=== PATIENT | male | born 1955 | race Caucasian/White ===

== ENCOUNTER 2019-09-23 06:44 | Outpatient (CLI) | payer MEDICARE, SELFPAY ==
[2019-09-23 07:50] LABS: Hemoglobin A1C 6.9 % (<5.7)
[2019-09-23 08:16] LABS: Alanine Aminotransferase 14 U/L (4-50); Albumin Level 4.1 g/dL (3.5-5.1); Alkaline Phosphatase 80 U/L (38-126); Aspartate Amino Transferase 26 U/L (17-59); Blood Urea Nitrogen 21 mg/dL (9-20); Calcium 8.7 mg/dL (8.4-10.2); Carbon Dioxide 31 mmol/L (22-30); Chloride 98 mmol/L (98-107); Cholesterol 105 mg/dL (0-200); Estimated Glomerular Filt Rate > 60; Glucose 131 mg/dL (75-110); HDL Direct 30 mg/dL; LDL Cholesterol Direct 58 mg/dL; Prostate Specific Antigen 0.2 ng/mL (< OR = 4.0); Sodium 134 mmol/L (137-145); Triglycerides 95 mg/dL (<150)
== END 2019-09-23 06:45 | disposition home or self-care (01) ==
PROVIDERS: PCP Internal Medicine; Visit Provider Nurse Practitioner
DX: E11.40 Type 2 diabetes mellitus with diabetic neuropathy, unspecified (principal); K74.0 Hepatic fibrosis; E78.5 Hyperlipidemia, unspecified; Z12.5 Encounter for screening for malignant neoplasm of prostate
CPT/HCPCS: 36415; 80053; 80061; 82248; 83036; 84153; G0103

== ENCOUNTER 2020-03-26 06:45 | Outpatient (CLI) | payer MEDICARE, SELFPAY ==
[2020-03-26 08:02] LABS: Hemoglobin A1C 6.5 % (<5.7)
[2020-03-26 08:08] LABS: Alanine Aminotransferase 15 U/L (4-50); Albumin Level 3.9 g/dL (3.5-5.1); Alkaline Phosphatase 75 U/L (38-126); Anion Gap 5 mmol/L (8-16); Aspartate Amino Transferase 26 U/L (17-59); Bilirubin,Total 0.8 mg/dL (0.2-1.3); Blood Urea Nitrogen 17 mg/dL (9-20); Calcium 8.9 mg/dL (8.4-10.2); Carbon Dioxide 33 mmol/L (22-30); Chloride 99 mmol/L (98-107); Cholesterol 111 mg/dL (0-200); Estimated Glomerular Filt Rate > 60; Glucose 143 mg/dL (75-110); HDL Direct 35 mg/dL; Potassium 4.5 mmol/L (3.4-5.0); Sodium 137 mmol/L (137-145); Triglycerides 64 mg/dL (<150)
[2020-03-26 08:19] LABS: LDL Cholesterol Direct 59 mg/dL
== END 2020-03-26 06:46 | disposition home or self-care (01) ==
PROVIDERS: PCP Internal Medicine; Visit Provider Nurse Practitioner
DX: E11.40 Type 2 diabetes mellitus with diabetic neuropathy, unspecified (principal); K74.00 Hepatic fibrosis, unspecified; E78.5 Hyperlipidemia, unspecified
CPT/HCPCS: 36415; 80053; 80061; 82248; 83036

== ENCOUNTER 2020-03-29 05:38 | Emergency (ER) | payer MEDICARE, SELFPAY ==
[2020-03-29 05:42] VITALS: BP 186/83; PULSE 81; RESP 16; TEMP 36.6; O2SAT 96
--- NOTE | 2020-03-29 05:55 | ED.GENADULT ---
HPI - General Adult General Chief complaint: Extremity Injury, Lower Stated complaint: lower leg bleeding Time Seen by Provider: 03/29/20 05:48 History of Present Illness HPI narrative: Patient is a 64-year-old gentleman who presents the emergency department with chief complaint of bleeding wound on the left leg. The patient reports he has got some small scabs on his lower extremity that one of them came off this evening and he started bleeding. The patient states that he had a large amount of bleeding initially and then applied a dressing to the area and then came to the emergency department. Patient denies any trauma denies chest pain shortness of breath denies being on blood thinners. Related Data Allergies Allergy/AdvReac Type Severity Reaction Status Date / Time Penicillins Allergy Mild Hives Verified 03/28/20 09:19 Review of Systems Review of Systems: Narrative: CONSTITUTIONAL: Denies fever, chills, or sweats. EYES: Denies visual changes, redness, or discharge. ENT: Denies rhinorrhea, congestion, sore throat, or otalgia. CARDIOVASCULAR: Denies chest pain, palpitations, or edema. RESPIRATORY: Denies cough or dyspnea. GASTROINTESTINAL: Denies abdominal pain, nausea, vomiting, or diarrhea. GENITOURINARY: Denies dysuria or hematuria. SKIN: Denies rash or itching. MUSCULOSKELETAL: Denies back pain, joint pain, or myalgia. NEUROLOGIC: Denies headache, numbness, or weakness. PSYCHIATRIC: Denies anxiety or depression. A 10 system review of systems was completed on the patient and is negative except for what is stated in the HPI. Nursing and ancillary documentation was reviewed. PMFSH Past Medical History Medical History Screening for prostate cancer Family History Family History Sibling Family history of multiple sclerosis Patient's sister is in good health Patient's brother is in good health Father Hypertension Family history of diabetes mellitus in first degree relative Diabetes mellitus Mother Family history of malignant neoplasm Patient's mother is Social History Social History Smoking status: Former smoker Alcohol intake: never Exam Narrative: Exam Narrative: GENERAL: Well-appearing, well-nourished, and in no acute distress. HEAD: Normocephalic, atraumatic. EYES: PERRLA and EOMI. ENT: Nares clear, no rhinorrhea or epistaxis. Mucous membranes moist. NECK: Supple. CHEST: Clear to auscultation. No respiratory distress. HEART: Regular rate and rhythm. No murmur heard. Normal peripheral pulses. ABDOMEN: Soft, nontender, nondistended, normal active bowel sounds. EXTREMITIES: Normal range of motion. No edema. SKIN: Warm, dry, small ulceration left lower extremity inferior to the knee approximately 2 mm in diameter, no active bleeding NEURO: No focal deficits. Alert and oriented x3. PSYCH: Normal mood and affect. Course Course Emergency Course: Patient is showing no signs of hemodynamic compromise. The bleeding has stopped at this point the wound was dressed and the patient will be discharged home Vital Signs Vital signs: Vital Signs Temperature 36.6 C 03/29/20 05:42 Pulse Rate 81 03/29/20 05:42 Respiratory Rate 16 03/29/20 05:42 Blood Pressure 186/83 H 03/29/20 05:42 Pulse Oximetry 96 03/29/20 05:42 Temperature 36.6 C 03/29/20 05:42 Pulse Rate 81 03/29/20 05:42 Respiratory Rate 16 03/29/20 05:42 Blood Pressure 186/83 H 03/29/20 05:42 Pulse Oximetry 96 03/29/20 05:42 Medical Decision Making Vital Signs Vital Signs: Vital Signs Temperature 36.6 C 03/29/20 05:42 Pulse Rate 81 03/29/20 05:42 Respiratory Rate 16 03/29/20 05:42 Blood Pressure 186/83 H 03/29/20 05:42 Pulse Oximetry 96 03/29/20 05:42 Temperature 36.6 C 03/29/20 05:
--- NOTE | 2020-03-29 05:57 | PC.NURSE ---
wound covered with telfa and 4x4's, renee wrapped for pressure, pt [facility].
[2020-03-29 06:04] VITALS: BP 189/86; PULSE 81; RESP 18; TEMP 36.6; O2SAT 96
== END 2020-03-29 06:06 | disposition home or self-care (01) ==
PROVIDERS: Emergency Provider Emergency Medicine; PCP Internal Medicine
DX: S80.812A Abrasion, left lower leg, initial encounter (principal); X58.XXXA Exposure to other specified factors, initial encounter
CPT/HCPCS: 99282

== ENCOUNTER 2020-05-12 06:06 | Emergency (ER) | payer MEDICARE, SELFPAY ==
[2020-05-12] VITALS (16 sets, daily range): BP systolic 149–171; BP diastolic 81–85; PULSE 70–87; RESP 13–19; TEMP 35.6; O2SAT 92–99
--- NOTE | ~2020-05-12 | XR_ITS ---
EXAMINATION: XR hip RT 2V w AP pelvis DATE: 05/12/2020 06:44 INDICATION: Right hip pain post fall TECHNIQUE: Anteroposterior view of the pelvis and anteroposterior and cross-table lateral views of th e right hip were obtained. COMPARISON: None. FINDINGS: There is a nondisplaced fracture involving the cephalad aspect of the right acetabulum which extends across the iliopectineal line. 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 No evident fractur e of the proximal femurs. IMPRESSION: 1. Acute nondisplaced right acetabular fracture. Reviewed, dictated and finalized at location A. RECORD CLERK
--- NOTE | ~2020-05-12 | CT_ITS ---
EXAMINATION: CT pelvis wo con DATE: 05/12/2020 07:35 INDICATION: Right hip pain post fall TECHNIQUE: High resolution computed tomography (CT) of the pelvis was performed without intravenous c ontrast. Additional sagittal and coronal reconstructions were performed. Automated exposure control a nd iterative reconstruction technique were employed. The dose-length product was 835.05 mGy-cm. COMPARISON: None FINDINGS: Nondisplaced acute transverse right acetabular fracture. There is <2 mm fracture gap with no signific ant incongruity along the superior articular surface of the acetabulum. Chronic nonunited fracture ac ross the left iliac crest. No other fractures identified. There is a small right hip joint hemarthros is along with a right obturator hematoma. Approximately 4 cm masslike density at the right posterior aspect of the bladder which could represent either neoplasm or potentially clot in the setting of hem aturia. At least 3 mm partially visualized stone at the lower pole of the right kidney. Visualized po rtions of the bowels including the appendix are normal. No free intraperineal gas in the pelvis. Subc utaneous edema along the anterior abdominal wall and posterior to the lumbar spine. No pathologically enlarged pelvic or inguinal lymphadenopathy. IMPRESSION: 1. Nondisplaced mildly comminuted transverse fracture of the right acetabulum. 2. 4 cm masslike density at the posterior bladder which could represent either urothelial carcinoma o r clot. Correlate with urinalysis and other ultrasound or cystoscopy. 3. Nephrolithiasis. Reviewed, dictated and finalized at location A. LLOFACIAL PROSTHETICS DENTIST IMPRESSION: 1. Nondisplaced mildly comminuted transverse fracture of the right acetabulum. 2. 4 cm masslike density at the posterior bladder which could represent either urothelial carcinoma or clot. Correlate with urinalysis and other ultrasound or cystoscopy. 3. Nephrolithiasis.
--- NOTE | 2020-05-12 06:22 | PC.NURSE ---
pt to xray via stretcher
[2020-05-12] MEDS: oxyCODONE/ACETAMINOPHEN (*CRX) 5-325 MG TABLET 1 TABLET PO (06:56)
--- NOTE | 2020-05-12 06:59 | ED.FALL ---
HPI - Fall General Chief Complaint: Fall Stated Complaint: fall, right hip injury Time Seen by Provider: 05/12/20 06:13 Source: patient Mode of arrival: ambulatory Limitations: no limitations History of Present Illness HPI Narrative: A 64-year-old male presents to the emergency department tonight after a slip and fall on the ice. Patient states that he was dropping his off at her dialysis appointment. On his way out he slipped and fell on a patch of ice on the sidewalk. Patient notes pain in his right leg and hip. He states the pain does not radiate down his leg. He states that he has numbness and tingling in this leg but that this is his normal diabetic neuropathy. Related Data Allergies Allergy/AdvReac Type Severity Reaction Status Date / Time Penicillins Allergy Mild Hives Verified 03/28/20 09:19 Review of Systems Review of Systems: Narrative: CONSTITUTIONAL: Denies fever, chills, or sweats. EYES: Denies visual changes, redness, or discharge. ENT: Denies rhinorrhea, congestion, sore throat, or otalgia. CARDIOVASCULAR: Denies chest pain, palpitations, or edema. RESPIRATORY: Denies cough or dyspnea. GASTROINTESTINAL: Denies abdominal pain, nausea, vomiting, or diarrhea. GENITOURINARY: Denies dysuria or hematuria. SKIN: Denies rash or itching. MUSCULOSKELETAL: Denies back pain, joint pain, or myalgia. Endorses pain in the right hip/buttock NEUROLOGIC: Denies headache, numbness, dizziness, or weakness. PSYCHIATRIC: Denies anxiety or depression. [facility] Past Medical History Medical History Screening for prostate cancer Family History Family History Sibling Family history of multiple sclerosis Patient's sister is in good health Patient's brother is in good health Father Hypertension Family history of diabetes mellitus in first degree relative Diabetes mellitus Mother Family history of malignant neoplasm Patient's mother is Social History Social History Smoking status: Former smoker Alcohol intake: never Exam Narrative: Exam Narrative: GENERAL: Well-appearing, well-nourished, and in no acute distress. HEAD: Normocephalic, atraumatic. EYES: PERRLA and EOMI. ENT: Nares clear, no rhinorrhea or epistaxis. Mucous membranes moist. Oropharynx without tonsillar hypertrophy exudate or other lesions. Bilateral TMs pearly [place] nonbulging NECK: Supple. No adenopathy or masses. No carotid bruits or JVD CHEST: Clear to auscultation. No respiratory distress. No wheezes rales or rhonchi HEART: Regular rate and rhythm. No murmur heard. Normal peripheral pulses. ABDOMEN: Obese soft, nontender, nondistended, normal active bowel sounds. EXTREMITIES: Normal range of motion. No edema. Limited range of motion of the right hip due to pain SKIN: Warm, dry, no rash. NEURO: No focal deficits. Alert and oriented x3. PSYCH: Normal mood and affect. Course Course Emergency Course: Patient will be signed out at 7 AM at change of shift to Dr. Kidd. Please see her documentation for final disposition. Vital Signs Vital signs: Vital Signs Temperature 35.6 C L 05/12/20 06:09 Pulse Rate 74 05/12/20 06:09 Respiratory Rate 16 05/12/20 06:09 Blood Pressure 171/81 H 05/12/20 06:09 Pulse Oximetry 99 05/12/20 06:09 Temperature 35.6 C L 05/12/20 06:09 Pulse Rate 74 05/12/20 06:09 Respiratory Rate 16 05/12/20 06:09 Blood Pressure 171/81 H 05/12/20 06:09 Pulse Oximetry 99 05/12/20 06:09 Discharge Plan Discharge Prescriptions: No Action metoprolol tartrate 25 mg tablet 25 mg PO Q12H Qty: 180 RF: 2 furosemide [Lasix] 20 mg tablet 20 mg PO QAM Qty: 90 RF: 2 magnesium oxide 400 mg (241.3 mg magnesium) tablet See Rx Instructions .ROUTE .COMPLEX Qty: 180 RF: 1 metformin 500 mg tablet 1,000 mg PO B
--- NOTE | 2020-05-12 09:54 | PC.NURSE ---
Contact patient's daughter in law for updates and ride home [phone]
== END 2020-05-12 11:03 | disposition home or self-care (01) ==
PROVIDERS: Emergency Provider General Practice; PCP Internal Medicine
DX: S32.491A Other specified fracture of right acetabulum, initial encounter for closed fracture (principal); Z87.891 Personal history of nicotine dependence; R93.41 Abnormal radiologic findings on diagnostic imaging of renal pelvis, ureter, or bladder; N20.0 Calculus of kidney; W00.0XXA Fall on same level due to ice and snow, initial encounter
CPT/HCPCS: 72192; 73502; 99284; A9270

== ENCOUNTER 2020-06-12 16:12 | Outpatient (CLI) | payer MEDICARE, SELFPAY ==
--- NOTE | ~2020-06-12 | XR_ITS ---
EXAMINATION: XR pelvis w obliques DATE: 06/12/2020 16:48 INDICATION: Unspecified fracture of right acetabulum. TECHNIQUE: 3 views of the pelvis on 5 radiographs were obtained. COMPARISON: Pelvis and right hip radiographs 05/12/2020, CT pelvis 05/12/2020 FINDINGS: There is an old fracture of left iliac wing with nonunion. There is a nondisplaced comminut ed transverse fracture of right acetabulum. There is mild osteoarthritis of the hips. There is mild l umbar spondylosis. IMPRESSION: 1. Unchanged nondisplaced comminuted transverse fracture of right acetabulum. 2. Mild osteoarthritis of the hips. Reviewed, dictated and finalized at location A. GER FIRE
== END 2020-06-12 16:13 | disposition home or self-care (01) ==
PROVIDERS: PCP Internal Medicine; Visit Provider Orthopaedic Surgery
DX: S32.401A Unspecified fracture of right acetabulum, initial encounter for closed fracture (principal); X58.XXXA Exposure to other specified factors, initial encounter; M16.0 Bilateral primary osteoarthritis of hip
CPT/HCPCS: 72190

== ENCOUNTER 2020-06-25 09:12 | Outpatient (NON) | payer MEDICARE, SELFPAY ==
[2020-06-25 09:51] LABS: Anion Gap 5 mmol/L (8-16); Blood Urea Nitrogen 21 mg/dL (9-20); Calcium 8.8 mg/dL (8.4-10.2); Carbon Dioxide 33 mmol/L (22-30); Chloride 98 mmol/L (98-107); Estimated Glomerular Filt Rate > 60; Glucose 142 mg/dL (75-110); Potassium 4.1 mmol/L (3.4-5.0); Sodium 136 mmol/L (137-145)
== END 2020-06-25 09:13 ==
PROVIDERS: PCP Internal Medicine; Visit Provider Internal Medicine
DX: S32.401D Unspecified fracture of right acetabulum, subsequent encounter for fracture with routine healing (principal); E11.40 Type 2 diabetes mellitus with diabetic neuropathy, unspecified; L40.9 Psoriasis, unspecified; I10 Essential (primary) hypertension; X58.XXXD Exposure to other specified factors, subsequent encounter
CPT/HCPCS: 80048

== ENCOUNTER 2020-07-16 07:02 | Outpatient (CLI) | payer MEDICARE, SELFPAY ==
[2020-07-16 08:40] LABS: Potassium 3.7 mmol/L (3.4-5.0)
[2020-07-16 08:48] LABS: Anion Gap 3 mmol/L (8-16); Blood Urea Nitrogen 18 mg/dL (9-20); Calcium 8.6 mg/dL (8.4-10.2); Carbon Dioxide 38 mmol/L (22-30); Chloride 97 mmol/L (98-107); Estimated Glomerular Filt Rate > 60; Glucose 173 mg/dL (75-110); Sodium 138 mmol/L (137-145)
== END 2020-07-16 07:03 | disposition home or self-care (01) ==
PROVIDERS: PCP Internal Medicine; Visit Provider Nurse Practitioner
DX: R60.9 Edema, unspecified (principal); I10 Essential (primary) hypertension
CPT/HCPCS: 36415; 80048

== ENCOUNTER 2020-10-01 07:01 | Outpatient (CLI) | payer MEDICARE, SELFPAY ==
[2020-10-01 08:32] LABS: Alanine Aminotransferase 14 U/L (4-50); Alkaline Phosphatase 73 U/L (38-126); Anion Gap 9 mmol/L (8-16); Aspartate Amino Transferase 25 U/L (17-59); Bilirubin,Total 1.1 mg/dL (0.2-1.3); Blood Urea Nitrogen 13 mg/dL (9-20); Carbon Dioxide 31 mmol/L (22-30); Chloride 98 mmol/L (98-107); Cholesterol 105 mg/dL (0-200); Estimated Glomerular Filt Rate > 60; Glucose 147 mg/dL (75-110); HDL Direct 30 mg/dL; Potassium 3.6 mmol/L (3.4-5.0); Sodium 138 mmol/L (137-145); Triglycerides 91 mg/dL (<150)
[2020-10-01 08:40] LABS: Hemoglobin A1C 7.1 % (<5.7)
[2020-10-01 08:43] LABS: LDL Cholesterol Direct 50 mg/dL
[2020-10-01 09:01] LABS: Prostate Specific Antigen 0.1 ng/mL (< OR = 4.0)
== END 2020-10-01 07:02 | disposition home or self-care (01) ==
LOC: ANHLAB 07:07
PROVIDERS: PCP Internal Medicine; Visit Provider Internal Medicine
DX: E11.40 Type 2 diabetes mellitus with diabetic neuropathy, unspecified (principal); I10 Essential (primary) hypertension; Z12.5 Encounter for screening for malignant neoplasm of prostate; E78.5 Hyperlipidemia, unspecified
CPT/HCPCS: 36415; 80053; 80061; 83036; 84153; G0103

== ENCOUNTER 2021-03-18 06:49 | Outpatient (CLI) | payer MEDICARE, SELFPAY ==
[2021-03-18 08:02] LABS: Alanine Aminotransferase 14 U/L (4-50); Albumin Level 3.8 g/dL (3.5-5.1); Alkaline Phosphatase 83 U/L (38-126); Anion Gap 6 mmol/L (8-16); Aspartate Amino Transferase 23 U/L (17-59); Bilirubin,Total 0.8 mg/dL (0.2-1.3); Blood Urea Nitrogen 15 mg/dL (9-20); Calcium 8.9 mg/dL (8.4-10.2); Carbon Dioxide 32 mmol/L (22-30); Chloride 98 mmol/L (98-107); Cholesterol 107 mg/dL (0-200); Estimated Glomerular Filt Rate > 60; Glucose 160 mg/dL (65-110); HDL Direct 33 mg/dL; Potassium 4.2 mmol/L (3.4-5.0); Sodium 136 mmol/L (137-145); Triglycerides 76 mg/dL (<150)
[2021-03-18 08:13] LABS: LDL Cholesterol Direct 54 mg/dL
[2021-03-18 08:20] LABS: Creatinine Urine 159.3 mg/dL
[2021-03-18 09:32] LABS: Microalbumin Urine Random > 1140.0 mg/L (0-16.7)
== END 2021-03-18 06:50 | disposition home or self-care (01) ==
PROVIDERS: PCP Internal Medicine; Visit Provider Nurse Practitioner
DX: E11.40 Type 2 diabetes mellitus with diabetic neuropathy, unspecified (principal); E78.5 Hyperlipidemia, unspecified
CPT/HCPCS: 36415; 80053; 80061; 82043; 83036

== ENCOUNTER 2021-04-04 06:43 | Outpatient (CLI) | payer MEDICARE, SELFPAY ==
[2021-04-04 07:25] LABS: Anion Gap 5 mmol/L (8-16); Blood Urea Nitrogen 16 mg/dL (9-20); Calcium 9.1 mg/dL (8.4-10.2); Carbon Dioxide 33 mmol/L (22-30); Chloride 95 mmol/L (98-107); Estimated Glomerular Filt Rate > 60; Glucose 162 mg/dL (65-110); Potassium 4.4 mmol/L (3.4-5.0); Sodium 133 mmol/L (137-145)
== END 2021-04-04 06:44 | disposition home or self-care (01) ==
PROVIDERS: PCP Internal Medicine; Visit Provider Internal Medicine
DX: I10 Essential (primary) hypertension (principal)
CPT/HCPCS: 36415; 80048

== ENCOUNTER 2021-04-05 06:46 | Outpatient (CLI) | payer MEDICARE, SELFPAY ==
[2021-04-05 10:32] LABS: Creatinine Urine 60.1 mg/dL
[2021-04-05 10:34] LABS: Creatinine 24 Hour Urine 1.2 gm/24 (1.0-2.0); Total Volume 24 Hour Urine 2100 ml
[2021-04-05 10:40] LABS: Total Protein Urine Random 184 mg/dL
[2021-04-05 10:41] LABS: Total Protein Urine 24 Hr 3864 mg/24hr (28-141); Total Volume 24 Hour Urine 2100 ml
== END 2021-04-05 06:47 | disposition home or self-care (01) ==
PROVIDERS: PCP Internal Medicine; Visit Provider Internal Medicine
DX: E11.9 Type 2 diabetes mellitus without complications (principal); R80.9 Proteinuria, unspecified
CPT/HCPCS: 81050; 82570; 84156

== ENCOUNTER 2021-05-03 07:01 | Outpatient (CLI) | payer MEDICARE, SELFPAY ==
[2021-05-03 08:06] LABS: Anion Gap 9 mmol/L (8-16); Blood Urea Nitrogen 24 mg/dL (9-20); Carbon Dioxide 31 mmol/L (22-30); Chloride 95 mmol/L (98-107); Estimated Glomerular Filt Rate > 60; Glucose 167 mg/dL (65-110); Sodium 135 mmol/L (137-145)
[2021-05-03 08:08] LABS: Albumin Level 4.5 g/dL (3.5-5.1); Anion Gap 10 mmol/L (8-16); Blood Urea Nitrogen 23 mg/dL (9-20); Carbon Dioxide 31 mmol/L (22-30); Chloride 95 mmol/L (98-107); Creatinine Urine 124.6 mg/dL; Estimated Glomerular Filt Rate > 60; Glucose 166 mg/dL (65-110); Phosphorus 3.8 mg/dL (2.5-4.5); Potassium 4.1 mmol/L (3.4-5.0); Sodium 136 mmol/L (137-145)
[2021-05-03 08:13] LABS: Complement C3 137 mg/dL (88-165)
[2021-05-03 08:15] LABS: Total Protein Urine Random 347 mg/dL; Ur Ttl Prot Creatinine Ratio 2.78 mg/mg (0-0.20)
[2021-05-07 09:32] LABS: Anti Glomerular Basement Memb <1.0 AI (<1.0)
[2021-05-07 16:33] LABS: Albumin 4.1 g/dL (3.8-4.8); Alpha 1 Globulin 0.3 g/dL (0.2-0.3); Alpha 2 Globulin 0.7 g/dL (0.5-0.9); Beta 1 Globulin 0.5 g/dL (0.4-0.6); Gamma Globulin 0.9 g/dL (0.8-1.7); Protein, Total 6.8 g/dL (6.1-8.1)
[2021-05-07 20:28] LABS: Creatinine, Random Urine 121 mg/dL (20-320); Total Protein/Creatinine Ratio 1802 mg/g creat (22-128)
[2021-05-08 00:15] LABS: ANCA Screen Negative (Negative)
== END 2021-05-03 07:02 | disposition home or self-care (01) ==
PROVIDERS: PCP Internal Medicine; Referring Provider Internal Medicine Nephrology; Visit Provider Internal Medicine
DX: R80.8 Other proteinuria (principal); E11.29 Type 2 diabetes mellitus with other diabetic kidney complication; I10 Essential (primary) hypertension
CPT/HCPCS: 36415; 80048; 80069; 82570; 83520; 84155; 84156; 84165; 84166; 86036; 86038; 86160; 86225

== ENCOUNTER 2021-06-17 13:12 | Outpatient (CLI) | payer MEDICARE, SELFPAY ==
--- NOTE | ~2021-06-17 | US_ITS ---
EXAMINATION: US renal BI DATE: 06/17/2021 13:55 INDICATION: Proteinuria TECHNIQUE: Multiple ultrasound grayscale images of the kidneys were obtained. COMPARISON: None. FINDINGS: The right kidney measures 9.2 x 5.7 x 7.4 cm. The left kidney measures 11.8 x 5.6 x 7.1 cm. The kidne ys demonstrate normal echogenicity. Echogenic shadowing stones at both kidneys measuring approximatel y 1.4 cm the upper pole of the right kidney and 1 cm at the lower pole of the left kidney. There is n o hydronephrosis in either kidney. 6.2 cm mass with internal vascularity within the bladder concerni ng for urothelial carcinoma. Instantly noted are echogenic and shadowing gallstones. There is also a nodular liver surface consistent with cirrhosis. IMPRESSION: 1. 6.2 cm bladder mass concerning for urothelial carcinoma. Recommend urologic consultation. Dr. Melody salazar discussed these findings with Dr. Hebert at 3:55 PM. 2. Bilateral nonobstructing nephrolithiasis. 3. Cholelithiasis. 4. Cirrhosis. Reviewed, dictated and finalized at location A. LUS PROPERTY DISPOSAL AGENT IMPRESSION: 1. 6.2 cm bladder mass concerning for urothelial carcinoma. Recommend urologic consultation. Dr. Peralta discussed these findings with Dr. Hebert at 3:55 P M. 2. Bilateral nonobstructing nephrolithiasis. 3. Cholelithiasis. 4. Cirrhosis.
== END 2021-06-17 13:13 | disposition home or self-care (01) ==
LOC: ANHIMG 13:13
PROVIDERS: PCP Internal Medicine; Visit Provider Internal Medicine Nephrology
DX: R80.8 Other proteinuria (principal); N20.0 Calculus of kidney; K80.20 Calculus of gallbladder without cholecystitis without obstruction; K76.0 Fatty (change of) liver, not elsewhere classified
CPT/HCPCS: 76775

== ENCOUNTER 2021-09-04 09:24 | Outpatient (CLI) | payer MEDICARE, SELFPAY ==
--- NOTE | 2021-09-04 09:30 | ECG_ITS ---
Measurements Intervals [place] Rate: 64 P: [place]: 0 QRS: 30 QRSD: 121 T: 94 QT: 414 QTc: 428 Interpretive Statements ATRIAL FIBRILLATION INTRAVENTRICULAR CONDUCTION DELAY BORDERLINE ST-T WAVE ABNORMALITY- INF/HIGH LAT LEADS BASELINE ARTIFACT- II, III, AVL, V4-V6 ABNORMAL ECG Electronically Signed On 09-04-2021 10:07:54 CDT by Kris Wynne D.O.
[2021-09-04 10:11] LABS: Anion Gap 6 mmol/L (8-16); Blood Urea Nitrogen 15 mg/dL (9-20); Calcium 8.3 mg/dL (8.4-10.2); Carbon Dioxide 31 mmol/L (22-30); Chloride 96 mmol/L (98-107); Estimated Glomerular Filt Rate > 60; Glucose 193 mg/dL (65-110); Potassium 4.4 mmol/L (3.4-5.0); Sodium 133 mmol/L (137-145)
== END 2021-09-04 09:25 | disposition home or self-care (01) ==
PROVIDERS: Anesthesiology; PCP Internal Medicine; Visit Provider Urology
DX: I10 Essential (primary) hypertension (principal); Z01.818 Encounter for other preprocedural examination; I45.9 Conduction disorder, unspecified; I48.91 Unspecified atrial fibrillation
CPT/HCPCS: 36415; 80048; 93005

== ENCOUNTER 2021-09-05 00:44 | Day surgery (SDC) | payer MEDICARE, SELFPAY ==
--- NOTE | 2021-09-02 09:45 | PC.NURSE ---
Report to the Outpatient Waiting Room, entrance under the green pavilion located off [facility], at time _1000 on date __09/05/21 . OR Time: __1200 . - You and your visitor will be asked a series of questions to screen for COVID 19 for your protection. - Only one visitor is allowed at this time. - The patient visitor is requested to leave or wait in car when not with patient. - A mask is required within the hospital. Patients may have clear liquids (water, carbonated beverages, clear teas, apple juice) until 3 hours prior to surgery with a maximum of 20 ounces. - No food from midnight until time of surgery - Infants may have breast milk until 4 hours before surgery, infant formula 6 hours prior to surgery. - Children will be allowed to drink immediately following surgery. If applicable, please bring a bottle or sippy cup to assist with drinking. Juice, water, soda, and popsicles are readily available. For infants on formula, please bring formula the day of surgery. Pacifiers are allowed. Take the following medications with a SIP of water the morning of surgery: __GABAPENTIN,METOPROLOL Medications to discontinue per physician ___ALL VITAMINS AND SUPPLEMENTS 3 DAYS PRE OP Date to take last dose__09/01/21 Please no make-up, nail mauritian, hairspray, perfume, deodorant, or body powder the day of surgery. No jewelry (including any body piercings) or valuables the day of surgery, leave them at home. Please take a shower or bath the night before, or the morning of, surgery with an antibacterial soap. Wear comfortable, loose fitting clothing. Children are encouraged to wear pajamas. - Jewelry must be removed prior to entering the operating room. Rings and piercings that are not removed may be cut off. - The hospital will not accept responsibility for valuables. - Please leave all valuables, including medications, at home the day of surgery. If you are going home after surgery, a licensed cdl team truck driver must drive you home. - NO public transportation without another adult. - We recommend that an adult stay with you for 24 hours following discharge. - We also recommend that you do not drive, make important decision, drink alcoholic beverages, or take any drugs that were not prescribed by your health care provider for at least 24 hours after your discharge time. For Pediatric surgeries, we recommend two adults accompany the child home (only one inside the building at this time). Follow any additional instructions given to you from your surgeon. If you or anyone in your household have experienced Covid symptoms in the past week, please notify your surgeon or the nurse liaison at the phone number below for possible testing. Telephone instructions given to __PATIENT and asked if any additional questions and then verbalized understanding. Patient advised to call surgeon office or pre surgery nurse liaison [phone] if any additional questions.
[2021-09-02 09:54] VITALS: BMI 36.6
[2021-09-05] VITALS (7 sets, daily range): BP systolic 118–147; BP diastolic 64–84; PULSE 58–80; RESP 14–20; TEMP 36.3–36.4; O2SAT 91–100
--- NOTE | ~2021-09-05 | XR_ITS ---
EXAMINATION: XR retrograde pyelogram BI DATE: 09/05/2021 12:21 INDICATION: Bilateral retrograde pyelograms TECHNIQUE: 172 fluoroscopic images of the abdomen and pelvis were obtained during procedure performed by Dr. Scott. Radiologist was not present for the imaging or procedure. The amount of fluoroscopy t jeffrey used during this procedure was 0.5 minutes. COMPARISON: Renal ultrasound dated 06/17/2021. FINDINGS: Retrograde contrast injection into first the left ureter and renal collecting system and subsequently the right ureter and renal collecting system comminuted which appears normal with no urothelial irre gularities. Chronic fracture deformity at the left iliac wing. IMPRESSION: 1. No urothelial irregularities identified either the left or right ureters and renal collecting syst ems. See procedure note for further detail. Reviewed, dictated and finalized at location B. IMPRESSION: 1. No urothelial irregularities identified either the left or right ureters and renal collecting systems. See procedure note for further detail.
--- NOTE | 2021-09-05 06:30 | WPDHPUPDATE1 ---
History and Physical Update Update Date/Time: 09/05/21 06:30 History and Physical has been reviewed, including an updated exam of the patient. There are NO changes in the patient's condition. Risks, benefits, and alternatives have been discussed and questions answered. Patient agrees to proceed with procedure.
[2021-09-05] MEDS: LACTATED RINGERS 1,000 ML 30 ML IV CONT (10:05)
[2021-09-05 10:13] LABS: Glucose Point of Care 200 mg/dl (65-105)
--- NOTE | 2021-09-05 10:23 | WPDANESEPPF ---
Anes - Initial Pre Proc Eval Procedure: Operation Date: 09/05/21 11:30 Proposed Procedures p Trans Urethral Resection Bladder Tumor - Tim Scott MD s Cystoscopy with Bilateral Retrograde Pyelogram - Tim Scott MD Date/Time: 09/05/21 10:23 Surgeon: Tim Scott MD Pre Op Diagnosis: BPH, Bladder Ca Patient Data Age: 65 Gender: M Height: 1.8 m Weight: 123.9 kg Last Vital Signs Temp 36.4 C 09/05/21 09:32 Pulse 58 L 09/05/21 09:32 Resp 20 09/05/21 09:32 BP 144/68 H 09/05/21 09:32 Pulse Ox 97 09/05/21 09:32 O2 Del Method Room Air 09/05/21 09:32 Allergies Allergy/AdvReac Type Severity Reaction Status Date / Time Penicillins Allergy Intermediate Hives Verified 09/05/21 09:51 Home Medications Medication Instructions Recorded Confirmed Type tramadol 50 mg tablet 50 mg PO BID PRN pain #60 tabs 11/15/20 09/05/21 Rx losartan 25 mg tablet 25 mg PO DAILY #90 tabs 06/14/21 09/05/21 Rx metoprolol tartrate 25 mg tablet 25 mg PO Q12H #180 tabs 06/14/21 09/05/21 Rx blood-glucose meter (True Metrix #1 ea 06/21/21 Rx Glucose Meter) furosemide 40 mg tablet (Lasix) 40 mg PO QAM #90 tabs 06/21/21 09/05/21 Rx spironolactone 50 mg tablet 50 mg PO DAILY #90 tabs 06/21/21 09/05/21 Rx blood sugar diagnostic (True #100 ea 08/19/21 Rx Metrix Glucose Test Strip) finasteride 5 mg tablet 5 mg PO DAILY 09/02/21 09/05/21 History ecsejczdhuij-xpo-nnsea acid-vit 1 tablet PO DAILY 09/02/21 09/05/21 History K-lycop 400 mcg-20 mcg-370 mcg tablet (Men's 50 Plus Multivitamin) atorvastatin 20 mg tablet 20 mg PO DAILY 09/05/21 09/05/21 History gabapentin 300 mg capsule 300 mg PO TID 09/05/21 09/05/21 History magnesium oxide 400 mg (241.3 mg 400 mg PO BID 09/05/21 09/05/21 History magnesium) tablet metformin 500 mg tablet 500 mg PO BID 09/05/21 09/05/21 History Laboratory Tests 09/05/21 10:09 POC Capillary Glucose 200 mg/dl H mg/dl (65-105) Patient hx anesthesia problems: none Family hx anesthesia problems: none Results Review: All pre-operative results and documents have been reviewed as part of the pre-operative evaluation. [facility] Past Medical History Medical History Edema Essential (primary) hypertension Hyperlipidemia, unspecified Right acetabular fracture Screening for prostate cancer Type 2 diabetes mellitus with diabetic neuropathy, unspecified Family History Family History Sibling Family history of multiple sclerosis Patient's sister is in good health Patient's brother is in good health Father Hypertension Family history of diabetes mellitus in first degree relative Diabetes mellitus Mother Family history of malignant neoplasm Patient's mother is Social History Social History Smoking status: Never smoker Tobacco type: smokeless tobacco Smokeless tobacco user: chewing tobacco Additional smoking assessment comments: CURRENTLY CHEWS TOBACCO Alcohol intake: former Drinks per week: 84 Alcohol use details: STATES HASN'T HAD A DRINK IN 10-12 YEARS NOW Substance use: never Substance use type: does not use Living arrangements: with family Spiritual care concerns: No Anes - Eval Final PreProcedure Day of Procedure 09/05/21 10:23 Patient weight: obese Heart: regular rate and rhythm Lungs: clear to auscultation Airway: Mallampati scale class II and special considerations poor dentition Neurological: alert and oriented Last oral intake: >/= 8 hours ASA classification: IV Emergent: no Anesthetic plan: proceed Anesthesia type and monitoring: general LMA and standard monitoring Results Review: All pre-operative results and documents have been reviewed as part of the pre-operative evaluation. Informed Consent: The patient's anestheti
--- NOTE | 2021-09-05 10:28 | SUR.PREOP ---
0930-PT HAS OPEN ABRASIONS X2 ON LEFT [place] AREA-STATES SCRAPED AGAINST SOMETHING A FEW DAYS AGO.
[2021-09-05] MEDS: ceFAZolin 2 GM/D5W 50 ML 2 GM/50 ML BAG IVPB (11:55)
[2021-09-05] MEDS: LIDOCAINE HCL 2% GEL UROJET 10 ML PKG MUCOUS MEM (12:21)
--- NOTE | 2021-09-05 13:17 | P.OP_ITS ---
Procedure Note - Detailed Date of Procedure 09/05/21 Pre-op Diagnosis BPH, Bladder Ca Post-op Diagnosis Same Procedure Performed Cystoscopy, bilateral retrograde pyelography, TURBT (large, 6-7 cm) Surgeon Tim Scott MD Description of Procedure The patient is brought to the operative suite where he is prepped and draped in a routine sterile fashion while in the dorsal lithotomy position. 2% lidocaine jelly was introduced in the urethra and allowed to stand for an appropriate period of time. Systemic sedation was administered by the anesthesia department. Cystoscopy was undertaken with a 21 F rigid cystoscope. The bladder neck and urethra were endoscopically normal. There were no urethral strictures. The prostatic urethral estimated length was 2.5cm. There was moderate obstruction of the prostatic urethra with a moderate median lobe. Patient's bladder has a large papillary neoplasm arising in the right posterior lateral bladder wall just lateral and superior to the ureteral orifice. There was no intravesical foreign body. He had a single orthoptic ureteral orifice bilaterally. There was clear efflux from each ureteral orifice. An 8F cone- tipped catheter was used to obtain bilateral retrograde pyelogram. There was no hydronephrosis, obstruction, filling defects, stones or other identifiable pathology in the ureter or collecting system bilaterally. The contrast drained promptly bilaterally. At this point the cystoscope was removed and a 24 F resectoscope sheath was placed. The large neoplasm was resected in its entirety with great care taken to avoid injury to the right ureteral orifice. The base of the bladder tumor was sent as a separate specimen. Base and periphery were cauterized with a combination of a loop electrode and a 5 mm rollerball. Remainder of the bladder was clear without is neoplasm. The prostatic shows some signs of papillary changes. Resectoscope was removed and 18 F catheter was placed to drainage. Because of the broad base of this bladder tumor in the need for a deeper section I opted against installation of chemotherapy postoperatively. Estimated Blood Loss 10 Drains Yes Pathology None sent
[2021-09-05 13:20] LABS: Glucose Point of Care 179 mg/dl (65-105)
[2021-09-05] MEDS: fentaNYL CITRATE INJ (*CRX) 100 MCG/2 ML VIAL 25 MCG IV PUSH ×3 (13:25→13:38)
== END 2021-09-05 14:44 | disposition home or self-care (01) ==
PROVIDERS: PCP Internal Medicine; Visit Provider Urology
PROC: 0TBB8ZZ Excision of Bladder, Via Natural or Artificial Opening Endoscopic (ICD-10-PCS; CPT 52240; principal; 2021-09-05 11:30)
PROC: (CPT 52352; 2021-09-05 11:30)
DX: C67.8 Malignant neoplasm of overlapping sites of bladder (principal); N40.1 Benign prostatic hyperplasia with lower urinary tract symptoms; R35.1 Nocturia; R39.12 Poor urinary stream; I10 Essential (primary) hypertension; E11.40 Type 2 diabetes mellitus with diabetic neuropathy, unspecified; E78.00 Pure hypercholesterolemia, unspecified; Z79.84 Long term (current) use of oral hypoglycemic drugs; F17.220 Nicotine dependence, chewing tobacco, uncomplicated; E66.9 Obesity, unspecified; Z68.38 Body mass index [BMI] 38.0-38.9, adult
CPT/HCPCS: 52240; 36415; 74420; 80048; 82948; 88305; 93005; C1758; C1769; J0690; J2250; J3010; J7120

== ENCOUNTER → 2021-10-01 01:29 | Outpatient (CLI) | payer MEDICARE, SELFPAY ==
[2021-10-01 17:33] LABS: SARS-CoV-2 RNA PCR Negative
== END ==
PROVIDERS: PCP Nurse Practitioner; Visit Provider Nurse Practitioner
DX: R05.9 Cough, unspecified (principal); Z20.822 Contact with and (suspected) exposure to COVID-19
CPT/HCPCS: C9803; U0003; U0005

== ENCOUNTER 2021-10-09 06:48 | Outpatient (CLI) | payer MEDICARE, SELFPAY ==
[2021-10-09 08:59] LABS: Alanine Aminotransferase 15 U/L (6-50); Albumin Level 3.8 g/dL (3.5-5.1); Alkaline Phosphatase 74 U/L (38-126); Anion Gap 4 mmol/L (8-16); Aspartate Amino Transferase 26 U/L (17-59); Bilirubin,Total 0.7 mg/dL (0.2-1.3); Blood Urea Nitrogen 14 mg/dL (9-20); Calcium 8.6 mg/dL (8.4-10.2); Carbon Dioxide 33 mmol/L (22-30); Chloride 100 mmol/L (98-107); Cholesterol 113 mg/dL (0-200); Estimated Glomerular Filt Rate > 60; Glucose 163 mg/dL (65-110); HDL Direct 31 mg/dL; Potassium 4.5 mmol/L (3.4-5.0); Sodium 137 mmol/L (137-145); Triglycerides 76 mg/dL (<150)
[2021-10-09 09:09] LABS: Hemoglobin A1C 7.1 % (<5.7)
[2021-10-09 09:10] LABS: LDL Cholesterol Direct 56 mg/dL
[2021-10-09 09:29] LABS: Prostate Specific Antigen 0.2 ng/mL (< OR = 4.0)
== END 2021-10-09 06:49 | disposition home or self-care (01) ==
PROVIDERS: PCP Nurse Practitioner; Visit Provider Internal Medicine
DX: Z12.5 Encounter for screening for malignant neoplasm of prostate (principal); E11.40 Type 2 diabetes mellitus with diabetic neuropathy, unspecified; E78.5 Hyperlipidemia, unspecified; I10 Essential (primary) hypertension
CPT/HCPCS: 36415; 80053; 80061; 83036; 84153; G0103

== ENCOUNTER 2022-01-13 09:15 | Outpatient (CLI) | payer MEDICARE, SELFPAY ==
[2022-01-13 10:30] LABS: Anion Gap 10 mmol/L (8-16); Blood Urea Nitrogen 16 mg/dL (9-20); Calcium 8.5 mg/dL (8.4-10.2); Carbon Dioxide 29 mmol/L (22-30); Chloride 97 mmol/L (98-107); Estimated Glomerular Filt Rate > 60; Glucose 175 mg/dL (65-110); Potassium 4.3 mmol/L (3.4-5.0); Sodium 136 mmol/L (137-145)
== END 2022-01-13 09:16 | disposition home or self-care (01) ==
LOC: ANHSURGERY 09:22
PROVIDERS: Anesthesiology; PCP Internal Medicine; Visit Provider Urology
DX: E11.40 Type 2 diabetes mellitus with diabetic neuropathy, unspecified (principal); Z01.818 Encounter for other preprocedural examination
CPT/HCPCS: 36415; 80048

== ENCOUNTER 2022-01-16 01:47 | Day surgery (SDC) | payer MEDICARE, SELFPAY ==
[2022-01-09 09:43] VITALS: BMI 37.8
--- NOTE | 2022-01-09 09:49 | PC.NURSE ---
PRE-OP INSTRUCTIONS, PLEASE READ CAREFULLY Report to the Outpatient Waiting Room, entrance under the green pavilion located off [facility], at time _0600_ on date _01/16/22_. OR Time: _0730_. Time changes happen often and if your time is changed the preop area will call you the afternoon before. - You and your visitor will be asked to self-screen and do not enter if you have any COVID symptoms. - Only one visitor and NO children visitors are allowed at this time. - The patient visitor is requested to leave or wait in car when not with patient due to restrictions. - A mask is required within the hospital. Patients may have clear liquids (water, carbonated beverages, clear teas, apple juice) until 3 hours prior to surgery (0430 AM) with a maximum of 20 ounces. - No food from midnight until time of surgery Take the following medications with a SIP of water the morning of surgery: _GABAPENTIN, METOPROLOL, TRAMADOL IF NEEDED_ Medications to discontinue per physician __VITAMINS/SUPPLEMENTS 3 DAYS PRIOR TO SURGERY_ Date to take last dose 01/12/22 Please no make-up, nail equatorial guinean, hairspray, perfume, deodorant, or body powder the day of surgery. No jewelry (including any body piercings) or valuables the day of surgery, leave them at home. Please take a shower or bath the night before, or the morning of, surgery with an antibacterial soap. Wear comfortable, loose fitting clothing. - Jewelry must be removed prior to entering the operating room. Rings and piercings that are not removed may be cut off. - The hospital will not accept responsibility for valuables. - Please leave all valuables, including medications, at home the day of surgery. If you are going home after surgery, a licensed laborer driver must drive you home. - NO public transportation without another adult. - We recommend that an adult stay with you for 24 hours following discharge. - We also recommend that you do not drive, make important decision, drink alcoholic beverages, or take any drugs that were not prescribed by your health care provider for at least 24 hours after your discharge time. Follow any additional instructions given to you from your surgeon. If you or anyone in your household have experienced Covid symptoms in the past week, please notify your surgeon or the nurse liaison at the phone number below for possible testing. Telephone instructions given to __PT and asked if any additional questions and then verbalized understanding. Patient advised to call surgeon office or pre surgery nurse liaison [phone] if any additional questions.
--- NOTE | 2022-01-15 13:40 | WPDANESEPPF ---
Anes - Initial Pre Proc Eval Procedure: Operation Date: 01/16/22 07:30 Proposed Procedures p Trans Urethral Resection Bladder Tumor with Gemcitabine Instillation - Tim Scott MD Date/Time: 01/15/22 13:40 Surgeon: Tim Scott MD Pre Op Diagnosis: Recurrent Bladder Ca Patient Data Age: 66 Gender: M Height: 1.8 m Weight: 123 kg Allergies Allergy/AdvReac Type Severity Reaction Status Date / Time Penicillins Allergy Intermediate Hives Verified 01/16/22 06:25 Home Medications Medication Instructions Recorded Confirmed Type blood-glucose meter (True Metrix #1 ea 06/21/21 01/09/22 Rx Glucose Meter) finasteride 5 mg tablet 5 mg PO DAILY 09/02/21 01/16/22 History pwyadvbwqucq-mnr-tzuww acid-vit 1 tablet PO DAILY 09/02/21 01/16/22 History K-lycop 400 mcg-20 mcg-370 mcg tablet (Men's 50 Plus Multivitamin) gabapentin 300 mg capsule 300 mg PO TID 09/05/21 01/16/22 History tramadol 50 mg tablet 50 mg PO BID PRN pain #60 tabs 10/09/21 01/16/22 Rx atorvastatin 20 mg tablet 20 mg PO DAILY #90 tabs 11/11/21 01/16/22 Rx metoprolol tartrate 25 mg tablet 25 mg PO Q12H #180 tabs 11/11/21 01/16/22 Rx losartan 25 mg tablet 50 mg PO DAILY #90 tabs 11/20/21 01/16/22 Rx magnesium oxide 400 mg (241.3 mg 400 mg PO BID #180 tabs 11/20/21 01/16/22 Rx magnesium) tablet blood sugar diagnostic (True #100 ea 11/22/21 01/09/22 Rx Metrix Glucose Test Strip) metformin 500 mg tablet See Rx Instructions PO BID #270 12/04/21 01/16/22 Rx tabs furosemide 40 mg tablet (Lasix) 40 mg PO QAM #90 tabs 12/23/21 01/16/22 Rx spironolactone 50 mg tablet 50 mg PO DAILY #90 tabs 12/23/21 01/16/22 Rx Patient hx anesthesia problems: none Family hx anesthesia problems: none Results Review: All pre-operative results and documents have been reviewed as part of the pre-operative evaluation. [facility] Past Medical History Medical History (Updated 01/15/22 @ 13:50 by Ming Denise MD) Cancer of overlapping sites of bladder Edema Essential (primary) hypertension Hepatic fibrosis Hyperlipidemia, unspecified Other hyperlipidemia Proteinuria due to type 2 diabetes mellitus Right acetabular fracture Screening for prostate cancer Type 2 diabetes mellitus with diabetic neuropathy, unspecified Family History Family History Sibling Family history of multiple sclerosis Patient's sister is in good health Patient's brother is in good health Father Hypertension Family history of diabetes mellitus in first degree relative Diabetes mellitus Mother Family history of malignant neoplasm Patient's mother is Social History Social History Smoking status: Former smoker Tobacco type: smokeless tobacco Smokeless tobacco user: chewing tobacco Additional smoking assessment comments: CURRENTLY CHEWS TOBACCO Alcohol intake: former Drinks per week: 84 Alcohol use details: STATES HASEN'T HAD A DRINNK IN 10-12 YRS ([id number]~) Substance use: never Substance use type: does not use Living arrangements: with family Additional living arrangements comments: LIVES WITH SON Spiritual care concerns: No Anes - Eval Final PreProcedure Day of Procedure 01/15/22 13:40 Patient weight: obese Heart: regular rate and rhythm Lungs: clear to auscultation Airway: Mallampati scale class II and special considerations poor dentition Neurological: alert and oriented Last oral intake: >/= 8 hours ASA classification: III Emergent: no Anesthetic plan: proceed Anesthesia type and monitoring: general LMA and standard monitoring Results Review: All pre-operative results and documents have been reviewed as part of the pre-operative evaluation. Informed Consent: The patient's anesthetic plan and its attendant risks and benefits were discussed with the patient/family/POA. Questions were solicited
[2022-01-16] VITALS (10 sets, daily range): BP systolic 109–153; BP diastolic 60–87; PULSE 51–75; RESP 14–20; TEMP 36.1; O2SAT 93–100
--- NOTE | 2022-01-16 06:22 | WPDHPUPDATE1 ---
History and Physical Update Update Date/Time: 01/16/22 06:22 History and Physical has been reviewed, including an updated exam of the patient. There are NO changes in the patient's condition. Risks, benefits, and alternatives have been discussed and questions answered. Patient agrees to proceed with procedure.
[2022-01-16] MEDS: LACTATED RINGERS 1,000 ML 30 ML IV CONT (06:40)
[2022-01-16 06:47] LABS: Glucose Point of Care 172 mg/dl (65-105)
[2022-01-16] MEDS: ceFAZolin 3 GM/D5W 100 ML 100 ML IVPB (07:26)
--- NOTE | 2022-01-16 07:59 | P.OP_ITS ---
Procedure Note - Detailed Date of Procedure 01/16/22 Pre-op Diagnosis Recurrent Bladder Ca Post-op Diagnosis Same Procedure Performed TURBT (medium, 3cm) Surgeon Tim Scott MD Description of Procedure The patient was brought to the operative suite where he is prepped and draped in a routine sterile fashion while in the dorsal lithotomy position. This is done after the uneventful administration of systemic sedation. 2% Xylocaine jelly is introduced intraurethrally and allowed to stand for an appropriate period of time. A 24F resectoscope sheath was placed in the bladder and the bladder is circumferentially inspected carefully. He has a three papillary transitional cell carcinomas identified - on in the right lateral wall, one in the left post- lat. wall and one in the anterior-lat. bladder neck. These areas are resected in its entirety with an attempt made to include detrusor muscle for pathological evaluation of invasion. The base and periphery of these resected sites are cauterized with a loop electrode. The bladder is emptied and the resectoscope was removed. The patient is taken to the recovery room having tolerated this procedure well. Estimated Blood Loss 0 Drains Yes Packing No Pathology Yes Condition Stable Disposition PACU
--- NOTE | 2022-01-16 08:02 | W.PM.PROC2 ---
Procedure Note - Detailed Date of Procedure 01/16/22 Pre-op Diagnosis Recurrent Bladder Ca Post-op Diagnosis Same Procedure Performed Gemcitabine installation Surgeon Tim Scott MD Description of Procedure With the patient in the supine position, a 16F [place] catheter is placed using sterile technique. Using a protective facemask, gown and double layer of gloves Gemcitabine 2gm in 100cc saline is administered through the catheter/into the bladder. The catheter is then plugged. Patient was instructed to lie supine x20min, then to roll both the left and right x20 min. each. Total dwell time will be 60 min., after which the bladder will be drained and catheter removed. Estimated Blood Loss 0 Drains Yes Packing No Pathology None sent
[2022-01-16] MEDS: SODIUM CHLORIDE 0.9% IV 23.7 ML, GEMCITABINE HCL 1,000 MG BLADDER ×2 (08:09→08:11)
[2022-01-16 08:17] LABS: Glucose Point of Care 147 mg/dl (65-105)
[2022-01-16] MEDS: fentaNYL CITRATE INJ (*CRX) 100 MCG/2 ML VIAL 25 MCG IV PUSH ×4 (08:22→08:56)
[2022-01-16] MEDS: SODIUM CHLORIDE 0.9% IV 50 ML BAG 150 ML IRRIGATION (09:22)
--- NOTE | 2022-01-16 10:40 | SUR.PHASEII ---
Vitals are stable. Patient is getting dressed and waiting for son to pick him up.
== END 2022-01-16 11:09 | disposition home or self-care (01) ==
PROVIDERS: PCP Internal Medicine; Visit Provider Urology
PROC: 0TBB8ZZ Excision of Bladder, Via Natural or Artificial Opening Endoscopic (ICD-10-PCS; CPT 52235; principal; 2022-01-16 07:30)
DX: C67.8 Malignant neoplasm of overlapping sites of bladder (principal); I10 Essential (primary) hypertension; E78.00 Pure hypercholesterolemia, unspecified; E11.9 Type 2 diabetes mellitus without complications
CPT/HCPCS: 52235; 51720; 36415; 80048; 82948; 88305; A9270; J0690; J2405; J2704; J3010; J7120; J9201

== ENCOUNTER 2022-02-28 06:54 | Outpatient (CLI) | payer MEDICARE, SELFPAY ==
[2022-02-28 07:50] LABS: Alanine Aminotransferase 18 U/L (6-50); Albumin Level 4.2 g/dL (3.5-5.1); Alkaline Phosphatase 103 U/L (38-126); Anion Gap 16 mmol/L (8-16); Aspartate Amino Transferase 26 U/L (17-59); Bilirubin,Total 0.4 mg/dL (0.2-1.3); Blood Urea Nitrogen 20 mg/dL (9-20); Calcium 8.9 mg/dL (8.4-10.2); Carbon Dioxide 29 mmol/L (22-30); Chloride 94 mmol/L (98-107); Cholesterol 130 mg/dL (0-200); Estimated Glomerular Filt Rate > 60; Glucose 231 mg/dL (65-110); HDL Direct 33 mg/dL; Potassium 3.8 mmol/L (3.4-5.0); Sodium 139 mmol/L (137-145); Triglycerides 175 mg/dL (<150)
[2022-02-28 08:01] LABS: LDL Cholesterol Direct 67 mg/dL
[2022-02-28 09:00] LABS: Creatinine Urine 172.1 mg/dL
[2022-02-28 09:05] LABS: MALB Creatinine Ratio 57.1 mg/g (0-30); Microalbumin Urine Random 98.2 mg/L (0-16.7)
[2022-02-28 09:54] LABS: Hemoglobin A1C 8.1 % (<5.7)
[2022-02-28 10:35] LABS: Prostate Specific Antigen < 0.1 ng/mL (< OR = 4.0)
== END 2022-02-28 06:55 | disposition home or self-care (01) ==
LOC: ANHLAB 06:55
PROVIDERS: PCP Internal Medicine; Visit Provider Nurse Practitioner
DX: E78.5 Hyperlipidemia, unspecified (principal); E11.40 Type 2 diabetes mellitus with diabetic neuropathy, unspecified; Z12.5 Encounter for screening for malignant neoplasm of prostate
CPT/HCPCS: 36415; 80053; 80061; 82043; 83036; 84153; G0103

== ENCOUNTER 2022-07-03 00:52 | Day surgery (SDC) | payer MEDICARE, SELFPAY ==
[2022-06-18 09:48] VITALS: BMI 38.7
--- NOTE | 2022-06-18 09:54 | PC.NURSE ---
Addendum entered by Daisy Lopez RN 06/18/22 09:58: PT INSTRUCTED NO CHEWING TOBACCO DAY OF SURGERY. Original Note: Report to the Outpatient Waiting Room, entrance under the green pavilion located off [facility], at time 1000 on date 06/19/22. Planned Procedure Time: 1200. Time changes happen often and if your time is changed the preop area will call you the afternoon before. - You and your visitor will be asked to self-screen and do not enter if you have any COVID symptoms. - Only one visitor is requested with a max of two and NO children visitors are allowed at this time. - The patient visitor may be requested to leave or wait in car when not with patient due to distancing restrictions. - A mask is optional within the hospital at this time. Patients may have clear liquids (water, carbonated beverages, clear teas, apple juice) until 3 hours prior to surgery with a maximum of 20 ounces. - No food from midnight until time of surgery Take the following medications with a SIP of water the morning of surgery: GABAPENTIN, METOPROLOL, TRAMADOL IF NEEDED DO NOT STOP ANY OF YOUR OTHER PRESCRIPTION MEDICATIONS PRIOR TO SURGERY EXCEPT THE FOLLOWING Medications to discontinue per physician: VITAMINS/SUPPLEMENTS Date to take last dose: NO MORE UNTIL AFTER SURGERY Please no make-up, nail yi, hairspray, perfume, deodorant, or body powder the day of surgery. No jewelry (including any body piercings) or valuables the day of surgery, leave them at home. Please take a shower or bath the night before, or the morning of, surgery with an antibacterial soap. Wear comfortable, loose fitting clothing. - Jewelry must be removed prior to entering the operating room. Rings and piercings that are not removed may be cut off. - The hospital will not accept responsibility for valuables. - Please leave all valuables, including medications, at home the day of surgery. If you are going home after surgery, a licensed cross country truck driver must drive you home. - NO public transportation without another adult if you receive anesthesia. - We recommend that an adult stay with you for 24 hours following discharge. - We also recommend that you do not drive, make important decision, drink alcoholic beverages, or take any drugs that were not prescribed by your health care provider for at least 24 hours after your discharge time. Follow any additional instructions given to you from your surgeon. If you or anyone in your household have experienced Covid symptoms in the past week, please notify your surgeon or the nurse liaison at the phone number below for possible testing. Telephone instructions given to CYNDEE MACEDO and asked if any additional questions and then verbalized understanding. Patient advised to call surgeon office or pre surgery nurse liaison [phone] if any additional questions.
--- NOTE | 2022-06-18 10:05 | WPDANESEPPF ---
Anes - Initial Pre Proc Eval Procedure: Operation Date: 06/19/22 12:00 Proposed Procedures p Trans Urethral Resection Bladder Tumor with Gemcitabine Instillation - Tim Scott MD Date/Time: 06/18/22 10:05 Surgeon: Tim Scott MD Pre Op Diagnosis: Hx Bladder Ca Patient Data Age: 66 Gender: M Height: 1.79 m Weight: 124.3 kg Allergies Allergy/AdvReac Type Severity Reaction Status Date / Time Penicillins Allergy Intermediate Hives Verified 06/18/22 09:47 Home Medications Medication Instructions Recorded Confirmed Type blood-glucose meter (True Metrix #1 ea 06/21/21 04/16/22 Rx Glucose Meter) finasteride 5 mg tablet 5 mg PO DAILY 09/02/21 06/18/22 History oeljldrgwgdu-wju-nwfqo acid-vit 1 tablet PO DAILY 09/02/21 06/18/22 History K-lycop 400 mcg-20 mcg-370 mcg tablet (Men's 50 Plus Multivitamin) tramadol 50 mg tablet 50 mg PO BID PRN pain #60 tabs 10/09/21 06/18/22 Rx magnesium oxide 400 mg (241.3 mg 400 mg PO BID #180 tabs 11/20/21 06/18/22 Rx magnesium) tablet metformin 500 mg tablet See Rx Instructions PO BID #270 12/04/21 06/18/22 Rx tabs furosemide 40 mg tablet (Lasix) 40 mg PO QAM #90 tabs 12/23/21 06/18/22 Rx spironolactone 50 mg tablet 50 mg PO DAILY #90 tabs 12/23/21 06/18/22 Rx gabapentin 300 mg capsule 300 mg PO TID 90 days #270 caps 02/04/22 06/18/22 Rx linagliptin 5 mg tablet (Tradjenta) 5 mg PO QAM #30 tabs 03/13/22 06/18/22 Rx losartan 25 mg tablet 50 mg PO DAILY #90 tabs 04/16/22 06/18/22 Rx blood sugar diagnostic (True #100 ea 04/17/22 Rx Metrix Glucose Test Strip) atorvastatin 20 mg tablet 20 mg PO DAILY #90 tabs 06/17/22 06/18/22 Rx metoprolol tartrate 25 mg tablet 25 mg PO Q12H #180 tabs 06/17/22 06/18/22 Rx Results Review: All pre-operative results and documents have been reviewed as part of the pre-operative evaluation. [facility] Past Medical History Medical History Cancer of overlapping sites of bladder Edema Essential (primary) hypertension Hepatic fibrosis Hyperlipidemia, unspecified Other hyperlipidemia Proteinuria due to type 2 diabetes mellitus Right acetabular fracture Screening for prostate cancer Type 2 diabetes mellitus with diabetic neuropathy, unspecified Family History Family History Sibling Family history of multiple sclerosis Patient's sister is in good health Patient's brother is in good health Father Hypertension Family history of diabetes mellitus in first degree relative Diabetes mellitus Mother Family history of malignant neoplasm Patient's mother is Social History Social History (Updated 04/16/22 @ 08:48 by Dee Hahn MA) Smoking status: Former smoker Tobacco type: smokeless tobacco Smokeless tobacco user: chewing tobacco Additional smoking assessment comments: CURRENTLY CHEWS TOBACCO Alcohol intake: former Drinks per week: 84 Alcohol use details: QUIT 2009 Substance use: never Substance use type: does not use Lack of Transportation: No Lack of Food: Never True Current Housing: I Have Housing Concerned About Future Housing: No Difficulty Paying Gas/Electric Bills: No Difficulty Paying for Meds: No Currently Unemployed: No Education: Grade School Difficulty w/ Childcare or Family Care: No Living arrangements: with family Additional living arrangements comments: SON Gender identity (if verbalized by the patient): Male Sexual Orientation (if Verbalized by the Patient): Straight or Heterosexual Spiritual care concerns: No Anes - Eval Final PreProcedure Day of Procedure 06/18/22 10:05 Patient weight: obese Heart: regular rate and rhythm Lungs: clear to auscultation Airway: Mallampati scale class II and special considerations poor dentition Neurological: alert and oriented Last oral intake: >/= 8 hours ASA classification: III Em
--- NOTE | 2022-06-19 06:44 | WPDHPUPDATE1 ---
History and Physical Update Update Date/Time: 06/19/22 06:44 History and Physical has been reviewed, including an updated exam of the patient. There are NO changes in the patient's condition. Risks, benefits, and alternatives have been discussed and questions answered. Patient agrees to proceed with procedure.
--- NOTE | 2022-06-25 10:35 | PC.NURSE ---
Report to the Outpatient Waiting Room, entrance under the green pavilion located off [facility], at time __1100__ on date __06/05/22__. Planned Procedure Time: _1 pm__. Time changes happen often and if your time is changed the preop area will call you the afternoon before. - You and your visitor will be asked to self-screen and do not enter if you have any COVID symptoms. - Only one visitor is requested with a max of two and NO children visitors are allowed at this time. - The patient visitor may be requested to leave or wait in car when not with patient due to distancing restrictions. - A mask is optional within the hospital at this time. Patients may have clear liquids (water, carbonated beverages, clear teas, apple juice) until 3 hours prior to surgery (1000 am) with a maximum of 20 ounces. - No food from midnight until time of surgery - Infants may have breast milk until 4 hours before surgery, formula 6 hours prior to surgery. - Children will be allowed to drink immediately following surgery. If applicable, please bring a bottle or sippy cup to assist with drinking. Juice, water, soda, and popsicles are readily available. For infants on formula, please bring formula the day of surgery. Pacifiers are allowed. Take the following medications with a SIP of water the morning of surgery: _GABAPENTIN, METOPROLOL, TRAMADOL IF NEEDED_ DO NOT STOP ANY OF YOUR OTHER PRESCRIPTION MEDICATIONS PRIOR TO SURGERY ?EXCEPT THE FOLLOWING Medications to discontinue per ANESTHESIA - _ALL VITAMINS/SUPPLEMENTS 3 DAYS PRIOR TO SURGERY, Date to take last dose 06/29/22_ -NO CHEWING TOBACCO DAY OF SURGERY Please no make-up, nail maori, hairspray, perfume, deodorant, or body powder the day of surgery. No jewelry (including any body piercings) or valuables the day of surgery, leave them at home. Please take a shower or bath the night before, or the morning of, surgery with an antibacterial soap. Wear comfortable, loose fitting clothing. Children are encouraged to wear pajamas. - Jewelry must be removed prior to entering the operating room. Rings and piercings that are not removed may be cut off. - The hospital will not accept responsibility for valuables. - Please leave all valuables, including medications, at home the day of surgery. If you are going home after surgery, a licensed airport driver must drive you home. - NO public transportation without another adult if you receive anesthesia. - We recommend that an adult stay with you for 24 hours following discharge. - We also recommend that you do not drive, make important decision, drink alcoholic beverages, or take any drugs that were not prescribed by your health care provider for at least 24 hours after your discharge time. For Pediatric surgeries, we recommend two adults accompany the child home. Follow any additional instructions given to you from your surgeon. If you or anyone in your household have experienced Covid symptoms in the past week, please notify your surgeon or the nurse liaison at the phone number below for possible testing. Telephone instructions given to _PATIENT_and asked if any additional questions and then verbalized understanding. Patient advised to call surgeon office or pre surgery nurse liaison [phone] if any additional questions.
--- NOTE | 2022-06-26 14:27 | PM.HPGS ---
History of Present Illness History of Present Illness Consent: Risks, benefits, and alternatives have been discussed and questions answered. Patient agrees to proceed with procedure. Chief complaint: Hx Bladder Ca Narrative: Angelito Lai is a 66 year old male Known to us with a history of urothelial carcinoma dating back to August 2021. Recent surveillance cystoscopy revealed a small recurrence in the anterior bladder wall. He presents for TURBT with gemcitabine. He is aware the risk including, not limited to, adverse cardiopulmonary events, injury to the integrity of his bladder wall recurrent neoplasm. [facility] Past Medical History Medical History Cancer of overlapping sites of bladder Edema Essential (primary) hypertension Hepatic fibrosis Hyperlipidemia, unspecified Other hyperlipidemia Proteinuria due to type 2 diabetes mellitus Right acetabular fracture Screening for prostate cancer Type 2 diabetes mellitus with diabetic neuropathy, unspecified Family History Family History Sibling Family history of multiple sclerosis Patient's sister is in good health Patient's brother is in good health Father Hypertension Family history of diabetes mellitus in first degree relative Diabetes mellitus Mother Family history of malignant neoplasm Patient's mother is Social History Social History (Updated 04/16/22 @ 08:48 by Dee Hahn MA) Smoking status: Former smoker Tobacco type: smokeless tobacco Smokeless tobacco user: chewing tobacco Additional smoking assessment comments: CURRENTLY CHEWS TOBACCO Alcohol intake: former Drinks per week: 84 Alcohol use details: QUIT 2009 Substance use: never Substance use type: does not use Lack of Transportation: No Lack of Food: Never True Current Housing: I Have Housing Concerned About Future Housing: No Difficulty Paying Gas/Electric Bills: No Difficulty Paying for Meds: No Currently Unemployed: No Education: Grade School Difficulty w/ Childcare or Family Care: No Living arrangements: with family Additional living arrangements comments: SON Gender identity (if verbalized by the patient): Male Sexual Orientation (if Verbalized by the Patient): Straight or Heterosexual Spiritual care concerns: No Meds Home Medications and Allergies Home Medications Medication Instructions Recorded Confirmed Type blood-glucose meter (True Metrix #1 ea 06/21/21 04/16/22 Rx Glucose Meter) finasteride 5 mg tablet 5 mg PO DAILY 09/02/21 06/18/22 History hrjmsyexxxlf-hxm-tjihn acid-vit 1 tablet PO DAILY 09/02/21 06/18/22 History K-lycop 400 mcg-20 mcg-370 mcg tablet (Men's 50 Plus Multivitamin) tramadol 50 mg tablet 50 mg PO BID PRN pain #60 tabs 10/09/21 06/18/22 Rx magnesium oxide 400 mg (241.3 mg 400 mg PO BID #180 tabs 11/20/21 06/18/22 Rx magnesium) tablet metformin 500 mg tablet See Rx Instructions PO BID #270 12/04/21 06/18/22 Rx tabs furosemide 40 mg tablet (Lasix) 40 mg PO QAM #90 tabs 12/23/21 06/18/22 Rx spironolactone 50 mg tablet 50 mg PO DAILY #90 tabs 12/23/21 06/18/22 Rx gabapentin 300 mg capsule 300 mg PO TID 90 days #270 caps 02/04/22 06/18/22 Rx linagliptin 5 mg tablet (Tradjenta) 5 mg PO QAM #30 tabs 03/13/22 06/18/22 Rx losartan 25 mg tablet 50 mg PO DAILY #90 tabs 04/16/22 06/18/22 Rx blood sugar diagnostic (True #100 ea 04/17/22 Rx Metrix Glucose Test Strip) atorvastatin 20 mg tablet 20 mg PO DAILY #90 tabs 06/17/22 06/18/22 Rx metoprolol tartrate 25 mg tablet 25 mg PO Q12H #180 tabs 06/17/22 06/18/22 Rx Allergies Allergy/AdvReac Type Severity Reaction Status Date / Time Penicillins Allergy Intermediate Hives Verified 06/18/22 09:47
[2022-07-03] VITALS (10 sets, daily range): BP systolic 122–159; BP diastolic 59–89; PULSE 62–76; RESP 15–18; TEMP 36.1–36.2; O2SAT 88–100
--- NOTE | 2022-07-03 05:56 | WPDHPUPDATE1 ---
History and Physical Update Update Date/Time: 07/03/22 05:56 History and Physical has been reviewed, including an updated exam of the patient. There are NO changes in the patient's condition. Risks, benefits, and alternatives have been discussed and questions answered. Patient agrees to proceed with procedure.
--- NOTE | 2022-07-03 11:20 | WPDANESEPPF ---
Anes - Initial Pre Proc Eval Procedure: Operation Date: 07/03/22 13:00 Proposed Procedures p Trans Urethral Resection Bladder Tumor with Gemcitabine Instillation - Tim Scott MD Date/Time: 07/03/22 11:20 Surgeon: Tim Scott MD Pre Op Diagnosis: Hx Bladder Ca Patient Data Age: 66 Gender: M Height: 1.79 m Weight: 124.3 kg Allergies Allergy/AdvReac Type Severity Reaction Status Date / Time Penicillins Allergy Intermediate Hives Verified 06/18/22 09:47 Home Medications Medication Instructions Recorded Confirmed Type blood-glucose meter (True Metrix #1 ea 06/21/21 04/16/22 Rx Glucose Meter) finasteride 5 mg tablet 5 mg PO DAILY 09/02/21 06/18/22 History gcyfdpovduiv-quf-roxck acid-vit 1 tablet PO DAILY 09/02/21 06/18/22 History K-lycop 400 mcg-20 mcg-370 mcg tablet (Men's 50 Plus Multivitamin) tramadol 50 mg tablet 50 mg PO BID PRN pain #60 tabs 10/09/21 06/18/22 Rx magnesium oxide 400 mg (241.3 mg 400 mg PO BID #180 tabs 11/20/21 06/18/22 Rx magnesium) tablet metformin 500 mg tablet See Rx Instructions PO BID #270 12/04/21 06/18/22 Rx tabs furosemide 40 mg tablet (Lasix) 40 mg PO QAM #90 tabs 12/23/21 06/18/22 Rx spironolactone 50 mg tablet 50 mg PO DAILY #90 tabs 12/23/21 06/18/22 Rx gabapentin 300 mg capsule 300 mg PO TID 90 days #270 caps 02/04/22 06/18/22 Rx linagliptin 5 mg tablet (Tradjenta) 5 mg PO QAM #30 tabs 03/13/22 06/18/22 Rx atorvastatin 20 mg tablet 20 mg PO DAILY #90 tabs 06/17/22 06/18/22 Rx metoprolol tartrate 25 mg tablet 25 mg PO Q12H #180 tabs 06/17/22 06/18/22 Rx losartan 25 mg tablet 50 mg PO DAILY #90 tabs 07/01/22 Rx blood sugar diagnostic (True #100 ea 07/02/22 Rx Metrix Glucose Test Strip) Patient hx anesthesia problems: none Family hx anesthesia problems: none Results Review: All pre-operative results and documents have been reviewed as part of the pre-operative evaluation. REPLACED BY [facility] Past Medical History Medical History Cancer of overlapping sites of bladder Edema Essential (primary) hypertension Hepatic fibrosis Hyperlipidemia, unspecified Other hyperlipidemia Proteinuria due to type 2 diabetes mellitus Right acetabular fracture Screening for prostate cancer Type 2 diabetes mellitus with diabetic neuropathy, unspecified Surgical History Surgical History (Updated 07/03/22 @ 11:20 by Terrence Abraham MD) Hx of cystoscopy Family History Family History Sibling Family history of multiple sclerosis Patient's sister is in good health Patient's brother is in good health Father Hypertension Family history of diabetes mellitus in first degree relative Diabetes mellitus Mother Family history of malignant neoplasm Patient's mother is Social History Social History Smoking status: Former smoker Tobacco type: smokeless tobacco Smokeless tobacco user: chewing tobacco Additional smoking assessment comments: CURRENTLY CHEWS TOBACCO Alcohol intake: former Drinks per week: 84 Alcohol use details: QUIT 2009 Substance use: never Substance use type: does not use Lack of Transportation: No Lack of Food: Never True Current Housing: I Have Housing Concerned About Future Housing: No Difficulty Paying Gas/Electric Bills: No Difficulty Paying for Meds: No Currently Unemployed: No Education: Grade School Difficulty w/ Childcare or Family Care: No Living arrangements: with family Additional living arrangements comments: SON Gender identity (if verbalized by the patient): Male Sexual Orientation (if Verbalized by the Patient): Straight or Heterosexual Spiritual care concerns: No Anes - Eval Final PreProcedure Day of Procedure 07/03/22 11:20 Patient weight: obese Heart: regular rate and rhythm Lungs: clear to a
[2022-07-03] MEDS: LACTATED RINGERS 1,000 ML 30 ML IV CONT (11:46)
[2022-07-03 11:54] LABS: Anion Gap 7 mmol/L (8-16); Blood Urea Nitrogen 19 mg/dL (9-20); Calcium 8.9 mg/dL (8.4-10.2); Carbon Dioxide 32 mmol/L (22-30); Chloride 95 mmol/L (98-107); Estimated CRCL calculation 78 ml/min; Estimated Glomerular Filt Rate > 60; Glucose 165 mg/dL (65-110); Potassium 4.3 mmol/L (3.4-5.0); Sodium 134 mmol/L (137-145)
[2022-07-03 12:25] LABS: INR 1.1; Prothrombin Time 13.7 Seconds (11.1-14.7)
[2022-07-03 12:26] LABS: Partial Thromboplastin Time 28.8 SECONDS (22.3-36.8)
[2022-07-03] MEDS: ceFAZolin 3 GM/D5W 100 ML 100 ML IVPB (12:33)
[2022-07-03] MEDS: LIDOCAINE HCL 2% GEL UROJET 10 ML PKG MUCOUS MEM (12:49)
--- NOTE | 2022-07-03 12:59 | W.PM.PROC2 ---
Procedure Note - Detailed Date of Procedure 07/03/22 Pre-op Diagnosis Recurrent bladder cancer Post-op Diagnosis Same Procedure Performed TURBT (small) Surgeon Tim Scott MD Anesthesia General Description of Procedure The patient was brought to the operative suite where he is prepped and draped in a routine sterile fashion while in the dorsal lithotomy position. This is done after the uneventful administration of systemic sedation. 2% Xylocaine jelly is introduced intraurethrally and allowed to stand for an appropriate period of time. A 24F resectoscope sheath was placed in the bladder and the bladder is circumferentially inspected carefully. 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 This area is resected in its entirety with an attempt made to include detrusor muscle for pathological evaluation of invasion. The base and periphery of this resected side is cauterized with a loop electrode. The bladder is emptied and the resectoscope was removed. The patient is taken to the recovery room having tolerated this procedure well. Pathology Yes Complications No immediate complications Condition Stable Disposition PACU
--- NOTE | 2022-07-03 13:02 | W.PM.PROC2 ---
Procedure Note - Detailed Date of Procedure 07/03/22 Pre-op Diagnosis Recurrent bladder cancer Post-op Diagnosis Same Procedure Performed Gemcitabine installation Surgeon Tim Scott MD Anesthesia General and None Description of Procedure With the patient in the supine position, a 16F [place] catheter is placed using sterile technique. Using a protective facemask, gown and double layer of gloves Gemcitabine 2gm in 100cc saline is administered through the catheter/into the bladder. The catheter is then plugged. Patient was instructed to lie supine x20min, then to roll both the left and right x20 min. each. Total dwell time will be 60 min., after which the bladder will be drained and catheter removed. Pathology None sent Complications No immediate complications Condition Stable Disposition PACU
[2022-07-03] MEDS: SODIUM CHLORIDE 0.9% IV 23.7 ML, GEMCITABINE HCL 1,000 MG BLADDER ×2 (13:05)
[2022-07-03 13:15] LABS: Glucose Point of Care 174 mg/dl (65-105)
[2022-07-03] MEDS: fentaNYL CITRATE INJ (*CRX) 100 MCG/2 ML VIAL 25 MCG IV PUSH ×4 (13:20→13:37)
--- NOTE | 2022-07-03 14:19 | SUR.PHASEI ---
1410 SPEAKING WITH PATIENT IN REGARDS TO HIS AFIB- PT DENIES KNOWING HE WAS IN AFIB & DENIES BEING ON A BLOOD THINNER. DR BEAR MADE AWARE OF THIS CONVERSATION. HR & BP STABLE. DR BEAR STATES IT WAS DOCUMENTED THAT PT WAS IN AFIB ~1 YR AGO AND INSTRUCTED FOR PT TO FOLLOW UP WITH HIS PCP.
[2022-07-03] MEDS: oxyCODONE HCL (*CRX) 5 MG TAB IR PO (14:55)
--- NOTE | 2022-07-03 15:28 | SUR.PHASEII ---
pt was advised to follow up with primary doctor about his a-fib and possible treatments.
== END 2022-07-03 15:05 | disposition home or self-care (01) ==
PROVIDERS: Anesthesiology; PCP Internal Medicine; Visit Provider Urology
PROC: 0TBB8ZZ Excision of Bladder, Via Natural or Artificial Opening Endoscopic (ICD-10-PCS; CPT 52234; principal; 2022-07-03 13:00)
DX: C67.3 Malignant neoplasm of anterior wall of bladder (principal); I10 Essential (primary) hypertension; E78.49 Other hyperlipidemia; E11.40 Type 2 diabetes mellitus with diabetic neuropathy, unspecified; Z79.84 Long term (current) use of oral hypoglycemic drugs; F17.220 Nicotine dependence, chewing tobacco, uncomplicated; E66.9 Obesity, unspecified; Z68.39 Body mass index [BMI] 39.0-39.9, adult
CPT/HCPCS: 52234; 36415; 51720; 80048; 82948; 85610; 85730; 88305; A9270; J0690; J2405; J2704; J3010; J7120; J9201

== ENCOUNTER 2022-08-27 08:20 | Outpatient (CLI) | payer MEDICARE, SELFPAY ==
--- NOTE | 2022-08-31 14:42 | WPDHOMESLEEP ---
Sleep Study - Home Unattended Date of Study: 08/27/22 Ordering Provider: Dajuan Vasquez APRN Interpreting Provider: Jessica Bee MD Home Sleep Study Type: Watch PAT Height: 1.8 m Weight: 121.563 kg Body Mass Index: 37.3 Neck Circumference (inches): 18 [place]: 11 Reason for Sleep Study hypersomnolence Sleep History Angelito worley is a 66-year-old retired gentleman who sleeps only 2-4 hours at a time than 0 awakens. His sleep is not restorative. He cannot breathe when he is lying supine. He does not awaken from sleep feeling short of breath. He does not awaken at night with heartburn, belching or coughing. He frequently snores, occasionally loudly enough that others complain about it. He occasionally has difficulty sleeping with a cold. He does not wake up gasping for breath at night. He does not have breathing problems at night observed by others. He does not sweat excessively at night. Rarely notices his heart pounding or beating irregularly at night. He occasionally falls asleep during the day, occasionally involuntarily but never falls asleep while driving. He does not have loss of muscle tone with strong emotion. He does not have daytime difficulties due to excessive sleepiness. Does not feel paralyzed on waking or falling asleep. He does not have vivid dreamlike scenes on waking or falling asleep. He does not feel afraid to go to sleep. He does not have nightmares. He frequently remembers his dreams. Occasionally has racing thoughts. He does not feel sad or depressed. He rarely has anxiety. He rarely has muscular tension. He occasionally notices parts of his body jerking. He rarely kicks at night. Does not have crawling or aching feelings in his legs. He frequently has leg pain at night. He rarely has morning jaw pain. He occasionally is awakened by pain at night. He frequently wakes up feeling stiff in the morning with sore achy muscles and pain in the neck and spine. He has fatigue. Normal bedtime is 11:00 p.m. occasionally his latest midnight. Sometimes it takes him up to 30 minutes to fall asleep. He wakes up 1-2 times at night. While awake he uses television or computer. He wakes the morning between 5:00 a.m. and 6:00 a.m.. His weekend schedule is the same. He estimates getting between 2 and 4 hours of sleep during the night. He sometimes takes naps in the afternoon or evening. Sometimes a short nap is refreshing. He feels better in the afternoon compared to other times of day. Only occasionally he awakens feeling refreshed. Habits: Chewing tobacco 1 can per day. Caffeine up to 4 L of soda per day. No alcohol. No recreational substances. [facility] Past Medical History Medical History Cancer of overlapping sites of bladder Edema Essential (primary) hypertension Hepatic fibrosis Hyperlipidemia, unspecified Other hyperlipidemia (Unknown) Proteinuria Proteinuria due to type 2 diabetes mellitus Right acetabular fracture Screening for prostate cancer Type 2 diabetes mellitus with diabetic neuropathy, unspecified Surgical History Surgical History Hx of cystoscopy Family History Family History Sibling Family history of multiple sclerosis Patient's sister is in good health Patient's brother is in good health Father Hypertension Family history of diabetes mellitus in first degree relative Diabetes mellitus Mother Family history of malignant neoplasm Patient's mother is Social History Social History Smoking status: Former smoker Tobacco type: smokeless tobacco Smokeless tobacco user: chewing tobacco Additional smoking assessment comments: CURRENTLY CHEWS TOBACCO Alcohol intake: former Drinks per week: 84 Alcohol use details: Q
[2022-08-31 14:59] VITALS: BMI 37.3
--- NOTE | 2022-11-14 09:37 | SLEEP ---
NEW CALLS [id number]
== END 2022-08-28 11:59 | disposition home or self-care (01) ==
LOC: ANHCSM 08:21
PROVIDERS: PCP Internal Medicine; Visit Provider Nurse Practitioner
DX: G47.10 Hypersomnia, unspecified (principal); G47.33 Obstructive sleep apnea (adult) (pediatric)
CPT/HCPCS: 95800

== ENCOUNTER 2022-09-09 09:33 | Outpatient (CLI) | payer MEDICARE, SELFPAY ==
[2022-09-09 10:17] LABS: Creatinine Urine 60.1 mg/dL; Total Protein Urine Random 13 mg/dL; Ur Ttl Prot Creatinine Ratio 0.22 mg/mg (0-0.20)
[2022-09-09 10:29] LABS: Hemoglobin A1C 6.5 % (<5.7)
[2022-09-09 10:31] LABS: Alanine Aminotransferase 28 U/L (6-50); Albumin Level 4.3 g/dL (3.5-5.1); Alkaline Phosphatase 72 U/L (38-126); Anion Gap 5 mmol/L (8-16); Aspartate Amino Transferase 33 U/L (17-59); Bilirubin,Total 0.8 mg/dL (0.2-1.3); Blood Urea Nitrogen 24 mg/dL (9-20); Carbon Dioxide 35 mmol/L (22-30); Chloride 97 mmol/L (98-107); Cholesterol 125 mg/dL (0-200); Estimated Glomerular Filt Rate > 60; Glucose 157 mg/dL (65-110); HDL Direct 34 mg/dL; Potassium 4.8 mmol/L (3.4-5.0); Sodium 137 mmol/L (137-145); Triglycerides 100 mg/dL (<150)
[2022-09-09 10:35] LABS: Albumin Level 4.3 g/dL (3.5-5.1); Anion Gap 9 mmol/L (8-16); Blood Urea Nitrogen 23 mg/dL (9-20); Carbon Dioxide 29 mmol/L (22-30); Chloride 99 mmol/L (98-107); Estimated Glomerular Filt Rate > 60; Glucose 157 mg/dL (65-110); Phosphorus 4.3 mg/dL (2.5-4.5); Potassium 4.9 mmol/L (3.4-5.0); Sodium 137 mmol/L (137-145)
[2022-09-09 10:43] LABS: LDL Cholesterol Direct 74 mg/dL
== END 2022-09-09 09:34 | disposition home or self-care (01) ==
PROVIDERS: PCP Internal Medicine; Referring Provider Nurse Practitioner; Visit Provider Internal Medicine Nephrology
DX: E78.5 Hyperlipidemia, unspecified (principal); E11.9 Type 2 diabetes mellitus without complications; R80.9 Proteinuria, unspecified
CPT/HCPCS: 36415; 80053; 80061; 80069; 82570; 83036; 84156; 86334; 86335

== ENCOUNTER 2022-09-11 08:32 | Outpatient (CLI) | payer MEDICARE, SELFPAY ==
--- NOTE | 2022-10-03 10:56 | WPDSLEEPSTUD ---
Sleep Study Date of Study: 09/11/22 Ordering Provider: Dajuan Vasquez APRN Interpreting Physician: Jessica Bee MD Sleep Study Type: CPAP Titration Height: 1.8 m Weight: 121.563 kg Body Mass Index: 37.3 Neck Circumference (inches): 18 [place]: 11 Reason for Sleep Study Recently diagnosed with atrial fibrillation and underwent a home sleep test using WatchPat 08/27/22 that showed moderate obstructive sleep apnea with overall AHI 16.5, desaturation to 69%, 22 minutes spent below 88%, snoring and bradycardia as low as 35bpm. Sleep History Angelito Lai is a 66-year-old man with history of atrial fibrillation who presented to the sleep lab for a CPAP titration after a recent home sleep test revealed moderate sleep apnea and hypoxemia. He did not fill out a new sleep questionnaire for this study. The following sleep history was obtained from his recent home sleep test 08/27/22. [facility] Past Medical History Medical History (Updated 09/09/22 @ 15:24 by Addy Hebert MD) Cancer of overlapping sites of bladder Edema Essential (primary) hypertension Hepatic fibrosis Hyperlipidemia, unspecified Other hyperlipidemia (Unknown) Proteinuria Proteinuria due to type 2 diabetes mellitus Right acetabular fracture Screening for prostate cancer Type 2 diabetes mellitus with diabetic neuropathy, unspecified Surgical History Surgical History Hx of cystoscopy Family History Family History Sibling Family history of multiple sclerosis Patient's sister is in good health Patient's brother is in good health Father Hypertension Family history of diabetes mellitus in first degree relative Diabetes mellitus Mother Family history of malignant neoplasm Patient's mother is Social History Social History Smoking status: Former smoker Tobacco type: smokeless tobacco Smokeless tobacco user: chewing tobacco Additional smoking assessment comments: CURRENTLY CHEWS TOBACCO Alcohol intake: former Drinks per week: 84 Alcohol use details: QUIT 2009 Substance use: never Substance use type: does not use Lack of Transportation: No Lack of Food: Never True Current Housing: I Have Housing Concerned About Future Housing: No Difficulty Paying Gas/Electric Bills: No Difficulty Paying for Meds: No Currently Unemployed: No Education: Grade School Difficulty w/ Childcare or Family Care: No Living arrangements: with family Additional living arrangements comments: SON Gender identity (if verbalized by the patient): Male Sexual Orientation (if Verbalized by the Patient): Straight or Heterosexual Spiritual care concerns: No Medications Home Medications Medication Instructions Recorded Confirmed Type finasteride 5 mg tablet 5 mg PO DAILY 09/02/21 09/09/22 History hkzioxptnkvu-vam-qxxdw acid-vit 1 tablet PO DAILY 09/02/21 09/09/22 History K-lycop 400 mcg-20 mcg-370 mcg tablet (Men's 50 Plus Multivitamin) tramadol 50 mg tablet 50 mg PO BID PRN pain #60 tabs 10/09/21 09/09/22 Rx metformin 500 mg tablet See Rx Instructions PO BID #270 12/04/21 09/09/22 Rx tabs gabapentin 300 mg capsule 300 mg PO TID 90 days #270 caps 02/04/22 09/09/22 Rx linagliptin 5 mg tablet (Tradjenta) 5 mg PO QAM #30 tabs 03/13/22 09/09/22 Rx atorvastatin 20 mg tablet 20 mg PO DAILY #90 tabs 06/17/22 09/09/22 Rx metoprolol tartrate 25 mg tablet 25 mg PO Q12H #180 tabs 06/17/22 09/09/22 Rx magnesium oxide 400 mg (241.3 mg 400 mg PO BID #180 tabs 08/01/22 09/09/22 Rx magnesium) tablet furosemide 40 mg tablet (Lasix) 40 mg PO QAM #90 tabs 08/04/22 09/09/22 Rx spironolactone 50 mg tablet 50 mg PO DAILY #90 tabs 08/04/22 09/09/22 Rx blood-glucose meter (True Metrix #1 ea 08/06/22 Rx Glucose Meter) blood glucose control, normal #1 ea
[2022-10-03 11:28] VITALS: BMI 37.3
== END 2022-09-12 06:35 | disposition home or self-care (01) ==
LOC: ANHCSM 08:33
PROVIDERS: PCP Nurse Practitioner; Visit Provider Nurse Practitioner
DX: I10 Essential (primary) hypertension (principal); G47.33 Obstructive sleep apnea (adult) (pediatric)
CPT/HCPCS: 95811

== ENCOUNTER 2022-11-20 01:12 | Day surgery (SDC) | payer MEDICARE, SELFPAY ==
[2022-11-19 14:42] VITALS: BMI 37.9
[2022-11-20] VITALS (14 sets, daily range): BP systolic 109–160; BP diastolic 65–79; PULSE 56–67; RESP 15–18; TEMP 35.8–36.3; O2SAT 95–98; BMI 38.9
[2022-11-20 07:55] LABS: Hematocrit 37.8 % (42.0-52.0); Hemoglobin 12.4 g/dL (14.0-18.0); Immature Granulocyte Absolute 0.02 K/mm3 (0.00-0.031); Immature Granulocyte Percent A 0.5 % (0-0.5); Immature Platelet Fraction Pct 4.7 % (0.9-11.2); Lymphocytes Absolute Auto 0.43 K/mm3 (0.9-3.2); Mean Corpuscular HGB Conc 32.8 g/dl (32-36); Mean Corpuscular Volume 85.3 fl (80-100); Mean Platelet Volume 10.8 fl (7.4-10.4); Monocytes Absolute Auto 0.1 K/mm3 (0.1-0.6); Monocytes Percent Auto 1.6 % (2.6-8.5); Neutrophils Absolute Auto 3.8 K/mm3 (1.3-6.7); Neutrophils Percent Auto 87.9 % (45.5-73.1); Platelet Count Result 105 k/mm3 (150-375); Red Blood Count 4.43 M/mm3 (4.6-6.20); Red Cell Distribution Width 13.4 % (11.5-14.5); White Blood Count 4.3 K/mm3 (4.5-10.0)
[2022-11-20 08:05] LABS: INR 1.1; Prothrombin Time 14.6 Seconds (11.1-14.7)
[2022-11-20 08:08] LABS: Anion Gap 9 mmol/L (8-16); Blood Urea Nitrogen 27 mg/dL (9-20); Calcium 8.9 mg/dL (8.4-10.2); Carbon Dioxide 25 mmol/L (22-30); Chloride 98 mmol/L (98-107); Estimated CRCL calculation 65 ml/min; Estimated Glomerular Filt Rate 55; Glucose 208 mg/dL (65-110); Potassium 4.5 mmol/L (3.4-5.0); Sodium 132 mmol/L (137-145)
--- NOTE | 2022-11-20 08:51 | WPDHPUPDATE1 ---
History and Physical Update Update Date/Time: 11/20/22 08:51 History and Physical has been reviewed, including an updated exam of the patient. There are NO changes in the patient's condition. Risks, benefits, and alternatives have been discussed and questions answered. Patient agrees to proceed with procedure.
--- NOTE | 2022-11-20 08:51 | WPDMODSED ---
Moderate Sedation Note-Pt Data Patient Data Diagnosis: Abnormal stress test Present Complaint: Abnormal stress test Procedure to be performed/Plan: Coronary angiography, left heart cath, +/- PCI Allergies Allergy/AdvReac Type Severity Reaction Status Date / Time Iodinated Contrast Media Allergy Intermediate Hives Verified 11/20/22 07:24 Penicillins Allergy Intermediate Hives Verified 11/20/22 07:24 Home Medications Medication Instructions Recorded Confirmed Type finasteride 5 mg tablet 5 mg PO DAILY 09/02/21 11/19/22 History pabizgcqeqir-ofu-nnqud acid-vit 1 tablet PO DAILY 09/02/21 11/19/22 History K-lycop 400 mcg-20 mcg-370 mcg tablet (Men's 50 Plus Multivitamin) tramadol 50 mg tablet 50 mg PO BID PRN pain #60 tabs 10/09/21 11/19/22 Rx metformin 500 mg tablet See Rx Instructions PO BID #270 12/04/21 11/19/22 Rx tabs gabapentin 300 mg capsule 300 mg PO TID 90 days #270 caps 02/04/22 11/19/22 Rx linagliptin 5 mg tablet (Tradjenta) 5 mg PO QAM #30 tabs 03/13/22 11/19/22 Rx magnesium oxide 400 mg (241.3 mg 400 mg PO BID #180 tabs 08/01/22 11/19/22 Rx magnesium) tablet furosemide 40 mg tablet (Lasix) 40 mg PO QAM #90 tabs 08/04/22 11/19/22 Rx spironolactone 50 mg tablet 50 mg PO DAILY #90 tabs 08/04/22 11/19/22 Rx blood-glucose meter (True Metrix #1 ea 08/06/22 Rx Glucose Meter) blood glucose control, normal #1 ea 08/08/22 Rx (True Metrix Level 2 solution) apixaban 5 mg tablet (Eliquis) 5 mg PO BID #60 tabs 10/31/22 11/19/22 Rx blood sugar diagnostic (True #200 strips 11/03/22 Rx Metrix Glucose Test Strip) atorvastatin 20 mg tablet 20 mg PO DAILY #90 tabs 11/05/22 11/19/22 Rx metoprolol tartrate 25 mg tablet 25 mg PO Q12H #180 tabs 11/05/22 11/19/22 Rx losartan 25 mg tablet 25 mg PO DAILY 11/19/22 11/19/22 History Current Medications: Active Medications Sodium Chloride (Normal Saline Iv) 500 mls @ 100 mls/hr IV CONT .Q5H GRACIELA Sedation/Anesthesia: No previous sedation/anesthesia problems (including family history). [facility], [facility] Past Medical History Medical History Cancer of overlapping sites of bladder Edema Essential (primary) hypertension Hepatic fibrosis Hyperlipidemia, unspecified Other hyperlipidemia (Unknown) Proteinuria Proteinuria due to type 2 diabetes mellitus Right acetabular fracture Screening for prostate cancer Type 2 diabetes mellitus with diabetic neuropathy, unspecified Surgical History Surgical History Hx of cystoscopy Family History Family History Sibling Family history of multiple sclerosis Patient's sister is in good health Patient's brother is in good health Father Hypertension Family history of diabetes mellitus in first degree relative Diabetes mellitus Mother Family history of malignant neoplasm Patient's mother is Social History Social History Smoking status: Never smoker Tobacco type: smokeless tobacco Smokeless tobacco user: chewing tobacco Additional smoking assessment comments: CURRENTLY CHEWS TOBACCO Alcohol intake: never Drinks per week: 84 Alcohol use details: QUIT 2009 Substance use: current Substance use type: marijuana Other substance usage details: couple times per week Last use: 11/19/22, 1200 Lack of Transportation: No Lack of Food: Never True Current Housing: I Have Housing Concerned About Future Housing: No Difficulty Paying Gas/Electric Bills: No Difficulty Paying for Meds: No Currently Unemployed: No Education: Grade School Difficulty w/ Childcare or Family Care: No Living arrangements: with family Additional living arrangements comments: SON Gender identity (if verbalized by the patient): Male Sexual Orientation (if Verbalized by the Patient): Straight or H
--- NOTE | 2022-11-20 08:52 | WPDCARDPROC ---
Cardiac Cath Procedure Note Date of procedure:: 11/20/22 Performing physician:: CATHETERIZATION LABORATORY REPORT Procedure Date: 11/20/2022 Crew Clerk: Veronica Garcia M.D., [facility]? Referring Physician: Kameron Bangura M.D. ? Anesthesia: Versed and Fentanyl were ordered and given in my presence at 08:53, procedure ended at 09:18. Supervision of nurse monitored moderate sedation with Versed and Fentanyl was provided for 25 minutes. Total of Versed 2mg and Fentanyl 50mcg were administered by the Operator Electronic Warfare RN Chioma Mccracken. Pre-op Diagnosis: Coronary artery disease Post-op Diagnosis: Non-obstructive coronary artery disease Procedure(s): 1. Moderate sedation 2. Ultrasound-guided access of right radial artery 3. Coronary angiography Access Site: Right radial artery Brief History and Clinical Indications: Patient is a 67-year-old male who is referred for [facility] for abnormal stress test. All risks, benefits and alternatives to left heart catheterization with or without percutaneous coronary intervention was discussed at length with the patient. Risk of complications including but not limited to bleeding, infection, arrhythmia, stroke, worsening kidney function, blood loss, groin hematoma, limb loss, emergency coronary artery bypass grafting, and even were discussed with the patient and all questions were answered. The patient understood and wished to proceed. Time out called, patient name, date of , medical record number, allergies, procedure performed, identify Crew Clerk, patient and staff member concurred with accurate data, procedure carried on. Findings: LEFT HEART CATHETERIZATION FINDINGS: 1. Left main: Large caliber vessel. The left main coronary artery is widely patent without any significant obstructive disease. 2. Left anterior descending: Large caliber vessel. The LAD and the diagonal branches have mild diffuse disease without any significant obstructive angiographic disease. 3. Left circumflex: Large caliber vessel. The left circumflex artery and the main marginal branches have mild diffuse disease without any significant obstructive angiographic disease. 4. Right coronary artery: Large caliber vessel. The RCA has mild diffuse disease without any significant obstructive angiographic disease. The RCA is the dominant vessel. Description of Procedure: Informed consent signed and placed in the chart. Patient transferred to general labor room. Prepped and draped in usual sterile fashion. 2% lidocaine injected subcutaneously in right wrist area. 22-gauge venipuncture catheter used to access the right radial artery under ultrasound guidance. 6-FR slender sheath placed in right radial artery. Nitroglycerine and Verapamil were given intraarterial through the sheath. Versacore wire advanced under fluoroscopy 5F Tig 4 diagnostic catheter engaged Left Main Coronary Artery. 5F Tig 4 diagnostic catheter engaged Right Coronary Artery Multiple orthogonal angiogram obtained and reviewed Hemostasis was achieved by application of TR band. ? Assessment: Non-obstructive coronary artery disease Post Operative Condition: Stable No significant blood loss Disposition: Home Plan: The patient will be monitored in the recovery area. Discharge home after post cath bed rest is completed. The above findings were discussed with the referring physician. Continue aggressive medical therapy and risk factor modification. ? Veronica Garcia M.D. Interventional Cardiology
== END 2022-11-20 13:10 | disposition home or self-care (01) ==
PROVIDERS: PCP Nurse Practitioner; Visit Provider Internal Medicine
PROC: (CPT 93454; principal; 2022-11-20 08:30)
DX: I25.10 Atherosclerotic heart disease of native coronary artery without angina pectoris (principal); R94.39 Abnormal result of other cardiovascular function study; I10 Essential (primary) hypertension; E78.5 Hyperlipidemia, unspecified; E11.40 Type 2 diabetes mellitus with diabetic neuropathy, unspecified; Z85.51 Personal history of malignant neoplasm of bladder; F17.220 Nicotine dependence, chewing tobacco, uncomplicated; F12.90 Cannabis use, unspecified, uncomplicated; Z79.84 Long term (current) use of oral hypoglycemic drugs
CPT/HCPCS: 36415; 80048; 85025; 85055; 85610; 93454; A9270; C1769; C1887; C1894; J1644; J2250; J2305; J3010; J7040

== ENCOUNTER 2023-01-07 08:52 | Outpatient (CLI) | payer MEDICARE, SELFPAY ==
[2023-01-07 09:41] LABS: Anion Gap 6 mmol/L (8-16); Blood Urea Nitrogen 24 mg/dL (9-20); Calcium 9.3 mg/dL (8.4-10.2); Carbon Dioxide 34 mmol/L (22-30); Chloride 97 mmol/L (98-107); Estimated Glomerular Filt Rate 51; Glucose 178 mg/dL (65-110); Potassium 4.6 mmol/L (3.4-5.0); Sodium 137 mmol/L (137-145)
== END 2023-01-07 08:53 | disposition home or self-care (01) ==
LOC: ANHSURGERY 08:56
PROVIDERS: Anesthesiology; PCP Nurse Practitioner; Visit Provider Urology
DX: E11.40 Type 2 diabetes mellitus with diabetic neuropathy, unspecified (principal); Z01.818 Encounter for other preprocedural examination
CPT/HCPCS: 36415; 80048

== ENCOUNTER 2023-01-15 02:38 | Day surgery (SDC) | payer MEDICARE, SELFPAY ==
--- NOTE | 2023-01-02 14:59 | PC.NURSE ---
Addendum entered by Tiny Sarkar RN 01/02/23 15:03: PT INFORMED TO TAKE TRAMADOL AM OF SURGERY IF NEEDED - UNDERSTANDING VOICED Original Note: PRE-OP INSTRUCTIONS, PLEASE READ CAREFULLY Report to the Outpatient Waiting Room, entrance under the green pavilion located off [facility], at time _0930 _ on date _01/15/23_. Planned Procedure Time: _1130_. Time changes happen often and if your time is changed the preop area will call you the afternoon before. - You and your visitor will be asked to self-screen and do not enter if you have any COVID symptoms. - A mask is optional within the hospital at this time. Patients may have clear liquids (water, carbonated beverages, clear teas, apple juice) until 3 hours prior to surgery (0830 AM) with a maximum of 20 ounces. - No food from midnight until time of surgery Take the following medications with a SIP of water the morning of surgery: _GABAPENTIN, METOPROLOL_ DO NOT STOP ANY OF YOUR OTHER PRESCRIPTION MEDICATIONS PRIOR TO SURGERY ?EXCEPT THE FOLLOWING Medications to discontinue - _ELIQUIS PER DR. ELIZABETH'S INSTRUCTIONS Medications to discontinue per ANESTHESIA -_MULTIVITAMIN 3 DAYS PRIOR TO SURGERY, Date to take last dose 01/11/23_ Please no make-up, nail vietnamese, hairspray, perfume, deodorant, or body powder the day of surgery. No jewelry (including any body piercings) or valuables the day of surgery, leave them at home. Please take a shower or bath the night before, or the morning of, surgery with an antibacterial soap. Wear comfortable, loose fitting clothing. - Jewelry must be removed prior to entering the operating room. Rings and piercings that are not removed may be cut off. - The hospital will not accept responsibility for valuables. - Please leave all valuables, including medications, at home the day of surgery. If you are going home after surgery, a licensed professional driver must drive you home. - NO public transportation without another adult if you receive anesthesia. - We recommend that an adult stay with you for 24 hours following discharge. - We also recommend that you do not drive, make important decision, drink alcoholic beverages, or take any drugs that were not prescribed by your health care provider for at least 24 hours after your discharge time. Follow any additional instructions given to you from your surgeon. If you or anyone in your household have experienced Covid symptoms in the past week, please notify your surgeon or the nurse liaison at the phone number below for possible testing. Telephone instructions given to _PATIENT_and asked if any additional questions and then verbalized understanding. Patient advised to call surgeon office or pre surgery nurse liaison [phone] if any additional questions.
[2023-01-02 15:02] VITALS: BMI 38.8
[2023-01-15] VITALS (14 sets, daily range): BP systolic 98–148; BP diastolic 57–84; PULSE 52–64; RESP 10–20; TEMP 36.3; O2SAT 93–100
--- NOTE | 2023-01-15 06:16 | WPDHPUPDATE1 ---
History and Physical Update Update Date/Time: 01/15/23 06:16 History and Physical has been reviewed, including an updated exam of the patient. There are NO changes in the patient's condition. Risks, benefits, and alternatives have been discussed and questions answered. Patient agrees to proceed with procedure.
--- NOTE | 2023-01-15 09:30 | WPDANESEPPF ---
Anes - Initial Pre Proc Eval Procedure: Operation Date: 01/15/23 11:30 Proposed Procedures p Trans Urethral Resection Bladder Tumor with Gemcitabine Instillation - Tim Scott MD Date/Time: 01/15/23 09:30 Surgeon: Tim Scott MD Pre Op Diagnosis: bladder CA Patient Data Age: 67 Gender: M Height: 1.78 m Weight: 122.6 kg Last Vital Signs Temp 36.3 C L 01/15/23 09:10 Pulse 62 01/15/23 09:10 Resp 20 01/15/23 09:10 BP 148/76 H 01/15/23 09:10 Pulse Ox 98 01/15/23 09:10 O2 Del Method Room Air 01/15/23 09:10 Allergies Allergy/AdvReac Type Severity Reaction Status Date / Time Iodinated Contrast Media Allergy Intermediate Hives Verified 01/15/23 09:09 Penicillins Allergy Intermediate Hives Verified 01/15/23 09:09 Home Medications Medication Instructions Recorded Confirmed Type finasteride 5 mg tablet 5 mg PO DAILY 09/02/21 01/02/23 History wawictwjanfg-vam-bpmrk acid-vit 1 tablet PO DAILY 09/02/21 01/02/23 History K-lycop 400 mcg-20 mcg-370 mcg tablet (Men's 50 Plus Multivitamin) tramadol 50 mg tablet 50 mg PO BID PRN pain #60 tabs 10/09/21 01/02/23 Rx gabapentin 300 mg capsule 300 mg PO TID 90 days #270 caps 02/04/22 01/02/23 Rx magnesium oxide 400 mg (241.3 mg 400 mg PO BID #180 tabs 08/01/22 01/02/23 Rx magnesium) tablet blood-glucose meter (True Metrix #1 ea 08/06/22 01/02/23 Rx Glucose Meter) blood glucose control, normal #1 ea 08/08/22 01/02/23 Rx (True Metrix Level 2 solution) apixaban 5 mg tablet (Eliquis) 5 mg PO BID #60 tabs 10/31/22 01/02/23 Rx atorvastatin 20 mg tablet 20 mg PO DAILY #90 tabs 11/05/22 01/02/23 Rx metoprolol tartrate 25 mg tablet 25 mg PO Q12H #180 tabs 11/05/22 01/02/23 Rx losartan 25 mg tablet 25 mg PO DAILY 11/19/22 01/02/23 History metformin 500 mg tablet See Rx Instructions PO BID #270 11/21/22 01/02/23 Rx tabs furosemide 40 mg tablet (Lasix) 40 mg PO QAM #90 tabs 12/29/22 01/02/23 Rx spironolactone 50 mg tablet 50 mg PO DAILY #90 tabs 12/29/22 01/02/23 Rx linagliptin 5 mg tablet (Tradjenta) See Rx Instructions .Route 01/09/23 Rx .COMPLEX #90 tabs blood sugar diagnostic (True #200 strips 01/12/23 Rx Metrix Glucose Test Strip) Patient hx anesthesia problems: none Family hx anesthesia problems: none Results Review: All pre-operative results and documents have been reviewed as part of the pre-operative evaluation. [facility] Past Medical History Medical History Cancer of overlapping sites of bladder Edema Essential (primary) hypertension Hepatic fibrosis Hyperlipidemia, unspecified Other hyperlipidemia (Unknown) Proteinuria Proteinuria due to type 2 diabetes mellitus Right acetabular fracture Screening for prostate cancer Type 2 diabetes mellitus with diabetic neuropathy, unspecified Surgical History Surgical History Hx of cystoscopy Family History Family History Sibling Family history of multiple sclerosis Patient's sister is in good health Patient's brother is in good health Father Hypertension Family history of diabetes mellitus in first degree relative Diabetes mellitus Mother Family history of malignant neoplasm Patient's mother is Social History Social History Smoking status: Never smoker Tobacco type: smokeless tobacco Smokeless tobacco user: chewing tobacco Additional smoking assessment comments: CHEWING TOBACCO DAILY Alcohol intake: former Drinks per week: 84 Alcohol use details: QUIT 2009 Substance use: current Substance use type: marijuana Other substance usage details: SERVERAL TIMES WEEK Last use: 01/01/23 Lack of Transportation: No Lack of Food: Never True Current Housing: I Have Housing Concerned About Future Housing:
[2023-01-15 09:36] LABS: Glucose Point of Care 162 mg/dl (65-105)
[2023-01-15] MEDS: LACTATED RINGERS 1,000 ML 30 ML IV CONT (09:41)
[2023-01-15] MEDS: FAMOTIDINE 20 MG/2 ML VIAL IV PUSH (09:42)
[2023-01-15] MEDS: levoFLOXacin 500 MG/D5W 100 ML 500 MG/100 ML BAG 100 MG IVPB (10:01)
[2023-01-15] MEDS: LIDOCAINE HCL 2% GEL UROJET 10 ML PKG MUCOUS MEM (10:18)
--- NOTE | 2023-01-15 10:38 | W.PM.PROC2 ---
Procedure Note - Detailed Date of Procedure 01/15/23 Pre-op Diagnosis Bladder CA Post-op Diagnosis Same Procedure Performed TURBT (Small) Surgeon Tim Scott MD Anesthesia General Description of Procedure Patient is brought the operative suite was prepped draped in routine sterile fashion while in dorsal lithotomy position. 2% xylocaine jelly was introduced intraurethrally and systemic sedation is administered per the anesthesia department. Cystoscopy was undertaken with a 24 F resectoscope sheath. He has multiple papillary tiny little neoplasm scattered throughout his bladder. I resected 2 of these with the loop electrode and desiccated the remainder. These were more concentrated in the dome than anywhere else. None of these appeared to be sessile or particularly aggressive. Estimated Blood Loss 0 Drains No Packing No Pathology Yes Complications No immediate complications Condition Stable Disposition PACU
[2023-01-15 10:55] LABS: Glucose Point of Care 168 mg/dl (65-105)
[2023-01-15] MEDS: fentaNYL CITRATE INJ (*CRX) 100 MCG/2 ML VIAL 25 MCG IV PUSH ×4 (10:59→12:20)
[2023-01-15] MEDS: SODIUM CHLORIDE 0.9% IV 23.7 ML, GEMCITABINE HCL 1,000 MG BLADDER ×2 (11:03)
[2023-01-15] MEDS: SODIUM CHLORIDE 0.9% IV 50 ML BAG 150 ML IRRIGATION (12:08)
--- NOTE | 2023-01-15 12:23 | SUR.PHASEI ---
1103 - MD Scott at bedside in PACU to instill chemo into bladder (see MAR) Pt. on back for 20 min, then turned to right side for 20 min, then turned to left side for 20 min. 1207 - chemo drained from bladder into almazan. 200mL clear, pinkish yellow urine drained. Pt. bladder was backfilled with 150mL NS irrigation and almazan was then discontinued at this time per MD Scott order. Pt. must void prior to discharge per .
== END 2023-01-15 13:40 | disposition home or self-care (01) ==
PROVIDERS: PCP Nurse Practitioner; Visit Provider Urology
PROC: 0TBB8ZZ Excision of Bladder, Via Natural or Artificial Opening Endoscopic (ICD-10-PCS; CPT 52234; principal; 2023-01-15 11:30)
DX: Z08 Encounter for follow-up examination after completed treatment for malignant neoplasm (principal); N30.90 Cystitis, unspecified without hematuria; Z85.51 Personal history of malignant neoplasm of bladder; I10 Essential (primary) hypertension; E78.5 Hyperlipidemia, unspecified; E11.40 Type 2 diabetes mellitus with diabetic neuropathy, unspecified; F17.220 Nicotine dependence, chewing tobacco, uncomplicated; F12.90 Cannabis use, unspecified, uncomplicated; E66.9 Obesity, unspecified; Z68.38 Body mass index [BMI] 38.0-38.9, adult; Z79.84 Long term (current) use of oral hypoglycemic drugs; Z79.01 Long term (current) use of anticoagulants
CPT/HCPCS: 52234; 36415; 51720; 80048; 82948; 88305; J1100; J1956; J2405; J2704; J3010; J7120; J9201

== ENCOUNTER 2023-02-25 06:47 | Outpatient (CLI) | payer MEDICARE, SELFPAY ==
[2023-02-25 07:30] LABS: Albumin Level 4.2 g/dL (3.5-5.1); Anion Gap 9 mmol/L (8-16); Blood Urea Nitrogen 26 mg/dL (9-20); Calcium 9.1 mg/dL (8.4-10.2); Carbon Dioxide 31 mmol/L (22-30); Chloride 96 mmol/L (98-107); Estimated Glomerular Filt Rate 51; Glucose 146 mg/dL (65-110); Phosphorus 4.7 mg/dL (2.5-4.5); Potassium 4.2 mmol/L (3.4-5.0); Sodium 136 mmol/L (137-145)
[2023-02-25 11:50] LABS: Creatinine Urine 230.6 mg/dL; Total Protein Urine Random 10 mg/dL; Ur Ttl Prot Creatinine Ratio 0.04 mg/mg (0-0.20)
== END 2023-02-25 06:48 | disposition home or self-care (01) ==
PROVIDERS: PCP Nurse Practitioner; Visit Provider Internal Medicine Nephrology
DX: E11.29 Type 2 diabetes mellitus with other diabetic kidney complication (principal); R80.9 Proteinuria, unspecified; I10 Essential (primary) hypertension
CPT/HCPCS: 36415; 80069; 82570; 84156

== ENCOUNTER 2023-05-01 09:40 | Outpatient (CLI) | payer MEDICARE, SELFPAY ==
--- NOTE | 2023-05-01 10:28 | ECG_ITS ---
Measurements Intervals [place] Rate: 69 P: ME: 0 QRS: 18 QRSD: 105 T: 163 QT: 387 QTc: 415 Interpretive Statements ATRIAL FIBRILLATION NONSPECIFIC ST & T-WAVE ABNORMALITY- INF/HIGH LAT LEADS BASELINE ARTIFACT- V4-V6 ABNORMAL ECG COMPARED TO ECG 09/04/2021 09:52:35 NO SIGNIFICANT CHANGES Electronically Signed On 05-01-2023 12:17:14 BUSINESS TRANSFORMATION ANALYST by Kris Wynne D.O.
[2023-05-01 11:29] LABS: Prothrombin Time 13.9 Seconds (11.1-14.7)
[2023-05-01 11:30] LABS: Partial Thromboplastin Time 30.6 SECONDS (22.3-36.8)
[2023-05-01 11:34] LABS: Anion Gap 8 mmol/L (8-16); Blood Urea Nitrogen 24 mg/dL (9-20); Calcium 9.6 mg/dL (8.4-10.2); Carbon Dioxide 33 mmol/L (22-30); Chloride 97 mmol/L (98-107); Estimated Glomerular Filt Rate 55; Glucose 167 mg/dL (65-110); Potassium 4.6 mmol/L (3.4-5.0); Sodium 138 mmol/L (137-145)
== END 2023-05-01 09:41 | disposition home or self-care (01) ==
PROVIDERS: Anesthesiology; PCP Nurse Practitioner Family; Visit Provider Urology
DX: N28.9 Disorder of kidney and ureter, unspecified (principal); E11.40 Type 2 diabetes mellitus with diabetic neuropathy, unspecified; I48.91 Unspecified atrial fibrillation; Z01.818 Encounter for other preprocedural examination; R94.31 Abnormal electrocardiogram [ECG] [EKG]
CPT/HCPCS: 36415; 80048; 85610; 85730; 93005

== ENCOUNTER 2023-06-25 01:39 | Day surgery (SDC) | payer MEDICARE, SELFPAY ==
[2023-04-29 09:27] VITALS: BMI 42.5
--- NOTE | 2023-04-29 10:05 | PC.NURSE ---
Report to the Outpatient Waiting Room, entrance under the green pavilion located off [facility], at time __6:30AM on date __05/07/22 . Planned Procedure Time: _8:30AM . Time changes happen often and if your time is changed the preop area will call you the afternoon before. - You and your visitor will be asked to self-screen and do not enter if you have any COVID symptoms. - A mask is optional within the hospital at this time. Patients may have clear liquids (water, carbonated beverages, clear teas, apple juice) until 3 hours prior to surgery with a maximum of 20 ounces. - No food from midnight until time of surgery. Take the following medications with a SIP of water the morning of surgery: __METOPROLOL & GABAPENTIN. TRAMADOL NEEDED FOR PAIN. DO NOT STOP ANY OF YOUR OTHER PRESCRIPTION MEDICATIONS PRIOR TO SURGERY ?EXCEPT THE FOLLOWING Medications to discontinue per physician __HOLD ELIQUIS PER DR ELIZABETH. HOLD ALL VITAMINS/SUPPLEMENT 3 DAYS PRE-OP PER ANESTHEIA- LAST DOSE 05/03/23. Please no make-up, nail estonian, hairspray, perfume, deodorant, or body powder the day of surgery. No jewelry (including any body piercings) or valuables the day of surgery, leave them at home. Please take a shower or bath the night before, or the morning of, surgery with an antibacterial soap. Wear comfortable, loose fitting clothing. Children are encouraged to wear pajamas. - Jewelry must be removed prior to entering the operating room. Rings and piercings that are not removed may be cut off. - The hospital will not accept responsibility for valuables. - Please leave all valuables, including medications, at home the day of surgery. If you are going home after surgery, a licensed local company intermodal truck driver must drive you home. - NO public transportation without another adult if you receive anesthesia. - We recommend that an adult stay with you for 24 hours following discharge. - We also recommend that you do not drive, make important decision, drink alcoholic beverages, or take any drugs that were not prescribed by your health care provider for at least 24 hours after your discharge time. Follow any additional instructions given to you from your surgeon. If you or anyone in your household have experienced Covid symptoms in the past week, please notify your surgeon or the nurse liaison at the phone number below for possible testing. Telephone instructions given to __PATIENT and asked if any additional questions and then verbalized understanding. Patient advised to call surgeon office or pre surgery nurse liaison [phone] if any additional questions.
--- NOTE | 2023-05-06 13:03 | WPDANESEPPF ---
Anes - Initial Pre Proc Eval Procedure: Operation Date: 05/07/23 08:30 Proposed Procedures p Trans Urethral Resection Bladder Tumor with Gemcitabine Instillation - Tim Scott MD Date/Time: 05/06/23 13:03 Surgeon: Tim Scott MD Pre Op Diagnosis: bladder CA Patient Data Age: 67 Gender: M Height: 1.7 m Weight: 123 kg Allergies Allergy/AdvReac Type Severity Reaction Status Date / Time Iodinated Contrast Media Allergy Intermediate Hives Verified 04/29/23 09:29 Penicillins Allergy Intermediate Hives Verified 04/29/23 09:29 Home Medications Medication Instructions Recorded Confirmed Type finasteride 5 mg tablet 5 mg PO DAILY 09/02/21 04/29/23 History htixgzddhtrh-avr-qfcic acid-vit 1 tablet PO DAILY 09/02/21 04/29/23 History K-lycop 400 mcg-20 mcg-370 mcg tablet (Men's 50 Plus Multivitamin) blood-glucose meter (True Metrix #1 ea 08/06/22 04/28/23 Rx Glucose Meter) blood glucose control, normal #1 ea 08/08/22 04/28/23 Rx (True Metrix Level 2 solution) atorvastatin 20 mg tablet 20 mg PO DAILY #90 tabs 11/05/22 04/29/23 Rx metoprolol tartrate 25 mg tablet 25 mg PO Q12H #180 tabs 11/05/22 04/29/23 Rx metformin 500 mg tablet See Rx Instructions PO BID #270 11/21/22 04/29/23 Rx tabs furosemide 40 mg tablet (Lasix) 40 mg PO QAM #90 tabs 12/29/22 04/29/23 Rx linagliptin 5 mg tablet (Tradjenta) See Rx Instructions .Route 01/09/23 04/29/23 Rx .COMPLEX #90 tabs magnesium oxide 400 mg (241.3 mg See Rx Instructions .Route 01/20/23 04/29/23 Rx magnesium) tablet .COMPLEX #180 tabs tramadol 50 mg tablet 50 mg PO BID PRN pain #60 tabs 02/11/23 04/29/23 Rx apixaban 5 mg tablet (Eliquis) 5 mg PO BID #60 tabs 04/24/23 04/29/23 Rx gabapentin 300 mg capsule 300 mg PO TID 04/29/23 04/29/23 History losartan 25 mg tablet 25 mg PO QAM 04/29/23 04/29/23 History spironolactone 50 mg tablet 50 mg PO QAM 04/29/23 04/29/23 History blood sugar diagnostic (True #300 strips 05/06/23 Rx Metrix Glucose Test Strip) Results Review: All pre-operative results and documents have been reviewed as part of the pre-operative evaluation. [facility] Past Medical History Medical History (Updated 05/06/23 @ 13:04 by Doug Church DO) Atrial fibrillation Cancer of overlapping sites of bladder Cirrhosis Edema Essential (primary) hypertension Hepatic fibrosis Hip fracture, left Hyperlipidemia, unspecified Other hyperlipidemia (Unknown) Proteinuria Proteinuria due to type 2 diabetes mellitus Right acetabular fracture Screening for prostate cancer Type 2 diabetes mellitus with diabetic neuropathy, unspecified Surgical History Surgical History Hx of cystoscopy Family History Family History Sibling Family history of multiple sclerosis Patient's sister is in good health Patient's brother is in good health Father Hypertension Family history of diabetes mellitus in first degree relative Diabetes mellitus Mother Family history of malignant neoplasm Patient's mother is Social History Social History Smoking packs per day: 1 Smoking cigarettes per day: 20.0 Years smoked: 10 Smoking pack-years: 10.00 Smoking status: Former smoker Tobacco type: cigarettes Smokeless tobacco user: chewing tobacco Smoking end date: 04/13/79 Additional smoking assessment comments: CURRENTLY CHEWS TOBACCO Alcohol intake: former Drinks per week: 84 Alcohol use details: QUIT ~ 2007, HEAVY DRINKER FOR 15-20 YEARS Substance use: current Substance use type: marijuana Other substance usage details: SMOKES ~3 TIMES/WEEK Last use: 01/01/23 Lack of Transportation: No Lack of Food: Never True Current Housing: I Have Housing Concerned About Future Housing: No Difficulty Paying Gas/Electric Bills: No D
--- NOTE | 2023-05-07 06:40 | WPDHPUPDATE1 ---
History and Physical Update Update Date/Time: 05/07/23 06:40 History and Physical has been reviewed, including an updated exam of the patient. There are NO changes in the patient's condition. Risks, benefits, and alternatives have been discussed and questions answered. Patient agrees to proceed with procedure.
--- NOTE | 2023-05-15 10:40 | PC.NURSE ---
PT STATES HE WAS RESCHEDULED DUE TO HAVING A COLD. NEW DAY AND TIME GIVEN TO PATIENT. ALL PRE-OP INSTRUCTIONS REVIEWED, HE RELAYS UNDERSTANDING. Report to the Outpatient Waiting Room, entrance under the green pavilion located off [facility], at time __11:00AM on date ___05/28/23____. Planned Procedure Time: __1:00PM . Time changes happen often and if your time is changed the preop area will call you the afternoon before. - You and your visitor will be asked to self-screen and do not enter if you have any COVID symptoms. - A mask is optional within the hospital at this time. Patients may have clear liquids (water, carbonated beverages, clear teas, apple juice) until 3 hours prior to surgery with a maximum of 20 ounces. - No food from midnight until time of surgery. Take the following medications with a SIP of water the morning of surgery: ____METOPROLOL & GABAPENTIN. TRAMADOL NEEDED FOR PAIN._ DO NOT STOP ANY OF YOUR OTHER PRESCRIPTION MEDICATIONS PRIOR TO SURGERY ?EXCEPT THE FOLLOWING Medications to discontinue per physician ___HOLD ELIQUIS PER DR ELIZABETH- PATIENT STATES HE'S TO HOLD 7 DAYS-LAST DOSE-05/20/23___ HOLD ALL VITAMINS/SUPPLEMENTS 3 DAYS PRE-OP PER ANESTHESIA, LAST DOSE-05/14/23 Please no make-up, nail omani, hairspray, perfume, deodorant, or body powder the day of surgery. No jewelry (including any body piercings) or valuables the day of surgery, leave them at home. Please take a shower or bath the night before, or the morning of, surgery with an antibacterial soap. Wear comfortable, loose fitting clothing. - Jewelry must be removed prior to entering the operating room. Rings and piercings that are not removed may be cut off. - The hospital will not accept responsibility for valuables. - Please leave all valuables, including medications, at home the day of surgery. If you are going home after surgery, a licensed concrete pile driver operator must drive you home. - NO public transportation without another adult if you receive anesthesia. - We recommend that an adult stay with you for 24 hours following discharge. - We also recommend that you do not drive, make important decision, drink alcoholic beverages, or take any drugs that were not prescribed by your health care provider for at least 24 hours after your discharge time. Follow any additional instructions given to you from your surgeon. If you or anyone in your household have experienced Covid symptoms in the past week, please notify your surgeon or the nurse liaison at the phone number below for possible testing. Telephone instructions given to ___PATIENT and asked if any additional questions and then verbalized understanding. Patient advised to call surgeon office or pre surgery nurse liaison [phone] if any additional questions.
--- NOTE | 2023-05-26 13:48 | PM.HPGS ---
History of Present Illness History of Present Illness Consent: Risks, benefits, and alternatives have been discussed and questions answered. Patient agrees to proceed with procedure. Chief complaint: bladder CA Narrative: Angelito Lai is a 67 year old male With a history of recurrent urothelial carcinoma the bladder. Recent surveillance cystoscopy showed multiple small papillary neoplasm scattered throughout the bladder. After discussion of options he has elected for TURBT followed by gemcitabine installation. He is due for upper tract imaging in the next several months we will also proceed with bilateral retrograde pyelography. is aware the risk including, but not limited to, recurrent neoplasms require additional therapy, bladder injury necessitating additional surgery or indwelling catheter. Review of Systems Cardiovascular: Cardiovascular: Denies chest pain, Denies lightheadedness, Denies palpitations and Denies dyspnea Respiratory: Respiratory: Denies dyspnea Gastrointestinal: Gastrointestinal: Denies diarrhea, Denies nausea and Denies vomiting Genitourinary: Genitourinary: Denies hematuria and Denies dysuria Endocrine: Endocrine: Denies palpitations PMFSH Past Medical History Medical History (Updated 05/06/23 @ 13:04 by Doug Church DO) Atrial fibrillation Cancer of overlapping sites of bladder Cirrhosis Edema Essential (primary) hypertension Hepatic fibrosis Hip fracture, left Hyperlipidemia, unspecified Other hyperlipidemia (Unknown) Proteinuria Proteinuria due to type 2 diabetes mellitus Right acetabular fracture Screening for prostate cancer Type 2 diabetes mellitus with diabetic neuropathy, unspecified Surgical History Surgical History Hx of cystoscopy Family History Family History Sibling Family history of multiple sclerosis Patient's sister is in good health Patient's brother is in good health Father Hypertension Family history of diabetes mellitus in first degree relative Diabetes mellitus Mother Family history of malignant neoplasm Patient's mother is Social History Social History Smoking packs per day: 1 Smoking cigarettes per day: 20.0 Years smoked: 10 Smoking pack-years: 10.00 Smoking status: Former smoker Tobacco type: cigarettes Smokeless tobacco user: chewing tobacco Smoking end date: 04/13/79 Additional smoking assessment comments: CURRENTLY CHEWS TOBACCO Alcohol intake: former Drinks per week: 84 Alcohol use details: QUIT ~ 2007, HEAVY DRINKER FOR 15-20 YEARS Substance use: current Substance use type: marijuana Other substance usage details: SMOKES ~3 TIMES/WEEK Last use: 01/01/23 Lack of Transportation: No Lack of Food: Never True Current Housing: I Have Housing Concerned About Future Housing: No Difficulty Paying Gas/Electric Bills: No Difficulty Paying for Meds: No Currently Unemployed: No Education: Grade School Difficulty w/ Childcare or Family Care: No Living arrangements: with family Additional living arrangements comments: SON Gender identity (if verbalized by the patient): Male Sexual Orientation (if Verbalized by the Patient): Straight or Heterosexual Spiritual care concerns: No Meds Home Medications and Allergies Home Medications Medication Instructions Recorded Confirmed Type finasteride 5 mg tablet 5 mg PO DAILY 09/02/21 05/15/23 History vtcxgyyjlwct-fuf-nqihe acid-vit 1 tablet PO DAILY 09/02/21 05/15/23 History K-lycop 400 mcg-20 mcg-370 mcg tablet (Men's 50 Plus Multivitamin) blood-glucose meter (True Metrix #1 ea 08/06/22 05/15/23 Rx Glucose Meter) blood glucose control, normal #1 ea 08/08/22 05/15/23 Rx (True Metrix Level 2 solution) atorvastatin 20 mg tablet 20 mg PO DAILY #
--- NOTE | 2023-05-27 09:43 | WPDANESEPPF ---
Anes - Initial Pre Proc Eval Procedure: Operation Date: 05/28/23 07:30 Proposed Procedures p Trans Urethral Resection Bladder Tumor with Gemcitabine Instillation - Tim Scott MD Date/Time: 05/27/23 09:43 Surgeon: Tim Scott MD Pre Op Diagnosis: bladder CA Patient Data Age: 67 Gender: M Height: 1.7 m Weight: 123 kg Allergies Allergy/AdvReac Type Severity Reaction Status Date / Time Iodinated Contrast Media Allergy Intermediate Hives Verified 05/15/23 10:39 Penicillins Allergy Intermediate Hives Verified 05/15/23 10:39 Home Medications Medication Instructions Recorded Confirmed Type finasteride 5 mg tablet 5 mg PO DAILY 09/02/21 05/15/23 History jpkupqzwctgg-rmp-tplqi acid-vit 1 tablet PO DAILY 09/02/21 05/15/23 History K-lycop 400 mcg-20 mcg-370 mcg tablet (Men's 50 Plus Multivitamin) blood-glucose meter (True Metrix #1 ea 08/06/22 05/15/23 Rx Glucose Meter) blood glucose control, normal #1 ea 08/08/22 05/15/23 Rx (True Metrix Level 2 solution) atorvastatin 20 mg tablet 20 mg PO DAILY #90 tabs 11/05/22 05/15/23 Rx metoprolol tartrate 25 mg tablet 25 mg PO Q12H #180 tabs 11/05/22 05/15/23 Rx metformin 500 mg tablet See Rx Instructions PO BID #270 11/21/22 05/15/23 Rx tabs furosemide 40 mg tablet (Lasix) 40 mg PO QAM #90 tabs 12/29/22 05/15/23 Rx magnesium oxide 400 mg (241.3 mg See Rx Instructions .Route 01/20/23 05/15/23 Rx magnesium) tablet .COMPLEX #180 tabs tramadol 50 mg tablet 50 mg PO BID PRN pain #60 tabs 02/11/23 05/15/23 Rx apixaban 5 mg tablet (Eliquis) 5 mg PO BID #60 tabs 04/24/23 05/15/23 Rx gabapentin 300 mg capsule 300 mg PO TID 04/29/23 05/15/23 History losartan 25 mg tablet 25 mg PO QAM 04/29/23 05/15/23 History spironolactone 50 mg tablet 50 mg PO QAM 04/29/23 05/15/23 History blood sugar diagnostic (True #300 strips 05/06/23 05/15/23 Rx Metrix Glucose Test Strip) linagliptin 5 mg tablet (Tradjenta) See Rx Instructions .Route 05/08/23 05/15/23 Rx .COMPLEX #90 tabs Results Review: All pre-operative results and documents have been reviewed as part of the pre-operative evaluation. [facility] Past Medical History Medical History (Updated 05/06/23 @ 13:04 by Doug Church, ) Atrial fibrillation Cancer of overlapping sites of bladder Cirrhosis Edema Essential (primary) hypertension Hepatic fibrosis Hip fracture, left Hyperlipidemia, unspecified Other hyperlipidemia (Unknown) Proteinuria Proteinuria due to type 2 diabetes mellitus Right acetabular fracture Screening for prostate cancer Type 2 diabetes mellitus with diabetic neuropathy, unspecified Surgical History Surgical History Hx of cystoscopy Family History Family History Sibling Family history of multiple sclerosis Patient's sister is in good health Patient's brother is in good health Father Hypertension Family history of diabetes mellitus in first degree relative Diabetes mellitus Mother Family history of malignant neoplasm Patient's mother is Social History Social History Smoking packs per day: 1 Smoking cigarettes per day: 20.0 Years smoked: 10 Smoking pack-years: 10.00 Smoking status: Former smoker Tobacco type: cigarettes Smokeless tobacco user: chewing tobacco Smoking end date: 04/13/79 Additional smoking assessment comments: CURRENTLY CHEWS TOBACCO Alcohol intake: former Drinks per week: 84 Alcohol use details: QUIT ~ 2007, HEAVY DRINKER FOR 15-20 YEARS Substance use: current Substance use type: marijuana Other substance usage details: SMOKES ~3 TIMES/WEEK Last use: 01/01/23 Lack of Transportation: No Lack of Food: Never True Current Housing: I Have Housing Concerned About Future Housing: No Difficulty Paying Gas/Electric Bills
--- NOTE | 2023-05-28 06:12 | WPDHPUPDATE1 ---
History and Physical Update Update Date/Time: 05/28/23 06:12 History and Physical has been reviewed, including an updated exam of the patient. There are NO changes in the patient's condition. Risks, benefits, and alternatives have been discussed and questions answered. Patient agrees to proceed with procedure.
[2023-06-01 15:04] VITALS: BMI 38.5
--- NOTE | 2023-06-01 15:20 | PC.NURSE ---
Addendum entered by Mariel Lainez RN 06/01/23 15:23: PATIENT WAS RESCHEDULED FROM 05/28/23, STATES HE WAS SICK AT THAT TIME. NEW DATE/TIMES/PRE-OP INSTRUCTIONS GIVEN. PT RELAYS UNDERSTANDING. Original Note: Report to the Outpatient Waiting Room, entrance under the green pavilion located off [facility], at time __11:00AM on date _06/11/23 . Planned Procedure Time: __1:00PM . Time changes happen often and if your time is changed the preop area will call you the afternoon before. - You and your visitor will be asked to self-screen and do not enter if you have any COVID symptoms. - A mask is optional within the hospital at this time. Patients may have clear liquids (water, carbonated beverages, clear teas, apple juice) until 3 hours prior to surgery with a maximum of 20 ounces. - No food from midnight until time of surgery. Take the following medications with a SIP of water the morning of surgery: ___METROPROLOL, GABAPENTIN. TRAMADOL NEEDED. DO NOT STOP ANY OF YOUR OTHER PRESCRIPTION MEDICATIONS PRIOR TO SURGERY ?EXCEPT THE FOLLOWING Medications to discontinue per physician ____HOLD ELIQUIS 7 DAYS PRE-OP PER DR ELIZABETH- LAST DOSE 11/01/23. HOLD ALL VITAMINS/SUPPLEMENTS 3 DAYS PRE-OP PER ANESTHESIA- LAST DOSE 06/07/23. Please no make-up, nail swedish, hairspray, perfume, deodorant, or body powder the day of surgery. No jewelry (including any body piercings) or valuables the day of surgery, leave them at home. Please take a shower or bath the night before, or the morning of, surgery with an antibacterial soap. Wear comfortable, loose fitting clothing. - Jewelry must be removed prior to entering the operating room. Rings and piercings that are not removed may be cut off. - The hospital will not accept responsibility for valuables. - Please leave all valuables, including medications, at home the day of surgery. If you are going home after surgery, a licensed sprinkling truck driver must drive you home. - NO public transportation without another adult if you receive anesthesia. - We recommend that an adult stay with you for 24 hours following discharge. - We also recommend that you do not drive, make important decision, drink alcoholic beverages, or take any drugs that were not prescribed by your health care provider for at least 24 hours after your discharge time. Follow any additional instructions given to you from your surgeon. If you or anyone in your household have experienced Covid symptoms in the past week, please notify your surgeon or the nurse liaison at the phone number below for possible testing. Telephone instructions given to ___PATIENT and asked if any additional questions and then verbalized understanding. Patient advised to call surgeon office or pre surgery nurse liaison [phone] if any additional questions.
--- NOTE | 2023-06-18 12:22 | PC.NURSE ---
Addendum entered by Mariel Lainez RN 06/18/23 12:28: PATIENT STATES THAT LAST CANCELATION WAS DUE TO CONTINUED SICKNESS, MAYBE I HAD THE FLU . REPORTS NASAL CONGESTION, ENCOURAGED PT TO CONTACT PRIMARY MD IF SYMPTOMS CONTINUE. HE RELAYS UNDERSTANDING. Original Note: Report to the Outpatient Waiting Room, entrance under the green pavilion located off [facility], at time ___7:30AM____ on date __06/25/23 . Planned Procedure Time: __9:30AM . Time changes happen often and if your time is changed the preop area will call you the afternoon before. - You and your visitor will be asked to self-screen and do not enter if you have any COVID symptoms. - A mask is optional within the hospital at this time. Patients may have clear liquids (water, carbonated beverages, clear teas, apple juice) until 3 hours prior to surgery with a maximum of 20 ounces. - No food from midnight until time of surgery. Take the following medications with a SIP of water the morning of surgery: ___METOPROLOL, GABAPENTIN. MAY TAKE TRAMADOL NEEDED FOR PAIN. DO NOT STOP ANY OF YOUR OTHER PRESCRIPTION MEDICATIONS PRIOR TO SURGERY ?EXCEPT THE FOLLOWING Medications to discontinue per physician ____HOLD ELIQUIS 7 DAYS PRE-OP PER DR ELIZABETH-LAST DOSE 06/17/23 HOLD ALL VITAMINS/SUPPLEMENTS 3 DAYS PRE-OP PER ANESTHESIA- LAST DOSE 06/21/23. Please no make-up, nail czech, hairspray, perfume, deodorant, or body powder the day of surgery. No jewelry (including any body piercings) or valuables the day of surgery, leave them at home. Please take a shower or bath the night before, or the morning of, surgery with an antibacterial soap. Wear comfortable, loose fitting clothing. - Jewelry must be removed prior to entering the operating room. Rings and piercings that are not removed may be cut off. - The hospital will not accept responsibility for valuables. - Please leave all valuables, including medications, at home the day of surgery. If you are going home after surgery, a licensed driver messenger must drive you home. - NO public transportation without another adult if you receive anesthesia. - We recommend that an adult stay with you for 24 hours following discharge. - We also recommend that you do not drive, make important decision, drink alcoholic beverages, or take any drugs that were not prescribed by your health care provider for at least 24 hours after your discharge time. Follow any additional instructions given to you from your surgeon. If you or anyone in your household have experienced Covid symptoms in the past week, please notify your surgeon or the nurse liaison at the phone number below for possible testing. Telephone instructions given to ____PATIENT and asked if any additional questions and then verbalized understanding. Patient advised to call surgeon office or pre surgery nurse liaison [phone] if any additional questions.
--- NOTE | 2023-06-23 06:41 | PM.HPGS ---
History of Present Illness History of Present Illness Consent: Risks, benefits, and alternatives have been discussed and questions answered. Patient agrees to proceed with procedure. Chief complaint: bladder CA Narrative: Angelito Lai is a 67 year old male with a known history of recurrent urothelial carcinoma of the bladder. In April 2023 he was found to have multiple small recurrences and was scheduled for resection of these bladder tumors but failed to show for his procedure. He now presents for TURBT with gemcitabine installation. He is aware of the risks including, but not limited to, adverse cardiopulmonary events, bladder injury with need for catheterization and recurrent neoplasm. Review of Systems Cardiovascular: Cardiovascular: Denies chest pain, Denies lightheadedness, Denies palpitations and Denies dyspnea Respiratory: Respiratory: Denies dyspnea Gastrointestinal: Gastrointestinal: Denies diarrhea, Denies nausea and Denies vomiting Genitourinary: Genitourinary: Denies hematuria and Denies dysuria Endocrine: Endocrine: Denies palpitations PMF Past Medical History Medical History (Updated 06/09/23 @ 13:12 by Diane Rich APRN) Atrial fibrillation Cancer of overlapping sites of bladder Cirrhosis Edema Essential (primary) hypertension Hepatic fibrosis Hip fracture, left Hyperlipidemia, unspecified Other hyperlipidemia (Unknown) Proteinuria Proteinuria due to type 2 diabetes mellitus Right acetabular fracture Screening for prostate cancer Type 2 diabetes mellitus with diabetic neuropathy, unspecified Surgical History Surgical History Hx of cystoscopy Family History Family History Sibling Family history of multiple sclerosis Patient's sister is in good health Patient's brother is in good health Father Hypertension Family history of diabetes mellitus in first degree relative Diabetes mellitus Mother Family history of malignant neoplasm Patient's mother is Social History Social History Smoking packs per day: 0.5 Smoking cigarettes per day: 10.0 Years smoked: 10 Smoking pack-years: 5.00 Smoking status: Former smoker Tobacco type: cigarettes Smokeless tobacco user: chewing tobacco Smoking end date: 10/12/79 Additional smoking assessment comments: CURRENTLY CHEWS TOBACCO Alcohol intake: former Drinks per week: 84 Alcohol use details: QUIT ALCOHOL 2006 Substance use: current Substance use type: marijuana Other substance usage details: SMOKES ~3 TIMES/WEEK Last use: 01/01/23 Lack of Transportation: No Lack of Food: Never True Current Housing: I Have Housing Concerned About Future Housing: No Difficulty Paying Gas/Electric Bills: No Difficulty Paying for Meds: No Currently Unemployed: No Education: Grade School Difficulty w/ Childcare or Family Care: No Living arrangements: with family Additional living arrangements comments: SON Gender identity (if verbalized by the patient): Male Sexual Orientation (if Verbalized by the Patient): Straight or Heterosexual Spiritual care concerns: No Meds Home Medications and Allergies Home Medications Medication Instructions Recorded Confirmed Type finasteride 5 mg tablet 5 mg PO DAILY 09/02/21 06/18/23 History euxaqbcwtihp-okk-ehjdw acid-vit 1 tablet PO DAILY 09/02/21 06/18/23 History K-lycop 400 mcg-20 mcg-370 mcg tablet (Men's 50 Plus Multivitamin) blood-glucose meter (True Metrix #1 ea 08/06/22 06/18/23 Rx Glucose Meter) blood glucose control, normal #1 ea 08/08/22 06/18/23 Rx (True Metrix Level 2 solution) metformin 500 mg tablet See Rx Instructions PO BID #270 11/21/22 06/18/23 Rx tabs magnesium oxide 400 mg (241.3 mg See Rx Instructions .Route 01/20/23 06/18/23 Rx magnesiu
--- NOTE | 2023-06-24 10:37 | WPDANESEPPF ---
Anes - Initial Pre Proc Eval Procedure: Operation Date: 06/25/23 09:30 Proposed Procedures p Trans Urethral Resection Bladder Tumor with Gemcitabine Instillation - Tim Scott MD Date/Time: 06/24/23 10:37 Surgeon: Tim Scott MD Pre Op Diagnosis: bladder CA Patient Data Age: 67 Gender: M Height: 1.78 m Weight: 122 kg Allergies Allergy/AdvReac Type Severity Reaction Status Date / Time Iodinated Contrast Media Allergy Intermediate Hives Verified 06/18/23 12:16 Penicillins Allergy Intermediate Hives Verified 06/18/23 12:16 Home Medications Medication Instructions Recorded Confirmed Type finasteride 5 mg tablet 5 mg PO DAILY 09/02/21 06/18/23 History zmhdfhhrunjl-lbg-snrlv acid-vit 1 tablet PO DAILY 09/02/21 06/18/23 History K-lycop 400 mcg-20 mcg-370 mcg tablet (Men's 50 Plus Multivitamin) blood-glucose meter (True Metrix #1 ea 08/06/22 06/18/23 Rx Glucose Meter) blood glucose control, normal #1 ea 08/08/22 06/18/23 Rx (True Metrix Level 2 solution) magnesium oxide 400 mg (241.3 mg See Rx Instructions .Route 01/20/23 06/18/23 Rx magnesium) tablet .COMPLEX #180 tabs tramadol 50 mg tablet 50 mg PO BID PRN pain #60 tabs 02/11/23 06/18/23 Rx apixaban 5 mg tablet (Eliquis) 5 mg PO BID #60 tabs 04/24/23 06/18/23 Rx gabapentin 300 mg capsule 300 mg PO TID 04/29/23 06/18/23 History losartan 25 mg tablet 25 mg PO QAM 04/29/23 06/18/23 History spironolactone 50 mg tablet 50 mg PO QAM 04/29/23 06/18/23 History blood sugar diagnostic (True #300 strips 05/06/23 06/18/23 Rx Metrix Glucose Test Strip) linagliptin 5 mg tablet (Tradjenta) See Rx Instructions .Route 05/08/23 06/18/23 Rx .COMPLEX #90 tabs atorvastatin 20 mg tablet 20 mg PO DAILY #90 tabs 06/03/23 06/18/23 Rx metoprolol tartrate 25 mg tablet 25 mg PO Q12H #180 tabs 06/03/23 06/18/23 Rx azithromycin 250 mg tablet See Rx Instructions PO .COMPLEX #6 06/18/23 Rx tabs cetirizine 10 mg chewable tablet 10 mg PO DAILY #30 tabs 06/18/23 Rx (Children's Zyrtec Allergy) fluticasone propionate 50 2 spray intranasal DAILY #16 mL 06/18/23 Rx mcg/actuation nasal spray,suspension (Flonase Allergy Relief) furosemide 40 mg tablet (Lasix) 80 mg PO QAM 06/18/23 06/18/23 History metformin 500 mg tablet See Rx Instructions PO BID #270 06/24/23 Rx tabs Patient hx anesthesia problems: none Family hx anesthesia problems: none Results Review: All pre-operative results and documents have been reviewed as part of the pre-operative evaluation. [facility] Past Medical History Medical History (Updated 06/24/23 @ 10:37 by Doug Church DO) Atrial fibrillation Cancer of overlapping sites of bladder Cirrhosis Edema Essential (primary) hypertension Hepatic fibrosis Hip fracture, left Hyperlipidemia, unspecified SIOBHAN (obstructive sleep apnea) Other hyperlipidemia (Unknown) Proteinuria Proteinuria due to type 2 diabetes mellitus Right acetabular fracture Screening for prostate cancer Type 2 diabetes mellitus with diabetic neuropathy, unspecified Surgical History Surgical History Hx of cystoscopy Family History Family History Sibling Family history of multiple sclerosis Patient's sister is in good health Patient's brother is in good health Father Hypertension Family history of diabetes mellitus in first degree relative Diabetes mellitus Mother Family history of malignant neoplasm Patient's mother is Social History Social History Smoking packs per day: 0.5 Smoking cigarettes per day: 10.0 Years smoked: 10 Smoking pack-years: 5.00 Smoking status: Former smoker Tobacco type: cigarettes Smokeless tobacco user: chewing tobacco Smoking end date: 10/12/79 Additional smoking assessment comments: CURRENTLY
[2023-06-25] VITALS (10 sets, daily range): BP systolic 100–164; BP diastolic 64–99; PULSE 54–83; RESP 14–20; TEMP 36.7–36.8; O2SAT 94–100
--- NOTE | ~2023-06-25 | XR_ITS ---
EXAMINATION: XR retrograde pyelogram BI DATE: 06/25/2023 10:02 INDICATION: Bilateral retrograde urograms TECHNIQUE: A total of 123 fluoroscopic images of the abdomen and pelvis were obtained during procedur e performed by Dr. Scott. Radiologist was not present for the imaging or procedure. The amount of fl uoroscopy time used during this procedure was 1.1 minutes. COMPARISON: None. FINDINGS: Retrograde contrast injection into the bilateral ureters demonstrates a few mobile gas bubbles in the left ureter which change in size and configuration as it passed through the ureter. No other filling defects to suggest urolithiasis. No fixed strictures or mucosal irregularities. Mild left hydronephr osis. IMPRESSION: 1. Mild left hydronephrosis. Otherwise normal bilateral retrograde pyelograms with no evident urolith iasis, fixed strictures or urothelial irregularities. See procedure note for further detail. Reviewed, dictated and finalized at location L. IMPRESSION: 1. Mild left hydronephrosis. Otherwise normal bilateral retrograde pyelograms w ith no evident urolithiasis, fixed strictures or urothelial irregularities. See procedure note for further detail.
--- NOTE | 2023-06-25 06:20 | WPDHPUPDATE1 ---
History and Physical Update Update Date/Time: 06/25/23 06:20 History and Physical has been reviewed, including an updated exam of the patient. There are NO changes in the patient's condition. Risks, benefits, and alternatives have been discussed and questions answered. Patient agrees to proceed with procedure.
[2023-06-25] MEDS: LACTATED RINGERS 1,000 ML 30 ML IV CONT (08:10)
[2023-06-25 08:28] LABS: Glucose Point of Care 159 mg/dl (65-105)
[2023-06-25] MEDS: ceFAZolin 3 GM/D5W 100 ML 100 ML IVPB (09:43)
--- NOTE | 2023-06-25 09:59 | SUR.OPER ---
Cystoscopy [id number] to [id number]
[2023-06-25] MEDS: LIDOCAINE HCL 2% GEL UROJET 10 ML PKG MUCOUS MEM (10:05)
--- NOTE | 2023-06-25 10:07 | W.PM.PROC2 ---
Procedure Note - Detailed Date of Procedure 06/25/23 Pre-op Diagnosis Recurrent bladder cancer Post-op Diagnosis Same Procedure Performed TURBT ( small, 2 cm), bilateral retrograde pyelography and left ureteroscopy Surgeon Tim Scott MD Anesthesia General Findings 1. 3 small papillary bladder tumors 2. Questionable left proximal ureteral filling defect on left retrograde pyelography. 3. Normal right retrograde pyelogram 4. Normal left ureteroscopy Description of Procedure patient is brought to the op suite was prepped draped in routine sterile fashion while in dorsal lithotomy position after the uneventful induction of a general LMA anesthetic. Cystoscopy was 1st undertaken with a 21 F rigid cystoscope. There were some 3 small papillary neoplasm, 1 in the dome, 1 in the left posterior lateral bladder wall and 1 the right lateral bladder wall. First performed bilateral retrograde pyelography with a cone-tipped catheter. The right retrograde pyelogram appears normal without obstruction. There was a suggestion of a possible filling defect at the left ureteropelvic junction on left retrograde pyelography. I performed left ureteroscopy with a 7.5 F digital ureteral scope after placing a 0.035 in glidewire in left renal pelvis and dilating the distal ureter with 8 F 10 F dilator. The entire left collecting system ureter were carefully inspected and found to be perfectly normal without neoplasm, mucosal hyperemia stones or other identifiable pathology. I then resected the sites of papillary neoplasm in his bladder attempt made to include detrusor muscle for pathological evaluation of invasion. Scopes and wires removed and the patient was taken recovery room good condition. I did cauterize the base of the resected areas with a loop electrode. Estimated Blood Loss 0 Drains No Packing No Pathology Yes Complications No immediate complications Condition Stable
--- NOTE | 2023-06-25 10:23 | W.PM.PROC2 ---
Procedure Note - Detailed Date of Procedure 06/25/23 Pre-op Diagnosis Bladder CA Post-op Diagnosis Same Procedure Performed Gemcitabine installation Surgeon Tim Scott MD Anesthesia Local Description of Procedure With the patient in the supine position, a 16F [place] catheter is placed using sterile technique. Using a protective facemask, gown and double layer of gloves Gemcitabine 2gm in 100cc saline is administered through the catheter/into the bladder. The catheter is then plugged. Patient was instructed to lie supine x20min, then to roll both the left and right x20 min. each. Total dwell time will be 60 min., after which the bladder will be drained and catheter removed. Estimated Blood Loss 0 Drains No Packing No Pathology None sent Complications No immediate complications
[2023-06-25 10:26] LABS: Glucose Point of Care 177 mg/dl (65-105)
[2023-06-25] MEDS: fentaNYL CITRATE INJ (*CRX) 100 MCG/2 ML VIAL 25 MCG IV PUSH ×4 (10:30→11:25)
[2023-06-25] MEDS: SODIUM CHLORIDE 0.9% IV 23.7 ML, GEMCITABINE HCL 1,000 MG BLADDER ×2 (10:31→10:32)
--- NOTE | 2023-06-25 11:30 | SUR.PHASEI ---
AT 1130, 150 NORMAL SALINE WAS INSTILLEDED TO CATHETER AFTER WE DRAINED BLADDER OF MEDICINE.
== END 2023-06-25 12:25 | disposition home or self-care (01) ==
PROVIDERS: PCP Nurse Practitioner Family; Visit Provider Urology
PROC: 0TBB8ZZ Excision of Bladder, Via Natural or Artificial Opening Endoscopic (ICD-10-PCS; CPT 52234; principal; 2023-06-25 09:30)
DX: C67.8 Malignant neoplasm of overlapping sites of bladder (principal); N13.30 Unspecified hydronephrosis; E11.40 Type 2 diabetes mellitus with diabetic neuropathy, unspecified; I10 Essential (primary) hypertension; E78.5 Hyperlipidemia, unspecified; R80.9 Proteinuria, unspecified; G47.33 Obstructive sleep apnea (adult) (pediatric); F17.220 Nicotine dependence, chewing tobacco, uncomplicated; E66.9 Obesity, unspecified; Z68.38 Body mass index [BMI] 38.0-38.9, adult; Z79.84 Long term (current) use of oral hypoglycemic drugs; Z79.891 Long term (current) use of opiate analgesic; Z79.01 Long term (current) use of anticoagulants; Z86.79 Personal history of other diseases of the circulatory system; Z80.9 Family history of malignant neoplasm, unspecified
CPT/HCPCS: 52234; 51720; 74420; 82948; 88305; C1758; C1769; J0690; J2250; J3010; J7120; J9201; Q9966

== ENCOUNTER 2023-09-04 06:47 | Outpatient (CLI) | payer MEDICARE, SELFPAY ==
[2023-09-04 08:10] LABS: Alanine Aminotransferase 15 U/L (6-50); Albumin Level 4.4 g/dL (3.5-5.1); Alkaline Phosphatase 66 U/L (38-126); Anion Gap 9 mmol/L (4-12); Aspartate Amino Transferase 27 U/L (17-59); Bilirubin,Total 1.2 mg/dL (0.2-1.3); Blood Urea Nitrogen 23 mg/dL (9-20); Calcium 8.9 mg/dL (8.4-10.2); Carbon Dioxide 30 mmol/L (22-30); Chloride 96 mmol/L (98-107); Estimated Glomerular Filt Rate > 60; Glucose 124 mg/dL (65-110); Phosphorus 3.7 mg/dL (2.5-4.5); Potassium 3.5 mmol/L (3.4-5.0); Sodium 135 mmol/L (137-145)
[2023-09-04 09:14] LABS: Creatinine Urine 122.5 mg/dL; Total Protein Urine Random 24 mg/dL
[2023-09-04 09:21] LABS: Hemoglobin A1C 6.4 % (<5.7)
== END 2023-09-04 06:48 | disposition home or self-care (01) ==
PROVIDERS: PCP Nurse Practitioner Family; Visit Provider Internal Medicine Nephrology
DX: R80.9 Proteinuria, unspecified (principal); E11.29 Type 2 diabetes mellitus with other diabetic kidney complication; E11.40 Type 2 diabetes mellitus with diabetic neuropathy, unspecified; I10 Essential (primary) hypertension
CPT/HCPCS: 36415; 80053; 82570; 83036; 84100; 84156

== ENCOUNTER 2024-03-09 07:12 | Outpatient (CLI) | payer MEDICARE, SELFPAY ==
[2024-03-09 08:15] LABS: Albumin Level 4.2 g/dL (3.5-5.1); Anion Gap 8 mmol/L (4-12); Blood Urea Nitrogen 30 mg/dL (9-20); Calcium 9.2 mg/dL (8.4-10.2); Carbon Dioxide 33 mmol/L (22-30); Chloride 96 mmol/L (98-107); Estimated Glomerular Filt Rate 50; Glucose 137 mg/dL (65-110); Phosphorus 4.7 mg/dL (2.5-4.5); Potassium 4.2 mmol/L (3.4-5.0); Sodium 137 mmol/L (137-145)
[2024-03-09 10:20] LABS: Creatinine Urine 180.1 mg/dL; Total Protein Urine Random 11 mg/dL; Ur Ttl Prot Creatinine Ratio 0.06 mg/mg (0-0.20)
== END 2024-03-09 07:13 | disposition home or self-care (01) ==
LOC: ANHLAB 07:13
PROVIDERS: PCP Nurse Practitioner Family; Visit Provider Internal Medicine Nephrology
DX: R80.9 Proteinuria, unspecified (principal); E11.29 Type 2 diabetes mellitus with other diabetic kidney complication; I10 Essential (primary) hypertension
CPT/HCPCS: 36415; 80069; 82570; 84156

== ENCOUNTER 2024-04-14 07:23 | Outpatient (CLI) | payer MEDICARE, SELFPAY ==
[2024-04-14 08:07] LABS: Basophils Percent Auto 0.6 % (0.2-1.2); Eosinophils Absolute Auto 0.5 K/mm3 (0-0.3); Eosinophils Percent Auto 9.9 % (0-4.4); Hemoglobin 12.5 g/dL (14.0-18.0); Immature Granulocyte Absolute 0.01 K/mm3 (0.00-0.031); Immature Granulocyte Percent A 0.2 % (0-0.5); Immature Platelet Fraction Pct 5.5 % (0.9-11.2); Lymphocytes Absolute Auto 1.06 K/mm3 (0.9-3.2); Lymphocytes Percent Auto 19.9 % (18.3-44.2); Mean Corpuscular HGB Conc 32.9 g/dl (32-36); Mean Corpuscular Hemoglobin 29.6 pg (26-34); Mean Corpuscular Volume 89.8 fl (80-100); Mean Platelet Volume 11.3 fl (7.4-10.4); Monocytes Absolute Auto 0.4 K/mm3 (0.1-0.6); Monocytes Percent Auto 7.1 % (2.6-8.5); Neutrophils Absolute Auto 3.3 K/mm3 (1.3-6.7); Neutrophils Percent Auto 62.3 % (45.5-73.1); Platelet Count Result 83 k/mm3 (150-375); Red Blood Count 4.23 M/mm3 (4.6-6.20); Red Cell Distribution Width 13.5 % (11.5-14.5); White Blood Count 5.3 K/mm3 (4.5-10.0)
[2024-04-14 08:18] LABS: Alanine Aminotransferase 19 U/L (6-50); Alkaline Phosphatase 90 U/L (38-126); Anion Gap 4 mmol/L (4-12); Aspartate Amino Transferase 26 U/L (17-59); Bilirubin,Total 0.8 mg/dL (0.2-1.3); Blood Urea Nitrogen 24 mg/dL (9-20); Carbon Dioxide 31 mmol/L (22-30); Chloride 99 mmol/L (98-107); Cholesterol 116 mg/dL (0-200); Estimated Glomerular Filt Rate 47; Glucose 126 mg/dL (65-110); HDL Direct 32 mg/dL; Potassium 4.1 mmol/L (3.4-5.0); Sodium 134 mmol/L (137-145); Triglycerides 218 mg/dL (<150)
[2024-04-14 08:29] LABS: LDL Cholesterol Direct 52 mg/dL
[2024-04-14 09:02] LABS: Hemoglobin A1C 6.8 % (<5.7)
== END 2024-04-14 07:24 | disposition home or self-care (01) ==
PROVIDERS: PCP Nurse Practitioner Family; Visit Provider Nurse Practitioner Family
DX: E78.5 Hyperlipidemia, unspecified (principal); E11.29 Type 2 diabetes mellitus with other diabetic kidney complication; C67.3 Malignant neoplasm of anterior wall of bladder; I10 Essential (primary) hypertension; G47.33 Obstructive sleep apnea (adult) (pediatric); R80.9 Proteinuria, unspecified; I48.91 Unspecified atrial fibrillation; G89.29 Other chronic pain; M54.50 Low back pain, unspecified
CPT/HCPCS: 36415; 80053; 80061; 83036; 85025; 85055

== ENCOUNTER 2024-05-18 06:40 | Outpatient (CLI) | payer MEDICARE, SELFPAY ==
--- OUTSIDE RECORDS SUMMARY | 2024-05-18 06:44 | XMS_ITS | Clinical Summary ---
Author Organization [facility] [place] [address] Address [address] [place] [address] Care Team Providers Care Railway Equipment Operator Name Role Phone Dajuan Vasquez NP Primary Care Provider [phone] Allergies Active Allergy Reactions Criticality Noted Date Comments Iodinated Contrast Media Hives Medium 11/19/2022 Penicillins Hives Medium 08/10/2012 Medications atorvastatin (LIPITOR) 20 mg tablet 3 Active finasteride (PROSCAR) 5 mg tablet 3 Active furosemide (LASIX) 40 mg tablet Take 1 tablet (40 mg total) by mouth 2 (two) times a day 3 Active gabapentin (NEURONTIN) 300 mg capsule 4 (four) times a day 3 Active losartan (COZAAR) 25 mg tablet Take 1 tablet (25 mg total) by mouth daily 3 Active metFORMIN (GLUCOPHAGE) 500 mg tablet Take 2 tablets (1,000 mg total) by mouth 2 (two) times a day with meals 3 Active metoprolol tartrate (LOPRESSOR) 25 mg immediate release tablet 3 Active multivitamin tablet Take 1 tablet by mouth daily Active spironolactone (ALDACTONE) 50 mg tablet Take 1 tablet (50 mg total) by mouth daily 3 Active linaGLIPtin (TRADJENTA) 5 mg tabletIndicatio ns:type 2 diabetes mellitus Take 1 tablet (5 mg total) by mouth daily Active traMADoL (ULTRAM) 50 mg tablet Take 1 tablet (50 mg total) by mouth 2 (two) times a day as needed for pain Active magnesium oxide (MAG-OX) 400 mg (241.3 mg elemental magnesium) tabletIndicatio ns:hypomagnesem ia Take 1 tablet (400 mg total) by mouth 2 (two) times a day Active predniSONE (DELTASONE) 50 mg tablet Take 1 tab (50 mg) 13 hours prior to procedure, then take 1 tab (50 mg) 7 hours prior to procedure, and 1 tab (50 mg 1 hour prior to procedure. 3 tablet 4 Active Additional Information Patient not taking.Reported on 12/22/2023 diphenhydrAMINE (BENADRYL) 50 mg capsule Take 1 tab (50 mg) 1 hour prior to procedure. 1 capsule 4 Active Additional Information Patient not taking.Reported on 12/22/2023 Eliquis 5 mg tablet Take 1 tablet (5 mg total) by mouth 2 (two) times a day 60 tablet 6 4 Active Active Problems Problem Noted Date Diagnosed Date Nonrheumatic aortic valve stenosis 12/22/2023 Bilateral carotid bruits 06/16/2023 History of bladder cancer 10/07/2022 Hyperlipidemia associated with type 2 diabetes lauri nicole 10/07/2022 Hypertension associated with diabetes 10/07/2022 Chronic anticoagulation 10/07/2022 Atrial fibrillation (CMS/HCC) 10/07/2022 Morbid (severe) obesity due to excess calories 0 10/07/2022 SIOBHAN (obstructive sleep apnea) 10/07/2022 Social History Tobacco Use Types Packs/Day Years Used Date Smoking Tobacco: Former Cigarettes Q uit: 1995 Pipe Cigars Smokeless Tobacco: Current Snuff Tobacco Cessation:Ready to Q uit: Not Asked; Counseling Given: Not Answered AUDIT-C Answer Date Recorded Q1: How often do you have a drink containing alcohol? Never 10/07/2022 Q2: How many drinks containi ng alcohol do you have on a typical day when you are drinking? Patient does not drink Q3: How often do you have si x or more drinks on one occasion? 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 Gender Identity Not on file Sexual Orientation Not on file Obstetrics History Last Filed Vital Signs Vital Sign Reading Time Taken Comments Blood Pressure 114/68 12/22/2023 10:33 AM CDT Pulse 56 12/22/2023 10:33 AM CDT Temperature - - Respiratory Rate 16 12/22/2023 10:33 AM CDT Oxygen Saturation 97% 06/16/2023 10:24 AM FOOT DRILL OPERATOR Inhaled Oxygen Concentration - - Weight 118.8 kg (262 lb) 12/22/2023 10:33 AM CDT Height 177.8 cm (5' 10 ) 12/22/2023 10:33 AM CDT Body Mass Index 37.59 12/22/2023 10:33 AM CDT Plan of Treatment Health Maintenance Due Date Last Done Comments Albumin Creatinine Ratio, Urine 1955 Colon Cancer Screening-Colonoscopy 1955 Depression Screening 1955 Fall Risk Assessment 1955 Hemoglobin A1C 1955 Hepatitis C Screening 1955 Prostate Cancer Screening-PSA 1955 eGFR 1955 Dilated Eye Exam 1955 Foot Exam 1955 Hepatitis B Screening 10/21/1973 Zoster Vaccine (1 of 2) 10/21/2005 Pneumococcal vaccine 65+ (2 of 2 - PCV) 08/17/2013 0 08/17/2012 Abdominal Aortic Aneurysm (AAA) Screen 10/21/2020 Well Visit 65+ 10/21/2020 DTaP/Tdap/Td Vaccine (2 - Td or Tdap) 08/16/202209/2012 Influenza Vaccine (#1) 2023 Lipid Panel 12/21/2024 12/22/2023, 10/07/2022 Procedures Procedure Name Priority Date/Time Associated Diagnosis Comments POCT LIPID PANEL Routine 12/22/2023 10:2 9 AM CDT Hyperlipidemia associated with type 2 diabetes mellitus (HCC) from Last 3 Months or Most Recently Relevant to Health Maintenance Results * POCT lipid panel (12/22/2023 10:29 AM CDT) Cholesterol, POC 101 mg/dL HDL, POC 27 mg/dL Triglycerides, POC 90 mg/dL LDL Cholesterol POC 56 mg/dL Chol/HDL Ratio, POC 3.7 Non-HDL Cholesterol, POC 74 mg/dL Cholesterol Total, POC 101 mg/dL Capillary blood 12/22/2023 1 0:29 AM CDT Chai Bangura MD POINT OF CARE TEST ORDERA BLES Final Result from Last 3 Months or Most Recently Relevant to Health Maintenance Insurance [facility] CHOICE MEDICARE O [employer] MEDICARE HMO Care Teams Railway Equipment Operator Relationship Specialty Start Date End Date Dajuan Vasquez NP [address] [place] [address] PCP - General Nurse Practitioner 07/18/22
--- OUTSIDE RECORDS SUMMARY | 2024-05-18 06:44 | XMS_ITS | Clinical Summary ---
Author Organization [facility] Address [address] [place] [address] Phone Care Team Providers Care Cma Name Role Phone Neftali Garcia DO Primary Care Provider [phone] Allergies Active Allergy Reactions Criticality Noted Date Comments Penicillins Hives 08/10/2012 Medications Medication Sig Dispensed Refills Start Date End Date Status atorvastatin (LIPITOR) 20 MG tablet Take 20 mg by mouth 1 (one) time each day 03/25/2021 Active furosemide (LASIX) 40 MG tablet TAKE 1 TABLET BY MOUTH ONCE DAILY IN THE MORNING 02/26/2021 Active gabapentin (NEURONTIN) 300 MG capsule 02/04/2021 Active losartan (COZAAR) 25 MG tablet Take 25 mg by mouth 1 (one) time each day 03/20/2021 Active metFORMIN (GLUCOPHAGE) 500 MG tablet 02/04/2021 Active metoprolol tartrate (LOPRESSOR) 25 MG tablet Take 25 mg by mouth every 12 (twelve) hours 03/25/2021 Active spironolactone (ALDACTONE) 50 MG tablet Take 50 mg by mouth 1 (one) time each day 02/27/2021 Active Blood Glucose Calibration (True Metrix Level 2) Normal solution 07/02/2021 Active Blood Glucose Monitoring Suppl (True Metrix Meter) w/Device kit 06/21/2021 Active True Metrix Blood Glucose Test test strip 06/21/2021 Active TRUEplus Lancets 33G misc 07/02/2021 Active finasteride (PROSCAR) 5 MG tablet 01/21/2022 Active Active Problems Problem Noted Date Diagnosed Date Encephalopathy 08/13/2012 Liver function tests abnormal 08/13/2012 Abscess of face 08/10/2012 Acute respiratory failure 08/10/2012 Sepsis 08/10/2012 Immunizations Name Administration Dates Next Due Hepatitis A 08/17/2012 Pneumococcal Polysaccharide 08/17/2012 Tdap 08/16/2012 Family History Medical History Relation Comments Diabetes mellitus Father Hypertension Father Cancer Mother Relation Status Comments Father Mother Social History Tobacco Use Types Packs/Day Years Used Date Smoking Tobacco: Never Smokeless Tobacco: Former Chew Tobacco Cessation:Counseling Given: Not Answered Alcohol Use Standard Drinks/Week Comments Never 0 (1 standard drink = 0.6 oz pur e alcohol) Sex and Gender Information Value Date Recorded Sex Assigned at Not on file Gender Identity Not on file Sexual Orientation Not on file Last Filed Vital Signs Vital Sign Reading Time Taken Comments Blood Pressure 132/78 03/03/2022 1:52 PM BASS MECHANISM MAKER Pulse - - Temperature 35.8 ??C (96.4 ??F) 03/03/2022 1:52 PM CS T Respiratory Rate 18 03/03/2022 1:52 PM BASS MECHANISM MAKER Oxygen Saturation - - Inhaled Oxygen Concentration - - Weight 127 kg (280 lb) 03/03/2022 1:52 PM BASS MECHANISM MAKER Height 180.3 cm (5' 11 ) 03/03/2022 1:52 PM BASS MECHANISM MAKER Body Mass Index 39.05 03/03/2022 1:52 PM BASS MECHANISM MAKER Plan of Treatment Health Maintenance Due Date Last Done Comments Pneumococcal PPSV23/PCV13 65 + Years / High and Highest Risk (2 of 5 - PCV) 08/17/2013 08/17/2012 Influenza Vaccine (#1) 2023 Care Teams Cma Relationship Specialty Start Date End Date Neftali Garcia DO [address] [place] [address] PCP - General Internal Medicine 04/15/21
--- OUTSIDE RECORDS SUMMARY | 2024-05-18 06:44 | XMS_ITS | Clinical Summary ---
Author Organization [facility] Address [address] [place] [address] Phone Care Team Providers Care Welding Pantograph Operator Name Role Phone Unavailable Primary Care Provider Unavailabl e Allergies Active Allergy Reactions Criticality Noted Date Comments Penicillins Unknown 08/10/2012 Medications multivitamin (DAILY-JAXSON) Oral tablet Take 1 Tab by mouth daily. Active oxyCODONE-acetam inophen (PERCOCET) 5-325 mg Oral tablet Take 1 Tab by mouth every 6 hours as needed for Pain. 30 Tab 0 08/16/2012 Active metoprolol tartrate (LOPRESSOR) 25 mg Oral tablet Take 0.5 Tabs by mouth 2 times daily. 60 Tab 0 08/16/2012 Active lactulose (ENULOSE) 10 gram/15 mL (15 mL) Oral Soln Take 45 mL by mouth 4 times daily. 100 mL 0 08/16/2012 Active furosemide (LASIX) 40 mg Oral tablet Take 1 Tab by mouth daily. 30 Tab 0 08/16/2012 Active spironolactone (ALDACTONE) 25 mg Oral tablet Take 1 Tab by mouth daily. 30 Tab 0 08/16/2012 Active rifaximin (XIFAXAN) 550 mg Oral Tab Take 1 Tab by mouth 2 times daily. 60 Tab 0 08/16/2012 Active Active Problems Problem Noted Date Diagnosed Date LFTs abnormal 08/13/2012 Encephalopathy 08/13/2012 Severe sepsis with septic shock 08/10/2012 Acute respiratory failure 08/10/2012 Facial abscess 08/10/2012 Immunizations Immunization Administration Dates Next Due (ADACEL/BOOSTRIX)(10 YR UP) TDAP VACCINE, 0.5ML, IM 08/16/2012 (HAVRIX/VAQTA)(19 YRS UP) HE PATITIS A VACCINE ADULT DOSAGE 1 ML IMM 08/17/2012 (PNEUMOVAX 23)(50 YRS UP) PN EUMOCOCCAL POLYSACCHARIDE (PPV23) 0.5 ML, IM 08/17/2012 Family History Medical History Relation Name Comments Other Mother Other Sister Relation Name Status Comments Father Alive Mother Sister Alive Social History Tobacco Use Types Packs/Day Years Used Date Smoking Tobacco: Every Day Smokeless Tobacco: Current Chew Alcohol Use Standard Drinks/Week Comments Yes 0 (1 standard drink = 0.6 oz pur e alcohol) Sex and Gender Information Value Date Recorded Sex Assigned at Not on file Legal Sex Male 1:09 AM CDT Gender Identity Not on file Sexual Orientation Not on file Occupation Industry Job Start Date Job End Date Not on file Not on file Not on file Not on file Last Filed Vital Signs Vital Sign Reading Time Taken Comments Blood Pressure 125/75 08/17/2012 10:37 AM CDT Pulse 69 08/17/2012 10:37 AM CDT Temperature 36.6 ??C (97.9 ??F) 08/17/2012 1 0:37 AM CDT Respiratory Rate 14 08/17/2012 10:3 7 AM CDT Oxygen Saturation 95% 08/17/2012 10: 37 AM CDT Inhaled Oxygen Concentration - - Weight 111.5 kg (245 lb 14.4 oz) 08/17/2012 9:55 AM CDT Height 180.3 cm (5' 11 ) 08/10/2012 5:00 AM CDT Body Mass Index 34.3 08/10/2012 5:00 AM CDT Plan of Treatment Health Maintenance Due Date Last Done Comments COLORECTAL SCREENING 10/21/2000 Colorectal Cancer Screening 10/21/2000 FIT-DNA Q 3 years 10/21/2000 FIT/FOBT Q 1 year 10/21/2000 Flex Sig/CT Colonography Q 5 years 10/21/2000 ZOSTER VACCINE (1 of 2) 10/21/2005 PNEUMOCOCCAL VACCINE 65+ YEARS (2 of 2 - PCV) 08/18/19 14 08/17/2012 DTAP/TDAP/TD VACCINES (2 - Td or Tdap) 08/16/2022 INFLUENZA VACCINE (#1) 2023 RSV VACCINE (60+ or ) (1 - 1-dose 75+ series) 10/21/2030 Insurance CARE [employer] MEDICARE PART A HOSPITAL ONLY Advance Directives For more information, please contact: [phone] * Full Code (Latest Code Status on File) Date Activated Date Inactivated Comments 08/11/2012 10:30 AM 08/17/2012 5:10 PM * Full Code Date Activated Date Inactivated Comments 08/10/2012 5:10 AM 08/11/2012 10:30 AM * Full Code Date Activated Date Inactivated Comments 08/10/2012 4:45 AM 08/10/2012 5:10 AM
--- OUTSIDE RECORDS SUMMARY | 2024-05-18 06:44 | XMS_ITS | Referral Summary ---
Author Organization [facility] [place] [address] Address [address] [place] [address] Care Team Providers Care Talent Advisor Name Role Phone Dajuan Vasquez NP Primary Care Provider [phone] Allergies Active Allergy Reactions Criticality Noted Date [...] 10/07/2022 Hyperlipidemia associated with type 2 diabetes m corey 10/07/2022 Hypertension associated with diabetes 10/07/2022 Chronic [...] on file Legal Sex Male 4:44 PM EVENT COORDINATOR Gender Identity Not on file Sexual Orientation Not on file Last Filed Vital Signs Vital Sign Reading Time Taken Comments Blood Pressure 114/68 12/22/2023 10:33 AM CDT Pulse 56 12/22/2023 10:33 AM CDT Temperature - - Respiratory Rate 16 12/22/2023 10:33 AM CDT Oxygen Saturation 97% 06/16/2023 10:24 AM EVENT COORDINATOR Inhaled Oxygen Concentration - - Weight 118.8 kg (262 lb) 12/22/2023 10:33 AM CDT Height 177.8 cm (5' 10 ) 12/22/2023 10:33 AM CDT Body Mass Index 37.59 12/22/2023 10:33 AM CDT Plan of Treatment Not on file Procedures Procedure Name Priority Date/Time Associated Diagnosis [...] Most Recently Relevant to Health Maintenance Insurance [employer] CHOICE MEDICARE PPO [employer] MED[employer]ARE HMO Care Teams Talent Advisor Relationship Specialty Start Date End Date Dajuan Vasquez NP [address] [address] PCP - General Nurse Practitioner 07/18/22
[2024-05-18 07:21] LABS: Basophils Percent Auto 0.8 % (0.2-1.2); Eosinophils Absolute Auto 0.4 K/mm3 (0-0.3); Eosinophils Percent Auto 7.4 % (0-4.4); Hematocrit 38.2 % (42.0-52.0); Hemoglobin 12.6 g/dL (14.0-18.0); Immature Granulocyte Absolute 0.02 K/mm3 (0.00-0.031); Immature Granulocyte Percent A 0.4 % (0-0.5); Immature Platelet Fraction Pct 5.8 % (0.9-11.2); Lymphocytes Absolute Auto 1.02 K/mm3 (0.9-3.2); Lymphocytes Percent Auto 21.6 % (18.3-44.2); Mean Corpuscular Hemoglobin 29.5 pg (26-34); Mean Corpuscular Volume 89.5 fl (80-100); Mean Platelet Volume 11.2 fl (7.4-10.4); Monocytes Absolute Auto 0.4 K/mm3 (0.1-0.6); Monocytes Percent Auto 8.5 % (2.6-8.5); Neutrophils Absolute Auto 2.9 K/mm3 (1.3-6.7); Neutrophils Percent Auto 61.3 % (45.5-73.1); Platelet Count Result 79 k/mm3 (150-375); Red Blood Count 4.27 M/mm3 (4.6-6.20); Red Cell Distribution Width 13.3 % (11.5-14.5); White Blood Count 4.7 K/mm3 (4.5-10.0)
[2024-05-18 07:39] LABS: Hemoglobin A1C 6.8 % (<5.7)
[2024-05-18 07:59] LABS: Prostate Specific Antigen < 0.1 ng/mL (< OR = 4.0)
[2024-05-18 10:00] LABS: Creatinine Urine 228.7 mg/dL
[2024-05-18 10:04] LABS: MALB Creatinine Ratio 54.7 mg/g (0-30)
== END 2024-05-18 06:41 | disposition home or self-care (01) ==
LOC: ANHLAB 06:42
PROVIDERS: PCP Nurse Practitioner Family; Visit Provider Nurse Practitioner Family
DX: I48.91 Unspecified atrial fibrillation (principal); E11.29 Type 2 diabetes mellitus with other diabetic kidney complication; I10 Essential (primary) hypertension; G47.33 Obstructive sleep apnea (adult) (pediatric); Z12.5 Encounter for screening for malignant neoplasm of prostate
CPT/HCPCS: 36415; 82043; 83036; 84153; 85025; 85055; G0103

== ENCOUNTER 2024-07-04 10:56 | Outpatient (CLI) | payer MEDICARE, SELFPAY ==
--- NOTE | 2024-07-04 11:30 | ECG_ITS ---
Test Date: 2024-07-04 11:09:52 Measurements Intervals Bejou Rate: 73 P: 0 UT: 0 QRS: -5 QRSD: 148 T: 53 QT: 428 QTc: 473 Interpretive Statements ATRIAL FIBRILLATION RIGHT BUNDLE BRANCH BLOCK [120+ ms QRS DURATION, UPRIGHT V1, 40+ ms S IN I/aVL/V4/V5/V6] No previous ECG available for comparison Electronically Signed On 07-05-2024 15:30:27 CDT by Veronica Garcia M.D.
--- OUTSIDE RECORDS SUMMARY | 2024-07-04 12:58 | XMS_ITS | Clinical Summary ---
Author Organization [facility] [place] [address] Address [address] [place] [address] Care Team Providers Care Electronic Sensing Equipment Assembler Name Role Phone Dajuan Vasquez NP Primary Care Provider [phone] Allergies Active Allergy Reactions Criticality Noted Date [...] Hyperlipidemia associated with type 2 diabetes m giulianaitus 10/07/2022 Hypertension associated with diabetes 10/07/2022 Chronic anticoagulation 10/07/2022 Atrial fibrillation 10/07/2022 Morbid (severe) obesity due to excess [...] on file Legal Sex Male 4:44 PM LAYOUT OPERATOR Gender Identity Not on file Sexual Orientation Not on file Obstetrics History Last Filed Vital Signs Vital Sign Reading Time Taken Comments Blood Pressure 114/68 12/22/2023 10:33 AM CDT Pulse 56 12/22/2023 10:33 AM CDT Temperature - - Respiratory Rate 16 12/22/2023 10:33 AM CDT Oxygen Saturation 97% 06/16/2023 10:24 AM LAYOUT OPERATOR Inhaled Oxygen Concentration - - Weight [...] Most Recently Relevant to Health Maintenance Insurance [facility] CHOICE MEDICARE O [employer] MEDICARE HMO Care Teams Electronic Sensing Equipment Assembler Relationship Specialty Start Date End Date Dajuan Vasquez NP [address] [place] [address] PCP - General Nurse Practitioner 07/18/22
--- OUTSIDE RECORDS SUMMARY | 2024-07-04 12:58 | XMS_ITS | Clinical Summary ---
Author Organization [facility] Address [address] [place] [address] Phone Care Team Providers Care Spark Tester Name Role Phone Unavailable Primary Care Provider [...] 69 08/17/2012 10:37 AM CDT Temperature 36.6 C (97.9 F) 08/17/2012 10:37 AM CDT Respiratory Rate 14 08/17/2012 10:3 [...] VACCINE (1 of 2) 10/21/2005 PNEUMOCOCCAL VACCINE 50+ YEARS (2 of 2 - PCV) 08/18/19 14 08/17/2012 DTAP/TDAP/TD VACCINES (2 - Td or Tdap) 08/16/2022 INFLUENZA VACCINE (#1) 2023 RSV VACCINE (60+ or ) (1 - 1-dose 75+ series) 10/21/2030 Insurance [employer] MEDICARE PART A HOSPITAL ONLY Advance Directives For more information, please contact: [phone] * Full Code (Latest Code Status on File) Date Activated Date Inactivated Comments 08/11/2012 10:30 AM 08/17/2012 5:10 PM * Full Code Date Activated Date Inactivated Comments 08/10/2012 5:10 AM 08/11/2012 10:30 AM * Full Code Date Activated Date Inactivated Comments 08/10/2012 4:45 AM 08/10/2012 5:10 AM
--- OUTSIDE RECORDS SUMMARY | 2024-07-04 12:58 | XMS_ITS | Clinical Summary ---
Author Organization [facility] Address [address] [place] [address] Phone Care Team Providers Care Emergency Medical Services Coordinator Name Role Phone Neftali Garcia DO Primary Care Provider [phone] Allergies Active Allergy Reactions Criticality Noted Date [...] Comments Blood Pressure 132/78 03/03/2022 1:52 PM FLOOR REFINISHER Pulse - - Temperature 35.8 C (96.4 F) 03/03/2022 1:52 PM FLOOR REFINISHER Respiratory Rate 18 03/03/2022 1:52 PM FLOOR REFINISHER Oxygen Saturation - - Inhaled Oxygen Concentration - - Weight 127 kg (280 lb) 03/03/2022 1:52 PM FLOOR REFINISHER Height 180.3 cm (5' 11 ) 03/03/2022 1:52 PM FLOOR REFINISHER Body Mass Index 39.05 03/03/2022 1:52 PM FLOOR REFINISHER Plan of Treatment Health Maintenance Due Date Last Done Comments Pneumococcal PPSV23/PCV13 65 + Years / High and Highest Risk (2 of 5 - PCV) 08/17/2013 08/17/2012 Influenza Vaccine (#1) 2023 Care Teams Emergency Medical Services Coordinator Relationship Specialty Start Date End Date Neftali Garcia DO [address] [place] [address] PCP - General Internal Medicine 04/15/21
--- OUTSIDE RECORDS SUMMARY | 2024-07-04 12:58 | XMS_ITS | Referral Summary ---
Author Organization [facility] [place] [address] Address [address] [place] [address] Care Team Providers Care Skein Yarn Drier Name Role Phone Dajuan Vasquez NP Primary Care Provider [phone] Allergies Active Allergy Reactions Criticality Noted Date [...] on file Legal Sex Male 4:44 PM SENIOR ACCOUNTING MANAGER Gender Identity Not on file Sexual Orientation Not on file Last Filed Vital Signs Vital Sign Reading Time Taken Comments Blood Pressure 114/68 12/22/2023 10:33 AM CDT Pulse 56 12/22/2023 10:33 AM CDT Temperature - - Respiratory Rate 16 12/22/2023 10:33 AM CDT Oxygen Saturation 97% 06/16/2023 10:24 AM SENIOR ACCOUNTING MANAGER Inhaled Oxygen Concentration - - Weight 118.8 [...] Health Maintenance Insurance [employer] MEDICARE PPO [id number] [employer] MED[employer]ARE HMO Care Teams Skein Yarn Drier Relationship Specialty Start Date End Date Dajuan Vasquez NP [address] [place] [address] PCP - General Nurse Practitioner 07/18/22
[2024-07-04 13:24] LABS: Anion Gap 10 mmol/L (4-12); Blood Urea Nitrogen 23 mg/dL (9-20); Carbon Dioxide 30 mmol/L (22-30); Chloride 97 mmol/L (98-107); Estimated Glomerular Filt Rate 59; Glucose 117 mg/dL (65-110); Potassium 3.9 mmol/L (3.4-5.0); Sodium 137 mmol/L (137-145)
[2024-07-04 13:29] LABS: Prothrombin Time 13.8 Seconds (11.1-14.7)
[2024-07-04 13:30] LABS: Partial Thromboplastin Time 28.1 Seconds (22.3-36.8)
== END 2024-07-04 10:57 | disposition home or self-care (01) ==
LOC: ANHSURGERY 10:59
PROVIDERS: Anesthesiology; PCP Nurse Practitioner Family; Visit Provider Urology
DX: I48.91 Unspecified atrial fibrillation (principal); E78.5 Hyperlipidemia, unspecified; E11.40 Type 2 diabetes mellitus with diabetic neuropathy, unspecified; Z79.899 Other long term (current) drug therapy; K74.00 Hepatic fibrosis, unspecified; R80.9 Proteinuria, unspecified; I12.9 Hypertensive chronic kidney disease with stage 1 through stage 4 chronic kidney disease, or unspecified chronic kidney disease; N18.9 Chronic kidney disease, unspecified
CPT/HCPCS: 36415; 80048; 85610; 85730; 93005

== ENCOUNTER 2024-07-08 11:51 | Outpatient (CLI) | payer MEDICARE, SELFPAY ==
--- NOTE | ~2024-07-08 | XR_ITS ---
EXAMINATION: XR chest 2V 07/08/2024 12:10 INDICATION: PROCEDURE: COMPARISON: FINDINGS: The lungs are clear. The cardiomediastinal silhouette is within normal limits. There are no pleural effusions. There is no pneumothorax suspected. IMPRESSION: 1: NO ACUTE CARDIOPULMONARY DISEASE. EXAMINATION: XR chest 2V 07/08/2024 12:10 INDICATION: Cough PROCEDURE: 2 view chest COMPARISON: 08/09/2012 FINDINGS: The lungs are clear. The cardiomediastinal silhouette is within normal limits. There are no pleural effusions. There is no pneumothorax suspected. IMPRESSION: 1: NO ACUTE CARDIOPULMONARY DISEASE. Reviewed, dictated and finalized at location A. IMPRESSION: 1: NO ACUTE CARDIOPULMONARY DISEASE. EXAMINATION: XR chest 2V 07/08/2024 12:10 INDICATION: Cough PROCEDURE: 2 view chest COMPARISON: 08/09/2012 FINDINGS: The lungs are clear. The cardiomediastinal silhouette is within norm al limits. There are no pleural effusions. There is no pneumothorax suspected .
--- OUTSIDE RECORDS SUMMARY | 2024-07-08 12:36 | XMS_ITS | Referral Summary ---
Author Organization [facility] [place] [address] Address [address] [place] [address] Care Team Providers Care Back End Developer Name Role Phone Dajuan Vasquez NP Primary Care Provider [phone] Allergies Active Allergy Reactions Criticality Noted Date [...] daily 3 Active linaGLIPtin (TRADJENTA) 5 mg tabletIndicati ons:type 2 diabetes mellitus Take 1 tablet (5 mg total) by mouth daily Active traMADoL (ULTRAM) 50 mg tablet Take 1 tablet (50 mg total) by mouth 2 (two) times a day as needed for pain Active magnesium oxide (MAG-OX) 400 mg (241.3 mg elemental magnesium) tabletIndicati ons:hypomagnes emia Take 1 tablet (400 mg total) by mouth 2 (two) times a day Active predniSONE (DELTASONE) 50 mg tablet Take 1 tab (50 mg) 13 hours prior to procedure, then take 1 tab (50 mg) 7 hours prior to procedure, and 1 tab (50 mg 1 hour prior to procedure. 3 tablet 4 Active Additional Information Patient not taking.Reported on 12/22/2023 diphenhydrAMIN E (BENADRYL) 50 mg capsule Take 1 tab (50 mg) 1 hour prior to procedure. 1 capsule 4 Active Additional Information Patient not taking.Reported on 12/22/2023 Eliquis 5 mg tablet Take 1 tablet (5 mg total) by mouth 2 (two) times a day 60 tablet 2 5 Active Eliquis 5 mg tablet Take 1 tablet (5 mg total) by mouth 2 (two) times a day 60 tablet 6 4 07/06/19 25 Discontin ued(Reord er) Active Problems Problem Noted Date Diagnosed Date Nonrheumatic aortic valve stenosis 12/22/2023 Bilateral carotid bruits 06/16/2023 History of bladder cancer 10/07/2022 Hyperlipidemia associated with type 2 diabetes m ellitus 10/07/2022 Hypertension associated with diabetes 10/07/2022 Chronic anticoagulation 10/07/2022 Atrial fibrillation 10/07/2022 Morbid (severe) obesity due to excess calories 0 10/07/2022 SIOBHAN (obstructive sleep apnea) 10/07/2022 Social History Tobacco Use Types Packs/Day Years Used Date Smoking Tobacco: Former Cigarettes Q uit: 1994 Pipe Cigars Smokeless Tobacco: Current Snuff Tobacco [...] on file Legal Sex Male 4:44 PM POSTAL SORTING OFFICER Gender Identity Not on file Sexual Orientation Not on file Last Filed Vital Signs Vital Sign Reading Time Taken Comments Blood Pressure 114/68 12/22/2023 10:33 AM CDT Pulse 56 12/22/2023 10:33 AM CDT Temperature - - Respiratory Rate 16 12/22/2023 10:33 AM CDT Oxygen Saturation 97% 06/16/2023 10:24 AM POSTAL SORTING OFFICER Inhaled Oxygen Concentration - - Weight 118.8 [...] MEDICARE PPO [employer] MEDICARE HMO Care Teams Back End Developer Relationship Specialty Start Date End Date Dajuan Vasquez NP [address] [place] [address] PCP - General Nurse Practitioner 07/18/22
--- OUTSIDE RECORDS SUMMARY | 2024-07-08 12:36 | XMS_ITS | Clinical Summary ---
Author Organization [facility] [place] [address] Address [address] [place] [address] Care Team Providers Care Chief Administrative Officer Name Role Phone Dajuan Vasquez NP Primary Care Provider [phone] Allergies Active Allergy Reactions Criticality Noted Date [...] on file Legal Sex Male 4:44 PM CASTING CLEANER Gender Identity Not on file Sexual Orientation Not on file Obstetrics History Last Filed Vital Signs Vital Sign Reading Time Taken Comments Blood Pressure 114/68 12/22/2023 10:33 AM CDT Pulse 56 12/22/2023 10:33 AM CDT Temperature - - Respiratory Rate 16 12/22/2023 10:33 AM CDT Oxygen Saturation 97% 06/16/2023 10:24 AM CASTING CLEANER Inhaled Oxygen Concentration - - Weight 118.8 [...] Most Recently Relevant to Health Maintenance Insurance [facility] MEDICARE O [employer] MEDICARE HMO Care Teams Chief Administrative Officer Relationship Specialty Start Date End Date Dajuan Vasquez, GHULAM [address] [place] [address] PCP - General Nurse Practitioner 07/18/22
--- OUTSIDE RECORDS SUMMARY | 2024-07-08 12:36 | XMS_ITS | Clinical Summary ---
Author Organization [facility] Address [address] [place] [address] Phone Care Team Providers Care Escalation Engineer Name Role Phone Neftali Garcia DO Primary Care Provider [phone] Allergies Active Allergy Reactions Criticality Noted Date [...] Comments Blood Pressure 132/78 03/03/2022 1:52 PM TWIST TESTER Pulse - - Temperature 35.8 C (96.4 F) 03/03/2022 1:52 PM TWIST TESTER Respiratory Rate 18 03/03/2022 1:52 PM TWIST TESTER Oxygen Saturation - - Inhaled Oxygen Concentration - - Weight 127 kg (280 lb) 03/03/2022 1:52 PM TWIST TESTER Height 180.3 cm (5' 11 ) 03/03/2022 1:52 PM TWIST TESTER Body Mass Index 39.05 03/03/2022 1:52 PM TWIST TESTER Plan of Treatment Health Maintenance Due Date Last Done Comments Pneumococcal PPSV23/PCV13 65 + Years / High and Highest Risk (2 of 5 - PCV) 08/17/2013 08/17/2012 Influenza Vaccine (#1) 2023 Care Teams Escalation Engineer Relationship Specialty Start Date End Date Neftali Garcia DO [address] [place] [address] PCP - General Internal Medicine 04/15/21
--- OUTSIDE RECORDS SUMMARY | 2024-07-08 12:36 | XMS_ITS | Clinical Summary ---
Author Organization [facility] Address [address] [place] [address] Phone Care Team Providers Care Manager Of Internal Name Role Phone Unavailable Primary Care Provider [...] Advance Directives For more information, please contact: [phone] * Full Code (Latest Code Status on File) Date Activated Date Inactivated Comments 08/11/2012 10:30 AM 08/17/2012 5:10 PM * Full Code Date Activated Date Inactivated Comments 08/10/2012 5:10 AM 08/11/2012 10:30 AM * Full Code Date Activated Date Inactivated Comments 08/10/2012 4:45 AM 08/10/2012 5:10 AM
== END 2024-07-08 11:52 | disposition home or self-care (01) ==
PROVIDERS: PCP Nurse Practitioner Family; Visit Provider Nurse Practitioner Family
DX: R05.9 Cough, unspecified (principal); J06.9 Acute upper respiratory infection, unspecified
CPT/HCPCS: 71046

== ENCOUNTER 2024-07-26 11:40 | Emergency (ER) | payer MEDICARE, SELFPAY ==
--- NOTE | ~2024-07-26 | XR_ITS ---
EXAMINATION: XR knee LT min 4V DATE: 07/26/2024 12:40 INDICATION: Left knee pain, erythema and swelling post fall 2 days prior TECHNIQUE: Anteroposterior, 2 oblique and crosstable lateral views of the affected knee were obtained COMPARISON: None. FINDINGS: Alignment is normal. No fracture. Chondrocalcinosis in the medial lateral compartments. Joint spaces appear relatively preserved on nonweightbearing imaging. No joint effusion/layering lipohemarthrosis . Prepatellar soft tissue swelling. IMPRESSION: 1. Prepatellar soft tissue swelling. No joint effusion or acute osseous abnormality. 2. Chondrocalcinosis in the medial compartment of the left knee. Reviewed, dictated and finalized at location A. IMPRESSION: 1. Prepatellar soft tissue swelling. No joint effusion or acute osseous abnorma lity. 2. Chondrocalcinosis in the medial compartment of the left knee.
[2024-07-26 11:46] VITALS: BP 136/59; PULSE 60; RESP 18; TEMP 36.6; O2SAT 99
--- NOTE | 2024-07-26 12:32 | ED_ITS ---
HPI - Extremity Injury (Lower) General Chief Complaint: Extremity Injury, Lower Stated Complaint: Injury to left knee after falling- has Gout Time Seen by Provider: 07/26/24 12:11 History of Present Illness HPI Narrative: Yesterday he fell and landed on his L knee and has been hurting since then, and also hurts when he tries to bend his knee. Has a history of gout. No fevers or chills, no numbness or weakness Related Data Home Medications ?Medication ?Instructions ?Recorded ?Confirmed ?Last Taken ?Type finasteride 5 mg tablet 5 mg PO DAILY 09/02/21 07/07/24 01/14/23 History mykkgckxzyfd-cve-zybbt acid-vit 1 tablet PO DAILY 09/02/21 07/07/24 01/14/23 History K-lycop 400 mcg-20 mcg-370 mcg tablet (Men's 50 Plus Multivitamin) aspirin 81 mg tablet,delayed 81 mg PO DAILY 05/24/24 07/07/24 Unknown History release (Adult Low Dose Aspirin) Allergies Allergy/AdvReac Type Severity Reaction Status Date / Time Iodinated Contrast Media Allergy Intermediate Hives Verified 07/26/24 11:41 Penicillins Allergy Intermediate Hives Verified 07/26/24 11:41 Review of Systems Review of Systems: All systems reviewed & are unremarkable except as noted in HPI and below PMFSH Past Medical History Medical History SIOBHAN (obstructive sleep apnea) Cirrhosis Hip fracture, left Proteinuria Atrial fibrillation 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 Edema Right acetabular fracture Screening for prostate cancer Essential (primary) hypertension Hepatic fibrosis Hyperlipidemia, unspecified Other hyperlipidemia (Unknown) Type 2 diabetes mellitus with diabetic neuropathy, unspecified Surgical History Surgical History Hx of cystoscopy Family History Family History Sibling Family history of multiple sclerosis Patient's sister is in good health Patient's brother is in good health Father Hypertension Family history of diabetes mellitus in first degree relative Diabetes mellitus Mother Family history of malignant neoplasm Patient's mother is Social History Social History Smoking packs per day: 1 Smoking cigarettes per day: 20.0 Years smoked: 10 Smoking pack-years: 10.00 Smoking status: Former smoker Tobacco type: cigarettes Smokeless tobacco user: chewing tobacco Smoking end date: 04/13/75 Additional smoking assessment comments: Chew tobacco currently daily Alcohol intake: former Drinks per week: 84 Alcohol use details: No drinks 13 yrs Substance use: current Substance use type: marijuana Other substance usage details: smoke every couple days Last use: 01/01/23 Do You Feel Safe in your Home?: Yes Lack of Transportation: No Lack of Food: Never True Current Housing: I Have Housing Concerned About Future Housing: No Difficulty Paying Gas/Electric Bills: No Difficulty Paying for Meds: No Currently Unemployed: No Education: Grade School Difficulty w/ Childcare or Family Care: No Living arrangements: with family Additional living arrangements comments: Son Occupation/Education: retired Gender identity (if verbalized by the patient): Male Sexual Orientation (if Verbalized by the Patient): Straight or Heterosexual Spiritual care concerns: No Agree to blood products: Yes Exam Narrative: EXAMINATION OF ORGAN SYSTEMS/BODY AREAS: Constitutional: Vital signs per nursing GENERAL:[No acute distress, non-toxic appearing.] HEAD: Normal with no signs of head trauma. EYES: EOMI, conjunctiva normal ENT: Hearing grossly intact LUNGS: Nonlabored breathing. HEART: [Regular rate and rhythm], normal DP pulse ABD: [Soft], [nontender to palpation] EXT: Diminished range of motion to the left knee due to pain, no knee effusion, passive range of motion intact SKIN: Slight redness and tenderness to the patella without induration NEURO: [Alert and oriented x 3. No gross focal sensory or strength deficits.] PSYCH: Normal affect Course Vital Signs Vital signs: Vital Signs Temperature 97.8 F 07/26/24 11:46 Pulse Rate 60 07/26/24 11:46 Respiratory Rate 18 07/26/24 11:46 Blood Pressure 136/59 L 07/26/24 11:46 Pulse Oximetry 99 07/26/24 11:46 Oxygen Delivery Room Air 07/26/24 11:46 Temperature 97.8 F 07/26/24 11:46 Pulse Rate 60 07/26/24 11:46 Respiratory Rate 18 07/26/24 11:46 Blood Pressure 136/59 L 07/26/24 11:46 Pulse Oximetry 99 07/26/24 11:46 Oxygen Delivery Room Air 07/26/24 11:46 MDM - Extremity Injury (Lower) MDM Narrative Medical decision making narrative: Patient presenting here with left knee pain after recent fall, on exam is neurovascularly intact, has a range of motion intact, there is some redness and tenderness to the top of the patella, without any tenderness to the knee joint itself, there is no knee effusion. I have low concern for infection given the exam and no fever or systemic symptoms, knee x-ray did not show any fracture but does show signs of chondrocalcinosis with which does seem consistent with pseudogout He will be given NSAIDs and steroid course with follow-up to Orthopedics and strict return precautions for any signs of infection. Patient agreeable to this plan. Discharge Plan Discharge Clinical Impression: Acute knee pain Patient Disposition: Home Condition: Stable Instructions: Knee Pain (ED) Additional Instructions: Your xray does not show any broken bones but it does appear you have pseudogout, a similar disease that causes inflammation to your joints, often to the knee. Try the medications as prescribed and follow up with orthopedics; please come back to the hospital if your pain gets worse or for any other concerning issues. Patient Language: New Zealander Prescriptions: New prednisone 20 mg tablet 40 mg PO DAILY 5 Days Qty: 10 0RF indomethacin 25 mg capsule 25 mg PO TID Qty: 20 0RF Rx Instructions: administer with food or milk No Action aspirin [Adult Low Dose Aspirin] 81 mg tablet,delayed release (DR/EC) 81 mg PO DAILY Patient Comments: HOLD FOR [address] Scott betamethasone valerate 0.1 % ointment 1 applic topical BID PRN (Reason: rash) Qty: 45 0RF azithromycin 250 mg tablet See Rx Instructions PO .COMPLEX Qty: 6 0RF Rx Instructions: For 250 mg dose pack: take 500 mg today (day 1), then 250 mg for 4 days (days 2-5) PO fluticasone propionate [Flonase Allergy Relief] 50 mcg/actuation spray,suspension 2 spray intranasal DAILY Qty: 16 0RF Rx Instructions: administer into each nostril codeine-guaifenesin 10-100 mg/5 mL liquid 10 ml PO Q6H Qty: 120 0RF Rx Instructions: use 5 to 10 ml as needed every 6 hours for cough albuterol sulfate 90 mcg/actuation HFA aerosol inhaler 2 inh inhalation Q4H PRN (Reason: shortness of breath or wheezing) Qty: 8.5 0RF finasteride 5 mg tablet 5 mg PO DAILY Patient Comments: AM Men's 50 Plus Multivitamin 400-20-370 mcg Tablet 1 tablet PO DAILY Patient Comments: QAM (DME) blood-glucose meter [True Metrix Glucose Meter] Misc See Rx Instructions .Route Qty: 1 0RF Rx Instructions: use to check BS 3 times a day (DME) blood glucose control, normal [True Metrix Level 2] Solution See Rx Instructions .ROUTE .COMPLEX Qty: 1 3RF Dose Instruction: USE DIRECTED WITH GLUCOSE METER Rx Instructions: USE DIRECTED WITH GLUCOSE METER (DME) True Metrix Glucose Test Strip Strip See Rx Instructions .ROUTE .COMPLEX Qty: 200 0RF Dose Instruction: TEST BLOOD SUGAR THREE TIMES DAILY Rx Instructions: TEST BLOOD SUGAR THREE TIMES DAILY tramadol 50 mg tablet 50 mg PO BID PRN (Reason: pain) Qty: 60 0RF atorvastatin 20 mg tablet See Rx Instructions .ROUTE .COMPLEX Qty: 90 3RF Dose Instruction: TAKE 1 TABLET EVERY DAY Patient Comments: HS Rx Instructions: TAKE 1 TABLET EVERY DAY furosemide 40 mg tablet See Rx Instructions .ROUTE .COMPLEX Qty: 180 3RF Dose Instruction: TAKE 2 TABLETS EVERY MORNING Rx Instructions: TAKE 2 TABLETS EVERY MORNING gabapentin 300 mg capsule See Rx Instructions .ROUTE .COMPLEX Qty: 360 3RF Dose Instruction: TAKE 1 CAPSULE TWICE DAILY AND TAKE 2 CAPSULES AT NIGHT Rx Instructions: TAKE 1 CAPSULE TWICE DAILY AND TAKE 2 CAPSULES AT NIGHT Tradjenta 5 mg tablet See Rx Instructions .ROUTE .COMPLEX Qty: 90 3RF Dose Instruction: TAKE 1 TABLET EVERY MORNING Rx Instructions: TAKE 1 TABLET EVERY MORNING losartan 25 mg tablet See Rx Instructions .ROUTE .COMPLEX Qty: 90 3RF Dose Instruction: TAKE 1 TABLET EVERY DAY Rx Instructions: TAKE 1 TABLET EVERY DAY magnesium oxide 400 mg (241.3 mg magnesium) tablet See Rx Instructions .ROUTE .COMPLEX Qty: 180 10RF Dose Instruction: TAKE 1 TABLET TWICE DAILY Rx Instructions: TAKE 1 TABLET TWICE DAILY metformin 500 mg tablet See Rx Instructions .ROUTE .COMPLEX Qty: 270 3RF Dose Instruction: TAKE 2 TABLETS IN THE MORNING AND TAKE 1 TABLET IN THE EVENING Rx Instructions: TAKE 2 TABLETS IN THE MORNING AND TAKE 1 TABLET IN THE EVENING metoprolol tartrate 25 mg tablet See Rx Instructions .ROUTE .COMPLEX Qty: 180 3RF Dose Instruction: TAKE 1 TABLET EVERY 12 HOURS Rx Instructions: TAKE 1 TABLET EVERY 12 HOURS spironolactone 50 mg tablet See Rx Instructions .ROUTE .COMPLEX Qty: 90 3RF Dose Instruction: TAKE 1 TABLET EVERY MORNING Rx Instructions: TAKE 1 TABLET EVERY MORNING Follow-up/Referrals: Stanislav Andrade MD [Physician] - 2 Days Diane Rich APRN [Primary Care Provider] -
[2024-07-26] MEDS: KETOROLAC 30 MG/ML VIAL (*BKC) IM (12:47)
--- OUTSIDE RECORDS SUMMARY | 2024-07-26 12:53 | XMS_ITS | Clinical Summary ---
Author Organization [facility] Address [address] [place] [address] Phone Care Team Providers Care Cardiac Specialist Name Role Phone Neftali Garcia DO Primary Care Provider [phone] Allergies Active Allergy Reactions Criticality Noted Date Comments Penicillins Hives 08/10/2012 Medications atorvastatin (LIPITOR) 20 MG tablet Take 20 [...] Metrix Blood Glucose Test test strip 06/21/2021 Act randi TRUEplus Lancets 33G misc 07/02/2021 Active finasteride (PROSCAR) 5 MG tablet 01/21/2022 Active Active Problems Problem Noted Date Diagnosed Date Encephalopathy 08/13/2012 Liver function tests abnormal 08/13/2012 Abscess of face 08/10/2012 Acute respiratory failure 08/10/2012 Sepsis 08/10/2012 Immunizations Immunization Administration Dates Next Due Hepatitis A 08/17/2012 [...] at Not on file Legal Sex Male 10:02 AM MST Gender Identity Not on file Sexual Orientation Not on file Last Filed Vital Signs Vital Sign Reading Time Taken Comments Blood Pressure 132/78 03/03/2022 1:52 PM LEAD JAVA J2EE DEVELOPER Pulse - - Temperature 35.8 C (96.4 F) 03/03/2022 1:52 PM LEAD JAVA J2EE DEVELOPER Respiratory Rate 18 03/03/2022 1:52 PM LEAD JAVA J2EE DEVELOPER Oxygen Saturation - - Inhaled Oxygen Concentration - - Weight 127 kg (280 lb) 03/03/2022 1:52 PM LEAD JAVA J2EE DEVELOPER Height 180.3 cm (5' 11 ) 03/03/2022 1:52 PM LEAD JAVA J2EE DEVELOPER Body Mass Index 39.05 03/03/2022 1:52 PM LEAD JAVA J2EE DEVELOPER Plan of Treatment Health Maintenance Due Date Last Done Comments Pneumococcal PPSV23/PCV13 65 + Years / High and Highest Risk (2 of 5 - PCV) 08/17/2013 08/17/2012 Influenza Vaccine (Season Ended) 2024 Insurance [facility] MEDICARE ADVANTAGE Care Teams Cardiac Specialist Relationship Specialty Start Date End Date Neftali Garcia DO [address] [place] [id number] PCP - General Internal Medicine 04/15/21
--- OUTSIDE RECORDS SUMMARY | 2024-07-26 12:53 | XMS_ITS | Referral Summary ---
Author Organization [facility] [place] [address] Address [address] [place] [address] Care Team Providers Care Mines Inspector Name Role Phone Dajuan Vasquez NP Primary Care Provider [phone] Encounters Date Type Department Care Team Description 07/22/2024 11:00 AM CDT Office Visit [facility] Cardiology at [address] [place] [address] Chai Bangura MD Nonrheumatic aortic valve stenosis (Primary Dx); Hypertension associated with diabetes (HCC); Hyperlipidemia associated with type 2 diabetes mellitus (HCC); Longstanding persistent atrial fibrillation (HCC); Chronic anticoagulation; SIOBHAN (obstructive sleep apnea) from Last 3 Months Allergies Active Allergy Reactions Criticality Noted Date [...] Active Additional Information Patient not taking.Reported on 07/22/2024 diphenhydrAMIN E (BENADRYL) 50 mg capsule Take 1 tab (50 mg) 1 hour prior to procedure. 1 capsule 4 Active Additional Information Patient not taking.Reported on 07/22/2024 Eliquis 5 mg tablet Take 1 tablet [...] more drinks on one occasion? Never 10/07/2022 Sex and Gender Information Value Date Recorded Sex Assigned at Not on file Legal Sex Male 4:44 PM NATIONAL PARK RANGER Gender Identity Not on file Sexual Orientation Not on file Last Filed Vital Signs Vital Sign Reading Time Taken Comments Blood Pressure 116/68 07/22/2024 11:03 AM CDT Pulse 89 07/22/2024 11:03 AM CDT Temperature - - Respiratory Rate 16 12/22/2023 10:33 AM CDT Oxygen Saturation 97% 07/22/2024 11:03 AM CDT Inhaled Oxygen Concentration - - Weight 118.8 kg (262 lb) 07/22/2024 11:03 AM CDT Height 177.8 cm (5' 10 ) 07/22/2024 11:03 AM CDT Body Mass Index 37.59 07/22/2024 11:03 AM CDT Plan of Treatment Not on file Procedures Procedure Name Priority Date/Time Associated Diagnosis Comments LIPID PANEL Routine 04/14/2024 7:45 AM NATIONAL PARK RANGER from Last 3 Months or Most Recently Relevant to Health Maintenance Results * (ABNORMAL) Lipid panel (04/14/2024 7:45 AM NATIONAL PARK RANGER) SCRIBED Cholesterol, Total 116 0 - 200 EXTERNAL LAB SCRIBED HDL 32(A) 40 - 100 EXTERNAL LAB SCRIBED LDL 52 0 - 100 EXTERNAL LAB SCRIBED Triglycerides 218(A) 0 - 150 EXTERNAL LAB Blood 04/14/2024 7:45 AM NATIONAL PARK RANGER us Historical Provider LAB BLOOD ORDERABLES Miriam starks Result EXTERNAL LAB from Last 3 Months or Most Recently Relevant to Health Maintenance Insurance [facility] MEDICARE HMO [facility]IC[facility] Address: [address] [address] [place] [address] Care Teams Mines Inspector Relationship Specialty Start Date End Date Dajuan Vasquez NP [address] [place] [address] PCP - General Nurse Practitioner 07/18/22
--- OUTSIDE RECORDS SUMMARY | 2024-07-26 12:53 | XMS_ITS | Clinical Summary ---
Author Organization [facility] Address [address] [place] [address] Phone Care Team Providers Care Landman Name Role Phone Unavailable Primary Care Provider [...] Advance Directives For more information, please contact: [phone] * Full Code (Latest Code Status on File) Date Activated Date Inactivated Comments 08/11/2012 10:30 AM 08/17/2012 5:10 PM * Full Code Date Activated Date Inactivated Comments 08/10/2012 5:10 AM 08/11/2012 10:30 AM * Full Code Date Activated Date Inactivated Comments 08/10/2012 4:45 AM 08/10/2012 5:10 AM
--- OUTSIDE RECORDS SUMMARY | 2024-07-26 12:53 | XMS_ITS | Clinical Summary ---
Author Organization [facility] [place] [address] Address [address] [place] [address] Care Team Providers Care Composite Laminator Name Role Phone Dajuan Vasquez NP Primary Care Provider [phone] Allergies Active Allergy Reactions Criticality Noted Date [...] 0 10/07/2022 SIOBHAN (obstructive sleep apnea) 10/07/2022 Encounters Date Type Department Care Team Description 07/22/2024 11:00 AM CDT Office Visit [facility] Cardiology at [address] [place] [address] Chai aBngura MD Nonrheumatic aortic valve stenosis (Primary Dx); Hypertension associated with diabetes (HCC); Hyperlipidemia associated with type 2 diabetes mellitus (HCC); Longstanding persistent atrial fibrillation (HCC); Chronic anticoagulation; SIOBHAN (obstructive sleep apnea) from Last 3 Months Social History Tobacco Use Types Packs/Day Years [...] on file Legal Sex Male 4:44 PM BEAN ROASTER Gender Identity Not on file Sexual Orientation [...] 07/22/2024 11:03 AM CDT Plan of Treatment Health Maintenance [...] 65+ (2 of 2 - PCV) 08/17/2013 08/17/2012 Abdominal Aortic Aneurysm (A AA) Screen 10/21/2020 Well Visit 65+ 10/21/2020 DTaP/Tdap/Td Vaccine (2 - Td or Tdap) 08/16/202209/2012 Influenza Vaccine (Season Ended) 2024 Lipid Panel 04/14/2025 04/14/2024, 12/12, 10/07/2022 Procedures Procedure Name Priority Date/Time Associated Diagnosis Comments LIPID PANEL Routine 04/14/2024 7:45 AM BEAN ROASTER from Last 3 Months or Most Recently Relevant to Health Maintenance Results * (ABNORMAL) Lipid panel (04/14/2024 7:45 AM BEAN ROASTER) SCRIBED Cholesterol, Total 116 0 - 200 EXTERNAL LAB SCRIBED HDL 32(A) 40 - 100 EXTERNAL LAB SCRIBED LDL 52 0 - 100 EXTERNAL LAB SCRIBED Triglycerides 218(A) 0 - 150 EXTERNAL LAB Blood 04/14/2024 7:45 AM BEAN ROASTER [facility] Provider LAB BLOOD ORDERABLES Miriam starks Result EXTERNAL LAB from Last 3 Months or Most Recently Relevant to Health Maintenance Insurance [facility] MEDICARE HMO [facility] MEDICARE ADVANTAGE Care Teams Composite Laminator Relationship Specialty Start Date End Date Dajuan Vasquez NP [address] [place] [address] PCP - General Nurse Practitioner 07/18/22
[2024-07-26] MEDS: predniSONE 20 MG TABLET 40 MG PO (13:21)
--- OUTSIDE RECORDS SUMMARY | 2024-07-26 13:26 | XMS_ITS | Clinical Summary ---
Author Organization [facility] ut[facility]ena Address [address] [place] [address] Phone Care Team Providers Care Information Security Risk Analyst Name Role Phone Neftali Garcia DO Primary Care Provider [phone] Allergies Active Allergy Reactions Criticality Noted Date [...] Comments Blood Pressure 132/78 03/03/2022 1:52 PM IMPREGNATING TANK OPERATOR Pulse - - Temperature 35.8 C (96.4 F) 03/03/2022 1:52 PM IMPREGNATING TANK OPERATOR Respiratory Rate 18 03/03/2022 1:52 PM IMPREGNATING TANK OPERATOR Oxygen Saturation - - Inhaled Oxygen Concentration - - Weight 127 kg (280 lb) 03/03/2022 1:52 PM IMPREGNATING TANK OPERATOR Height 180.3 cm (5' 11 ) 03/03/2022 1:52 PM IMPREGNATING TANK OPERATOR Body Mass Index 39.05 03/03/2022 1:52 PM IMPREGNATING TANK OPERATOR Plan of Treatment Health Maintenance Due Date Last Done Comments Pneumococcal PPSV23/PCV13 65 + Years / High and Highest Risk (2 of 5 - PCV) 08/17/2013 08/17/2012 Influenza Vaccine (Season Ended) 2024 Insurance [facility] MEDICARE ADVANTAGE Care Teams Information Security Risk Analyst Relationship Specialty Start Date End Date Neftali Garcia DO [address] [place] [id number] PCP - General Internal Medicine 04/15/21
--- OUTSIDE RECORDS SUMMARY | 2024-07-26 13:26 | XMS_ITS | Clinical Summary ---
Author Organization [facility] [address] Address [address] [place] [address] Care Team Providers Care Ict Programmer Name Role Phone Dajuan Vasquez NP Primary Care Provider [phone] Allergies Active Allergy Reactions Criticality Noted Date [...] Description 07/22/2024 11:00 AM CDT Office Visit [facility] Cardiology at [address] [place] [address] Chai Bangura MD Nonrheumatic aortic [...] on file Legal Sex Male 4:44 PM COMPARATIVE SOCIOLOGY PROFESSOR Gender Identity Not on file Sexual Orientation [...] Comments LIPID PANEL Routine 04/14/2024 7:45 AM COMPARATIVE SOCIOLOGY PROFESSOR from Last 3 Months or Most Recently Relevant to Health Maintenance Results * (ABNORMAL) Lipid panel (04/14/2024 7:45 AM COMPARATIVE SOCIOLOGY PROFESSOR) SCRIBED Cholesterol, Total 116 0 - 200 EXTERNAL LAB SCRIBED HDL 32(A) 40 - 100 EXTERNAL LAB SCRIBED LDL 52 0 - 100 EXTERNAL LAB SCRIBED Triglycerides 218(A) 0 - 150 EXTERNAL LAB Blood 04/14/2024 7:45 AM COMPARATIVE SOCIOLOGY PROFESSOR [facility] Provider LAB BLOOD ORDERABLES Miriam starks Result EXTERNAL LAB from Last 3 Months or Most Recently Relevant to Health Maintenance Insurance [facility] MEDICARE HMO [facility] MEDICARE [facility]VANT[facility] Address: [facility] [address] [place] [address] Care Teams Ict Programmer Relationship Specialty Start Date End Date Dajuan Vasquez NP [address] [place] [address] PCP - General Nurse Practitioner 07/18/22
--- OUTSIDE RECORDS SUMMARY | 2024-07-26 13:26 | XMS_ITS | Clinical Summary ---
Author Organization [facility] Address [address] [place] [address] Phone Care Team Providers Care Commissioner Of Officials Name Role Phone Unavailable Primary Care Provider [...] Advance Directives For more information, please contact: [phone] * Full Code (Latest Code Status on File) Date Activated Date Inactivated Comments 08/11/2012 10:30 AM 08/17/2012 5:10 PM * Full Code Date Activated Date Inactivated Comments 08/10/2012 5:10 AM 08/11/2012 10:30 AM * Full Code Date Activated Date Inactivated Comments 08/10/2012 4:45 AM 08/10/2012 5:10 AM
--- OUTSIDE RECORDS SUMMARY | 2024-07-26 13:26 | XMS_ITS | Referral Summary ---
Author Organization [facility] [place] [place] [address] Address [address] [place] [address] Care Team Providers Care Edge Trimmer Name Role Phone Dajuan Vasquez NP Primary Care Provider [phone] Encounters Date Type Department Care Team Description 07/22/2024 11:00 AM CDT Office Visit [facility] Cardiology at [address] [place] [address] Chai Bangura MD Nonrheumatic aortic [...] on file Legal Sex Male 4:44 PM NURSING HOME PHYSICIAN Gender Identity Not on file Sexual Orientation [...] Comments LIPID PANEL Routine 04/14/2024 7:45 AM NURSING HOME PHYSICIAN from Last 3 Months or Most Recently Relevant to Health Maintenance Results * (ABNORMAL) Lipid panel (04/14/2024 7:45 AM NURSING HOME PHYSICIAN) SCRIBED Cholesterol, Total 116 0 - 200 EXTERNAL LAB SCRIBED HDL 32(A) 40 - 100 EXTERNAL LAB SCRIBED LDL 52 0 - 100 EXTERNAL LAB SCRIBED Triglycerides 218(A) 0 - 150 EXTERNAL LAB Blood 04/14/2024 7:45 AM NURSING HOME PHYSICIAN us Historical Provider LAB BLOOD ORDERABLES Miriam starks Result EXTERNAL LAB from Last 3 Months or Most Recently Relevant to Health Maintenance Insurance [facility] MEDICARE HMO [facility] MEDICARE ADVANTAGE Care Teams Edge Trimmer Relationship Specialty Start Date End Date Dajuan Vasquez NP [address] [place] [address] PCP - General Nurse Practitioner 07/18/22
== END 2024-07-26 13:22 | disposition home or self-care (01) ==
PROVIDERS: Emergency Provider Emergency Medicine; PCP Nurse Practitioner Family
DX: I48.91 Unspecified atrial fibrillation (principal); I10 Essential (primary) hypertension; E11.40 Type 2 diabetes mellitus with diabetic neuropathy, unspecified; E78.5 Hyperlipidemia, unspecified; K74.60 Unspecified cirrhosis of liver; G47.33 Obstructive sleep apnea (adult) (pediatric); M10.9 Gout, unspecified; F17.220 Nicotine dependence, chewing tobacco, uncomplicated; Z85.51 Personal history of malignant neoplasm of bladder; Z79.82 Long term (current) use of aspirin; Z79.899 Other long term (current) drug therapy; Z79.84 Long term (current) use of oral hypoglycemic drugs; W19.XXXA Unspecified fall, initial encounter
CPT/HCPCS: 73564; 96372; 99283; J1885; J7512

== ENCOUNTER 2024-08-11 02:30 | Day surgery (SDC) | payer MEDICARE, SELFPAY ==
[2024-06-30 13:45] VITALS: BMI 36.6
--- NOTE | 2024-06-30 13:58 | PC.NURSE ---
Addendum entered by Drea Swanson RN 07/28/24 10:32: PT was rescheduled due to URI w Treatment, meds reconciled and in system. Pt currently on Gout Meds till 08/02/[address] Scott office notified also of this and IV contrast allergy in the case premedication is indicated. They will notify pt if so All new instructions reviewed w pt and he understands. JESSIE Report to the Outpatient Waiting Room, entrance under the green pavilion located off [facility], at time ___0600am____ on date _08/11/24 . Planned Procedure Time: 0730am .? Time changes happen often and if your time is changed the preop area will call you the afternoon before. - You and your visitor will be asked to self-screen and do not enter if you have any COVID symptoms. Please call surgeon if you need to reschedule. - A mask is optional within the hospital at this time. Patients may have clear liquids (water, carbonated beverages, clear teas, apple juice) until 3 hours prior to surgery with a maximum of 20 ounces. - No food from midnight until time of surgery and no smoking, or chewing tobacco (or any form of nicotine). No chewing gum, candy or mints.(0430am) Take only the following medications with a SIP of water on the morning of surgery: ___Gabapentin, Metoprolol, Tramadol if needed and any premedication from Dr Scott due to Contrast allergy DO NOT STOP ANY OF YOUR OTHER PRESCRIPTION MEDICATIONS PRIOR TO SURGERY EXCEPT THE FOLLOWING Medications to discontinue per physician ___Hold Aspirin and any NSAIDS/Indomethicin for [address] Scott Date to take last dose___08/02/24 Hold all vitamins and supplements for 3 days per anesthesiologist. date of last dose is 08/07/24 Hold also Eliquis for 3 days prior to surgery per Dr Scott- Date to take last dose is 08/02/24 Addendum entered by Drea Swanson RN 06/30/24 14:06: PT also told to check with Dr Scott office regarding IV contrast media allergy to see if premedication needed. JESSIE Original Note: Report to the Outpatient Waiting Room, entrance under the green pavilion located off [facility], at time _06:00am on date _07/07/24 . Planned Procedure Time: __07:30am .? Time changes happen often and if your time is changed the preop area will call you the afternoon before. - You and your visitor will be asked to self-screen and do not enter if you have any COVID symptoms. Please call surgeon if you need to reschedule. - A mask is optional within the hospital at this time. Patients may have clear liquids (water, carbonated beverages, clear teas, apple juice) until 3 hours prior to surgery with a maximum of 20 ounces. - No food from midnight until time of surgery and no smoking, or chewing tobacco (or any form of nicotine). No chewing gum, candy or mints.(0430am) Take only the following medications with a SIP of water on the morning of surgery: ___Gabapentin, Metoprolol, Tramadol if needed DO NOT STOP ANY OF YOUR OTHER PRESCRIPTION MEDICATIONS PRIOR TO SURGERY EXCEPT THE FOLLOWING Hold all vitamins and supplements for 3 days per anesthesiologist.Date to take last dose 07/03/24 Medications to discontinue per physician Aspirin for 7 days prior to surgery per Dr Scott Date to take last dose___06/29/24 Please no make-up, nail azeri, hairspray, perfume, deodorant, or body powder the day of surgery.? No jewelry (including any body piercings) or valuables the day of surgery, leave them at home.? Please take a shower or bath the night before, or the morning of, surgery with an antibacterial soap.? Wear comfortable, loose fitting clothing. - Jewelry must be removed prior to entering the operating room.? Rings and piercings that are not removed may be cut off. - The hospital will not accept responsibility for valuables.? - Please leave all valuables, including medications, at home the day of surgery. If you are going home after surgery, a licensed freight delivery driver must drive you home.? - NO public transportation without another adult if you receive anesthesia. - We recommend that an adult stay with you for 24 hours following discharge. - We also recommend that you do not drive, make important decision, drink alcoholic beverages, or take any drugs that were not prescribed by your health care provider for at least 24 hours after your discharge time. Follow any additional instructions given to you from your surgeon. Telephone instructions given to __Patient and asked if any additional questions and then verbalized understanding. Patient advised to call surgeon office or pre surgery nurse liaison [phone] if any additional questions.
--- NOTE | 2024-08-01 07:40 | P.HP_ITS ---
History of Present Illness History of Present Illness Consent: Risks, benefits, and alternatives have been discussed and questions answered. Patient agrees to proceed with procedure. 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 Despite 2 courses of induction BCG recent surveillance cystoscopy showed recurrent papillary neoplasm in his prostatic urethra. He presents for TURBT, cystoscopy with bilateral retrograde pyelography and gemcitabine installation. He is aware the risks including, but not limited to, recurrent urothelial neoplasm, bladder injury Review of Systems Review of Systems: All systems reviewed & are unremarkable except as noted in HPI and below PMFSH Past Medical History Medical History SIOBHAN (obstructive sleep apnea) Cirrhosis Hip fracture, left Proteinuria Atrial fibrillation 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 Edema Right acetabular fracture Screening for prostate cancer Essential (primary) hypertension Hepatic fibrosis Hyperlipidemia, unspecified Other hyperlipidemia (Unknown) Type 2 diabetes mellitus with diabetic neuropathy, unspecified Surgical History Surgical History Hx of cystoscopy Family History Family History Sibling Family history of multiple sclerosis Patient's sister is in good health Patient's brother is in good health Father Hypertension Family history of diabetes mellitus in first degree relative Diabetes mellitus Mother Family history of malignant neoplasm Patient's mother is Social History Social History Smoking packs per day: 1 Smoking cigarettes per day: 20.0 Years smoked: 10 Smoking pack-years: 10.00 Smoking status: Former smoker Tobacco type: cigarettes Smokeless tobacco user: chewing tobacco Smoking end date: 04/13/75 Additional smoking assessment comments: Chew tobacco currently daily Alcohol intake: former Drinks per week: 84 Alcohol use details: No drinks 13 yrs Substance use: current Substance use type: marijuana Other substance usage details: smoke every couple days Last use: 01/01/23 Do You Feel Safe in your Home?: Yes Lack of Transportation: No Lack of Food: Never True Current Housing: I Have Housing Concerned About Future Housing: No Difficulty Paying Gas/Electric Bills: No Difficulty Paying for Meds: No Currently Unemployed: No Education: Grade School Difficulty w/ Childcare or Family Care: No Living arrangements: with family Additional living arrangements comments: Son Occupation/Education: retired Gender identity (if verbalized by the patient): Male Sexual Orientation (if Verbalized by the Patient): Straight or Heterosexual Spiritual care concerns: No Agree to blood products: Yes Meds Home Medications and Allergies Home Medications ?Medication ?Instructions ?Recorded ?Confirmed ?Type finasteride 5 mg tablet 5 mg PO DAILY 09/02/21 07/07/24 History pkdjcbwrsyxd-msb-bxkxb acid-vit 1 tablet PO DAILY 09/02/21 07/07/24 History K-lycop 400 mcg-20 mcg-370 mcg tablet (Men's 50 Plus Multivitamin) blood-glucose meter (True Metrix #1 ea 08/06/22 07/07/24 Rx Glucose Meter) blood glucose control, normal #1 ea 09/11/23 07/07/24 Rx (True Metrix Level 2 solution) blood sugar diagnostic (True #200 strips 03/02/24 07/07/24 Rx Metrix Glucose Test Strip) tramadol 50 mg tablet 50 mg PO BID PRN pain #60 tabs 03/31/24 07/07/24 Rx aspirin 81 mg tablet,delayed 81 mg PO DAILY 05/24/24 07/07/24 History release (Adult Low Dose Aspirin) betamethasone valerate 0.1 % 1 applic topical BID PRN rash #45 05/24/24 07/07/24 Rx topical ointment grams albuterol sulfate 90 mcg/actuation 2 inh inhalation Q4H PRN shortness 07/07/24 07/28/24 Rx aerosol inhaler of breath or wheezing #8.5 grams fluticasone propionate 50 2 spray intranasal DAILY #16 mL 07/07/24 07/28/24 Rx mcg/actuation nasal spray,suspension (Flonase Allergy Relief) atorvastatin 20 mg tablet See Rx Instructions .Route 07/13/24 07/28/24 Rx .COMPLEX #90 tabs furosemide 40 mg tablet See Rx Instructions .Route 07/13/24 07/28/24 Rx .COMPLEX #180 tabs gabapentin 300 mg capsule See Rx Instructions .Route 07/13/24 07/28/24 Rx .COMPLEX #360 caps linagliptin 5 mg tablet (Tradjenta) See Rx Instructions .Route 07/13/24 07/28/24 Rx .COMPLEX #90 tabs losartan 25 mg tablet See Rx Instructions .Route 07/13/24 07/28/24 Rx .COMPLEX #90 tabs magnesium oxide 400 mg (241.3 mg See Rx Instructions .Route 07/13/24 07/28/24 Rx magnesium) tablet .COMPLEX #180 tabs metformin 500 mg tablet See Rx Instructions .Route 07/13/24 07/28/24 Rx .COMPLEX #270 tabs metoprolol tartrate 25 mg tablet See Rx Instructions .Route 07/13/24 07/28/24 Rx .COMPLEX #180 tabs spironolactone 50 mg tablet See Rx Instructions .Route 07/13/24 07/28/24 Rx .COMPLEX #90 tabs indomethacin 25 mg capsule 25 mg PO TID #20 caps 07/26/24 07/28/24 Rx prednisone 20 mg tablet 40 mg (2 x 20 mg) PO DAILY 5 days 07/26/24 07/28/24 Rx #10 tabs apixaban 5 mg tablet (Eliquis) 5 mg PO Q12H 07/28/24 07/28/24 History Allergies Allergy/AdvReac Type Severity Reaction Status Date / Time Iodinated Contrast Media Allergy Intermediate Hives Verified 07/28/24 10:16 Penicillins Allergy Intermediate Hives Verified 07/28/24 10:16 Exam Const: General: no acute distress Resp: Effort & Inspection: normal respiratory effort GI: Inspection: non-distended GI Palp: No abdominal tenderness and No Guarding due to palpation present (GI) Auscultation: normal bowel sounds Assessment and Plan Assessment and plan (1) Cancer of overlapping sites of bladder: Code(s): C67.8 - Malignant neoplasm of overlapping sites of bladder Status: Acute Assessment and Plan: * Cystoscopy, bilateral retrograde pyelography, TURBT, gemcitabine installation
--- NOTE | 2024-08-10 14:37 | P.PNAN_ITS ---
Anes - Initial Pre Proc Eval Procedure: Operation Date: 08/11/24 07:30 Proposed Procedures p Transurethral Resection Bladder Tumor, - Tim Scott MD s Cystoscopy, Bilateral Retrograde Pyelogram with Gemcitabine Instillation - Tim Scott MD Date/Time: 08/10/24 14:37 Surgeon: Tim Scott MD Pre Op Diagnosis: bladder cancer Patient Data Age: 68 Gender: M Height: 1.8 m Weight: 119 kg Allergies Allergy/AdvReac Type Severity Reaction Status Date / Time Iodinated Contrast Media Allergy Intermediate Hives Verified 07/28/24 10:16 Penicillins Allergy Intermediate Hives Verified 07/28/24 10:16 Home Medications ?Medication ?Instructions ?Recorded ?Confirmed ?Type finasteride 5 mg tablet 5 mg PO DAILY 09/02/21 07/07/24 History ibmceagegvhx-ryp-ugotz acid-vit 1 tablet PO DAILY 09/02/21 07/07/24 History K-lycop 400 mcg-20 mcg-370 mcg tablet (Men's 50 Plus Multivitamin) blood-glucose meter (True Metrix #1 ea 08/06/22 07/07/24 Rx Glucose Meter) blood glucose control, normal #1 ea 09/11/23 07/07/24 Rx (True Metrix Level 2 solution) blood sugar diagnostic (True #200 strips 03/02/24 07/07/24 Rx Metrix Glucose Test Strip) tramadol 50 mg tablet 50 mg PO BID PRN pain #60 tabs 03/31/24 07/07/24 Rx aspirin 81 mg tablet,delayed 81 mg PO DAILY 05/24/24 07/07/24 History release (Adult Low Dose Aspirin) betamethasone valerate 0.1 % 1 applic topical BID PRN rash #45 05/24/24 07/07/24 Rx topical ointment grams albuterol sulfate 90 mcg/actuation 2 inh inhalation Q4H PRN shortness 07/07/24 07/28/24 Rx aerosol inhaler of breath or wheezing #8.5 grams fluticasone propionate 50 2 spray intranasal DAILY #16 mL 07/07/24 07/28/24 Rx mcg/actuation nasal spray,suspension (Flonase Allergy Relief) atorvastatin 20 mg tablet See Rx Instructions .Route 07/13/24 07/28/24 Rx .COMPLEX #90 tabs furosemide 40 mg tablet See Rx Instructions .Route 07/13/24 07/28/24 Rx .COMPLEX #180 tabs gabapentin 300 mg capsule See Rx Instructions .Route 07/13/24 07/28/24 Rx .COMPLEX #360 caps linagliptin 5 mg tablet (Tradjenta) See Rx Instructions .Route 07/13/24 07/28/24 Rx .COMPLEX #90 tabs losartan 25 mg tablet See Rx Instructions .Route 07/13/24 07/28/24 Rx .COMPLEX #90 tabs magnesium oxide 400 mg (241.3 mg See Rx Instructions .Route 07/13/24 07/28/24 Rx magnesium) tablet .COMPLEX #180 tabs metformin 500 mg tablet See Rx Instructions .Route 07/13/24 07/28/24 Rx .COMPLEX #270 tabs metoprolol tartrate 25 mg tablet See Rx Instructions .Route 07/13/24 07/28/24 Rx .COMPLEX #180 tabs spironolactone 50 mg tablet See Rx Instructions .Route 07/13/24 07/28/24 Rx .COMPLEX #90 tabs indomethacin 25 mg capsule 25 mg PO TID #20 caps 07/26/24 07/28/24 Rx prednisone 20 mg tablet 40 mg (2 x 20 mg) PO DAILY 5 days 07/26/24 07/28/24 Rx #10 tabs apixaban 5 mg tablet (Eliquis) 5 mg PO Q12H 07/28/24 07/28/24 History Patient hx anesthesia problems: none Family hx anesthesia problems: none Results Review: All pre-operative results and documents have been reviewed as part of the pre- operative evaluation. [facility] Past Medical History Medical History SIOBHAN (obstructive sleep apnea) Cirrhosis Hip fracture, left Proteinuria Atrial fibrillation 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 Edema Right acetabular fracture Screening for prostate cancer Essential (primary) hypertension Hepatic fibrosis Hyperlipidemia, unspecified Other hyperlipidemia (Unknown) Type 2 diabetes mellitus with diabetic neuropathy, unspecified Surgical History Surgical History Hx of cystoscopy Family History Family History Sibling Family history of multiple sclerosis Patient's sister is in good health Patient's brother is in good health Father Hypertension Family history of diabetes mellitus in first degree relative Diabetes mellitus Mother Family history of malignant neoplasm Patient's mother is Social History Social History Smoking packs per day: 1 Smoking cigarettes per day: 20.0 Years smoked: 10 Smoking pack-years: 10.00 Smoking status: Former smoker Tobacco type: cigarettes Smokeless tobacco user: chewing tobacco Smoking end date: 04/13/75 Additional smoking assessment comments: Chew tobacco currently daily Alcohol intake: former Drinks per week: 84 Alcohol use details: No drinks 13 yrs Substance use: current Substance use type: marijuana Other substance usage details: smoke every couple days Last use: 01/01/23 Do You Feel Safe in your Home?: Yes Lack of Transportation: No Lack of Food: Never True Current Housing: I Have Housing Concerned About Future Housing: No Difficulty Paying Gas/Electric Bills: No Difficulty Paying for Meds: No Currently Unemployed: No Education: Grade School Difficulty w/ Childcare or Family Care: No Living arrangements: with family Additional living arrangements comments: Son Occupation/Education: retired Gender identity (if verbalized by the patient): Male Sexual Orientation (if Verbalized by the Patient): Straight or Heterosexual Spiritual care concerns: No Agree to blood products: Yes Anes - Eval Final PreProcedure Day of Procedure 08/10/24 14:37 Patient weight: obese Heart: regular rate and rhythm Lungs: clear to auscultation Airway: Mallampati scale class II and special considerations poor dentition Neurological: alert and oriented Last oral intake: >/= 8 hours ASA classification: IV Emergent: no Anesthetic plan: proceed Anesthesia type and monitoring: general LMA and standard monitoring Results Review: All pre-operative results and documents have been reviewed as part of the pre- operative evaluation. Informed Consent: The patient's anesthetic plan and its attendant risks and benefits were discussed with the patient/family/POA. Questions were solicited and answers provided to the satisfaction of the patient/family/POA.
[2024-08-11] VITALS (9 sets, daily range): BP systolic 88–131; BP diastolic 41–80; PULSE 50–65; RESP 12–16; TEMP 36.2; O2SAT 80–100
--- NOTE | ~2024-08-11 | XR_ITS ---
EXAMINATION: XR retrograde pyelogram BI DATE: 08/11/2024 07:51 INDICATION: Bilateral retrograde pyelograms TECHNIQUE: 9 fluoroscopic images of the abdomen and pelvis were obtained during procedure performed alfred Membreno. Radiologist was not present for the imaging or procedure. The amount of fluoroscopy time used during this procedure was 0.3 minutes. Total DAP was 0.585 mGym^2. COMPARISON: None. FINDINGS/IMPRESSION: There is retrograde contrast opacification of the bilateral ureters and renal collecting systems with no evident filling defects or urothelial irregularities. See procedure note for further detail. Reviewed, dictated and finalized at location B.
--- OUTSIDE RECORDS SUMMARY | 2024-08-11 02:33 | XMS_ITS | Clinical Summary ---
Author Organization [facility] [address] Address [address] [place] [address] Care Team Providers Care Auto Body Repairer Fiberglass Name Role Phone Dajuan Vasquez NP Primary Care Provider [phone] Allergies Active Allergy Reactions Criticality Noted Date [...] Additional Information Patient not taking.Reported on 07/22/2024 diphenhydrAMINE (BENADRYL) 50 mg capsule Take 1 tab (50 mg) 1 hour prior to procedure. 1 capsule 4 Active Additional Information Patient not taking.Reported on 07/22/2024 Eliquis 5 mg tablet Take 1 tablet (5 mg total) by mouth 2 (two) times a day 60 tablet 2 5 Active Active Problems Problem Noted Date Diagnosed [...] Description 07/22/2024 11:00 AM CDT Office Visit [facility] Cardiology at [address] [place] [address] Chai Bangura MD Nonrheumatic aortic [...] on file Legal Sex Male 4:44 PM PSYCHIATRIC SPECIALIST Gender Identity Not on file Sexual Orientation [...] Comments LIPID PANEL Routine 04/14/2024 7:45 AM PSYCHIATRIC SPECIALIST from Last 3 Months or Most Recently Relevant to Health Maintenance Results * (ABNORMAL) Lipid panel (04/14/2024 7:45 AM PSYCHIATRIC SPECIALIST) SCRIBED Cholesterol, Total 116 0 - 200 EXTERNAL LAB SCRIBED HDL 32(A) 40 - 100 EXTERNAL LAB SCRIBED LDL 52 0 - 100 EXTERNAL LAB SCRIBED Triglycerides 218(A) 0 - 150 EXTERNAL LAB Blood 04/14/2024 7:45 AM PSYCHIATRIC SPECIALIST us Historical Provider LAB BLOOD ORDERABLES Miriam starks Result EXTERNAL LAB from Last 3 Months or Most Recently Relevant to Health Maintenance Insurance [employer] MEDICARE HMO [facility] MEDICARE ADVANTAGE Care Teams Auto Body Repairer Fiberglass Relationship Specialty Start Date End Date Dajuan Vasquez IRON LAUNDER OPERATOR [address] [facility] [address] [place] [address] PCP - General Nurse Practitioner 07/18/22
--- OUTSIDE RECORDS SUMMARY | 2024-08-11 02:33 | XMS_ITS | Clinical Summary ---
Author Organization [facility] Address [address] [place] [address] Phone Care Team Providers Care Make Up Artist Name Role Phone Neftali Garcia DO Primary Care Provider [phone] Allergies Active Allergy Reactions Criticality Noted Date [...] Comments Blood Pressure 132/78 03/03/2022 1:52 PM RIVET MACHINE OPERATOR Pulse - - Temperature 35.8 C (96.4 F) 03/03/2022 1:52 PM RIVET MACHINE OPERATOR Respiratory Rate 18 03/03/2022 1:52 PM RIVET MACHINE OPERATOR Oxygen Saturation - - Inhaled Oxygen Concentration - - Weight 127 kg (280 lb) 03/03/2022 1:52 PM RIVET MACHINE OPERATOR Height 180.3 cm (5' 11 ) 03/03/2022 1:52 PM RIVET MACHINE OPERATOR Body Mass Index 39.05 03/03/2022 1:52 PM RIVET MACHINE OPERATOR Plan of Treatment Health Maintenance Due Date Last Done Comments Pneumococcal PPSV23/PCV13 65 + Years / High and Highest Risk (2 of 5 - PCV) 08/17/2013 08/17/2012 Influenza Vaccine (Season Ended) 2024 Insurance [facility] MEDICARE ADVANTAGE Care Teams Make Up Artist Relationship Specialty Start Date End Date Neftali Garcia DO [address] [place] [id number] PCP - General Internal Medicine 04/15/21
--- OUTSIDE RECORDS SUMMARY | 2024-08-11 02:33 | XMS_ITS | Clinical Summary ---
Author Organization [facility] Address [address] [place] [address] Phone Care Team Providers Care Fractionating Still Operator Name Role Phone Unavailable Primary Care [...] Advance Directives For more information, please contact: [phone] * Full Code (Latest Code Status on File) Date Activated Date Inactivated Comments 08/11/2012 10:30 AM 08/17/2012 5:10 PM * Full Code Date Activated Date Inactivated Comments 08/10/2012 5:10 AM 08/11/2012 10:30 AM * Full Code Date Activated Date Inactivated Comments 08/10/2012 4:45 AM 08/10/2012 5:10 AM
--- OUTSIDE RECORDS SUMMARY | 2024-08-11 02:33 | XMS_ITS | Referral Summary ---
Author Organization [facility] [address] Address [address] [place] [address] Care Team Providers Care Keg Filler Name Role Phone Dajuan Vasquez NP Primary Care Provider [phone] Encounters Date Type Department Care Team Description 07/22/2024 11:00 AM CDT Office Visit [facility] Cardiology at [address] [place] [phone] Chai Bangura MD Nonrheumatic aortic valve stenosis [...] Hyperlipidemia associated with type 2 diabetes lauri giordanoitus 10/07/2022 Hypertension associated with diabetes 10/07/2022 Chronic [...] on file Legal Sex Male 4:44 PM ORGAN GRINDER Gender Identity Not on file Sexual Orientation [...] Comments LIPID PANEL Routine 04/14/2024 7:45 AM ORGAN GRINDER from Last 3 Months or Most Recently Relevant to Health Maintenance Results * (ABNORMAL) Lipid panel (04/14/2024 7:45 AM ORGAN GRINDER) SCRIBED Cholesterol, Total 116 0 - 200 EXTERNAL LAB SCRIBED HDL 32(A) 40 - 100 EXTERNAL LAB SCRIBED LDL 52 0 - 100 EXTERNAL LAB SCRIBED Triglycerides 218(A) 0 - 150 EXTERNAL LAB Blood 04/14/2024 7:45 AM ORGAN GRINDER us Historical Provider LAB BLOOD ORDERABLES Miriam starks Result EXTERNAL LAB from Last 3 Months or Most Recently Relevant to Health Maintenance Insurance [facility] MEDICARE HMO [facility] MEDICARE ADVANTAGE Care Teams Keg Filler Relationship Specialty Start Date End Date Dajuan Vasquez NP [address] [place] [address] PCP - General Nurse Practitioner 07/18/22
--- NOTE | 2024-08-11 06:29 | WPDHPUPDATE1 ---
History and Physical Update Update Date/Time: 08/11/24 06:29 History and Physical has been reviewed, including an updated exam of the patient. There are NO changes in the patient's condition. Risks, benefits, and alternatives have been discussed and questions answered. Patient agrees to proceed with procedure.
[2024-08-11] MEDS: LACTATED RINGERS 1,000 ML 30 ML IV CONT ×2 (06:30→08:12)
[2024-08-11 06:47] LABS: Glucose Point of Care 157 mg/dl (65-105)
[2024-08-11] MEDS: ceFAZolin 2 GM/D5W 50 ML 2 GM/50 ML BAG IVPB (07:22)
[2024-08-11] MEDS: LIDOCAINE 2% GEL UROJET 10 ML PKG MUCOUS MEM (07:39)
--- NOTE | 2024-08-11 07:54 | W.PM.PROC2 ---
Procedure Note - Detailed Date of Procedure 08/11/24 Pre-op Diagnosis Bladder cancer Post-op Diagnosis Same Procedure Performed Cystoscopy, bilateral retrograde pyelography, TURBT (small 1.5 cm) Surgeon Tim Scott MD Anesthesia General Description of Procedure Patient is brought to the operative suite where he was prepped draped in routine sterile fashion while in dorsal lithotomy position after the uneventful induction of a general LMA anesthetic. Cystoscopy was undertaken with a 19 F rigid cystoscope. He has a papillary urothelial neoplasm arising at the bladder neck or just very slightly into the prostatic urethra. Bladder itself is endoscopically normal. There were no mucosal abnormalities and no guillaume neoplasm in the bladder. An 8 F ball-tip catheter was used to obtain bilateral retrograde pyelograms which appear normal. There are no apparent upper tract filling defects or points of obstruction. Using a resectoscope the small papillary lesion is resected and the bases cauterized with a rollerball. Then 18 F Alicea catheter was placed for gemcitabine installation. Drains Yes Packing No Complications No immediate complications Condition Stable
--- NOTE | 2024-08-11 07:56 | W.PM.PROC2 ---
Procedure Note - Detailed Date of Procedure 08/11/24 Pre-op Diagnosis Bladder cancer Post-op Diagnosis Same Procedure Performed Gemcitabine installation Surgeon Tim Scott MD Anesthesia General Description of Procedure With the patient in the supine position, a 16F Alicea catheter is placed using sterile technique. Using a protective facemask, gown and double layer of gloves Gemcitabine 2gm in 100cc saline is administered through the catheter/into the bladder. The catheter is then plugged. Patient was instructed to lie supine x20min, then to roll both the left and right x20 min. each. Total dwell time will be 60 min., after which the bladder will be drained and catheter removed.
[2024-08-11] MEDS: SODIUM CHLORIDE 0.9% IV 23.7 ML, GEMCITABINE HCL 1,000 MG BLADDER ×2 (08:04→08:05)
[2024-08-11] MEDS: fentaNYL CITRATE INJ (*CRX) 100 MCG/2 ML VIAL 25 MCG IV PUSH ×4 (08:10→08:39)
[2024-08-11 08:41] LABS: Glucose Point of Care 133 mg/dl (65-105)
--- NOTE | 2024-08-11 10:03 | SUR.PHASEII ---
1000: READY FOR DC. WAITING ON RIDE.
== END 2024-08-11 10:21 | disposition home or self-care (01) ==
PROVIDERS: PCP Nurse Practitioner Family; Visit Provider Urology
PROC: 0TBB8ZZ Excision of Bladder, Via Natural or Artificial Opening Endoscopic (ICD-10-PCS; CPT 52234; principal; 2024-08-11 07:30)
PROC: (CPT 52352; 2024-08-11 07:30)
DX: C67.5 Malignant neoplasm of bladder neck (principal); E11.40 Type 2 diabetes mellitus with diabetic neuropathy, unspecified; F17.220 Nicotine dependence, chewing tobacco, uncomplicated; F12.90 Cannabis use, unspecified, uncomplicated; E66.9 Obesity, unspecified; Z68.36 Body mass index [BMI] 36.0-36.9, adult
CPT/HCPCS: 52234; 51720; 74420; 82948; 88305; C1758; C1769; J0690; J2003; J2250; J2405; J2704; J3010; J7120; J9201; Q9966

== ENCOUNTER 2024-09-06 07:07 | Emergency (ER) | payer MEDICARE, MEDICAID, SELFPAY ==
--- NOTE | ~2024-09-06 | XR_ITS ---
XR ankle LT min 3V, XR foot LT min 3V 09/06/2024 08:39 Indication: Left foot and ankle pain Procedure: 4 views left ankle and 4 views left foot Comparison: No prior studies for comparison. Findings: There is a nondisplaced transversely oriented fracture base of the fifth metatarsal, age in determinate. Correlate for point tenderness. Mild lateral soft tissue swelling. There is polyarticula r osteoarthritis of the ankle. Small degenerative calcaneal enthesophyte. There is an osteochondral d efect along the medial aspect of the talar dome. Lisfranc joint intact. Impression: 1: Age-indeterminate transverse fracture base of the fifth metatarsal. Correlate for point tenderness . 2: Osteochondral defect medial margin of the talar dome. 3: Mild-moderate polyarticular osteoarthritis. Reviewed, dictated and finalized at location A. Impression: 1: Age-indeterminate transverse fracture base of the fifth metatarsal. Correlat e for point tenderness. 2: Osteochondral defect medial margin of the talar dome. 3: Mild-moderate polyarticular osteoarthritis. Impression: 1: Age-indeterminate transverse fracture base of the fifth metatarsal. Correlat e for point tenderness. 2: Osteochondral defect medial margin of the talar dome. 3: Mild-moderate polyarticular osteoarthritis.
--- NOTE | ~2024-09-06 | US_ITS ---
EXAMINATION:US venous doppler LE BI INDICATION:Leg swelling and pain TECHNIQUE: Multiple grayscale, color flow and Doppler images of the right and left lower extremity de ep venous systems were obtained and reviewed. COMPARISON:No prior studies for comparison. FINDINGS: The common femoral, superficial femoral and popliteal veins demonstrate normal respiratory variation, augmentation and compressibility. Color flow is also seen within the posterior tibial, pe roneal, greater saphenous and profunda veins. IMPRESSION: 1: No lower extremity deep venous thrombosis. Reviewed, dictated and finalized at location A.
--- NOTE | ~2024-09-06 | XR_ITS ---
XR knee LT 3V 09/06/2024 08:39 Indication: Left knee pain. History of diabetes. Procedure: 3 views left knee Comparison: 07/26/2024 Findings: There is chondrocalcinosis. There is atherosclerosis. Mild prepatellar soft tissue swelling . No fracture or traumatic malalignment. No joint effusion. Impression: 1: No acute bone or joint abnormality. Reviewed, dictated and finalized at location A. Impression: 1: No acute bone or joint abnormality.
--- NOTE | ~2024-09-06 | XR_ITS ---
XR knee RT 3V 09/06/2024 08:39 Indication: Knee pain Procedure: 3 views right knee Comparison: No prior studies for comparison. Findings: There is mild tricompartment osteoarthritis. There is chondrocalcinosis. No fracture or tra umatic malalignment. No foreign bodies. There is atherosclerosis. Impression: 1: No acute bone or joint abnormality. Reviewed, dictated and finalized at location A. Impression: 1: No acute bone or joint abnormality.
--- OUTSIDE RECORDS SUMMARY | 2024-09-06 07:09 | XMS_ITS | Clinical Summary ---
Author Organization [facility] [place] [address] Address [address] [place] [address] Care Team Providers Care Grill Attendant Name Role Phone Dajuan Vasquez NP Primary Care Provider [phone] Allergies Active Allergy Reactions Criticality Noted Date [...] Description 07/22/2024 11:00 AM CDT Office Visit [facility] Cardiology at [address] [place] [address] Chai Bangura MD Nonrheumatic aortic [...] on file Legal Sex Male 4:44 PM ENVIRONMENTAL FIELD OFFICE MANAGER Gender Identity Not on file Sexual [...] 11:03 AM CDT Height 177.8 cm (5' 10) 07/22/2024 11:03 AM CDT Body Mass Index [...] Comments LIPID PANEL Routine 04/14/2024 7:45 AM ENVIRONMENTAL FIELD OFFICE MANAGER from Last 3 Months or Most Recently Relevant to Health Maintenance Results * (ABNORMAL) Lipid panel (04/14/2024 7:45 AM ENVIRONMENTAL FIELD OFFICE MANAGER) SCRIBED Cholesterol, Total 116 0 - 200 EXTERNAL LAB SCRIBED HDL 32(A) 40 - 100 EXTERNAL LAB SCRIBED LDL 52 0 - 100 EXTERNAL LAB SCRIBED Triglycerides 218(A) 0 - 150 EXTERNAL LAB Blood 04/14/2024 7:45 AM ENVIRONMENTAL FIELD OFFICE MANAGER us Historical Provider LAB BLOOD ORDERABLES Miriam starks Result EXTERNAL LAB from Last 3 Months or Most Recently Relevant to Health Maintenance Insurance [employer] MEDICARE HMO [facility] MEDICARE ADVANTAGE [facility] MEDIC[facility] Address: [facility] [address] [place] [address] Care Teams Grill Attendant Relationship Specialty Start Date End Date Dajuan Vasquez [employer] [address] [facility] [address] [place] [address] PCP - General Nurse Practitioner 07/18/22
--- OUTSIDE RECORDS SUMMARY | 2024-09-06 07:09 | XMS_ITS | Clinical Summary ---
Author Organization [facility] Address [address] [place] [address] Phone Care Team Providers Care Regional Sales Director Name Role Phone Neftali Garcia DO Primary Care Provider [phone] Allergies Active Allergy Reactions Criticality Noted Date [...] Comments Blood Pressure 132/78 03/03/2022 1:52 PM APPLICATIONS CONSULTANT Pulse - - Temperature 35.8 C (96.4 F) 03/03/2022 1:52 PM APPLICATIONS CONSULTANT Respiratory Rate 18 03/03/2022 1:52 PM APPLICATIONS CONSULTANT Oxygen Saturation - - Inhaled Oxygen Concentration - - Weight 127 kg (280 lb) 03/03/2022 1:52 PM APPLICATIONS CONSULTANT Height 180.3 cm (5' 11) 03/03/2022 1:52 PM APPLICATIONS CONSULTANT Body Mass Index 39.05 03/03/2022 1:52 PM APPLICATIONS CONSULTANT Plan of Treatment Health Maintenance Due Date Last Done Comments Pneumococcal PPSV23/PCV13 65 + Years / High and Highest Risk (2 of 5 - PCV) 08/17/2013 08/17/2012 Influenza Vaccine (Season Ended) 2024 Insurance [facility] MEDICARE ADVANTAGE Care Teams Regional Sales Director Relationship Specialty Start Date End Date Neftali Garcia DO [address] [place] [phone] PCP - General Internal Medicine 04/15/21
--- OUTSIDE RECORDS SUMMARY | 2024-09-06 07:09 | XMS_ITS | Clinical Summary ---
Author Organization [facility] Address [address] [place] [address] Phone Care Team Providers Care Sticker On Name Role Phone Unavailable Primary Care Provider [...] 9:55 AM CDT Height 180.3 cm (5' 11) 08/10/2012 5:00 AM CDT Body Mass Index [...] Advance Directives For more information, please contact: [phone] * Full Code (Latest Code Status on File) Date Activated Date Inactivated Comments 08/11/2012 10:30 AM 08/17/2012 5:10 PM * Full Code Date Activated Date Inactivated Comments 08/10/2012 5:10 AM 08/11/2012 10:30 AM * Full Code Date Activated Date Inactivated Comments 08/10/2012 4:45 AM 08/10/2012 5:10 AM
--- OUTSIDE RECORDS SUMMARY | 2024-09-06 07:09 | XMS_ITS | Referral Summary ---
Author Organization [facility] [place] [address] Address [address] [place] [address] Care Team Providers Care Director Of Laboratory Operations Name Role Phone Dajuan Vasquez NP Primary Care Provider [phone] Encounters Date Type Department Care Team Description 07/22/2024 11:00 AM CDT Office Visit [facility] Cardiology at [address] [place] [phone] Chai Bangura MD Nonrheumatic aortic valve stenosis [...] on file Legal Sex Male 4:44 PM COFFEE HOST Gender Identity Not on file Sexual Orientation [...] Comments LIPID PANEL Routine 04/14/2024 7:45 AM COFFEE HOST from Last 3 Months or Most Recently Relevant to Health Maintenance Results * (ABNORMAL) Lipid panel (04/14/2024 7:45 AM COFFEE HOST) SCRIBED Cholesterol, Total 116 0 - 200 EXTERNAL LAB SCRIBED HDL 32(A) 40 - 100 EXTERNAL LAB SCRIBED LDL 52 0 - 100 EXTERNAL LAB SCRIBED Triglycerides 218(A) 0 - 150 EXTERNAL LAB Blood 04/14/2024 7:45 AM COFFEE HOST us Historical Provider LAB BLOOD ORDERABLES Miriam starks Result EXTERNAL LAB from Last 3 Months or Most Recently Relevant to Health Maintenance Insurance [facility] MEDICARE HMO [facility] MEDICARE ADVANTAGE Care Teams Director Of Laboratory Operations Relationship Specialty Start Date End Date Dajuan Vasquez NP [address] [place] [address] PCP - General Nurse Practitioner 07/18/22
[2024-09-06 07:14] VITALS: BP 149/75; PULSE 84; RESP 16; TEMP 36.4; O2SAT 98
--- OUTSIDE RECORDS SUMMARY | 2024-09-06 07:48 | XMS_ITS | Clinical Summary ---
Author Organization [facility] [place] [address] Address [address] [place] [address] Care Team Providers Care Automated Teller Manager Name Role Phone Dajuan Vasquez NP Primary Care Provider [phone] Allergies Active Allergy Reactions Criticality Noted Date [...] Description 07/22/2024 11:00 AM CDT Office Visit [facility] Cardiology at [address] [place] [address] Chai Bangura MD Nonrheumatic aortic [...] on file Legal Sex Male 4:44 PM CLERK GUIDE Gender Identity Not on file Sexual Orientation [...] Comments LIPID PANEL Routine 04/14/2024 7:45 AM CLERK GUIDE from Last 3 Months or Most Recently Relevant to Health Maintenance Results * (ABNORMAL) Lipid panel (04/14/2024 7:45 AM CLERK GUIDE) SCRIBED Cholesterol, Total 116 0 - 200 EXTERNAL LAB SCRIBED HDL 32(A) 40 - 100 EXTERNAL LAB SCRIBED LDL 52 0 - 100 EXTERNAL LAB SCRIBED Triglycerides 218(A) 0 - 150 EXTERNAL LAB Blood 04/14/2024 7:45 AM CLERK GUIDE us Historical Provider LAB BLOOD ORDERABLES Miriam starks Result EXTERNAL LAB from Last 3 Months or Most Recently Relevant to Health Maintenance Insurance [employer] MEDICARE HMO [facility] MEDICARE ADVANTAGE Care Teams Automated Teller Manager Relationship Specialty Start Date End Date Dajuan Vasquez BUFFER OPERATOR [address] [facility] [address] [place] [address] PCP - General Nurse Practitioner 07/18/22
--- OUTSIDE RECORDS SUMMARY | 2024-09-06 07:48 | XMS_ITS | Clinical Summary ---
Author Organization [facility] Address [address] [place] [id number] Phone Care Team Providers Care Trim Master Operator Name Role Phone Neftali Garcia DO Primary Care Provider [phone] Allergies Active Allergy Reactions Criticality Noted Date [...] Comments Blood Pressure 132/78 03/03/2022 1:52 PM HOT TOP LINER Pulse - - Temperature 35.8 C (96.4 F) 03/03/2022 1:52 PM HOT TOP LINER Respiratory Rate 18 03/03/2022 1:52 PM HOT TOP LINER Oxygen Saturation - - Inhaled Oxygen Concentration - - Weight 127 kg (280 lb) 03/03/2022 1:52 PM HOT TOP LINER Height 180.3 cm (5' 11) 03/03/2022 1:52 PM HOT TOP LINER Body Mass Index 39.05 03/03/2022 1:52 PM HOT TOP LINER Plan of Treatment Health Maintenance Due Date Last Done Comments Pneumococcal PPSV23/PCV13 65 + Years / High and Highest Risk (2 of 5 - PCV) 08/17/2013 08/17/2012 Influenza Vaccine (Season Ended) 2024 Insurance [facility] MEDICARE ADVANTAGE Care Teams Trim Master Operator Relationship Specialty Start Date End Date Neftali Garcia DO [address] [place] [phone] PCP - General Internal Medicine 04/15/21
--- OUTSIDE RECORDS SUMMARY | 2024-09-06 07:48 | XMS_ITS | Referral Summary ---
Author Organization [facility] [place] [address] Address [address] [place] [address] Care Team Providers Care Final Finisher Name Role Phone Dajuan Vasquez NP Primary Care Provider [phone] Encounters Date Type Department Care Team Description 07/22/2024 11:00 AM CDT Office Visit [facility] Cardiology at [address] [place] [phone] Chai Bangura MD Nonrheumatic aortic valve stenosis [...] on file Legal Sex Male 4:44 PM SECURITY BUSINESS ANALYST Gender Identity Not on file Sexual Orientation [...] Comments LIPID PANEL Routine 04/14/2024 7:45 AM SECURITY BUSINESS ANALYST from Last 3 Months or Most Recently Relevant to Health Maintenance Results * (ABNORMAL) Lipid panel (04/14/2024 7:45 AM SECURITY BUSINESS ANALYST) SCRIBED Cholesterol, Total 116 0 - 200 EXTERNAL LAB SCRIBED HDL 32(A) 40 - 100 EXTERNAL LAB SCRIBED LDL 52 0 - 100 EXTERNAL LAB SCRIBED Triglycerides 218(A) 0 - 150 EXTERNAL LAB Blood 04/14/2024 7:45 AM SECURITY BUSINESS ANALYST us Historical Provider LAB BLOOD ORDERABLES Miriam starks Result EXTERNAL LAB from Last 3 Months or Most Recently Relevant to Health Maintenance Insurance [facility] MEDICARE HMO [facility] MEDICARE ADVANTAGE [facility] Address: [address] [address] [place] [address] Care Teams Final Finisher Relationship Specialty Start Date End Date Dajuan Vasquez NP [address] [place] [address] PCP - General Nurse Practitioner 07/18/22
--- OUTSIDE RECORDS SUMMARY | 2024-09-06 07:48 | XMS_ITS | Clinical Summary ---
Author Organization [facility] Address [address] [place] [address] Phone Care Team Providers Care Sql Etl Developer Name Role Phone Unavailable Primary Care Provider [...] Advance Directives For more information, please contact: [phone] * Full Code (Latest Code Status on File) Date Activated Date Inactivated Comments 08/11/2012 10:30 AM 08/17/2012 5:10 PM * Full Code Date Activated Date Inactivated Comments 08/10/2012 5:10 AM 08/11/2012 10:30 AM * Full Code Date Activated Date Inactivated Comments 08/10/2012 4:45 AM 08/10/2012 5:10 AM
[2024-09-06 08:08] LABS: Hematocrit 38.6 % (42.0-52.0); Hemoglobin 12.5 g/dL (14.0-18.0); Immature Platelet Fraction Pct 4.4 % (0.9-11.2); Mean Corpuscular HGB Conc 32.4 g/dl (32-36); Mean Corpuscular Volume 89.6 fl (80-100); Mean Platelet Volume 11.1 fl (7.4-10.4); Platelet Count Result 94 k/mm3 (150-375); Red Blood Count 4.31 M/mm3 (4.6-6.20); Red Cell Distribution Width 14.6 % (11.5-14.5); White Blood Count 7.7 K/mm3 (4.5-10.0)
[2024-09-06 08:12] LABS: INR 1.2; Prothrombin Time 15.2 Seconds (11.1-14.7)
[2024-09-06 08:13] LABS: Partial Thromboplastin Time 32.2 Seconds (22.3-36.8)
[2024-09-06 08:27] LABS: Alanine Aminotransferase 20 U/L (6-50); Albumin Level 4.3 g/dL (3.5-5.1); Alkaline Phosphatase 62 U/L (38-126); Anion Gap 7 mmol/L (4-12); Aspartate Amino Transferase 31 U/L (17-59); Bilirubin,Total 2.5 mg/dL (0.2-1.3); Blood Urea Nitrogen 24 mg/dL (9-20); Calcium 8.9 mg/dL (8.4-10.2); Carbon Dioxide 34 mmol/L (22-30); Chloride 91 mmol/L (98-107); Estimated CRCL calculation 59 ml/min; Estimated Glomerular Filt Rate 50; Glucose 171 mg/dL (65-110); Potassium 4.1 mmol/L (3.4-5.0); Sodium 132 mmol/L (137-145); Uric Acid 9.9 mg/dL (3.5-8.5)
[2024-09-06 08:37] LABS: CRP 12.2 mg/dL (<1.0)
[2024-09-06 08:41] LABS: Band Neutrophils Percent 8 % (0-6); Eosinophils Absolute Manual 0.07 K/mm3 (0.02-0.50); Eosinophils Percent Manual 1 % (0-4); Lymphocytes Absolute Manual 0.69 K/mm3 (1.1-4.5); Lymphocytes Percent Manual 9 % (18-44); Monocytes Absolute Manual 0.53 K/mm3 (0.1-0.90); Monocytes Percent Manual 7 % (3-9); Neutrophils Absolute Manual 6.39 K/mm3 (1.3-6.7); Neutrophils Percent Manual 75 % (46-73); Platelet Estimate Decreased (Adequate); Schistocytes None Seen; Total Cells Counted 100
[2024-09-06 09:06] LABS: Erythrocyte Sedimentation Rate 76 mm/hr (0-20)
[2024-09-06 09:29] VITALS: BP 140/73; PULSE 76; RESP 15; O2SAT 97
--- NOTE | 2024-09-06 10:27 | ED.GENADULT ---
HPI - General Adult General Chief complaint: Extremity Problem,Nontraumatic Stated complaint: I have gout Time Seen by Provider: 09/06/24 07:22 History of Present Illness HPI narrative: Patient is a 68-year-old gentleman presents emergency department with chief complaint of gout flare up. Patient reports that he has had pain for about a week reports no trauma reports he has pain in the left foot left ankle and bilateral knees. Patient reports he has had gout before in the past reports the pain is significantly worsened 3 tries to ambulate Related Data Home Medications ?Medication ?Instructions ?Recorded ?Confirmed ?Last Taken ?Type finasteride 5 mg tablet 5 mg PO DAILY 09/02/21 07/07/24 01/14/23 History olivefeiuabr-xhg-ichfb acid-vit 1 tablet PO DAILY 09/02/21 07/07/24 01/14/23 History K-lycop 400 mcg-20 mcg-370 mcg tablet (Men's 50 Plus Multivitamin) aspirin 81 mg tablet,delayed 81 mg PO DAILY 05/24/24 08/11/24 08/02/24 History release (Adult Low Dose Aspirin) apixaban 5 mg tablet (Eliquis) 5 mg PO Q12H 07/28/24 08/11/24 07/07/24 History Allergies Allergy/AdvReac Type Severity Reaction Status Date / Time Iodinated Contrast Media Allergy Intermediate Hives Verified 09/06/24 07:13 Penicillins Allergy Intermediate Hives Verified 09/06/24 07:13 Review of Systems Review of Systems: A 10 system review of systems was completed on the patient and is negative except for what is stated in the HPI. Nursing and ancillary documentation was reviewed. 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 Edema Right acetabular fracture Screening for prostate cancer Essential (primary) hypertension Hepatic fibrosis Hyperlipidemia, unspecified Other hyperlipidemia (Unknown) Type 2 diabetes mellitus with diabetic neuropathy, unspecified Surgical History Surgical History Hx of cystoscopy Family History Family History Sibling Family history of multiple sclerosis Patient's sister is in good health Patient's brother is in good health Father Hypertension Family history of diabetes mellitus in first degree relative Diabetes mellitus Mother Family history of malignant neoplasm Patient's mother is Social History Social History Smoking packs per day: 1 Smoking cigarettes per day: 20.0 Years smoked: 10 Smoking pack-years: 10.00 Smoking status: Former smoker Tobacco type: cigarettes Smokeless tobacco user: chewing tobacco Smoking end date: 04/13/75 Additional smoking assessment comments: Chew tobacco currently daily Alcohol intake: former Drinks per week: 84 Alcohol use details: No drinks 13 yrs Substance use: current Substance use type: marijuana Other substance usage details: smoke every couple days Last use: 01/01/23 Do You Feel Safe in your Home?: Yes Lack of Transportation: No Lack of Food: Never True Current Housing: I Have Housing Concerned About Future Housing: No Difficulty Paying Gas/Electric Bills: No Difficulty Paying for Meds: No Currently Unemployed: No Education: Grade School Difficulty w/ Childcare or Family Care: No Living arrangements: with family Additional living arrangements comments: Son Occupation/Education: retired Gender identity (if verbalized by the patient): Male Sexual Orientation (if Verbalized by the Patient): Straight or Heterosexual Spiritual care concerns: No Agree to blood products: Yes Exam Narrative: GENERAL: Well-appearing, well-nourished, and in no acute distress. HEAD: Normocephalic, atraumatic. EYES: PERRLA and EOMI. ENT: Nares clear, no rhinorrhea or epistaxis. Mucous membranes moist. NECK: Supple. CHEST: Clear to auscultation. No respiratory distress. HEART: Regular rate and rhythm. No murmur heard. Normal peripheral pulses. ABDOMEN: Soft, nontender, nondistended, normal active bowel sounds. EXTREMITIES: Normal range of motion there is swelling of the left ankle and is tenderness to palpation left foot. No edema. SKIN: Warm, dry, no rash. NEURO: No focal deficits. Alert and oriented x3. PSYCH: Normal mood and affect. Course Vital Signs Vital signs: Vital Signs Temperature 36.4 C 09/06/24 07:14 Pulse Rate 84 09/06/24 07:14 Respiratory Rate 16 09/06/24 07:14 Blood Pressure 149/75 H 09/06/24 07:14 Pulse Oximetry 98 09/06/24 07:14 Oxygen Delivery Room Air 09/06/24 07:14 Temperature 36.4 C 09/06/24 07:14 Pulse Rate 76 09/06/24 09:29 Respiratory Rate 15 09/06/24 09:29 Blood Pressure 140/73 09/06/24 09:29 Pulse Oximetry 97 09/06/24 09:29 Oxygen Delivery Room Air 09/06/24 07:14 Medical Decision Making MDM Narrative Medical decision making narrative: Differential diagnosis includes fracture, contusion, gout, X-ray of the left foot showed evidence of a 5th metatarsal fracture The patient also did not have an elevated uric acid and elevated CRP and sed rate. Patient is afebrile Patient was placed in short leg posterior the patient does use a walker and wheelchair at home the patient instructed to be nonweightbearing and will be referred to Orthopedics for follow-up Vital Signs Vital Signs: Vital Signs Temperature 36.4 C 09/06/24 07:14 Pulse Rate 84 09/06/24 07:14 Respiratory Rate 16 09/06/24 07:14 Blood Pressure 149/75 H 09/06/24 07:14 Pulse Oximetry 98 09/06/24 07:14 Oxygen Delivery Room Air 09/06/24 07:14 Temperature 36.4 C 09/06/24 07:14 Pulse Rate 76 09/06/24 09:29 Respiratory Rate 15 09/06/24 09:29 Blood Pressure 140/73 09/06/24 09:29 Pulse Oximetry 97 09/06/24 09:29 Oxygen Delivery Room Air 09/06/24 07:14 Lab Data 09/06/24 07:55 09/06/24 07:55 Labs: Lab Results 09/06/24 Range/Units 07:55 WBC 7.7 (4.5-10.0) K/mm3 RBC 4.31 L (4.6-6.20) M/mm3 Hgb 12.5 L (14.0-18.0) g/dL Hct 38.6 L (42.0-52.0) % MCV 89.6 (80-100) fl MCH 29.0 (26-34) pg MCHC 32.4 (32-36) g/dl RDW 14.6 H (11.5-14.5) % Plt Count 94 L (150-375) k/mm3 MPV 11.1 H (7.4-10.4) fl Immature Gran % (Auto) Not Reportable Neut % (Auto) Not Reportable Lymph % (Auto) Not Reportable [place] % (Auto) Not Reportable Eos % (Auto) Not Reportable Baso % (Auto) Not Reportable Lymph # (Auto) Not Reportable [place] # (Auto) Not Reportable Eos # (Auto) Not Reportable Baso # (Auto) Not Reportable Abs Immat Gran (auto) Not Reportable Absolute Neuts (auto) Not Reportable Absolute Nucleated RBC Not Reportable Total Counted 100 Neutrophils % (Manual) 75 H (46-73) % Band Neutrophils % 8 H (0-6) % Lymphocytes % (Manual) 9 L (18-44) % Monocytes % (Manual) 7 (3-9) % Eosinophils % (Manual) 1 (0-4) % Nucleated RBC % Not Reportable Abs Neuts (Manual) 6.39 (1.3-6.7) K/mm3 Abs Lymphs (Manual) 0.69 L (1.1-4.5) K/mm3 Abs Monocytes (Manual) 0.53 (0.1-0.90) K/mm3 Absolute Eos (Manual) 0.07 (0.02-0.50) K/mm3 Platelet Estimate Decreased (Adequate) % Immature Plt Fraction 4.4 (0.9-11.2) % Schistocytes None seen ESR 76 H (0-20) mm/hr PT 15.2 H (11.1-14.7) Seconds INR 1.2 APTT 32.2 (22.3-36.8) Seconds Sodium 132 L (137-145) mmol/L Potassium 4.1 (3.4-5.0) mmol/L Chloride 91 L (98-107) mmol/L Carbon Dioxide 34 H (22-30) mmol/L Anion Gap 7 (4-12) mmol/L BUN 24 H (9-20) mg/dL Creatinine 1.41 H (0.7-1.3) mg/dL Estim Creat Clear Calc 59 ml/min Estimated GFR 50 L (59 - ) Glucose 171 H (65-110) mg/dL Uric Acid 9.9 H (3.5-8.5) mg/dL Calcium 8.9 (8.4-10.2) mg/dL Total Bilirubin 2.5 H (0.2-1.3) mg/dL AST 31 (17-59) U/L ALT 20 (6-50) U/L Alkaline Phosphatase 62 (38-126) U/L C-Reactive Protein 12.2 H (<1.0) mg/dL Total Protein 8.0 (6.3-8.2) g/dL Albumin 4.3 (3.5-5.1) g/dL Discharge Plan Discharge Clinical Impression: Closed fracture of fifth metatarsal bone, Arthralgia Patient Disposition: Home Condition: Stable Instructions: Antibiotic Form Patient Language: Nepalese Prescriptions: New indomethacin 25 mg capsule 25 mg PO TID 7 Days Qty: 21 0RF Rx Instructions: administer with food or milk hydrocodone-acetaminophen 5-325 mg tablet 1 tablet PO Q6H PRN (Reason: pain) 3 Days Qty: 12 0RF No Action aspirin [Adult Low Dose Aspirin] 81 mg tablet,delayed release (DR/EC) 81 mg PO DAILY Patient Comments: HOLD FOR [address] Scott betamethasone valerate 0.1 % ointment 1 applic topical BID PRN (Reason: rash) Qty: 45 0RF fluticasone propionate [Flonase Allergy Relief] 50 mcg/actuation spray,suspension 2 spray intranasal DAILY Qty: 16 0RF Rx Instructions: administer into each nostril albuterol sulfate 90 mcg/actuation HFA aerosol inhaler 2 inh inhalation Q4H PRN (Reason: shortness of breath or wheezing) Qty: 8.5 0RF finasteride 5 mg tablet 5 mg PO DAILY Patient Comments: AM Men's 50 Plus Multivitamin 400-20-370 mcg Tablet 1 tablet PO DAILY Patient Comments: QAM prednisone 20 mg tablet 40 mg PO DAILY 5 Days Qty: 10 0RF indomethacin 25 mg capsule 25 mg PO TID Qty: 20 0RF Patient Comments: PT to be done with Done w on 08/02/24 Rx Instructions: administer with food or milk Eliquis 5 mg tablet 5 mg PO Q12H Patient Comments: HOLD 3 days prior to surgery per Dr Scott hydrocodone-acetaminophen 5-325 mg tablet 1 - 2 tablet PO Q6H PRN (Reason: pain) Qty: 20 0RF (DME) blood-glucose meter [True Metrix Glucose Meter[place] [facility] [place] .Route Qty: 1 0RF Rx Instructions: use to check BS 3 times a day (DME) blood glucose control, normal [True Metrix Level 2] Solution See Rx Instructions .ROUTE .COMPLEX Qty: 1 3RF Dose Instruction: USE DIRECTED WITH GLUCOSE METER Rx Instructions: USE DIRECTED WITH GLUCOSE METER (DME) True Metrix Glucose Test Strip Strip See Rx Instructions .ROUTE .COMPLEX Qty: 200 0RF Dose Instruction: TEST BLOOD SUGAR THREE TIMES DAILY Rx Instructions: TEST BLOOD SUGAR THREE TIMES DAILY tramadol 50 mg tablet 50 mg PO BID PRN (Reason: pain) Qty: 60 0RF Tradjenta 5 mg tablet See Rx Instructions .ROUTE .COMPLEX Qty: 90 3RF Dose Instruction: TAKE 1 TABLET EVERY MORNING Rx Instructions: TAKE 1 TABLET EVERY MORNING magnesium oxide 400 mg (241.3 mg magnesium) tablet See Rx Instructions .ROUTE .COMPLEX Qty: 180 10RF Dose Instruction: TAKE 1 TABLET TWICE DAILY Rx Instructions: TAKE 1 TABLET TWICE DAILY atorvastatin 20 mg tablet See Rx Instructions .ROUTE .COMPLEX Qty: 90 3RF Dose Instruction: TAKE 1 TABLET EVERY DAY Patient Comments: HS Rx Instructions: TAKE 1 TABLET EVERY DAY furosemide 40 mg tablet See Rx Instructions .ROUTE .COMPLEX Qty: 180 3RF Dose Instruction: TAKE 2 TABLETS EVERY MORNING Rx Instructions: TAKE 2 TABLETS EVERY MORNING gabapentin 300 mg capsule See Rx Instructions .ROUTE .COMPLEX Qty: 360 3RF Dose Instruction: TAKE 1 CAPSULE TWICE DAILY AND TAKE 2 CAPSULES AT NIGHT Rx Instructions: TAKE 1 CAPSULE TWICE DAILY AND TAKE 2 CAPSULES AT NIGHT losartan 25 mg tablet See Rx Instructions .ROUTE .COMPLEX Qty: 90 3RF Dose Instruction: TAKE 1 TABLET EVERY DAY Rx Instructions: TAKE 1 TABLET EVERY DAY metformin 500 mg tablet See Rx Instructions .ROUTE .COMPLEX Qty: 270 3RF Dose Instruction: TAKE 2 TABLETS IN THE MORNING AND TAKE 1 TABLET IN THE EVENING Rx Instructions: TAKE 2 TABLETS IN THE MORNING AND TAKE 1 TABLET IN THE EVENING metoprolol tartrate 25 mg tablet See Rx Instructions .ROUTE .COMPLEX Qty: 180 3RF Dose Instruction: TAKE 1 TABLET EVERY 12 HOURS Rx Instructions: TAKE 1 TABLET EVERY 12 HOURS spironolactone 50 mg tablet See Rx Instructions .ROUTE .COMPLEX Qty: 90 3RF Dose Instruction: TAKE 1 TABLET EVERY MORNING Rx Instructions: TAKE 1 TABLET EVERY MORNING Follow-up/Referrals: Apollo Colorado MD [Physician] - Diane Rich APRN [Primary Care Provider] -
[2024-09-06] MEDS: HYDROcodone/acetaminophen (*CRX) 5-325 MG TABLET 1 TAB PO (10:56)
[2024-09-06 12:22] VITALS: BP 142/68; PULSE 88; RESP 16; O2SAT 99
== END 2024-09-06 12:23 | disposition home or self-care (01) ==
PROVIDERS: Emergency Provider Emergency Medicine; PCP Nurse Practitioner Family
DX: S92.355A Nondisplaced fracture of fifth metatarsal bone, left foot, initial encounter for closed fracture (principal); I48.91 Unspecified atrial fibrillation; I10 Essential (primary) hypertension; E78.49 Other hyperlipidemia; E11.40 Type 2 diabetes mellitus with diabetic neuropathy, unspecified; K74.60 Unspecified cirrhosis of liver; M10.9 Gout, unspecified; G47.33 Obstructive sleep apnea (adult) (pediatric); Z85.51 Personal history of malignant neoplasm of bladder; Z87.891 Personal history of nicotine dependence; M19.072 Primary osteoarthritis, left ankle and foot; Z79.82 Long term (current) use of aspirin; Z79.01 Long term (current) use of anticoagulants; Z79.899 Other long term (current) drug therapy; Z79.84 Long term (current) use of oral hypoglycemic drugs; X58.XXXA Exposure to other specified factors, initial encounter
CPT/HCPCS: 29515; 36415; 73562; 73610; 73630; 80053; 84550; 85025; 85055; 85610; 85652; 85730; 86140; 93970; 99284; A9270

== ENCOUNTER 2024-09-15 13:35 | Outpatient (CLI) | payer MEDICARE, MEDICAID, SELFPAY ==
--- OUTSIDE RECORDS SUMMARY | 2024-09-15 14:14 | XMS_ITS | Referral Summary ---
Author Organization [facility] [place] [address] Address [address] [place] [address] Care Team Providers Care Pantograph I Engraver Name Role Phone Dajuan Vasquez NP Primary Care Provider [phone] Encounters Date Type Department Care Team Description 07/22/2024 11:00 AM CDT Office Visit [facility] Cardiology at [address] [place] [address] Chai Bangura MD Nonrheumatic aortic [...] on file Legal Sex Male 4:44 PM BROADCAST PRODUCER Gender Identity Not on file Sexual Orientation [...] Comments LIPID PANEL Routine 04/14/2024 7:45 AM BROADCAST PRODUCER from Last 3 Months or Most Recently Relevant to Health Maintenance Results * (ABNORMAL) Lipid panel (04/14/2024 7:45 AM BROADCAST PRODUCER) SCRIBED Cholesterol, Total 116 0 - 200 EXTERNAL LAB SCRIBED HDL 32(A) 40 - 100 EXTERNAL LAB SCRIBED LDL 52 0 - 100 EXTERNAL LAB SCRIBED Triglycerides 218(A) 0 - 150 EXTERNAL LAB Blood 04/14/2024 7:45 AM BROADCAST PRODUCER us Historical Provider LAB BLOOD ORDERABLES Miriam starks Result EXTERNAL LAB from Last 3 Months or Most Recently Relevant to Health Maintenance Insurance [facility] MEDICARE HMO [facility] Address: [address] [address] [place] [address] Care Teams Pantograph I Engraver Relationship Specialty Start Date End Date Dajuan Vasquez NP [address] [place] [address] PCP - General Nurse Practitioner 07/18/22
--- OUTSIDE RECORDS SUMMARY | 2024-09-15 14:14 | XMS_ITS | Clinical Summary ---
Author Organization [facility] Address [address] [place] [id number] Phone Care Team Providers Care Ship Fitter Name Role Phone Neftali Garcia DO Primary Care Provider [phone] Allergies Active Allergy Reactions Criticality Noted Date [...] Comments Blood Pressure 132/78 03/03/2022 1:52 PM DOCTOR OF CHIROPRACTIC Pulse - - Temperature 35.8 C (96.4 F) 03/03/2022 1:52 PM DOCTOR OF CHIROPRACTIC Respiratory Rate 18 03/03/2022 1:52 PM DOCTOR OF CHIROPRACTIC Oxygen Saturation - - Inhaled Oxygen Concentration - - Weight 127 kg (280 lb) 03/03/2022 1:52 PM DOCTOR OF CHIROPRACTIC Height 180.3 cm (5' 11) 03/03/2022 1:52 PM DOCTOR OF CHIROPRACTIC Body Mass Index 39.05 03/03/2022 1:52 PM DOCTOR OF CHIROPRACTIC Plan of Treatment Health Maintenance Due Date Last Done Comments Pneumococcal PPSV23/PCV13 65 + Years / High and Highest Risk (2 of 5 - PCV) 08/17/2013 08/17/2012 Influenza Vaccine (Season Ended) 2024 Insurance [facility] MEDICARE ADVANTAGE Care Teams Ship Fitter Relationship Specialty Start Date End Date Neftali Garcia DO [address] [place] [id number] PCP - General Internal Medicine 04/15/21
--- OUTSIDE RECORDS SUMMARY | 2024-09-15 14:14 | XMS_ITS | Clinical Summary ---
Author Organization [facility] Address [address] [place] [address] Phone Care Team Providers Care Application Analyst Name Role Phone Unavailable Primary Care Provider [...] Advance Directives For more information, please contact: [phone] * Full Code (Latest Code Status on File) Date Activated Date Inactivated Comments 08/11/2012 10:30 AM 08/17/2012 5:10 PM * Full Code Date Activated Date Inactivated Comments 08/10/2012 5:10 AM 08/11/2012 10:30 AM * Full Code Date Activated Date Inactivated Comments 08/10/2012 4:45 AM 08/10/2012 5:10 AM
--- OUTSIDE RECORDS SUMMARY | 2024-09-15 14:14 | XMS_ITS | Clinical Summary ---
Author Organization [facility] [place] [address] Address [address] [place] [address] Care Team Providers Care Die Barber Name Role Phone Dajuan Vasquez NP Primary Care Provider [phone] Allergies Active Allergy Reactions Criticality Noted Date [...] Description 07/22/2024 11:00 AM CDT Office Visit [facility] Cardiology at [address] [place] [address] Chai Bangura MD Nonrheumatic aortic [...] file Legal Sex Male 4:44 PM BEAN SNAPPER Gender Identity Not on file Sexual Orientation [...] LIPID PANEL Routine 04/14/2024 7:45 AM BEAN SNAPPER from Last 3 Months or Most Recently Relevant to Health Maintenance Results * (ABNORMAL) Lipid panel (04/14/2024 7:45 AM BEAN SNAPPER) SCRIBED Cholesterol, Total 116 0 - 200 EXTERNAL LAB SCRIBED HDL 32(A) 40 - 100 EXTERNAL LAB SCRIBED LDL 52 0 - 100 EXTERNAL LAB SCRIBED Triglycerides 218(A) 0 - 150 EXTERNAL LAB Blood 04/14/2024 7:45 AM BEAN SNAPPER us Historical Provider LAB BLOOD ORDERABLES Miriam starks Result EXTERNAL LAB from Last 3 Months or Most Recently Relevant to Health Maintenance Insurance [employer] MEDICARE HMO [facility] MEDICARE ADVANTAGE Care Teams Die Barber Relationship Specialty Start Date End Date Dajuan Vasquez FITNESS PROFESSIONAL [address] [facility] [address] [place] [address] PCP - General Nurse Practitioner 07/18/22
[2024-09-15 14:55] LABS: Albumin Level 4.4 g/dL (3.5-5.1); Anion Gap 12 mmol/L (4-12); Blood Urea Nitrogen 42 mg/dL (9-20); Carbon Dioxide 29 mmol/L (22-30); Chloride 97 mmol/L (98-107); Estimated Glomerular Filt Rate 31; Glucose 130 mg/dL (65-110); Phosphorus 4.1 mg/dL (2.5-4.5); Potassium 4.6 mmol/L (3.4-5.0); Sodium 138 mmol/L (137-145)
[2024-09-15 18:54] LABS: Creatinine Urine 43.9 mg/dL; Total Protein Urine Random 10 mg/dL; Ur Ttl Prot Creatinine Ratio 0.23 mg/mg (0-0.20)
== END 2024-09-15 13:36 | disposition home or self-care (01) ==
LOC: ANHLAB 13:36
PROVIDERS: PCP Nurse Practitioner Family; Visit Provider Internal Medicine Nephrology
DX: R80.9 Proteinuria, unspecified (principal); I10 Essential (primary) hypertension; E11.29 Type 2 diabetes mellitus with other diabetic kidney complication
CPT/HCPCS: 36415; 80069; 82570; 84156

== ENCOUNTER 2024-10-20 13:33 | Outpatient (CLI) | payer MEDICARE, MEDICAID, SELFPAY ==
--- OUTSIDE RECORDS SUMMARY | 2024-10-20 13:38 | XMS_ITS | Clinical Summary ---
Author Organization [facility] Address [address] [place] [address] Phone Care Team Providers Care Director Of Guidance Name Role Phone Neftali Garcia DO Primary Care Provider [phone] Allergies Active Allergy Reactions Criticality Noted Date [...] Comments Blood Pressure 132/78 03/03/2022 1:52 PM TANK FARM OPERATOR Pulse - - Temperature 35.8 C (96.4 F) 03/03/2022 1:52 PM TANK FARM OPERATOR Respiratory Rate 18 03/03/2022 1:52 PM TANK FARM OPERATOR Oxygen Saturation - - Inhaled Oxygen Concentration - - Weight 127 kg (280 lb) 03/03/2022 1:52 PM TANK FARM OPERATOR Height 180.3 cm (5' 11) 03/03/2022 1:52 PM TANK FARM OPERATOR Body Mass Index 39.05 03/03/2022 1:52 PM TANK FARM OPERATOR Plan of Treatment Health Maintenance Due Date Last Done Comments Pneumococcal PPSV23/PCV13 65 + Years / Low and Medium Risk (2 of 4 - PCV) 08/17/2013 08/17/2012 Influenza Vaccine (#1) 2024 Insurance [facility] MEDICARE ADVANTAGE Care Teams Director Of Guidance Relationship Specialty Start Date End Date Neftali Garcia DO [address] [place] [phone] PCP - General Internal Medicine 04/15/21
--- OUTSIDE RECORDS SUMMARY | 2024-10-20 13:38 | XMS_ITS | Clinical Summary ---
Author Organization [facility] Address [address] [place] [address] Phone Care Team Providers Care Business Continuity Global Director Name Role Phone Unavailable Primary Care Provider [...] Td or Tdap) 08/16/2022 INFLUENZA VACCINE (#1) 2024 RSV VACCINE (60+ or ) (1 - 1-dose 75+ series) 10/21/2030 Insurance [facility] MEDICARE PART A [facility]OSP[facility] ONLY Advance Directives For more information, please contact: [phone] * Full Code (Latest Code Status on File) Date Activated Date Inactivated Comments 08/11/2012 10:30 AM 08/17/2012 5:10 PM * Full Code Date Activated Date Inactivated Comments 08/10/2012 5:10 AM 08/11/2012 10:30 AM * Full Code Date Activated Date Inactivated Comments 08/10/2012 4:45 AM 08/10/2012 5:10 AM
--- OUTSIDE RECORDS SUMMARY | 2024-10-20 13:38 | XMS_ITS | Referral Summary ---
Author Organization [facility] [place] [address] Address [address] [place] [address] Care Team Providers Care Fruit I Farmworker Name Role Phone Dajuan Vasquez NP Primary Care Provider [phone] Encounters Date Type Department Care Team Description 07/22/2024 11:00 AM CDT Office Visit [facility] Cardiology at [address] [place] [phone] Chai Bangura MD Nonrheumatic aortic valve stenosis [...] on file Legal Sex Male 4:44 PM RELEASE OF INFORMATION SPECIALIST Gender Identity Not on file Sexual [...] Comments LIPID PANEL Routine 04/14/2024 7:45 AM RELEASE OF INFORMATION SPECIALIST from Last 3 Months or Most Recently Relevant to Health Maintenance Results * (ABNORMAL) Lipid panel (04/14/2024 7:45 AM RELEASE OF INFORMATION SPECIALIST) SCRIBED Cholesterol, Total 116 0 - 200 EXTERNAL LAB SCRIBED HDL 32(A) 40 - 100 EXTERNAL LAB SCRIBED LDL 52 0 - 100 EXTERNAL LAB SCRIBED Triglycerides 218(A) 0 - 150 EXTERNAL LAB Blood 04/14/2024 7:45 AM RELEASE OF INFORMATION SPECIALIST us Historical Provider LAB BLOOD ORDERABLES Miriam starks Result EXTERNAL LAB from Last 3 Months or Most Recently Relevant to Health Maintenance Insurance [facility] MEDICARE HMO [facility] MEDICARE ADVANTAGE Care Teams Fruit I Farmworker Relationship Specialty Start Date End Date Dajuan Vsaquez NP [address] [place] [address] PCP - General Nurse Practitioner 07/18/22
--- OUTSIDE RECORDS SUMMARY | 2024-10-20 13:38 | XMS_ITS | Clinical Summary ---
Author Organization [facility] [address] Address [address] [place] [address] Care Team Providers Care Political Reporter Name Role Phone Dajuan Vasquez NP Primary Care Provider [phone] Allergies Active Allergy Reactions Criticality Noted Date [...] Description 07/22/2024 11:00 AM CDT Office Visit [facility] Cardiology at [address] [place] [address] Chai Bangura MD Nonrheumatic aortic [...] on file Legal Sex Male 4:44 PM ELEVATOR CONSTRUCTOR HYDRAULIC Gender Identity Not on file Sexual Orientation [...] Comments LIPID PANEL Routine 04/14/2024 7:45 AM ELEVATOR CONSTRUCTOR HYDRAULIC from Last 3 Months or Most Recently Relevant to Health Maintenance Results * (ABNORMAL) Lipid panel (04/14/2024 7:45 AM ELEVATOR CONSTRUCTOR HYDRAULIC) SCRIBED Cholesterol, Total 116 0 - 200 EXTERNAL LAB SCRIBED HDL 32(A) 40 - 100 EXTERNAL LAB SCRIBED LDL 52 0 - 100 EXTERNAL LAB SCRIBED Triglycerides 218(A) 0 - 150 EXTERNAL LAB Blood 04/14/2024 7:45 AM ELEVATOR CONSTRUCTOR HYDRAULIC us Historical Provider LAB BLOOD ORDERABLES Miriam starks Result EXTERNAL LAB from Last 3 Months or Most Recently Relevant to Health Maintenance Insurance [employer] MEDICARE HMO [facility] MEDICARE ADVANTAGE Care Teams Political Reporter Relationship Specialty Start Date End Date Dajuan Vasquez SCOOTER MECHANIC [address] [facility] [address] [place] [address] PCP - General Nurse Practitioner 07/18/22
[2024-10-20 14:11] LABS: Albumin Level 4.1 g/dL (3.5-5.1); Anion Gap 10 mmol/L (4-12); Blood Urea Nitrogen 36 mg/dL (9-20); Calcium 9.6 mg/dL (8.4-10.2); Carbon Dioxide 31 mmol/L (22-30); Chloride 94 mmol/L (98-107); Estimated Glomerular Filt Rate 28; Glucose 107 mg/dL (65-110); Potassium 4.4 mmol/L (3.4-5.0); Sodium 135 mmol/L (137-145)
== END 2024-10-20 13:34 | disposition home or self-care (01) ==
PROVIDERS: PCP Nurse Practitioner Family; Visit Provider Internal Medicine Nephrology
DX: N17.9 Acute kidney failure, unspecified (principal)
CPT/HCPCS: 36415; 80069

== ENCOUNTER 2024-10-25 12:30 | Outpatient (CLI) | payer MEDICARE, MEDICAID, SELFPAY ==
--- NOTE | ~2024-10-25 | US_ITS ---
RIGHT LOWER EXTREMITY VENOUS ULTRASOUND Ordering provider: Diane Rich APRN History: . R60.9 - Edema, unspecified . Comparison: None. FINDINGS: --COMMON FEMORAL: Patent and free of thrombus. Normal compressibility, phasic flow and augmentation. --PROXIMAL SUPERFICIAL FEMORAL: Patent and free of thrombus. Normal compressibility, phasic flow and augmentation. --DISTAL SUPERFICIAL FEMORAL: Patent and free of thrombus. Normal compressibility, phasic flow and au gmentation. --POPLITEAL: Patent and free of thrombus. Normal compressibility, phasic flow and augmentation. --POSTERIOR TIBIAL: Patent and free of thrombus. Normal compressibility, phasic flow and augmentation . IMPRESSION: Negative right lower extremity venous US. No deep vein thrombosis. Reviewed, dictated and finalized at location A.
--- NOTE | ~2024-10-25 | XR_ITS ---
Right Knee Technique: AP, lateral, and sunrise views were obtained. Clinical History: Pain Findings: No fracture or dislocation is seen. Osseous alignment is anatomic. Joint spaces are preserv ed without degenerative or erosive change. Moderate to large joint effusion is seen. Impression: Moderate to large joint effusion. No fracture or dislocation seen. Reviewed, dictated and finalized at location . Impression: Moderate to large joint effusion. No fracture or dislocation seen.
--- OUTSIDE RECORDS SUMMARY | 2024-10-25 12:36 | XMS_ITS | Clinical Summary ---
Author Organization [facility] Address [address] [place] [address] Phone Care Team Providers Care Sonar Technician Name Role Phone Unavailable Primary Care Provider [...] Advance Directives For more information, please contact: [phone] * Full Code (Latest Code Status on File) Date Activated Date Inactivated Comments 08/11/2012 10:30 AM 08/17/2012 5:10 PM * Full Code Date Activated Date Inactivated Comments 08/10/2012 5:10 AM 08/11/2012 10:30 AM * Full Code Date Activated Date Inactivated Comments 08/10/2012 4:45 AM 08/10/2012 5:10 AM
--- OUTSIDE RECORDS SUMMARY | 2024-10-25 12:36 | XMS_ITS | Referral Summary ---
Author Organization [facility] [address] Address [address] [place] [address] Care Team Providers Care Admitting Coordinator Name Role Phone Dajuan Vasquez NP Primary Care Provider [phone] Allergies Active Allergy Reactions Criticality Noted Date [...] on file Legal Sex Male 4:44 PM ACQUISITION CONSULTANT Gender Identity Not on file Sexual Orientation [...] Comments LIPID PANEL Routine 04/14/2024 7:45 AM ACQUISITION CONSULTANT from Last 3 Months or Most Recently Relevant to Health Maintenance Results * (ABNORMAL) Lipid panel (04/14/2024 7:45 AM ACQUISITION CONSULTANT) SCRIBED Cholesterol, Total 116 0 - 200 EXTERNAL LAB SCRIBED HDL 32(A) 40 - 100 EXTERNAL LAB SCRIBED LDL 52 0 - 100 EXTERNAL LAB SCRIBED Triglycerides 218(A) 0 - 150 EXTERNAL LAB Blood 04/14/2024 7:45 AM ACQUISITION CONSULTANT us Historical Provider LAB BLOOD ORDERABLES Miriam starks Result EXTERNAL LAB from Last 3 Months or Most Recently Relevant to Health Maintenance Insurance [facility] MEDICARE HMO [facility] MEDICARE ADVANTAGE Care Teams Admitting Coordinator Relationship Specialty Start Date End Date Dajuan Vasquez NP [address] [place] [address] PCP - General Nurse Practitioner 07/18/22
--- OUTSIDE RECORDS SUMMARY | 2024-10-25 12:36 | XMS_ITS | Clinical Summary ---
Author Organization [facility] [address] Address [address] [place] [address] Care Team Providers Care Engagement Engineer Name Role Phone Dajuan Vasquez NP Primary Care Provider [phone] Allergies Active Allergy Reactions Criticality Noted Date [...] on file Legal Sex Male 4:44 PM FISH SEINER Gender Identity Not on file Sexual Orientation [...] Td or Tdap) 08/16/202209/2012 Influenza Vaccine (#1) 2024 Lipid Panel 04/14/2025 04/14/2024, 12/12, 10/07/2022 Procedures Procedure Name Priority Date/Time Associated Diagnosis Comments LIPID PANEL Routine 04/14/2024 7:45 AM FISH SEINER from Last 3 Months or Most Recently Relevant to Health Maintenance Results * (ABNORMAL) Lipid panel (04/14/2024 7:45 AM FISH SEINER) SCRIBED Cholesterol, Total 116 0 - 200 EXTERNAL LAB SCRIBED HDL 32(A) 40 - 100 EXTERNAL LAB SCRIBED LDL 52 0 - 100 EXTERNAL LAB SCRIBED Triglycerides 218(A) 0 - 150 EXTERNAL LAB Blood 04/14/2024 7:45 AM FISH SEINER us Historical Provider LAB BLOOD ORDERABLES Miriam starks Result EXTERNAL LAB from Last 3 Months or Most Recently Relevant to Health Maintenance Insurance [employer] MEDICARE HMO [facility] MEDICARE ADVANTAGE Care Teams Engagement Engineer Relationship Specialty Start Date End Date Dajuan Vasquez NP [address] [place] [address] PCP - General Nurse Practitioner 07/18/22
--- OUTSIDE RECORDS SUMMARY | 2024-10-25 12:36 | XMS_ITS | Clinical Summary ---
Author Organization [facility] Address [address] [place] [address] Phone Care Team Providers Care Cobbler Mckay Name Role Phone Neftali Garcia DO Primary Care Provider [phone] Allergies Active Allergy Reactions Criticality Noted Date [...] Comments Blood Pressure 132/78 03/03/2022 1:52 PM WINDOW CLERK Pulse - - Temperature 35.8 C (96.4 F) 03/03/2022 1:52 PM WINDOW CLERK Respiratory Rate 18 03/03/2022 1:52 PM WINDOW CLERK Oxygen Saturation - - Inhaled Oxygen Concentration - - Weight 127 kg (280 lb) 03/03/2022 1:52 PM WINDOW CLERK Height 180.3 cm (5' 11) 03/03/2022 1:52 PM WINDOW CLERK Body Mass Index 39.05 03/03/2022 1:52 PM WINDOW CLERK Plan of Treatment Health Maintenance Due Date Last Done Comments Pneumococcal PPSV23/PCV13 65 + Years / Low and Medium Risk (2 of 4 - PCV) 08/17/2013 08/17/2012 Influenza Vaccine (#1) 2024 Insurance [facility] MEDICARE ADVANTAGE Care Teams Cobbler Mckay Relationship Specialty Start Date End Date Neftali Garcia DO [address] [place] [id number] PCP - General Internal Medicine 04/15/21
== END 2024-10-25 12:31 | disposition home or self-care (01) ==
PROVIDERS: PCP Nurse Practitioner Family; Visit Provider Nurse Practitioner Family
DX: M79.89 Other specified soft tissue disorders (principal); M25.461 Effusion, right knee
CPT/HCPCS: 73562; 93971

== ENCOUNTER 2025-02-07 06:53 | Outpatient (CLI) | payer MEDICARE, MEDICAID, SELFPAY ==
[2025-02-07 07:59] LABS: Anion Gap 9 mmol/L (4-12); Blood Urea Nitrogen 46 mg/dL (9-20); Calcium 9.0 mg/dL (8.4-10.2); Carbon Dioxide 34 mmol/L (22-30); Chloride 88 mmol/L (98-107); Estimated Glomerular Filt Rate 26; Glucose 146 mg/dL (65-110); Potassium 4.0 mmol/L (3.4-5.0); Sodium 131 mmol/L (137-145)
== END 2025-02-07 06:54 | disposition home or self-care (01) ==
LOC: ANHLAB 06:55
PROVIDERS: PCP Nurse Practitioner Family; Visit Provider Internal Medicine Cardiovascular Disease
DX: R60.0 Localized edema (principal)
CPT/HCPCS: 36415; 80048

== ENCOUNTER 2025-02-16 13:53 | Outpatient (CLI) | payer MEDICARE, MEDICAID, SELFPAY ==
[2025-02-16 15:12] LABS: Anion Gap 13 mmol/L (4-12); Blood Urea Nitrogen 52 mg/dL (9-20); Calcium 9.0 mg/dL (8.4-10.2); Carbon Dioxide 29 mmol/L (22-30); Chloride 92 mmol/L (98-107); Estimated Glomerular Filt Rate 30; Glucose 135 mg/dL (65-110); Potassium 4.0 mmol/L (3.4-5.0); Sodium 134 mmol/L (137-145)
--- OUTSIDE RECORDS SUMMARY | 2025-02-16 20:20 | XMS_ITS | Clinical Summary ---
Author Organization [facility] Address [address] [place] [address] Phone Care Team Providers Care Office Messenger Helper Name Role Phone Neftali Garcia DO Primary Care Provider [phone] Allergies Active Allergy Reactions Criticality Noted Date [...] Comments Blood Pressure 132/78 03/03/2022 1:52 PM ENTOMOLOGY PROFESSOR Pulse - - Temperature 35.8 C (96.4 F) 03/03/2022 1:52 PM ENTOMOLOGY PROFESSOR Respiratory Rate 18 03/03/2022 1:52 PM ENTOMOLOGY PROFESSOR Oxygen Saturation - - Inhaled Oxygen Concentration - - Weight 127 kg (280 lb) 03/03/2022 1:52 PM ENTOMOLOGY PROFESSOR Height 180.3 cm (5' 11) 03/03/2022 1:52 PM ENTOMOLOGY PROFESSOR Body Mass Index 39.05 03/03/2022 1:52 PM ENTOMOLOGY PROFESSOR Plan of Treatment Health Maintenance Due Date Last Done Comments Pneumococcal PPSV23/PCV13 65 + Years / Low and Medium Risk (2 of 4 - PCV) 08/17/2013 08/17/2012 Influenza Vaccine (#1) 2024 Insurance [facility] MEDICARE ADVANTAGE Care Teams Office Messenger Helper Relationship Specialty Start Date End Date Neftali Garcia DO [address] [place] [id number] PCP - General Internal Medicine 04/15/21
--- OUTSIDE RECORDS SUMMARY | 2025-02-16 20:20 | XMS_ITS | Clinical Summary ---
Author Organization [facility] [address] Address [address] [place] [address] Care Team Providers Care Market News Reporter Name Role Phone Diane Rich NP Primary Care Provider [phone] Allergies Active Allergy Reactions Criticality Noted Date Comments Iodinated Contrast Media Hives Medium 11/19/2022 Penicillins Hives Medium 08/10/2012 Medications atorvastatin (LIPITOR) 20 mg tablet 3 Active finasteride (PROSCAR) 5 mg tablet 3 Active furosemide (LASIX) 40 mg tablet Take 2 tablets (80 mg total) by mouth daily 3 Active gabapentin (NEURONTIN) 300 mg capsule [...] Active spironolactone (ALDACTONE) 50 mg tablet Take 0.5 tablets (25 mg total) by mouth daily 3 [...] mouth 2 (two) times a day Active diphenhydrAMIN E (BENADRYL) 50 mg capsule Take 1 tab (50 mg) 1 hour prior to procedure. 1 capsule 4 Active Additional Information Patient not taking.Reported on 02/09/2025 Eliquis 5 mg tablet Take 1 tablet (5 mg total) by mouth 2 (two) times a day 60 tablet 1 5 Active metOLazone (ZAROXOLYN) 2.5 mg tabletIndicati ons:Bilateral lower extremity edema Take 1 tablet (2.5 mg total) by mouth daily as needed (swelling) 30 tablet 1 5 Active predniSONE (DELTASONE) 50 mg tablet Take 1 tab (50 mg) 13 hours prior to procedure, then take 1 tab (50 mg) 7 hours prior to procedure, and 1 tab (50 mg 1 hour prior to procedure. 3 tablet 4 01/27/20 25 Discontin ued(Thera py completed ) Active Problems Problem Noted Date Diagnosed Date Bilateral lower extremity edema 01/26/2025 Nonrheumatic aortic valve stenosis 12/22/2023 Bilateral carotid bruits 06/16/2023 History of bladder cancer 10/07/2022 Hyperlipidemia associated with type 2 diabetes m ellitus 10/07/2022 Hypertension associated with diabetes 10/07/2022 Chronic anticoagulation 10/07/2022 Atrial fibrillation 10/07/2022 Morbid (severe) obesity due to excess calories 0 10/07/2022 SIOBHAN (obstructive sleep apnea) 10/07/2022 Encounters Date Type Department Care Team Description 02/14/2025 Telephone [facility] [address] [place] [address] Donna Schmid NP BMP order 02/09/2025 10:00 AM CDT Office Visit [facility] [address] [place] [address] Donna Schmid NP Severe aortic stenosis by prior echocardiogram; Generalized edema; Renal insufficiency; Bilateral lower extremity edema; SIOBHAN (obstructive sleep apnea) 02/09/2025 Telephone [facility] [address] [place] [address] [place] [phone] Dnona Schmid NP 01/31/2025 Results Follow-Up [facility] [address] [facility] [address], [place] [phone] Marylou Albarran MD Transthoracic Echo (TTE) Complete W Doppler/CF 01/27/2025 11:15 AM CDT Ancillary Procedure [facility] Cardiology at [address] [place] [address] Hypertension associated with diabetes (HCC); Nonrheumatic aortic valve stenosis; Atrial fibrillation, unspecified type (HCC) 01/26/2025 10:45 AM CDT Office Visit [facility] at [address] [place] [address] Marylou Albarran MD Hypertension associated with diabetes (HCC) (Primary Dx); Hyperlipidemia associated with type 2 diabetes mellitus (HCC); Nonrheumatic aortic valve stenosis; Atrial fibrillation, unspecified type (HCC); Bilateral lower extremity edema; Obesity, class 3 (E66.813); Body mass index [BMI] 40.0-44.9, adult (Z68.41) 01/16/2025 Telephone [facility] at [address] [place] [phone] Marylou Albarran MD 01/13/2025 Telephone [facility] [address] [place] [address] [place] [phone] Marylou Albarran MD ECG results 01/12/2025 1:15 PM CDT Procedure visit [facility] [address] [place] [address] [place] [phone] Atrial fibrillation, unspecified type (HCC) 01/11/2025 Orders Only [facility] [address] [place] [address] [place] [phone] Marylou Albarran MD Atrial fibrillation, unspecified type (HCC) (Primary Dx) 01/11/2025 Telephone [facility] [address] [place] [address] Marylou Albarran MD eliquis assistance from Last 3 Months Social History Tobacco [...] on file Legal 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 Gender Identity Not on file Sexual Orientation Not on file Last Filed Vital Signs Vital Sign Reading Time Taken Comments Blood Pressure 108/60 02/09/2025 9:56 AM CDT Pulse 50 02/09/2025 9:56 AM CDT Temperature - - Respiratory Rate 16 12/22/2023 10:33 AM CDT Oxygen Saturation 100% 02/09/2025 9:56 AM CDT Inhaled Oxygen Concentration - - Weight 128 kg (282 lb 3.2 oz) 02/09/2025 9:56 AM CDT Height 177.8 cm (5' 10) 02/09/2025 9:56 AM CDT Body Mass Index 40.49 02/09/2025 9:56 AM CDT Plan of Treatment Health Maintenance [...] Procedure Name Priority Date/Time Associated Diagnosis Comments TRANSTHORACIC ECHO (TTE) COMPLETE W DOPPLER/CF W CONTRAST Routine 01/27/2025 12:15 PM CDT Hypertension associated with diabetes (HCC) Nonrheumatic aortic valve stenosis Atrial fibrillation, unspecified type (HCC) ECG 12-LEAD Routine 01/12/2025 1:20 PM CDT Atrial fibrillation, unspecified type (HCC) LIPID PANEL Routine 04/14/2024 7:45 AM FEED RESEARCH AIDE from Last 3 Months or Most Recently Relevant to Health Maintenance Results * TRANSTHORACIC ECHO (TTE) COMPLETE W DOPPLER/CF W CONTRAST (01/27/2025 12:15 PM CDT) Estimated EF 55-60 % CONS SCIMAGE EF Mod BP 57 % CONS SCIMAGE Anatomical Region Laterality Modality Ultrasound 01/27/2025 11:1 3 AM CDT Narrative 01/27/2025 12:58 PM CDT [facility] [address], [place] [address] P:[phone] P:[phone] Echocardiographic Report Patient Name: EZRA MACEDO L : 1955 Study Date: 01/27/2025 11:13:14 AM Sex: M Hop Trainer: HEIKE Location: [facility] Ref Provider: MARYLOU ALBARRAN Height(Cm): 178 BSA: 2.53 Weight(Kg): 129.3 Heart Rate: 78 BP: 138 / 74 Quality: Good Order Provider: MARYLOU ALBARRAN PROCEDURES: Echocardiographic Report: Transthoracic echocardiogram with complete 2D, M-Mode, color Doppler examination and Definity contrast. With Strain Analysis. INDICATIONS: HTN, Diabetes, , Atrial Fibrillation. MEASUREMENTS: 2D/MM Value Range Doppler Value Range EF Mod BP 57 % [ 52 - 72 ] ADAM Vmax 0.95 cm2 [ 2.00 - 4.00 ] EF Teich MM 51 % [ 52 - 72 ] AV Mean PG 25 mmHg Estimated EF 55-60 % AV Peak Usama 3.51 m/s [ 1.00 - 1.70 ] LV GLS -11.56 % AV Peak PG 49 mmHg LVIDd 2D 5.60 cm [ 4.20 - 5.80 ] AV VTI 69.63 cm LVIDd MM 5.77 cm [ 4.20 - 5.80 ] LVOT Diam 1.99 cm [ 1.70 - 2.10 ] LVIDs 2D 4.01 cm [ 2.50 - 4.00 ] LVOT Peak Usama 1.07 m/s [ 0.70 - 1.10 ] LVIDs MM 4.25 cm [ 2.50 - 4.00 ] LVOT VTI 24.23 cm LVPWd 2D 1.06 cm [ 0.60 - 1.00 ] MV E Peak Usama 1.36 m/s [ 0.60 - 1.30 ] LVPWd MM 1.19 cm [ 0.60 - 1.00 ] MV Mean PG 2 mmHg [ 0 - 5 ] IVSd 2D 1.06 cm [ 0.60 - 1.00 ] MV PHT 54 msec [ 20 - 100 ] IVSd MM 1.15 cm [ 0.60 - 1.00 ] MVA PHT 4.08 cm2 [ 2.00 - 4.00 ] LA Dimension MM 5.87 cm [ 3.00 - 4.00 ] MV Decel Time 179 msec [ 104 - 258 ] AoR Diam MM 4.04 cm [ 3.10 - 3.70 ] PV Peak Usama 0.90 m/s [ 0.40 - 0.80 ] LA Volume 96.98 ml [ 18.00 - 58.00 ] TR Peak Usama 3.11 m/s [ 1.00 - 2.80 ] LA Volume Index 38 cc/m2 [ 16 - 28 ] TR Peak PG 39 mmHg RA Volume 81.33 ml RVSP 47.00 mmHg [ 10.00 - 36.00 ] RV S` 0.10 m/s Lateral E` 0.05 m/s [ 0.10 - 0.15 ] Septal E` 0.04 m/s [ 0.08 - 0.15 ] E` 0.05 m/s E/E` 29 2D/MM Value Range Doppler Value Range - FINDINGS: Interpretation Site: Exam was interpreted at [facility]. Left Ventricle: Normal left ventricular systolic function. No focal wall motion abnormalities. Normal left ventricular size. Definity contrast agent used to visually enhance endocardial wall motion and contractility. Lot Number: [id number]. Mild concentric left ventricular hypertrophy. Diastolic dysfunction is present. Ejection fraction is measured at 57 %. Ejection Fraction is visually estimated to be 55-60 %. Global Longitudinal Strain is -12 %. GLS is abnormal. Right Ventricle: Normal right ventricular size. Normal right ventricular systolic function. Left Atrium: There is moderate enlargement of left atrium. Right Atrium: There is mild enlargement of right atrium. Atrial Septum: Normal atrial septum. Mitral Valve: Moderate mitral annular calcification. Mild mitral valve regurgitation. There is no hemodynamically significant mitral stenosis by Doppler. Aortic Valve: Severe aortic stenosis. Peak Velocity of 3.51 m/s. Peak gradient of 49.0 mmHg. Mean gradient of 25.0 mmHg. Valve area of 0.9 cm2. Aortic cusps appear severely calcified. Trileaflet aortic valve. Moderate aortic valve regurgitation. Tricuspid Valve: Normal appearance of the tricuspid valve. Moderate pulmonary hypertension based on right ventricular systolic pressure. Estimated peak RVSP is 47 mmHg. Mild tricuspid regurgitation. Pulmonic Valve: Normal appearance of the pulmonic valve. No pulmonic stenosis. Mild pulmonic regurgitation. Pericardium: Normal pericardium with no significant pericardial effusion. Aorta: No aortic root dilation. Mild aortic root calcification. IVC: Dilated IVC with respiratory collapse consistent with elevated right atrial pressure (10-15 mmHg). CONCLUSIONS: Normal left ventricular systolic function. No focal wall motion abnormalities. Normal left ventricular size. Definity contrast agent used to visually enhance endocardial wall motion and contractility. Lot Number: [id number]. Mild concentric left ventricular hypertrophy. Diastolic dysfunction is present. Ejection fraction is measured at 57 %. Ejection Fraction is visually estimated to be 55-60 %. Global Longitudinal Strain is -12 %. GLS is abnormal. There is moderate enlargement of left atrium. There is mild enlargement of right atrium. Moderate mitral annular calcification. Mild mitral valve regurgitation. Severe aortic stenosis. Peak Velocity of 3.51 m/s. Peak gradient of 49.0 mmHg. Mean gradient of 25.0 mmHg. Valve area of 0.9 cm2. Aortic cusps appear severely calcified. Trileaflet aortic valve. Moderate aortic valve regurgitation. Moderate pulmonary hypertension based on right ventricular systolic pressure. Estimated peak RVSP is 47 mmHg. Mild tricuspid regurgitation. Mild pulmonic regurgitation. Atrial fibrillation. Electronically Signed By: Marylou Albarran MD 01/27/2025 12:57:51 PM CDT Procedure Note Marylou Albarran MD - 01/27/2025 [facility] [address] [facility], [address], [place] [address] [phone] P:[phone] Echocardiographic Report Patient Name: EZRA MACEDO L : 1955 Study Date: 01/27/2025 11:13:14 AM Sex: M Hop Trainer: HEIKE Location: [facility] Ref Provider: MARYLOU ALBARRAN Height(Cm): 178 BSA: 2.53 Weight(Kg): 129.3 Heart Rate: 78 BP: 138 / 74 Quality: Good Order Provider: MARYLOU ALBARRAN PROCEDURES: Echocardiographic Report: Transthoracic echocardiogram with complete 2D, M-Mode, color Dopplerexamination and Definity contrast. With Strain Analysis. INDICATIONS: HTN, Diabetes, , Atrial Fibrillation. MEASUREMENTS: 2D/MM Value Range Doppler ValueRange EF Mod BP 57 % [ 52 - 72 ] ADAM Vmax 0.95cm2 [ 2.00 - 4.00 ] EF Teich MM 51 % [ 52 - 72 ] AV Mean PG 25mmHg Estimated EF 55-60 % AV Peak Usama 3.51m/s [ 1.00 - 1.70 ] LV GLS -11.56 % AV Peak PG 49mmHg LVIDd 2D 5.60 cm [ 4.20 - 5.80 ] AV VTI 69.63cm LVIDd MM 5.77 cm [ 4.20 - 5.80 ] LVOT Diam 1.99cm [ 1.70 - 2.10 ] LVIDs 2D 4.01 cm [ 2.50 - 4.00 ] LVOT Peak Usama 1.07m/s [ 0.70 - 1.10 ] LVIDs MM 4.25 cm [ 2.50 - 4.00 ] LVOT VTI 24.23cm LVPWd 2D 1.06 cm [ 0.60 - 1.00 ] MV E Peak Usama 1.36m/s [ 0.60 - 1.30 ] LVPWd MM 1.19 cm [ 0.60 - 1.00 ] MV Mean PG 2mmHg [ 0 - 5 ] IVSd 2D 1.06 cm [ 0.60 - 1.00 ] MV PHT 54msec [ 20 - 100 ] IVSd MM 1.15 cm [ 0.60 - 1.00 ] MVA PHT 4.08cm2 [ 2.00 - 4.00 ] LA Dimension MM 5.87 cm [ 3.00 - 4.00 ] MV Decel Time 179msec [ 104 - 258 ] AoR Diam MM 4.04 cm [ 3.10 - 3.70 ] PV Peak Usama 0.90m/s [ 0.40 - 0.80 ] LA Volume 96.98 ml [ 18.00 - 58.00 ] TR Peak Usama 3.11m/s [ 1.00 - 2.80 ] LA Volume Index 38 cc/m2 [ 16 - 28 ] TR Peak PG 39mmHg RA Volume 81.33 ml RVSP 47.00mmHg [ 10.00 - 36.00 ] RV S` 0.10 m/s Lateral E` 0.05 m/s [ 0.10 - 0.15 ] Septal E` 0.04 m/s [ 0.08 - 0.15 ] E` 0.05 m/s E/E` 29 2D/MM Value Range Doppler ValueRange - FINDINGS: Interpretation Site: Exam was interpreted at [facility]. Left Ventricle: Normal left ventricular systolic function. No focal wall motionabnormalities. Normal left ventricular size. Definity contrast agent used to visually enhanceendocardial wall motion and contractility. Lot Number: [id number]. Mild concentric leftventricular hypertrophy. Diastolic dysfunction is present. Ejection fraction ismeasured at 57 %. Ejection Fraction is visually estimated to be 55-60 %. Global LongitudinalStrain is -12 %. GLS is abnormal. Right Ventricle: Normal right ventricular size. Normal right ventricular systolicfunction. Left Atrium: There is moderate enlargement of left atrium. Right Atrium: There is mild enlargement of right atrium. Atrial Septum: Normal atrial septum. Mitral Valve: Moderate mitral annular calcification. Mild mitral valve regurgitation.There is no hemodynamically significant mitral stenosis by Doppler. Aortic Valve: Severe aortic stenosis. Peak Velocity of 3.51 m/s. Peak gradient of 49.0mmHg. Mean gradient of 25.0 mmHg. Valve area of 0.9 cm2. Aortic cusps appear severelycalcified. Trileaflet aortic valve. Moderate aortic valve regurgitation. Tricuspid Valve: Normal appearance of the tricuspid valve. Moderate pulmonary hypertensionbased on right ventricular systolic pressure. Estimated peak RVSP is 47 mmHg. Mildtricuspid regurgitation. Pulmonic Valve: Normal appearance of the pulmonic valve. No pulmonic stenosis. Mildpulmonic regurgitation. Pericardium: Normal pericardium with no significant pericardial effusion. Aorta: No aortic root dilation. Mild aortic root calcification. IVC: Dilated IVC with respiratory collapse consistent with elevated rightatrial pressure (10-15 mmHg). CONCLUSIONS: Normal left ventricular systolic function. No focal wall motionabnormalities. Normal left ventricular size. Definity contrast agent used to visually enhanceendocardial wall motion and contractility. Lot Number: [id number]. Mild concentric leftventricular hypertrophy. Diastolic dysfunction is present. Ejection fraction ismeasured at 57 %. Ejection Fraction is visually estimated to be 55-60 %. Global LongitudinalStrain is -12 %. GLS is abnormal. There is moderate enlargement of left atrium. There is mild enlargement of right atrium. Moderate mitral annular calcification. Mild mitral valve regurgitation. Severe aortic stenosis. Peak Velocity of 3.51 m/s. Peak gradient of 49.0mmHg. Mean gradient of 25.0 mmHg. Valve area of 0.9 cm2. Aortic cusps appear severelycalcified. Trileaflet aortic valve. Moderate aortic valve regurgitation. Moderate pulmonary hypertension based on right ventricular systolicpressure. Estimated peak RVSP is 47 mmHg. Mild tricuspid regurgitation. Mild pulmonic regurgitation. Atrial fibrillation. Electronically Signed By: Marylou Albarran MD 01/27/2025 12:57:51 PM CDT Marylou Albarran MD CV ECHO PROCEDURES Final Result * ECG 12 lead (01/12/2025 1:20 PM CDT) Marylou Albarran MD ECG ORDERABLES Edited Re sult - Final * (ABNORMAL) Lipid panel (04/14/2024 7:45 AM FEED RESEARCH AIDE) SCRIBED Cholesterol, Total 116 0 - 200 EXTERNAL LAB SCRIBED HDL 32(A) 40 - 100 EXTERNAL LAB SCRIBED LDL 52 0 - 100 EXTERNAL LAB SCRIBED Triglycerides 218(A) 0 - 150 EXTERNAL LAB Blood 04/14/2024 7:45 AM FEED RESEARCH AIDE Historical Provider LAB BLOOD ORDERABLES Miriam starks Result EXTERNAL LAB from Last 3 Months or Most Recently Relevant to Health Maintenance Insurance [employer] MEDICARE HMO [facility] Address: [address] [address] [place] [address] [employer] Care Teams Market News Reporter Relationship Specialty Start Date End Date Diane Rich NP [address] [place] [address] PCP - General Nurse Practitioner 02/09/25
--- OUTSIDE RECORDS SUMMARY | 2025-02-16 20:20 | XMS_ITS | Clinical Summary ---
Author Organization [facility] Address [address] [place] [address] Phone Care Team Providers Care Lens Blocker Name Role Phone Unavailable Primary Care Provider [...] Advance Directives For more information, please contact: [phone] * Full Code (Latest Code Status on File) Date Activated Date Inactivated Comments 08/11/2012 10:30 AM 08/17/2012 5:10 PM * Full Code Date Activated Date Inactivated Comments 08/10/2012 5:10 AM 08/11/2012 10:30 AM * Full Code Date Activated Date Inactivated Comments 08/10/2012 4:45 AM 08/10/2012 5:10 AM
--- OUTSIDE RECORDS SUMMARY | 2025-02-16 20:20 | XMS_ITS | Encounter Summary ---
Author Organization [facility] Address [address] [place] [address] Care Team Providers Care Field Service Technician Name Role Phone Dajuan Vasquez COMPOUND MACHINE OPERATOR Primary Care Provider [phone] Diane Rich COMPOUND MACHINE OPERATOR Primary Care Provider [phone] Encounter Details Date Type Department Care Team (Latest Contact Info) Description 01/31/2025 Results Follow-Up [facility] Cardiology [address] [address] Chai Bangura MD [address] [facility] [address] [place] [address] Transthoracic Echo (TTE) Complete W Doppler/CF Social History Tobacco Use Types Packs/Day Years Used Date Smoking Tobacco: Former Cigarettes Q uit: 1994 Pipe Cigars Smokeless Tobacco: Current Snuff AUDIT-C Answer Date Recorded Q1: How often [...] on file 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[employer] Gender Identity Not on file Sexual Orientation Not on file documented as of this encounter Miscellaneous Notes * Result Encounter Note - Kayleen Allen MA - 01/31/2025 5:48 PM CDT Pt notified and scheduled to see DK on 03/08/25 documented in this encounter Plan of Treatment Not on file documented as of this encounter Visit Diagnoses Not on filedocumented in this encounter Care Teams Field Service Technician Relationship Specialty Start Date End Date Dajuan Vasquez NP [address] [address] PCP - General Nurse Practitioner 07/18/22 02/08/25 Diane Rich NP [address] [address] PCP - General Nurse Practitioner 02/09/25 documented as of this encounter
== END 2025-02-16 13:54 | disposition home or self-care (01) ==
LOC: ANHLAB 13:55
PROVIDERS: PCP Nurse Practitioner Family; Visit Provider Nurse Practitioner Adult Health
DX: N28.9 Disorder of kidney and ureter, unspecified (principal)
CPT/HCPCS: 36415; 80048

== ENCOUNTER 2025-03-08 09:22 | Outpatient (CLI) | payer MEDICARE, MEDICAID, SELFPAY ==
--- OUTSIDE RECORDS SUMMARY | 2025-03-08 08:15 | XMS_ITS | Encounter Summary ---
Author Organization [facility] Healthcare Address [address] [place] [address] Care Team Providers Care Bowling Floor Desk Clerk Name Role Phone Diane Rich NP Primary Care Provider [phone] Reason for Visit * Reason Comments TAVR Eval Referred by [facility] Atrial Fibrillation Sleep Apnea Encounter Details Date Type Department Care Team (Late st Contact Info) Description 03/08/2025 8:15 AM ARMHOLE BASTER HAND Office Visit [facility] Medical [facility] Cardiology [address] [facility] [address] [place] [phone] Efrain Hussein MD [address] [facility] [address] [facility] [place] [address] Nonrheumatic aortic valve stenosis (Primary Dx); Acute on chronic diastolic congestive heart failure (HCC); Hypertension associated with diabetes (HCC); Longstanding persistent atrial fibrillation (HCC); Chronic anticoagulation; RBBB; SIOBHAN on CPAP Social History Tobacco Use Types Packs/Day Years [...] on file Legal Sex Male 4:44 PM ARMHOLE BASTER HAND Gender Identity Not on file Sexual Orientation Not on file documented as of this encounter Last Filed Vital Signs Vital Sign Reading Time Taken Comments Blood Pressure 106/60 03/08/2025 8:20 AM ARMHOLE BASTER HAND Pulse 94 03/08/2025 8:20 AM ARMHOLE BASTER HAND Temperature - - Respiratory Rate - - Oxygen Saturation 96% 03/08/2025 8:20 AM ARMHOLE BASTER HAND Inhaled Oxygen Concentration - - Weight 135.6 kg (299 lb) 03/08/2025 8:20 AM ARMHOLE BASTER HAND Height 177.8 cm (5' 10) 03/08/2025 8:20 AM ARMHOLE BASTER HAND Body Mass Index 42.9 03/08/2025 8:20 AM ARMHOLE BASTER HAND documented in this encounter Functional Status * BP Location Answer Date of Assessment Author Left arm 03/08/2025 8:20 AM ARMHOLE BASTER HAND Kayleen Allen MA * BP Location Answer Date of Assessment Author Left arm 03/08/2025 8:20 AM ARMHOLE BASTER HAND Kayleen Allen MA documented as of this encounter Progress Notes * Efrain Hussein MD - 03/08/2025 8:15 AM CST [facility] CARDIOLOGY 03/08/2025 CHIEF COMPLAINT Chief Complaint Patient presents with TAVR Eval Referred by [facility] Atrial Fibrillation Sleep Apnea HPI Angelito Lai is a 69 y.o. male with aortic stenosis, persistent atrial fibrillation on anticoagulation with apixaban, hypertension, type 2 diabetes mellitus, DJD, morbid obesity, SIOBHAN on CPAP, tobacco chewing. 03/08/2025 initial evaluation-patient has been referred by Dr. Bangura for evaluation and managementof aortic stenosis. Patient has aortic stenosis which has been monitored periodically with echocardiograms. Recent echocardiogram reportedly showed severe . Patient has somewhat limited mobility due to unstable gait, and uses cane for walking. He states that he has been experiencing worsening dyspnea for about 1 month associated lower extremity swelling. He has occasional dizziness without syncope. Denies chest pain. He reports compliance with current medical regimen including anticoagulation. He has not compliant with CPAP for SIOBHAN. MEDICAL HISTORY Aortic stenosis, persistent atrial fibrillation on anticoagulation with apixaban, hypertension, type 2 diabetes mellitus, DJD, morbid obesity, SIOBHAN on CPAP. No major cardiac surgical history he Allergies Allergen Reactions Iodinated Contrast Media Hives Penicillins Hives Current Outpatient Medications Medication Sig Dispense Refill atorvastatin (LIPITOR) 20 mg tablet Eliquis 5 mg tablet Take 1 tablet (5 mg total) by mouth 2 (two) times a day 60 tablet 1 finasteride (PROSCAR) 5 mg tablet furosemide (LASIX) 40 mg tablet Take 2 tablets (80 mg total) by mouth daily gabapentin (NEURONTIN) 300 mg capsule 4 (four) times a day linaGLIPtin (TRADJENTA) 5 mg tablet Take 1 tablet (5 mg total) by mouth daily losartan (COZAAR) 25 mg tablet Take 1 tablet (25 mg total) by mouth daily magnesium oxide (MAG-OX) 400 mg (241.3 mg elemental magnesium) tablet Take 1 tablet (400 mg total) by mouth 2 (two) times a day metFORMIN (GLUCOPHAGE) 500 mg tablet Take 2 tablets (1,000 mg total) by mouth 2 (two) times a day with meals metOLazone (ZAROXOLYN) 2.5 mg tablet Take 1 tablet (2.5 mg total) by mouth daily as needed (swelling) 30 tablet 1 metoprolol tartrate (LOPRESSOR) 25 mg immediate release tablet multivitamin tablet Take 1 tablet by mouth daily spironolactone (ALDACTONE) 50 mg tablet Take 0.5 tablets (25 mg total) by mouth daily traMADoL (ULTRAM) 50 mg tablet Take 1 tablet (50 mg total) by mouth 2 (two) times a day as needed for pain diphenhydrAMINE (BENADRYL) 50 mg capsule Take 1 tab (50 mg) 1 hour prior to procedure. (Patient nottaking: Reported on 03/08/2025) 1 capsule 0 No current facility-administered medications for this visit. Family history- father had CABG when he was in 60's he reports that he quit smoking about 30 years ago. His smoking use included cigarettes, pipe, and cigars. His smokeless tobacco use includes snuff. Patient denies consuming alcoholic drinks. Denies smoking cigarettes, but chews tobacco; no excessive alcohol or illicit drugs. Retired from work. Lives with his grandson. REVIEW OF SYSTEMS General ROS: Positive for fatigue Psychological ROS: negative for - anxiety, depression Ophthalmic ROS: negative for - loss of vision ENT ROS: negative for - sore throat, epistaxis, headaches, nasal congestion Allergy and Immunology ROS: negative for - hives, postnasal drip Hematological and Lymphatic ROS: negative for - overt bleeding problems, bruising Respiratory ROS: negative for - cough, hemoptysis, wheezing Cardiovascular ROS: negative for - chest pain, positive for worsening dyspnea and lower extremity swelling Gastrointestinal ROS: negative for - abdominal pain Endocrine ROS: negative for - hot flashes, polydipsia/polyuria Musculoskeletal ROS: Positive for joint pain Neurological ROS: Positive for gait disturbance Dermatological ROS: negative for pruritus, rash LABS AND OTHER DIAGNOSTIC TESTS REVIEWED No results found for: WBC, HGB, HCT, MCV, PLT No lab exists for component: LABALBU No results found for: WBC, HGB, HCT, MCV, PLT No results found for: CHOL No results found for: HDL No results found for: LDL] No results found for: TRIG Lab Results Component Value Date POCCHOL 101 12/22/2023 POCHDL 27 12/22/2023 POCTRIG 90 12/22/2023 POCLDL 56 12/22/2023 POCNONHDL 74 12/22/2023 POCCHLPL 101 12/22/2023 EKG-atrial fibrillation with controlled ventricular response, RBBB. 01/12/2025 Echo-normal LV size, mild LVH, EF 57%, diastolic dysfunction is present; global longitudinal strain-12%. Moderate left atrial enlargement. Moderate MAC, mild MR. Severely calcified aortic valve, V max 3.51 m/sec, mean gradient 25 mmHg, ADAM 0.9 cm2. Moderate aortic regurgitation. Mild TR, RVSP 47 mmHg. Atrial fibrillation. 01/27/2025; Dr. Bangura PHYSICAL EXAM Vitals BP 106/60 (BP Location: Left arm, Patient Position: Sitting) Pulse 94 Ht 177.8 cm (5' 10) Wt 135.6 kg (299 lb) SpO2 96% BMI 42.90 kg/m?? General appearance -obese, alert, no distress Mental status - affect appropriate to mood Eyes - extraocular eye movements intact, no pallor Ears - external ears appear normal, hearing grossly normal Nose - normal and patent, no discharge Mouth - mucous membranes moist, tongue normal Neck - supple, no JVD Chest - clear to auscultation Heart - normal rate, regular rhythm, systolic murmur left sternal border and base Abdomen - soft, nontender Neurological - alert, oriented, normal speech, no gross motor deficits Musculoskeletal - no major deformity, no amputations Extremities - bilateral pedal edema, no clubbing or cyanosis Skin - no rashes (on the exposed areas), no cyanosis ASSESSMENT Diagnoses and all orders for this visit: Nonrheumatic aortic valve stenosis (Primary) - CBC with auto differential; Future - Comprehensive metabolic panel; Future - Pro B-type natriuretic peptide; Future - Ambulatory Referral to Structural Heart Procedures Acute on chronic diastolic congestive heart failure (HCC) - CBC with auto differential; Future - Comprehensive metabolic panel; Future - Pro B-type natriuretic peptide; Future Hypertension associated with diabetes (HCC) Longstanding persistent atrial fibrillation (HCC) Chronic anticoagulation RBBB SIOBHAN on CPAP PLAN/RECOMMENDATIONS 69 y.o. male with aortic stenosis, persistent atrial fibrillation on anticoagulation with apixaban,hypertension, type 2 diabetes mellitus, DJD, morbid obesity, SIOBHAN on CPAP, tobacco chewing. -Patient with calcific aortic stenosis with ADAM in the severe range on recent echocardiogram from 01/27/2025 (ADAM 0.9 cm2, V max 3.51 m/sec, mean gradient 25 mmHg). Patient has progressively worsening shortness breath Isael acute on chronic CHF with preserved ejection fraction. After discussing benefits, risks and alternatives, patient is willing to proceed with transesophageal echocardiogram to re-evaluate aortic valve anatomy and rule out bicuspid aortic stenosis; and followed by cardiac catheterization to rule out significant obstructive CAD before consideration for aortic valve replacement. Patient has been initiated on diuresis with furosemide with adjunctive metolazone. Monitor electrolytes, renal function. Check NT proBNP. Educational material about aortic stenosis including treatment options provided to the patient. -Patient has persistent atrial fibrillation, currently rate controlled. Continue metoprolol tartrate for rate control. Anticoagulation with apixaban. -Management of other medical problems as per primary care physician. Longitudinal cardiac management as per Dr. Bangura. -Follow up in about 8-12 weeks or sooner if necessary after above workup and management is complete. Efrain Hussein MD 03/08/25 Voice recognition software was used to complete this document, therefore, bat lathe operator variances may occur. OLE BASTER HAND documented in this encounter Plan of Treatment Upcoming Encounters Date Type Department Care Team (Latest Contact Info) Description 04/03/2025 10:30 AM ARMHOLE BASTER HAND Hospital Encounter [facility] Cardiac Catheterization Lab [address] [place], [place] [id number] Efrain Hussein MD [address] [place] [address] [address] [place] [address] Nonrheumatic aortic valve stenosis 04/03/2025 10:30 AM ARMHOLE BASTER HAND - 04/03/2025 12:00 PM ARMHOLE BASTER HAND Surgery [facility] Cardiac Catheterization Lab [address] [place] [address] Efrain Hussein MD [address] [place] [address] LEFT HEART CATHETERIZATION WITH CORONARY ANGIOGRAPHY AND WITH OR WITHOUT LEFT VENTRICULOGRAM [address] Scheduled Orders Name Type Priority Associated Diagnoses Orde r Schedule CBC with auto differential Lab Routine Nonrheumatic aortic valve stenosis Acute on chronic diastolic congestive heart failure (HCC) Expected: 03/11/2025, Expires: 03/08/2026 Comprehensive metabolic panel Lab Routine Nonrheumatic aortic valve stenosis Acute on chronic diastolic congestive heart failure (HCC) Expected: 03/11/2025, Expires: 03/08/2026 Pro B-type natriuretic peptide Lab Routine Nonrheumatic aortic valve stenosis Acute on chronic diastolic congestive heart failure (HCC) Expected: 03/11/2025, Expires: 03/08/2026 documented as of this encounter Visit Diagnoses Diagnosis Nonrheumatic aortic valve stenosis- Primary Acute on chronic diastolic congestive heart failure (HCC) Hypertension associated with diabetes (HCC) Unspecified essential hypertension Longstanding persistent atrial fibrillation (HCC) Chronic anticoagulation Encounter for long-term (current) use of anticoagulants RBBB SIOBHAN on CPAP Nonrheumatic aortic valve stenosis- Primary Nonrheumatic aortic valve stenosis documented in this encounter Orders Appointment Requests Count Last Ordered Date Fi rst Ordered Date AMB REF TO STRUCTURAL HEART PROCEDURES 1 documented in this encounter Care Teams Bowling Floor Desk Clerk Relationship Specialty Start Date End Date Diane Rich NP [address] [place] [address] PCP - General Nurse Practitioner 02/09/25 documented as of this encounter
--- OUTSIDE RECORDS SUMMARY | 2025-03-08 09:55 | XMS_ITS | Clinical Summary ---
Author Organization [facility] Address [address] [place] [address] Phone Care Team Providers Care Supervisor Personnel Clerks Name Role Phone Unavailable Primary Care Provider [...] Advance Directives For more information, please contact: [phone] * Full Code (Latest Code Status on File) Date Activated Date Inactivated Comments 08/11/2012 10:30 AM 08/17/2012 5:10 PM * Full Code Date Activated Date Inactivated Comments 08/10/2012 5:10 AM 08/11/2012 10:30 AM * Full Code Date Activated Date Inactivated Comments 08/10/2012 4:45 AM 08/10/2012 5:10 AM
--- OUTSIDE RECORDS SUMMARY | 2025-03-08 09:55 | XMS_ITS | Clinical Summary ---
Author Organization [facility] Address [address] [place] [id number] Phone Care Team Providers Care Shipmaster Name Role Phone Neftali Garcia DO Primary Care Provider [phone] Allergies Active Allergy Reactions Criticality Noted Date [...] Comments Blood Pressure 132/78 03/03/2022 1:52 PM OTOLARYNGOLOGIST Pulse - - Temperature 35.8 C (96.4 F) 03/03/2022 1:52 PM OTOLARYNGOLOGIST Respiratory Rate 18 03/03/2022 1:52 PM OTOLARYNGOLOGIST Oxygen Saturation - - Inhaled Oxygen Concentration - - Weight 127 kg (280 lb) 03/03/2022 1:52 PM OTOLARYNGOLOGIST Height 180.3 cm (5' 11) 03/03/2022 1:52 PM OTOLARYNGOLOGIST Body Mass Index 39.05 03/03/2022 1:52 PM OTOLARYNGOLOGIST Plan of Treatment Health Maintenance Due Date Last Done Comments Pneumococcal PPSV23/PCV13 65 + Years / Low and Medium Risk (2 of 4 - PCV) 08/17/2013 08/17/2012 Influenza Vaccine (#1) 2024 Insurance [facility] MEDICARE ADVANTAGE Care Teams Shipmaster Relationship Specialty Start Date End Date Neftali Garcia DO [address] [place] [phone] PCP - General Internal Medicine 04/15/21
--- OUTSIDE RECORDS SUMMARY | 2025-03-08 09:55 | XMS_ITS | Encounter Summary ---
Author Organization [facility] Healthcare Address [address] [place] [address] Care Team Providers Care Inspector Fibrous Wallboard Name Role Phone Diane Rich NP Primary Care Provider [phone] Encounter Details Date Type Department Care Team (Late Contact Info) Description 02/17/2025 Results Follow-Up [facility] Medical Group Cardiology [address] [place] [address] Donna Schmid NP [address] [place] [address] Basic metabolic panel Social History Tobacco Use Types Packs/Day Years [...] on file Legal Sex Male 4:44 PM ORE TESTER Gender Identity Not on file Sexual Orientation Not on file documented as of this encounter Plan of Treatment Upcoming Encounters Date Type Department Care Team (Latest Contact Info) Description 04/03/2025 10:30 AM ORE TESTER Hospital Encounter [facility] Cardiac Catheterization Lab [address] [place] [address] Efrain Hussein MD [address] [place] [address] Nonrheumatic aortic valve stenosis 04/03/2025 10:30 AM ORE TESTER - 04/03/2025 12:00 PM ORE TESTER Surgery [facility] Cardiac Catheterization Lab [address] [place] [address] Efrain Hussein MD [address] [place] [address] LEFT HEART CATHETERIZATION WITH CORONARY ANGIOGRAPHY AND WITH OR WITHOUT LEFT VENTRICULOGRAM [id number] documented as of this encounter Visit Diagnoses Not on filedocumented in this encounter Care Teams Inspector Fibrous Wallboard Relationship Specialty Start Date End Date Diane Rich NP [address] [facility] [address] [place] [address] PCP - General Nurse Practitioner 02/09/25 documented as of this encounter
--- OUTSIDE RECORDS SUMMARY | 2025-03-08 09:55 | XMS_ITS | Clinical Summary ---
Author Organization [facility] [address] Address [address] [place] [address] Care Team Providers Care Gis Analyst Name Role Phone Diane Rich NP Primary Care Provider [phone] Allergies Active Allergy Reactions Criticality Noted Date [...] Active Additional Information Patient not taking.Reported on 03/08/2025 Eliquis 5 mg tablet Take 1 tablet (5 mg total) by mouth 2 (two) times a day 60 tablet 1 5 Active metOLazone (ZAROXOLYN) 2.5 mg tabletIndicati ons:Bilateral lower extremity edema Take 1 tablet (2.5 mg total) by mouth daily as needed (swelling) 30 tablet 1 5 Active predniSONE (DELTASONE) 50 mg tabletIndicati ons:Nonrheumat ic aortic valve stenosis Take 1 tablet on 04/02 at 930 pm, 1 tablet on 04/03 at 0330 am, then one tablet with Diphenydramine 50 mg on 04/03 at 0930 am 3 tablet 5 Active Active Problems Problem Noted Date [...] Encounters Date Type Department Care Team Description 03/08/2025 8:15 AM HOME LENDING OFFICER Office Visit [facility] Cardiology [address] [facility] [address] [place] [phone] Efrain Hussein MD Nonrheumatic aortic valve stenosis (Primary Dx); Acute on chronic diastolic congestive heart failure (HCC); Hypertension associated with diabetes (HCC); Longstanding persistent atrial fibrillation (HCC); Chronic anticoagulation; RBBB; SIOBHAN on CPAP 03/08/2025 Telephone [facility] [address] [facility] [address] [place] [phone] Efrain Hussein MD 02/17/2025 Results Follow-Up [facility]iology [address] [place] [address] [place] [phone] Donna Schmid NP Basic metabolic panel 02/14/2025 Telephone [facility]iology [address] [place] [address] [place] [phone] Donna Schmid NP BMP order 02/09/2025 10:00 AM CDT Office Visit [facility] [address] [place] [address] [place] [phone] Donna Schmid NP Severe aortic stenosis by prior echocardiogram; Generalized edema; Renal insufficiency; Bilateral lower extremity edema; SIOBHAN (obstructive sleep apnea) 02/09/2025 Telephone [facility]iology [address] [place] [address] [place] [phone] Donna Schmid NP 01/31/2025 Results Follow-Up [facility] Cardiology [address] [place] [address] [place] [phone] Marylou Albarran MD Transthoracic Echo (TTE) Complete W Doppler/CF 01/27/2025 11:15 AM CDT Ancillary Procedure [facility]iology at [address] [place] [phone] Hypertension associated with diabetes (HCC); Nonrheumatic aortic valve stenosis; Atrial fibrillation, unspecified type (HCC) 01/26/2025 10:45 AM CDT Office Visit [facility]iology at [address] [place] [address] Marylou Albarran MD Hypertension associated with diabetes (HCC) (Primary Dx); Hyperlipidemia associated with type 2 diabetes mellitus (HCC); Nonrheumatic aortic valve stenosis; Atrial fibrillation, unspecified type (HCC); Bilateral lower extremity edema; Obesity, class 3 (E66.813); Body mass index [BMI] 40.0-44.9, adult (Z68.41) 01/16/2025 Telephone [facility] Cardiology at [address] [place] [phone] Marylou Albarran MD 01/13/2025 Telephone [facility] [address] [facility] [address] [place] [phone] Marylou Albarran MD ECG results 01/12/2025 1:15 PM CDT Procedure visit [facility] [address] [facility] [address] [place] [phone] Atrial fibrillation, unspecified type (HCC) 01/11/2025 Orders Only [facility]iology [address] [place] [address] [address] [place] [phone] Marylou Albarran MD Atrial fibrillation, unspecified type (HCC) (Primary Dx) 01/11/2025 Telephone [facility]iology [address] [facility] [address] [place] [phone] Marylou Albarran MD eliquis assistance from Last [...] on file Legal Sex Male 4:44 PM HOME LENDING OFFICER Gender Identity Not on file Sexual Orientation Not on file Last Filed Vital Signs Vital Sign Reading Time Taken Comments Blood Pressure 106/60 03/08/2025 8:20 AM HOME LENDING OFFICER Pulse 94 03/08/2025 8:20 AM HOME LENDING OFFICER Temperature - - Respiratory Rate 16 12/22/2023 10:33 AM CDT Oxygen Saturation 96% 03/08/2025 8:20 AM HOME LENDING OFFICER Inhaled Oxygen Concentration - - Weight 135.6 kg (299 lb) 03/08/2025 8:20 AM HOME LENDING OFFICER Height 177.8 cm (5' 10) 03/08/2025 8:20 AM HOME LENDING OFFICER Body Mass Index 42.9 03/08/2025 8:20 AM HOME LENDING OFFICER Plan of Treatment Upcoming Encounters Date Type Department Care Team (Latest Contact Info) Description 04/03/2025 10:30 AM HOME LENDING OFFICER Hospital Encounter [facility] Cardiac Catheterization Lab [id number] [place] [address] Efrain Hussein MD [address] [place] [address] Nonrheumatic aortic valve stenosis 04/03/2025 10:30 AM HOME LENDING OFFICER - 04/03/2025 12:00 PM HOME LENDING OFFICER Surgery [facility] Cardiac Catheterization Lab [address] [place] [address] Efrain Hussein MD [address] [place] [address] LEFT HEART CATHETERIZATION WITH CORONARY ANGIOGRAPHY AND WITH OR WITHOUT LEFT VENTRICULOGRAM [id number] Health Maintenance Due Date Last Done Comments [...] Procedure Name Priority Date/Time Associated Diagnosis Comments BASIC METABOLIC PANEL Routine 02/17/2025 1:41 PM HOME LENDING OFFICER Renal insufficiency TRANSTHORACIC ECHO (TTE) COMPLETE W DOPPLER/CF W CONTRAST Routine 01/27/2025 12:15 PM CDT Hypertension associated with diabetes (HCC) Nonrheumatic aortic valve stenosis Atrial fibrillation, unspecified type (HCC) ECG 12-LEAD Routine 01/12/2025 1:20 PM CDT Atrial fibrillation, unspecified type (HCC) LIPID PANEL Routine 04/14/2024 7:45 AM HOME LENDING OFFICER from Last 3 Months or Most Recently Relevant to Health Maintenance Results * Basic metabolic panel (02/17/2025 1:41 PM HOME LENDING OFFICER) Blood Donna Schmid NP LAB BLOOD ORDERABLES Miriam starks Result EXTERNAL LAB * TRANSTHORACIC ECHO (TTE) COMPLETE W DOPPLER/CF W CONTRAST (01/27/2025 12:15 PM CDT) Estimated EF 55-60 % CONS SCIMAGE EF Mod BP 57 % CONS SCIMAGE Anatomical Region Laterality Modality Ultrasound 01/27/2025 11:1 3 AM CDT Narrative 01/27/2025 12:58 PM CDT [facility] Cardiology [address] [facility], [address], [place] [address] P:[phone] P:[phone] Echocardiographic Report Patient Name: EZRA MACEDO L : 1955 Study Date: 01/27/2025 11:13:14 AM Sex: M Lab Aide: HEIKE Location: EDW Ref Provider: MARYLOU ALBARRAN [...] FINDINGS: Interpretation Site: Exam was interpreted at ED [facility]. Left Ventricle: Normal left ventricular systolic [...] Procedure Note Marylou Albarran MD - 01/27/2025 [facility] Cardiology [facility], [address], [place] [address] P:[phone] P:[phone] Echocardiographic Report Patient Name: EZRA MACEDO L : 1955 Study Date: 01/27/2025 11:13:14 AM Sex: M Lab Aide: HEIKE Location: EDW Ref Provider: MARYLOU ALBARRAN [...] FINDINGS: Interpretation Site: Exam was interpreted at ED [facility]. Left Ventricle: Normal left ventricular systolic [...] * (ABNORMAL) Lipid panel (04/14/2024 7:45 AM HOME LENDING OFFICER) SCRIBED Cholesterol, Total 116 0 - 200 EXTERNAL LAB SCRIBED HDL 32(A) 40 - 100 EXTERNAL LAB SCRIBED LDL 52 0 - 100 EXTERNAL LAB SCRIBED Triglycerides 218(A) 0 - 150 EXTERNAL LAB Blood 04/14/2024 7:45 AM HOME LENDING OFFICER Historical Provider LAB BLOOD ORDERABLES Miriam starks Result EXTERNAL LAB from Last 3 Months or Most Recently Relevant to Health Maintenance Insurance [employer] MEDICARE HMO [facility] MEDICARE ADVANTAGE [facility] MEDICARE Address: [address] [address] [place] [address] IDPA Care Teams Gis Analyst Relationship Specialty Start Date End Date Diane Rich NP [address] [place] [address] PCP - General Nurse Practitioner 02/09/25
[2025-03-08 09:56] LABS: Hematocrit 25.4 % (42.0-52.0); Hemoglobin 7.4 g/dL (14.0-18.0); Immature Granulocyte Percent A 0.6 % (0-0.5); Lymphocytes Absolute Auto 0.46 K/mm3 (0.9-3.2); Mean Corpuscular HGB Conc 29.1 g/dl (32-36); Mean Corpuscular Hemoglobin 23.5 pg (26-34); Mean Corpuscular Volume 80.6 fl (80-100); Nucleated Red Blood Cells Absolute Auto 0.000 K/mm3 (0.0-0.012); Nucleated Red Blood Cells Perc 0.0 % (0.0-0.2); Platelet Count Result 124 k/mm3 (150-375); Red Blood Count 3.15 M/mm3 (4.6-6.20); White Blood Count 4.9 K/mm3 (4.5-10.0)
--- OUTSIDE RECORDS SUMMARY | 2025-03-08 09:56 | XMS_ITS | Encounter Summary ---
Author Organization [facility] Healthcare Address [address] [place] [address] Care Team Providers Care Die Engraving Supervisor Name Role Phone Diane Rich NP Primary Care Provider [phone] Reason for Referral * Cardiology (Routine) - Pending Review Specialty Diagnoses / Procedures Referred By Contac t Referred To Contact Diagnoses Nonrheumatic aortic valve stenosis Procedures Transesophageal Echo ([facility]) W Doppler/CF TRANSESOPHAGEAL ECHO ([facility]) W DOPPLER/CF TRANSESOPHAGEAL ECHO ([facility]) W DOPPLER/CF WO CONTRAST TRANSESOPHAGEAL ECHOCARDIOGRAM ([facility]) COMPLETE W/ CONTRAST TRANSESOPHAGEAL ECHO ([facility]EL[facility]) W DOPPLER/CF W CONTRAST TRANSESOPHAGEAL ECHO ([facility]) W LTD DOPPLER/CF WO CONTRAST TRANSESOPHAGEAL ECHOCARDIOGRAM ([facility]EL[facility]) COMPLETE W/ COLOR TRANSESOPHAGEAL ECHO (FEL[facility]) WO DOPPLER/CF W CONTRAST Efrain Hussein MD [address], [address] [place] [address] Phone: tel: fax: [address] [phone] Referral ID Status Reason Start Date Expiration Date V isits Requested Visits Authorized [id number] Pending Review 03/08/2025 04/07/2026 1 1 TION NEUROPSYCHOLOGIST * Procedure (Routine) - Pending Review Specialty Diagnoses / Procedures Referred By Contac t Referred To Contact Cardiology Diagnoses Nonrheumatic aortic valve stenosis Efrain Hussein MD [address], [address] [address] Phone: tel: fax: [facility] Cardiology [address] [place] [address] Phone: tel: fax: Referral ID Status Reason Start Date Expiration Date Visits Requested Visits Authorized [id number] Pending Review Specialty Services Required 5 04/07/2026 1 1 Question Answer Please select the performing region: [facility] [[id number]] Please select the performing department: [facility] [[id number]] # of visits: 1 Comments PROCEDURE/TEST ORDERED:[facility] LOCATION: DATE OF SERVICE:04/03 INSURANCE: [facility] Medicare/[employer] DIAGNOSIS:Aortic Stenosis ORDERING PROVIDER: Jovita ADDITIONAL DETAILS: TION NEUROPSYCHOLOGIST Encounter Details Date Type Department Care Team (Late st Contact Info) Description 03/08/2025 Telephone [facility] Cardiology [address] [place] [phone] Efrain Hussein MD [address] [facility] [address] [facility] [place] [address] Social History Tobacco Use Types Packs/Day Years [...] on file Legal Sex Male 4:44 PM AVIATION NEUROPSYCHOLOGIST Gender Identity Not on file Sexual Orientation Not on file documented as of this encounter Functional Status * BP Location Answer Date of Assessment Author Left arm 03/08/2025 8:20 AM AVIATION NEUROPSYCHOLOGIST Kayleen Allen MA * BP Location Answer Date of Assessment Author Left arm 03/08/2025 8:20 AM AVIATION NEUROPSYCHOLOGIST Kayleen Allen MA documented as of this encounter Ordered Prescriptions Prescription Sig Dispense Quantity Refills Last Filled Start Date End Date predniSONE (DELTASONE) 50 mg tabletIndications :Nonrheumatic aortic valve stenosis Take 1 tablet on 04/02 at 930 pm, 1 tablet on 04/03 at 0330 am, then one tablet with Diphenydramine 50 mg on 04/03 at 0930 am 3 tablet documented in this encounter Miscellaneous Notes * Addendum Note - Charley Morrow RN - 03/08/2025 9:48 AM CSTAddended by: CHARLEY MORROW on: 03/08/2025 09:48 AM Modules accepted: Orders TION NEUROPSYCHOLOGIST * Addendum Note - Charley Morrow RN - 03/08/2025 9:43 AM CSTAddended by: CHARLEY MORROW on: 03/08/2025 09:43 AM Modules accepted: Orders TION NEUROPSYCHOLOGIST * Telephone Encounter - Charley Morrow RN - 03/08/2025 9:16 AM AVIATION NEUROPSYCHOLOGIST FYI: ELBERT Pt scheduled for [facility] with [facility], dx: Aortic Stenosis on 04/03 @ 1030, arrive at 0830, labs at [facility] week prior, Med Holds: Eliquis, Metformin, Spironolactone, Furosemide, Pt will be premedicated with Prednisone and Benadryl for contrast allergy. TION NEUROPSYCHOLOGIST documented in this encounter Plan of Treatment Upcoming Encounters Date Type Department Care Team (Latest Contact Info) Description 04/03/2025 10:30 AM AVIATION NEUROPSYCHOLOGIST Hospital Encounter [facility] Cardiac Catheterization Lab [address] [place] [address] Efrain Hussein MD [address] [place] [address] Nonrheumatic aortic valve stenosis 04/03/2025 10:30 AM AVIATION NEUROPSYCHOLOGIST - 04/03/2025 12:00 PM AVIATION NEUROPSYCHOLOGIST Surgery [facility] Cardiac Catheterization Lab [address] [place] [address] Efrain Hussein MD [address] [place] [address] LEFT HEART CATHETERIZATION WITH CORONARY ANGIOGRAPHY AND WITH OR WITHOUT LEFT VENTRICULOGRAM [address] Scheduled Orders Name Type Priority Associated Diagnoses Order Schedule CBC without differential Lab Routine Nonrheumatic aortic valve stenosis Expected: 03/27/2025, Expires: 03/08/2026 Comprehensive metabolic panel Lab Routine Nonrheumatic aortic valve stenosis Expected: 03/27/2025, Expires: 03/08/2026 FEL[facility] Add-On For OR Echocardiography Routine Nonrheumatic aortic valve stenosis Expected: 04/03/2025, Expires: 06/08/2026 Transesophageal Echo (FELIPE) W Doppler/CF Echocardiography Routine Nonrheumatic aortic valve stenosis Expected: 04/03/2025, Expires: 06/08/2026 Scheduled Referrals Name Type Priority Associated Diagnoses Order Schedule Ambulatory referral to Cardiology Outpatient Referral Routine Nonrheumatic aortic valve stenosis Expected: 05/08/2025 (Approximate), Expires: 03/08/2026 documented as of this encounter Visit Diagnoses Diagnosis Nonrheumatic aortic valve stenosis- Primary Nonrheumatic aortic valve stenosis- Primary Nonrheumatic aortic valve stenosis documented in this encounter Care Teams Die Engraving Supervisor Relationship Specialty Start Date End Date WinterDiane NP [address] [place] [address] PCP - General Nurse Practitioner 02/09/25 documented as of this encounter
--- OUTSIDE RECORDS SUMMARY | 2025-03-08 09:56 | XMS_ITS | Encounter Summary ---
Author Organization [facility] Address [address] [place] [address] Care Team Providers Care Field Hauler Name Role Phone Dajuan Vasquez SHREDDER TENDER Primary Care Provider [phone] Diane Rich SHREDDER TENDER Primary Care Provider [phone] Encounter Details Date Type Department Care Team (Latest Contact Info) Description 01/31/2025 Results Follow-Up [facility] Cardiology [address] [phone] Chai Bangura MD [address] [facility] [address] [place] [address] Transthoracic Echo (TTE) Complete W Doppler/CF Social [...] on file Legal Sex Male 4:44 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 Cardiac Catheterization Lab [address] [place] [address] Efrain Hussein MD [address] [place], [place] [id number] Nonrheumatic aortic valve stenosis 04/03/2025 10:30 AM FITNESS SALES CONSULTANT - 04/03/2025 12:00 PM FITNESS SALES CONSULTANT Surgery [facility] Cardiac Catheterization Lab [address] [place] [address] Efrain Hussein MD [address] [place] [address] LEFT HEART CATHETERIZATION WITH CORONARY ANGIOGRAPHY AND WITH OR WITHOUT LEFT VENTRICULOGRAM [address] documented as of this encounter Visit Diagnoses Not on filedocumented in this encounter Care Teams Field Hauler Relationship Specialty Start Date End Date Dajuan Vasquez NP [address] [place] [address] PCP - General Nurse Practitioner 07/18/22 02/08/25 Diane Rich NP [address] [place] [address] PCP - General Nurse Practitioner 02/09/25 documented as of this encounter
[2025-03-08 10:17] LABS: Alanine Aminotransferase 13 U/L (6-50); Albumin Level 4.1 g/dL (3.5-5.1); Alkaline Phosphatase 75 U/L (38-126); Anion Gap 8 mmol/L (4-12); Aspartate Amino Transferase 30 U/L (17-59); Bilirubin,Total 0.6 mg/dL (0.2-1.3); Blood Urea Nitrogen 64 mg/dL (9-20); Calcium 9.3 mg/dL (8.4-10.2); Carbon Dioxide 31 mmol/L (22-30); Chloride 94 mmol/L (98-107); Estimated Glomerular Filt Rate 26; Glucose 146 mg/dL (65-110); Potassium 4.4 mmol/L (3.4-5.0); Sodium 133 mmol/L (137-145); Total Protein 6.9 g/dL (6.3-8.2)
[2025-03-08 10:22] LABS: NT Pro B Type Natriuretic Pept 2320 pg/mL (19.9-100)
[2025-03-08 11:15] LABS: Anisocytosis 1+; Hypochromasia 2+; Ovalocytes Occasional; Schistocytes None Seen
== END 2025-03-08 09:23 | disposition home or self-care (01) ==
LOC: ANHLAB 09:24
PROVIDERS: PCP Nurse Practitioner Family; Visit Provider Internal Medicine Cardiovascular Disease
DX: I35.0 Nonrheumatic aortic (valve) stenosis (principal); I50.33 Acute on chronic diastolic (congestive) heart failure
CPT/HCPCS: 36415; 80053; 83880; 85025

== ENCOUNTER 2025-03-20 10:49 | Inpatient (IN) | payer MEDICARE, MEDICAID, SELFPAY ==
[2025-03-20] VITALS (15 sets, daily range): BP systolic 102–128; BP diastolic 55–90; PULSE 78–93; RESP 16–22; TEMP 36.4; O2SAT 90–98; BMI 37.7
--- NOTE | ~2025-03-20 | XR_ITS ---
EXAMINATION: XR chest 1V portable DATE: 03/20/2025 21:55 INDICATION: Congestive heart failure TECHNIQUE: frontal view of the chest was obtained. COMPARISON: Chest radiograph dated 07/08/2024 FINDINGS: Minimal right pleural effusion seen peripherally along the fissures at the lower lung zone. No other airspace opacities, pulmonary edema, pneumothorax or left- sided pleural effusion. The cardiomediastinal silhouette is normal. IMPRESSION: 1. Minimal right pleural effusion. Reviewed, dictated and finalized at location A. ET MANAGER
--- NOTE | ~2025-03-20 | XR_ITS ---
EXAMINATION: XR chest port-a-cath/central DATE: 03/24/2025 00:29 INDICATION: Central line placement TECHNIQUE: A single frontal view of the chest was obtained. COMPARISON: March 23 chest x-ray FINDINGS: Endotracheal tube is stable in position. Gastric catheter and right internal jugular central catheter have been placed. Internal jugular catheter tip projects over the lower SVC. Mild patchy opacification in the right parahilar region and left retrocardiac region. No pneumothorax or subphrenic free air seen. IMPRESSION: 1. Lines and tubes as above. Patchy perihilar and left retrocardiac opacification may represent bilateral infiltrates. Reviewed, dictated and finalized at location A. N CONTROL TECHNICIAN IMPRESSION: 1. Lines and tubes as above. Patchy perihilar and left retrocardiac opacificati on may represent bilateral infiltrates.
--- NOTE | ~2025-03-20 | CT_ITS ---
EXAM/PROCEDURE: CT chest abdomen pelvis wo con HISTORY: Cardiac arrest COMPARISON: May 12, 2020 CT exam and lateral chest x-ray from July 21, 2012 TECHNIQUE: CT of the chest abdomen and pelvis performed without contrast FINDINGS: Diffuse consolidative changes throughout the mid and lower lung dean with small to moderate right and small left-sided pleural effusion. Mild to moderate cardiomegaly. Small pericardial effusion. Extensive coronary artery calcification and/or stenting. Right internal jugular central catheter tip extending to the lower SVC. Endotracheal tube tip extends to the mid trachea. Gastric catheter extends into the stomach. No pneumothorax seen. In the abdomen and pelvis, the bowel gas pattern is nonobstructive with no free air or pneumatosis. Small amount of free fluid present. No AAA. No hydroureteronephrosis. 5 mm nonobstructing right renal stone. No grossly inflamed appendix seen. Cholelithiasis with no obvious pancreatitis or cholecystitis. Exam somewhat limited with pericholecystic fluid noted which may be associated with ascites. Urinary bladder nondistended with indwelling catheter. Prostate diminishes or removed. Milder diverticulitis with no obvious acute diverticulitis. On lateral chest x-ray from 2012 there appears to be at least mild chronic anterior compression fracture of L1. IMPRESSION: 1. Directed noncontrast exam demonstrating bilateral pleural effusions right greater than left along with bilateral infiltrates. 2. Line and tube placement as above. 3. Ascites is also noted in the abdomen and pelvis with cholelithiasis, diverticulosis, and nonobstructing right-sided renal stone. NOTE: Preliminary radiologist report provided by [facility] radiologist/physician. Reviewed, dictated and finalized at location A. NICAL TRAINING COORDINATOR IMPRESSION: 1. Directed noncontrast exam demonstrating bilateral pleural effusions right gr eater than left along with bilateral infiltrates. 2. Line and tube placement as above. 3. Ascites is also noted in the abdomen and pelvis with cholelithiasis, diverti culosis, and nonobstructing right-sided renal stone. NOTE: Preliminary radiologist report provided by [facility] radiologist/physician .
--- NOTE | ~2025-03-20 | US_ITS ---
EXAMINATION: US renal BI, 03/22/2025 16:50 SENIOR ACCOUNTING SPECIALIST HISTORY: OREN on CKD Comparison: None Technique: Erwin-scale and color Doppler images were obtained. Findings: KIDNEYS: Renal cortices intact, no solid masses, cysts or calculi, no hydronephrosis. Right Kidney: Right kidney 10.6 x 5.3 x 5.9 cm, normal. Left Kidney: Left kidney 11.9 x 6.1 x 5.9 cm, normal. Bladder: Alicea catheter in the bladder . Impression: No acute abnormality. Reviewed, dictated and finalized at location P. OR ACCOUNTING SPECIALIST Impression: No acute abnormality.
--- NOTE | ~2025-03-20 | CT_ITS ---
CT HEAD NON-CONTRAST Clinical History: Cardiac arrest Comparison: CT brain 03/23/2025 Technique: Unenhanced axial images skull base to vertex Coronal, sagittal reformats CT images acquired with automatic exposure control for dose reduction DLP: 681 mGy-cm Findings: Sulci, ventricles: Unremarkable. No intracerebral hemorrhage. No evidence acute territorial infarct. No mass effect, midline shift. Bony calvarium intact. Visualized paranasal sinuses: Clear. Mastoid air cells: Clear. IMPRESSION: 1. No acute intracranial findings. Reviewed, dictated and finalized at location R. T WRITER
--- NOTE | ~2025-03-20 | XR_ITS ---
EXAMINATION: XR chest 1V portable COMPARISON: No comparisons available. HISTORY: Intubated FINDINGS: Moderate pulmonary venous congestion. Basilar infiltrates and small right effusion. No pneumothorax. Moderate cardiomegaly. Mediastinal and hilar contours are within normal limits. Bony thorax no acute abnormality. Miscellaneous: ET tube 3 cm above the jeremy, right central line in the SVC. Impression: Increased CHF Reviewed, dictated and finalized at location P. STRIAL TECHNOLOGY TEACHER Impression: Increased CHF
--- NOTE | ~2025-03-20 | XR_ITS ---
EXAM/PROCEDURE: XR chest ET placement HISTORY: ET TUBE PLACEMENT COMPARISON: March 20, 2025 TECHNIQUE: Portable chest FINDINGS: Endotracheal tube has been placed with the tip about 4.4 cm above the jeremy in mid trachea. Heart shadow mildly enlarged. Hazy opacification throughout the right lung and mild left retrocardiac opacification noted. No pneumothorax or subphrenic free air seen. IMPRESSION: Endotracheal tube in good position. Diffuse opacification especially in the right lung could represent layering effusion with pulmonary edema and/or multi lobar pneumonia also possibly present. Reviewed, dictated and finalized at location A. EDGER IMPRESSION: Endotracheal tube in good position. Diffuse opacification especially in the rig ht lung could represent layering effusion with pulmonary edema and/or multi lob ar pneumonia also possibly present.
--- NOTE | ~2025-03-20 | XR_ITS ---
EXAM/PROCEDURE: XR abdomen gastric tube insert HISTORY: OG TUBE PLACEMENT COMPARISON: None available. TECHNIQUE: KUB FINDINGS: Gastric catheter with tip projecting in the distal body portion of the stomach. Visualized bowel gas pattern is nonspecific. IMPRESSION: Gastric catheter present within the stomach. Reviewed, dictated and finalized at location A. STIGATION LIEUTENANT
--- NOTE | ~2025-03-20 | CT_ITS ---
EXAMINATION: CT brain wo con DATE: 03/23/2025 18:30 INDICATION: Altered mental status. TECHNIQUE: Computed tomography (CT) of the head was performed without intravenous contrast. The mA was adjusted according to patient size. Iterative reconstruction technique was employed. The dose-length product was 1210.67 mGy-cm. COMPARISON: CT brain dated 07/19/2012. FINDINGS: Images are compromised due to motion artifacts. Multiple series were obtained. No definite acute intracranial lesions. Moderate age-appropriate cerebral atrophy. No ventriculomegaly or midline shift. No acute bony lesions. IMPRESSION: 1. Limited examination due to motion artifacts. 2. No definite acute findings. Reviewed, dictated and finalized at location T. [employer] [place]
[2025-03-20 12:34] LABS: Hematocrit 24.9 % (42.0-52.0); Hemoglobin 7.2 g/dL (14.0-18.0); Immature Granulocyte Percent A 0.8 % (0-0.5); Lymphocytes Absolute Auto 0.41 K/mm3 (0.9-3.2); Mean Corpuscular HGB Conc 28.9 g/dl (32-36); Mean Corpuscular Hemoglobin 22.8 pg (26-34); Mean Corpuscular Volume 78.8 fl (80-100); Nucleated Red Blood Cells Absolute Auto 0.000 K/mm3 (0.0-0.012); Nucleated Red Blood Cells Perc 0.0 % (0.0-0.2); Platelet Count Result 132 k/mm3 (150-375); Red Blood Count 3.16 M/mm3 (4.6-6.20); White Blood Count 5.3 K/mm3 (4.5-10.0)
[2025-03-20 13:02] LABS: Alanine Aminotransferase 16 U/L (6-50); Albumin Level 4.1 g/dL (3.5-5.1); Alkaline Phosphatase 72 U/L (38-126); Anion Gap 8 mmol/L (4-12); Aspartate Amino Transferase 24 U/L (17-59); Bilirubin,Total 0.6 mg/dL (0.2-1.3); Blood Urea Nitrogen 81 mg/dL (9-20); Calcium 9.3 mg/dL (8.4-10.2); Carbon Dioxide 30 mmol/L (22-30); Chloride 95 mmol/L (98-107); Estimated CRCL calculation 26 ml/min; Estimated Glomerular Filt Rate 19; Glucose 80 mg/dL (65-110); Potassium 4.3 mmol/L (3.4-5.0); Sodium 133 mmol/L (137-145); Total Protein 7.1 g/dL (6.3-8.2)
[2025-03-20 13:10] LABS: NT Pro B Type Natriuretic Pept 4900 pg/mL (19.9-100)
[2025-03-20 13:18] LABS: Hypochromasia 1+; Microcytosis Occasional (NORMAL); Ovalocytes 2+; Schistocytes None Seen
--- NOTE | 2025-03-20 13:58 | ED_ITS ---
HPI - Male Genitourinary General Chief complaint: Urogenital-Male Stated complaint: SWELLING TO GROIN FOR PAST WEEK Time Seen by Provider: 03/20/25 12:54 History of Present Illness HPI Narrative: Patient presents here noticing increased swelling to legs, abdominal, groin. He is on water pills, recently started on metolazone also but does not seem to be enough. The swelling is bad enough that he has trouble walking. Related Data Home Medications ?Medication ?Instructions ?Recorded ?Confirmed ?Last Taken ?Type finasteride 5 mg tablet 5 mg PO DAILY 09/02/2101/1001/14/23 History syuzptnlwwif-rsv-esapu acid-vit 1 tablet PO DAILY 08/1201/10/25 01/14/23 History K-lycop 400 mcg-20 mcg-370 mcg tablet (Men's 50 Plus Multivitamin) apixaban 5 mg tablet (Eliquis) 5 mg PO Q12H 07/28/24 0 01/10/25 07/07/24 History Allergies Allergy/AdvReac Type Severity Reaction Status Date / Time Iodinated Contrast Media Allergy Intermediate Hives Verified 03/20/25 10:50 Penicillins Allergy Intermediate Hives Verified 03/20/25 10:50 Review of Systems 2 Review of Systems: All systems reviewed & are unremarkable except as noted in HPI and below PMFSH Past Medical History Medical History SIOBHAN (obstructive sleep apnea) Cirrhosis Hip fracture, left Proteinuria Atrial fibrillation 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 Edema Right acetabular fracture Screening for prostate cancer Essential (primary) hypertension Hepatic fibrosis Hyperlipidemia, unspecified Other hyperlipidemia (Unknown) Type 2 diabetes mellitus with diabetic neuropathy, unspecified Surgical History Surgical History Hx of cystoscopy Family History Family History Sibling Family history of multiple sclerosis Patient's sister is in good health Patient's brother is in good health Father Hypertension Family history of diabetes mellitus in first degree relative Diabetes mellitus Mother Family history of malignant neoplasm Patient's mother is Social History Social History Smoking packs per day: 1 Smoking cigarettes per day: 20.0 Years smoked: 10 Smoking pack-years: 10.00 Smoking status: Former smoker Tobacco type: cigarettes Smokeless tobacco user: chewing tobacco Smoking end date: 04/13/75 Additional smoking assessment comments: Chew tobacco currently daily Alcohol intake: former Drinks per week: 84 Alcohol use details: No drinks 13 yrs Substance use: current Substance use type: marijuana Other substance usage details: smoke every couple days Last use: 01/01/23 Lack of Transportation: No Lack of Food: Never True Current Housing: I Have Housing Concerned About Future Housing: No Difficulty Paying Gas/Electric Bills: No Difficulty Paying for Meds: No Currently Unemployed: No Education: Grade School Difficulty w/ Childcare or Family Care: No Living arrangements: with family Additional living arrangements comments: Son Occupation/Education: retired Gender identity (if verbalized by the patient): Male Sexual Orientation (if Verbalized by the Patient): Straight or Heterosexual Spiritual care concerns: No Agree to blood products: Yes Exam 2 Narrative: EXAMINATION OF ORGAN SYSTEMS/BODY AREAS: Constitutional: Vital signs per nursing GENERAL:No acute distress, non-toxic appearing. HEAD: Normal with no signs of head trauma. EYES: EOMI, conjunctiva normal ENT: Hearing grossly intact LUNGS: Nonlabored breathing. HEART: Regular rate ABD: Soft, slightly distended : Some swelling to scrotum EXT: Normal range of motion, lower extremity pitting edema SKIN: No rashes or lesions. NEURO: Alert. No gross focal sensory or strength deficits. PSYCH: Normal affect Course Vital Signs Vital signs: Vital Signs Temperature 97.6 F 03/20/25 10:57 Pulse Rate 79 03/20/25 10:57 Respiratory Rate 20 03/20/25 10:57 Blood Pressure 124/55 L 03/20/25 10:57 Pulse Oximetry 97 03/20/25 10:57 Oxygen Delivery Room Air 03/20/25 10:57 Temperature 97.6 F 03/20/25 10:57 Pulse Rate 87 03/20/25 14:31 Respiratory Rate 22 H 03/20/25 14:31 Blood Pressure 114/63 03/20/25 14:31 Pulse Oximetry 96 03/20/25 14:31 Oxygen Delivery Room Air 03/20/25 10:57 [facility] Narrative Medical decision making narrative: Patient presenting and symptoms of fluid overload, on exam he does appear slightly distended with some swelling to his legs and scrotum, he has been on Lasix and was started on metolazone recently for further diuresis, I do feel at this time he would likely benefit from diuresis since he is at the point where he is unable to even get around on his own. Labs notable for hemoglobin is 7.2, he has a hemoglobin from 1 week ago that is similar, and months ago it was 12 so it does seem concerning that he had this drop over several months. He does not have any active signs of bleeding but would likely benefit from further workup for his anemia. His creatinine is higher than his usual baseline, I suspect also likely from fluid overload. Given dose of Lasix here, discussed with hospitalist for admission. 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 Differential Diagnosis Differential Diagnosis: CHF exacerbation, very unlikely epididymitis or torsion without any pain Lab Data 03/20/25 12:19 03/20/25 12:19 Labs: Lab Results 03/20/25 Range/Units 12:19 WBC 5.3 (4.5-10.0) K/mm3 RBC 3.16 L (4.6-6.20) M/mm3 Hgb 7.2 L (14.0-18.0) g/dL Hct 24.9 L (42.0-52.0) % MCV 78.8 L (80-100) fl MCH 22.8 L (26-34) pg MCHC 28.9 L (32-36) g/dl RDW 16.1 H (11.5-14.5) % Plt Count 132 L (150-375) k/mm3 MPV 9.7 (7.4-10.4) fl Immature Gran % (Auto) 0.8 H (0-0.5) % Neut % (Auto) 76.4 H (45.5-73.1) % Lymph % (Auto) 7.8 L (18.3-44.2) % Ralls % (Auto) 11.9 H (2.6-8.5) % Eos % (Auto) 2.7 (0-4.4) % Baso % (Auto) 0.4 (0.2-1.2) % Lymph # (Auto) 0.41 L (0.9-3.2) K/mm3 Ralls # (Auto) 0.6 (0.1-0.6) K/mm3 Eos # (Auto) 0.1 (0-0.3) K/mm3 Baso # (Auto) 0.0 (0.0-0.1) K/mm3 Abs Immat Gran (auto) 0.04 H (0.00-0.031) K/mm3 Absolute Neuts (auto) 4.0 (1.3-6.7) K/mm3 Absolute Nucleated RBC 0.000 (0.0-0.012) K/mm3 Band Neutrophils % Not Reportable Nucleated RBC % 0.0 (0.0-0.2) % Platelet Estimate Slightly decreased (Adequate) Hypochromasia 1+ Microcytosis Occasional (NORMAL) Ovalocytes 2+ Schistocytes None seen Sodium 133 L (137-145) mmol/L Potassium 4.3 (3.4-5.0) mmol/L Chloride 95 L (98-107) mmol/L Carbon Dioxide 30 (22-30) mmol/L Anion Gap 8 (4-12) mmol/L BUN 81 H D (9-20) mg/dL Creatinine 3.28 H (0.7-1.3) mg/dL Estim Creat Clear Calc 26 ml/min Estimated GFR 19 L (59 - ) Glucose 80 (65-110) mg/dL Calcium 9.3 (8.4-10.2) mg/dL Total Bilirubin 0.6 (0.2-1.3) mg/dL AST 24 (17-59) U/L ALT 16 (6-50) U/L Alkaline Phosphatase 72 (38-126) U/L NT-Pro-B Natriuret Pep 4900 H (19.9-100) pg/mL Total Protein 7.1 (6.3-8.2) g/dL Albumin 4.1 (3.5-5.1) g/dL Discharge Plan Discharge Clinical Impression: Anemia, Acute exacerbation of CHF (congestive heart failure), OREN (acute kidney injury), Fluid overload Patient Disposition: Still a Patient Condition: Stable
[2025-03-20] MEDS: FUROSEMIDE INJ 100 MG/10 ML VIAL 80 MG IV PUSH ×2 (14:06→21:44)
--- NOTE | 2025-03-20 14:10 | P.HP_ITS ---
H&P: HPI History of Present Illness Date/Time: 03/20/25 14:10 Chief Complaint: Edema Narrative: 69-year-old male with past medical history of CHF, DM2, AFib on Eliquis, bladder cancer,hypertension, severe aortic stenosis presents to the ED on 03/20/2025 with complaints of worsening bilateral lower extremity swelling that has extended to his groin and testicles. Patient states the edema started increasing over the past week to the point where he is having difficulty walking due to the edema in his groin. Denies pain in the edematous areas. Denies cough and chest pain. No recent fevers. Endorses increased dyspnea on exertion over the past couple of months, but has significantly worsened over last few days. Bilateral lower extremities with weeping edema, R>L. Patient has a history of aortic stenosis that has been monitored with periodic echocardiograms. Patient's echo on reportedly demonstrated severe aortic stenosis. He has been having progressively worsening shortness of breath and edema. Patient was referred to Cardiology for evaluation for a TAVR. He is scheduled for TAVR on 04/07 at [facility]. Initial vital signs 124/59, HR 79, respirations 20, afebrile and 97% on room air. Labs reveal anemia with hemoglobin 7.2 and hematocrit 24.9. Sodium 133, chloride 95, BUN 81, creatinine 3.28 with GFR 19. BNP 4900 Review of Systems Review of Systems: All systems reviewed & are unremarkable except as noted in HPI and below PMFSH Past Medical History Medical History (Updated 03/20/25 @ 21:31 by Fatemeh Locke APRN) Severe aortic valve stenosis SIOBHAN (obstructive sleep apnea) Cirrhosis Hip fracture, left Proteinuria Atrial fibrillation 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 Edema Right acetabular fracture Screening for prostate cancer Essential (primary) hypertension Hepatic fibrosis Hyperlipidemia, unspecified Other hyperlipidemia (Unknown) Type 2 diabetes mellitus with diabetic neuropathy, unspecified Surgical History Surgical History Hx of cystoscopy Family History Family History Sibling Family history of multiple sclerosis Patient's sister is in good health Patient's brother is in good health Father Hypertension Family history of diabetes mellitus in first degree relative Diabetes mellitus Mother Family history of malignant neoplasm Patient's mother is Social History Social History Smoking packs per day: 1 Smoking cigarettes per day: 20.0 Years smoked: 10 Smoking pack-years: 10.00 Smoking status: Former smoker Smokeless tobacco user: chewing tobacco Additional smoking assessment comments: Chew tobacco currently daily Alcohol intake: former Alcohol use details: No drinks 13 yrs Substance use: current Substance use type: marijuana Other substance usage details: smoke every couple days Last use: 01/01/23 Lack of Transportation: No Lack of Food: Never True Current Housing: I Have Housing Concerned About Future Housing: No Difficulty Paying Gas/Electric Bills: No Difficulty Paying for Meds: No Currently Unemployed: No Education: Grade School Difficulty w/ Childcare or Family Care: No Living arrangements: with family Additional living arrangements comments: Son Occupation/Education: retired Gender identity (if verbalized by the patient): Male Sexual Orientation (if Verbalized by the Patient): Straight or Heterosexual Spiritual care concerns: No Agree to blood products: Yes Meds Home Medications and Allergies Home Medications ?Medication ?Instructions ?Recorded ?Confirmed ?Type finasteride 5 mg tablet 5 mg PO DAILY 09/02/2103/20 History jmegvgmipvwp-dtc-rqtqu acid-vit 1 tablet PO DAILY 08/1203/20/25 History K-lycop 400 mcg-20 mcg-370 mcg tablet (Men's 50 Plus Multivitamin) blood-glucose meter (True Metrix #1 ea 08/06/22 Rx Glucose Meter) blood glucose control, normal #1 ea 09/11/23 11/29/24 Rx (True Metrix Level 2 solution) blood sugar diagnostic (True #200 strips 03/02/2411/11 Rx Metrix Glucose Test Strip) fluticasone propionate 50 2 spray intranasal DAILY #16 mL 07/07/24 03/20/25 Rx mcg/actuation nasal spray,suspension (Flonase Allergy Relief) magnesium oxide 400 mg (241.3 mg See Rx Instructions . Route 07/13/24 03/20/25 Rx magnesium) tablet .COMPLEX #180 tabs apixaban 5 mg tablet (Eliquis) 5 mg PO Q12H 07/28/24 1 05/21/24 History atorvastatin 20 mg tablet See Rx Instructions .Route 0 08/17/24 03/20/25 Rx .COMPLEX #90 tabs furosemide 40 mg tablet See Rx Instructions .Route 0 08/17/24 03/20/25 Rx .COMPLEX #180 tabs gabapentin 300 mg capsule See Rx Instructions .Route 0 08/17/24 03/20/25 Rx .COMPLEX #360 caps losartan 25 mg tablet See Rx Instructions .Route 0 08/17/24 03/20/25 Rx .COMPLEX #90 tabs metformin 500 mg tablet See Rx Instructions .Route 0 08/17/24 03/20/25 Rx .COMPLEX #270 tabs metoprolol tartrate 25 mg tablet See Rx Instructions . Route 08/17/24 03/20/25 Rx .COMPLEX #180 tabs spironolactone 50 mg tablet See Rx Instructions .Route 08/17/24 03/20/25 Rx .COMPLEX #90 tabs tramadol 50 mg tablet 50 mg PO BID PRN pain #60 ta bs 10/25/24 03/20/25 Rx linagliptin 5 mg tablet (Tradjenta) See Rx Instruction s .Route 12/09/24 03/20/25 Rx .COMPLEX #90 tabs metolazone 2.5 mg tablet 2.5 mg PO WEEKLY 03/20/25 History Allergies Allergy/AdvReac Type Severity Reaction Status Date / Time Iodinated Contrast Media Allergy Intermediate Hives Verified 03/20/25 16:22 Penicillins Allergy Intermediate Hives Verified 03/20/25 16:22 Vital Signs Vital Signs - 24 hr 03/20/25 10:57 03/20/25 12:14 Temperature 97.6 F Pulse Rate 79 82 Respiratory Rate 20 16 Blood Pressure 124/55 L 102/55 L Pulse Oximetry 97 97 Oxygen Delivery Room Air Exam Const: General: no acute distress HENMT: Mouth: Yes moist mucous membranes Eyes: General: appearance normal, both eyes and all related structures Neck: Neck: supple Lymphatic: lymphadenopathy not noted Resp: Effort & Inspection: normal respiratory effort Auscultation: diminished lung sounds Cardio: Rate: regular rate Heart sounds: Murmur heart sound present GI: GI Palp: Yes Soft to palpation Auscultation: normal bowel sounds : Other: Edematous genitalia. No ulcerations or weeping. No erythema Skin: Other: bilateral lower extremity weeping edema. Not tender to palpation. Neuro: Speech: normal speech Extrem: General: edema bilateral Psych: Mental Status: mental status grossly normal Results Labs Labs: Short CBC 03/20/25 Range/Units 12:19 WBC 5.3 (4.5-10.0) K/mm3 Hgb 7.2 L (14.0-18.0) g/dL Hct 24.9 L (42.0-52.0) % Plt Count 132 L (150-375) k/mm3 BMP 03/20/25 12:19 Sodium 133 L Potassium 4.3 Chloride 95 L Carbon Dioxide 30 BUN 81 H D Creatinine 3.28 H Glucose 80 Calcium 9.3 Liver Function 03/20/25 Range/Units 12:19 Total Bilirubin 0.6 (0.2-1.3) mg/dL AST 24 (17-59) U/L ALT 16 (6-50) U/L Alkaline Phosphatase 72 (38-126) U/L Albumin 4.1 (3.5-5.1) g/dL Assessment and Plan Assessment and plan (1) Severe aortic valve stenosis: Code(s): I35.0 - Nonrheumatic aortic (valve) stenosis Status: Chronic Assessment and Plan: Patient with a history of calcific aortic stenosis with ADAM in the severe range on his most recent echocardiogram from 01/27/2025 ( ADAM 0.9 cm2, V max 3.51 m/sec, mean gradient 25 mmHg). Increased dyspnea on exertion over the past couple of months. Increasing edema that now extends to his genitalia. patient takes 80 mg furosemide at home. 2.5 mg metolazone every Thursday (patient's technician's helper decreased the dose to weekly due to recent OREN). - 80 mg IVP furosemide b.i.d. - metolazone 2.5 mg every Thursday - monitor I&Os and daily weights - trend renal function - cardiology consult - 1500 mL fluid restriction - CXR - EKG (2) OREN (acute kidney injury): Code(s): N17.9 - Acute kidney failure, unspecified Status: Acute Assessment and Plan: OREN on CKD. Cr 3.28 on admission baseline Cr 2.1-2.4 but has overall been trending up this past year. patient does have a history of bladder cancer for which he follows [facility]. - Noted to have urinary retention in the ED- Alicea placed - Nurse driven protocol - will obtain UA - monitor I&Os - continue to monitor renal function (3) Diabetes mellitus with renal manifestation: Qualifiers: Diabetes mellitus complication detail: with microalbuminuria Diabetes mellitus nursing home insulin use: unspecified intermediate school teacher insulin use status Diabetes mellitus type: type 2 Qualified Code(s): E11.29 - Type 2 diabetes mellitus with other diabetic kidney complication; R80.9 - Proteinuria, unspecified Code(s): E11.29 - Type 2 diabetes mellitus with other diabetic kidney complication Status: Chronic Assessment and Plan: - hypoglycemia protocol - POC blood glucose ACHS - correct regimen ordered: low-dose correctional scale (4) Essential hypertension: Code(s): I10 - Essential (primary) hypertension Status: Chronic Assessment and Plan: continue losartan, metoprolol. Closely monitor BP in setting of increased Lasix dose (5) Atrial fibrillation: Qualifiers: Atrial fibrillation type: longstanding persistent Qualified Code(s): I48.11 - Longstanding persistent atrial fibrillation Code(s): I48.91 - Unspecified atrial fibrillation Status: Chronic Assessment and Plan: continue metoprolol, Eliquis (6) Anemia: Qualifiers: Anemia type: unspecified type Qualified Code(s): D64.9 - Anemia, unspecified Code(s): D64.9 - Anemia, unspecified Status: Acute Assessment and Plan: hemoglobin 7.2. Last month hemoglobin was 7.4 and in August it was 12.5. No signs of bleeding, denies melena. - add iron, TIBC, ferritin, B12, folic acid, and TSH - transfuse if <7 - trend H&H - check fecal occult blood Prior Studies I have reviewed the following patient records and this information was taken into consideration when formulating the assessment and plan.: previous labs, previous ER visits, previous hospitalizations and previous clinic visits Time Spent with Patient Time with patient: 45 - 74 minutes Hospitalist MIPS Advance Care Plan I have confirmed that the patient's Advanced Care Plan is present, code status is documented, or surrogate decision maker is listed in patient medical record.: Yes Medication Reconciliation I have utilized all available resources to obtain, update and review the patients current medications (includes all prescriptions, OTC, herbals, cannabis, and nutritional supplements).: Yes
--- NOTE | 2025-03-20 14:40 | WPCEDHO ---
ED Hand Off Checklist All vitals saved: yes IV Site documented: yes All med administrations documented: yes; will place almazan catheter prior to coming up, new order Triage Note Triage Note Pt to ed via [facility] co testicular 03/20/25 13:03 swelling. Pt said he has CHF, swelling in his legs and now his testicles are swollen. Pt said he thinks he had fluid overload Allergies Iodinated Contrast Media Allergy (Intermediate, Verified 03/20/25 10:50) Hives Penicillins Allergy (Intermediate, Verified 03/20/25 10:50) Hives Family History (Last Reviewed 11/29/24 @ 10:25 by Maeve Sanchez [facility]) Sibling Family history of multiple sclerosis Patient's sister is in good health Patient's brother is in good health Father Hypertension Family history of diabetes mellitus in first degree relative Diabetes mellitus Mother Family history of malignant neoplasm Patient's mother is Administered/Completed Medications Discontinued Medications Furosemide (Furosemide Inj 100 Mg/10 Ml Vial) 80 mg IV PUSH ONCE STA Stop: 03/20/25 13:05 Last Admin: 03/20/25 14:06 Dose: 80 mg Documented By: NATALIE Interventions/Assessments IV / Saline Lock, Insert Start: 03/20/25 10:56 Freq: Status: Active Protocol: Document 03/20/25 13:00 NATALIE (Rec: 03/20/25 14:39 NATALIE [id number]) IV Assessment Peripheral Access Left Antecubital IV Catheter Access Initiated IV Insertion Date 03/20/25 IV Insertion Time 13:00 Catheter Gauge 20 IV Insertion 1 Attempts Ultrasound Used for No Placement IV Site Assessment WNL IV Care and WNL,Dressing Applied, Dated, Timed, and Initialed Maintenance Last Vital Signs Temperature 97.6 F 03/20/25 10:57 Pulse Rate 87 03/20/25 14:31 Respiratory Rate 22 H 03/20/25 14:31 Pulse Oximetry 96 03/20/25 14:31 Blood Pressure 114/63 03/20/25 14:31 Blood Pressure Mean 78 03/20/25 14:31 Blood Pressure Position Sitting 03/20/25 10:57 Oxygen Delivery Room Air 03/20/25 10:57 Weight 122.7 kg 03/20/25 13:03 Last Result - Abnormals Only RBC 3.16 M/mm3 (4.6-6.20) L 03/20/25 12:19 Hgb 7.2 g/dL (14.0-18.0) L 03/20/25 12:19 Hct 24.9 % (42.0-52.0) L 03/20/25 12:19 MCV 78.8 fl (80-100) L 03/20/25 12:19 MCH 22.8 pg (26-34) L 03/20/25 12:19 MCHC 28.9 g/dl (32-36) L 03/20/25 12:19 RDW 16.1 % (11.5-14.5) H 03/20/25 12:19 Plt Count 132 k/mm3 (150-375) L 03/20/25 12:19 Immature Gran % (Auto) 0.8 % (0-0.5) H 03/20/25 12:19 Neut % (Auto) 76.4 % (45.5-73.1) H 03/20/25 12:19 Lymph % (Auto) 7.8 % (18.3-44.2) L 03/20/25 12:19 Ray % (Auto) 11.9 % (2.6-8.5) H 03/20/25 12:19 Lymph # (Auto) 0.41 K/mm3 (0.9-3.2) L 03/20/25 12:19 Abs Immat Gran (auto) 0.04 K/mm3 (0.00-0.031) H 03/20/25 12:19 Sodium 133 mmol/L (137-145) L 03/20/25 12:19 Chloride 95 mmol/L (98-107) L 03/20/25 12:19 BUN 81 mg/dL (9-20) H D 03/20/25 12:19 Creatinine 3.28 mg/dL (0.7-1.3) H 03/20/25 12:19 Estimated GFR 19 (59-) L 03/20/25 12:19 NT-Pro-B Natriuret Pep 4900 pg/mL (19.9-100) H 03/20/25 12:19 Most Recent Suicide Severity Rating Suicide Severity Rating NO RISK INDICATED 03/20/25 13:03
--- NOTE | 2025-03-20 16:00 | ADMGEN ---
This patient, Angelito Lai, was admitted to Medical Room 249-01. Patient/family oriented to hospital policies and general routines including ID bracelet, bed and alarms, visiting hours, pain management, procedures, bathroom and other care routines, personal items, smoking policy, room service/diet, and visiting hours. Information on how to activate the Rapid Response Team has been discussed. Patient/Family are encouraged to report perceived risks to care and to ask questions if they do not understand what they are told or what they should do.
[2025-03-20] MEDS: GABAPENTIN 300 MG CAPSULE BY MOUTH (17:33)
[2025-03-20] MEDS: GABAPENTIN 300 MG CAPSULE 600 MG BY MOUTH (21:45)
[2025-03-20] MEDS: MAGNESIUM OXIDE 400 MG TABLET BY MOUTH (21:45)
[2025-03-20] MEDS: APIXABAN 5 MG TABLET PO (21:45)
[2025-03-20] MEDS: METOPROLOL TARTRATE 25 MG TABLET BY MOUTH (21:52)
[2025-03-21] VITALS (18 sets, daily range): BP systolic 101–127; BP diastolic 46–80; PULSE 61–101; RESP 16–20; TEMP 36.2–36.7; O2SAT 91–100
--- NOTE | 2025-03-21 | ECG_ITS ---
Test Date: 2025-03-21 07:31:47 Measurements Intervals [place] Rate: 81 P: 0 MD: 0 QRS: 212 QRSD: 156 T: 24 QT: 404 QTc: 470 Interpretive Statements ATRIAL FIBRILLATION WITH ABERRANT CONDUCTION OR VENTRICULAR PREMATURE COMPLEXES RIGHT AXIS DEVIATION RIGHT BUNDLE BRANCH BLOCK BASELINE WANDER- V3 ABNORMAL ECG Compared to ECG 07/04/2024 11:09:52 NO SIGNIFICANT CHANGE Electronically Signed On 03-21-2025 08:00:25 LONGSHORE EQUIPMENT OPERATOR by Kris Wynne D.O.
[2025-03-21 01:12] LABS: Add Urine Microscopic? YES; Appearance Urine Clear (Clear); Glucose Urine UA Negative (Negative); Leukocyte Esterase Ur Trace LEU/UL (Negative); Nitrate Urine Negative (Negative); Specific Grav Ur 1.010 (1.001-1.035)
[2025-03-21 05:14] LABS: Hematocrit 23.1 % (42.0-52.0); Immature Granulocyte Percent A 0.6 % (0-0.5); Lymphocytes Absolute Auto 0.37 K/mm3 (0.9-3.2); Mean Corpuscular HGB Conc 29.0 g/dl (32-36); Mean Corpuscular Hemoglobin 22.7 pg (26-34); Mean Corpuscular Volume 78.3 fl (80-100); Nucleated Red Blood Cells Absolute Auto 0.000 K/mm3 (0.0-0.012); Nucleated Red Blood Cells Perc 0.0 % (0.0-0.2); Platelet Count Result 131 k/mm3 (150-375); Red Blood Count 2.95 M/mm3 (4.6-6.20); White Blood Count 4.6 K/mm3 (4.5-10.0)
[2025-03-21 05:25] LABS: Iron 27 ug/dL (49-181)
[2025-03-21 05:33] LABS: Alanine Aminotransferase 11 U/L (6-50); Albumin Level 3.9 g/dL (3.5-5.1); Alkaline Phosphatase 69 U/L (38-126); Anion Gap 7 mmol/L (4-12); Aspartate Amino Transferase 20 U/L (17-59); Bilirubin,Total 0.7 mg/dL (0.2-1.3); Blood Urea Nitrogen 78 mg/dL (9-20); Calcium 8.9 mg/dL (8.4-10.2); Carbon Dioxide 29 mmol/L (22-30); Chloride 95 mmol/L (98-107); Estimated CRCL calculation 28 ml/min; Estimated Glomerular Filt Rate 19; Glucose 146 mg/dL (65-110); Magnesium 2.3 mg/dL (1.6-2.3); Potassium 4.5 mmol/L (3.4-5.0); Sodium 131 mmol/L (137-145); Total Protein 6.8 g/dL (6.3-8.2)
[2025-03-21 05:35] LABS: Percent Iron Saturation 6 % (20-50)
[2025-03-21 05:50] LABS: Hemoglobin 6.7 g/dL (14.0-18.0)
[2025-03-21 05:52] LABS: Anisocytosis 2+; Hypochromasia 3+; Microcytosis 2+ (NORMAL); Poikilocytosis 1+
[2025-03-21 05:53] LABS: Ovalocytes 2+; Schistocytes None Seen
[2025-03-21 05:57] LABS: Thyroid Stimulating Hormone Reflex 2.400 uIU/mL (0.465-4.68)
[2025-03-21 06:01] LABS: Ferritin 11.90 ng/mL (11.1-264)
[2025-03-21 06:44] LABS: Vitamin B12 909.0 pg/mL (239-931)
--- NOTE | 2025-03-21 07:48 | P.PNIM_ITS ---
Assessment and Plan Assessment and Plan (1) Severe aortic valve stenosis: Code(s): I35.0 - Nonrheumatic aortic (valve) stenosis Status: Chronic Assessment and Plan: Patient with a history of calcific aortic stenosis with ADAM in the severe range on his most recent echocardiogram from 01/27/2025 ( ADAM 0.9 cm2, V max 3.51 m/sec, mean gradient 25 mmHg). * Increased dyspnea on exertion over the past couple of months. Increasing edema that now extends to his genitalia. * patient takes 80 mg furosemide at home. 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 * 80 mg IVP furosemide b.i.d. * metolazone 2.5 mg every Thursday * monitor I&Os and daily weights * trend renal function * 1500 mL fluid restriction * CXR: minimal rt pleural effusion * EKG: ATRIAL FIBRILLATION WITH ABERRANT CONDUCTION OR VENTRICULAR PREMATURE COMPLEXES, RBBB, RAD * cardiology consult * Continue IV diuresis (2) OREN (acute kidney injury): Code(s): N17.9 - Acute kidney failure, unspecified Status: Acute Assessment and Plan: OREN on CKD. Cr 3.28 on admission baseline Cr 2.1-2.4 but has overall been trending up this past year. patient does have a history of bladder cancer for which he follows [facility]. * Noted to have urinary retention in the ED- Alicea placed * Nurse driven protocol * will obtain UA * monitor I&Os * continue to monitor renal function * 03/21: Cr 3.28 -> 3.27 * Consult Nephrology for any further recommendations as patient has concurrent CHF exacerbation (3) Anemia: Qualifiers: Anemia type: unspecified type Qualified Code(s): D64.9 - Anemia, unspecified Code(s): D64.9 - Anemia, unspecified Status: Acute Assessment and Plan: hemoglobin 7.2. Last month hemoglobin was 7.4 and in August it was 12.5. No signs of bleeding, denies melena. * add iron, TIBC, ferritin, B12, folic acid, and TSH * Vit b12, folate, TSH wnl * Iron low (27ug/dL), TIBC wnl, % sat low (6%) * trend H&H - transfuse if <7 * check fecal occult blood * 03/21: Hgb 6.7 * 1 unit PRBC ordered * Consider GI consult if fecal occult positive (4) Diabetes mellitus with renal manifestation: Qualifiers: Diabetes mellitus complication detail: with microalbuminuria Diabetes mellitus scheduling agent insulin use: unspecified scheduling agent insulin use status Diabetes mellitus type: type 2 Qualified Code(s): E11.29 - Type 2 diabetes mellitus with other diabetic kidney complication; R80.9 - Proteinuria, unspecified Code(s): E11.29 - Type 2 diabetes mellitus with other diabetic kidney complication Status: Chronic Assessment and Plan: * hypoglycemia protocol * POC blood glucose ACHS * correct regimen ordered: low-dose correctional scale (5) Essential hypertension: Code(s): I10 - Essential (primary) hypertension Status: Chronic Assessment and Plan: * continue losartan, metoprolol. Closely monitor BP in setting of increased Lasix dose (6) Atrial fibrillation: Qualifiers: Atrial fibrillation type: longstanding persistent Qualified Code(s): I48.11 - Longstanding persistent atrial fibrillation Code(s): I48.91 - Unspecified atrial fibrillation Status: Chronic Assessment and Plan: * continue metoprolol, Eliquis Subjective Date/time seen: 03/21/25 07:48 Interval history: 69-year-old male with past medical history of CHF, DM2, AFib on Eliquis, bladder cancer,hypertension, severe aortic stenosis presents to the ED on 03/20/2025 with complaints of worsening bilateral lower extremity swelling that has extended to his groin and testicles. 03/21/2025 Patient sitting comfortably in chair at bedside during examination. Denies any chest pain, shortness of breath, n/v or abd pain at this time. He is supposed to be on 2L nc but during exam he was observed to have the NC taken off - encourage to keep applied. Cardiology & Nephro consulted for concurrent CHF exacerbation/OREN. Hgb also found to be low @ 6.7 today, 1 unit PRBC ordered. Pt does have a hx of hemmorhoids, will order fecal occult. Review of Systems Review of Systems: All systems reviewed & are unremarkable except as noted in HPI and below Exam Narrative: GENERAL: non-toxic appearing, in no acute distress. HEAD: Normocephalic, atraumatic. EYES: PERRLA. Conjunctivae clear. EARS: NOSE: Normal no drainage. THROAT: Pharynx clear, no exudate. NECK: Trachea midline. Thyroid not palpable. No adenopathy, no masses. RESPIRATORY: Airway patent, respirations nonlabored. CTA. CARDIOVASCULAR: Regular rate and rhythm without murmurs, rubs, or gallops. BREASTS: Defer GASTROINTESTINAL: Abdomen is soft and nontender. No organomegaly. Bowel sounds normal in all quadrants. GENITOURINARY: Defer MUSCULOSKELETAL: Moves all extremities. No gross deformities. Moves all extremities well. No calf tenderness. SKIN: Warm, dry, normal color. NEURO: A&O X4. Speech clear PSYCHIATRIC: Normal interaction Const: General: no acute distress HENMT: Mouth: Yes moist mucous membranes Eyes: General: appearance normal, both eyes and all related structures Neck: Neck: supple Lymphatic: lymphadenopathy not noted Resp: Effort & Inspection: normal respiratory effort Auscultation: diminished lung sounds Cardio: Rate: regular rate Heart sounds: Murmur heart sound present GI: Auscultation: normal bowel sounds : Other: Edematous genitalia. No ulcerations or weeping. No erythema Skin: Other: bilateral lower extremity weeping edema. Not tender to palpation. Neuro: Speech: normal speech Extrem: General: edema bilateral Psych: Mental Status: mental status grossly normal Objective Data Vital Signs Vital Signs: Vital Signs - 24 hr 03/20/25 10:57 03/20/25 12:14 03/20/25 13:50 Temperature 97.6 F Pulse Rate 79 82 78 Respiratory Rate 20 16 19 Blood Pressure 124/55 L 102/55 L Pulse Oximetry 97 97 Oxygen Delivery Room Air Oxygen Flow Rate 03/20/25 14:26 03/20/25 14:30 03/20/25 14:31 Temperature Pulse Rate 82 83 87 Respiratory Rate 19 21 H 22 H Blood Pressure 114/63 Pulse Oximetry 96 Oxygen Delivery Oxygen Flow Rate 03/20/25 14:32 03/20/25 14:50 03/20/25 15:02 Temperature Pulse Rate 78 81 86 Respiratory Rate 20 20 19 Blood Pressure 113/56 L Pulse Oximetry 98 90 Oxygen Delivery Oxygen Flow Rate 03/20/25 16:16 03/20/25 16:50 03/20/25 19:44 Temperature 97.5 F L 97.6 F Pulse Rate 93 88 86 Respiratory Rate 17 20 Blood Pressure 128/84 117/90 Pulse Oximetry 94 94 94 Oxygen Delivery Room Air Oxygen Flow Rate 03/20/25 20:00 03/20/25 21:52 03/20/25 22:10 Temperature Pulse Rate 86 Respiratory Rate Blood Pressure Pulse Oximetry 93 91 Oxygen Delivery Nasal Cannula Nasal Cannula Oxygen Flow Rate 2 03/20/25 22:10 03/21/25 03:20 Temperature 97.6 F Pulse Rate 82 Respiratory Rate 18 20 Blood Pressure 126/80 Pulse Oximetry 95 95 Oxygen Delivery Nasal Cannula Oxygen Flow Rate 2 Intake/Output Intake/Output: Intake & Output 03/18/25 03/19/25 03/20/25 03/21/25 23:59 23:59 23:59 23:59 Intake Total 360 240 Output Total 1700 Balance 360 -1460 Meds/Results Medications: Active Medications Generic Name Dose Route Start Last Admin Trade Name Freq PRN Reason Stop Dose Admin Apixaban 5 mg 03/20/25 21:00 03/20/25 21:45 Apixaban 5 Mg Tablet PO 5 mg Q12H GRACIELA Administration Atorvastatin Calcium 20 mg 03/21/25 09:00 Atorvastatin 20 Mg Tablet BY MOUTH DAILY GRACIELA Dextrose 12.5 gm 03/20/25 21:28 Dextrose 50% 25 Gm/50 Ml Syringe IV PUSH PRN PRN Hypoglycemia Protocol Finasteride 5 mg 03/21/25 09:00 Finasteride 5 Mg Tablet PO DAILY GRACIELA Fluticasone Propionate 2 spray 03/21/25 09:00 Fluticasone Propionate 0.05% Na Spr 16 Gm Btl (*Bkc) NASAL DAILY GRACIELA Furosemide 80 mg 03/20/25 20:50 03/20/25 21:44 Furosemide Inj 100 Mg/10 Ml Vial IV PUSH 80 mg BID GRACIELA Administration Gabapentin 300 mg 03/20/25 17:00 03/20/25 17:33 Gabapentin 300 Mg Capsule BY MOUTH 300 mg BID GRACIELA Administration Gabapentin 600 mg 03/20/25 21:00 03/20/25 21:45 Gabapentin 300 Mg Capsule BY MOUTH 600 mg HS GRACIELA Administration Glucagon 1 mg 03/20/25 21:28 Glucagon For Inj 1 Mg Vial IM PRN PRN Hypoglycemia Protocol Glucose 15 gm 03/20/25 21:28 Glucose Oral Gel 15 Gm Of Glucse In 37.5 Gm Tube PO PRN PRN Hypoglycemia Protocol Dextrose 1,000 mls @ 100 mls/hr 03/20/25 21:28 Dextrose 5% 1,000 Ml IVPB PRN PRN Hypoglycemia Protocol Sodium Chloride 250 mls @ 30 mls/hr 03/21/25 06:06 Normal Saline Iv IV CONT 03/21/25 14:25 .Q8H20M STA Insulin Aspart 2 - 5 units 03/21/25 08:00 Insulin Aspart (*Bkc) 100 Units/Ml SUB-Q TIDWM GRACIELA Protocol Losartan Potassium 25 mg 03/21/25 09:00 Losartan Potassium 25 Mg Tablet BY MOUTH DAILY GRACIELA Magnesium Oxide 400 mg 03/20/25 21:00 03/20/25 21:45 Magnesium Oxide 400 Mg Tablet BY MOUTH 400 mg Q12HR GRACIELA Administration Metolazone 2.5 mg 03/25/25 09:00 Metolazone 2.5 Mg Tablet PO Sa@0900 GRACIELA Metoprolol Tartrate 25 mg 03/20/25 21:00 03/20/25 21:52 Metoprolol Tartrate 25 Mg Tablet BY MOUTH 25 mg Q12HR GRACIELA Administration Spironolactone 50 mg 03/21/25 09:00 Spironolactone 50 Mg Tablet BY MOUTH QAM GRACIELA Tramadol HCl 50 mg 03/20/25 16:58 Tramadol Hcl (*Crx) 50 Mg Tablet PO BID PRN Pain Labs Labs: Laboratory Results - last 24 hr 03/20/25 03/21/25 03/21/25 12:19 00:38 04:50 WBC 5.3 4.6 RBC 3.16 L 2.95 L Hgb 7.2 L 6.7 L* Hct 24.9 L 23.1 L MCV 78.8 L 78.3 L MCH 22.8 L 22.7 L MCHC 28.9 L 29.0 L RDW 16.1 H 16.3 H Plt Count 132 L 131 L MPV 9.7 9.8 Immature Gran % (Auto) 0.8 H 0.6 H Neut % (Auto) 76.4 H 76.3 H Lymph % (Auto) 7.[address] % (Auto) 11.9 H 11.9 H Eos % (Auto) 2.7 2.8 Baso % (Auto) 0.4 0.4 Lymph # (Auto) 0.[address] # (Auto) 0.6 0.6 Eos # (Auto) 0.1 0.1 Baso # (Auto) 0.0 0.0 Abs Immat Gran (auto) 0.04 H 0.03 Absolute Neuts (auto) 4.0 3.5 Absolute Nucleated RBC 0.000 0.000 Band Neutrophils % Not Reportable Not Reportable Nucleated RBC % 0.0 0.0 Platelet Estimate Slightly decreased Decreased Hypochromasia 1+ 3+ Poikilocytosis 1+ Anisocytosis 2+ Microcytosis Occasional 2+ Ovalocytes 2+ 2+ Schistocytes None seen None seen Sodium 133 L 131 L Potassium 4.3 4.5 Chloride 95 L 95 L Carbon Dioxide 30 29 Anion Gap 8 7 BUN 81 H D 78 H Creatinine 3.28 H 3.27 H Estim Creat Clear Calc 26 28 Estimated GFR 19 L 19 L Glucose 80 146 H POC Capillary Glucose Calcium 9.3 8.9 Phosphorus 4.8 H Magnesium 2.3 Iron 27 L TIBC 445 % Saturation 6 L Ferritin 11.90 Total Bilirubin 0.6 0.7 AST 24 20 ALT 16 11 Alkaline Phosphatase 72 69 NT-Pro-B Natriuret Pep 4900 H Total Protein 7.1 6.8 Albumin 4.1 3.9 Vitamin B12 909.0 Folate 17.6 TSH (Reflex) 2.400 Urine Color Yellow Urine Appearance Clear Urine pH 5.0 Ur Specific [place] 1.010 Urine Protein Negative Urine Glucose (UA) Negative Urine Ketones Negative Ur Blood (Man) 2+ H Urine Nitrate Negative Urine Bilirubin Negative Urine Urobilinogen 0.2 Leukocyte Esterase Rfl Trace H Urine RBC 51-100 H Urine WBC 0-5 Ur Squamous Epith Cells None seen Urine Bacteria None seen Urine Casts 3-5 Blood Type Antibody Screen Crossmatch 03/21/25 03/21/25 06:16 07:43 WBC RBC Hgb Hct MCV MCH MCHC RDW Plt Count MPV Immature Gran % (Auto) Neut % (Auto) Lymph % (Auto) Lane % (Auto) Eos % (Auto) Baso % (Auto) Lymph # (Auto) Lane # (Auto) Eos # (Auto) Baso # (Auto) Abs Immat Gran (auto) Absolute Neuts (auto) Absolute Nucleated RBC Band Neutrophils % Nucleated RBC % Platelet Estimate Hypochromasia Poikilocytosis Anisocytosis Microcytosis Ovalocytes Schistocytes Sodium Potassium Chloride Carbon Dioxide Anion Gap BUN Creatinine Estim Creat Clear Calc Estimated GFR Glucose POC Capillary Glucose 144 H Calcium Phosphorus Magnesium Iron TIBC % Saturation Ferritin Total Bilirubin AST ALT Alkaline Phosphatase NT-Pro-B Natriuret Pep Total Protein Albumin Vitamin B12 Folate TSH (Reflex) Urine Color Urine Appearance Urine pH Ur Specific [place] Urine Protein Urine Glucose (UA) Urine Ketones Ur Blood (Man) Urine Nitrate Urine Bilirubin Urine Urobilinogen Leukocyte Esterase Rfl Urine RBC Urine WBC Ur Squamous Epith Cells Urine Bacteria Urine Casts Blood Type O Positive Antibody Screen Negative Crossmatch See Detail
[2025-03-21] MEDS: FINASTERIDE 5 MG TABLET PO (08:04)
[2025-03-21] MEDS: ATORVASTATIN 20 MG TABLET BY MOUTH (08:04)
[2025-03-21] MEDS: APIXABAN 5 MG TABLET PO (08:04)
[2025-03-21] MEDS: FLUTICASONE PROPIONATE 0.05% NA SPR 16 GM BTL (*BKC) 2 SPRAY NASAL (08:05)
[2025-03-21] MEDS: FUROSEMIDE INJ 100 MG/10 ML VIAL 80 MG IV PUSH ×2 (08:07→16:12)
[2025-03-21] MEDS: GABAPENTIN 300 MG CAPSULE BY MOUTH ×2 (08:08→16:11)
[2025-03-21] MEDS: LOSARTAN POTASSIUM 25 MG TABLET BY MOUTH (08:08)
[2025-03-21] MEDS: MAGNESIUM OXIDE 400 MG TABLET BY MOUTH ×2 (08:08→21:30)
[2025-03-21] MEDS: METOPROLOL TARTRATE 25 MG TABLET BY MOUTH ×2 (08:08→21:30)
--- NOTE | 2025-03-21 08:40 | P.CONCA_ITS ---
Assessment and Plan Assessment and plan (1) Acute exacerbation of CHF (congestive heart failure): Code(s): I50.9 - Heart failure, unspecified Status: Acute Assessment and Plan: * acute on chronic decompensated diastolic heart failure in the setting of valvular disease * Echo 01/2025 showed EF of 57% * patient presented with LE edema and shortness of breath * pBNP of 4900 and CXR with minimal rt pleural effusion * Agree with continued IV diuresis at this time with lasix 80 mg BID * He is also on his home weekly metolazone dose, but may change to more frequent if poor diuresis * will need accurate I&O, monitor renal function and electrolytes closely with diuresis. (2) Severe aortic valve stenosis: Code(s): I35.0 - Nonrheumatic aortic (valve) stenosis Status: Chronic Assessment and Plan: * recent echo in office demonstrated severe aortic stenosis with a valve area of 0.9cm2 * he is planned for TAVR later this month with Dr. Hussein (3) Atrial fibrillation: Qualifiers: Atrial fibrillation type: longstanding persistent Qualified Code(s): I 48.11 - Longstanding persistent atrial fibrillation Code(s): I48.91 - Unspecified atrial fibrillation Status: Chronic Assessment and Plan: * chronic atrial fibrillation, rate controlled * Continue with Metoprolol 25 mg BID for rate control * on Eliquis 5 mg BID at home for AC, will hold in setting of anemia requiring transfusion * he is however, anemic and requiring transfusion this am, anemia appears to have been noted last month as well * fecal occult blood pending * patient may benefit from GI consult (4) Essential hypertension: Code(s): I10 - Essential (primary) hypertension Status: Chronic Assessment and Plan: * blood pressure well controlled * continue losartan 25 mg daily, Metoprolol 25 mg BID and aldactone 50 mg daily (5) Anemia: Qualifiers: Anemia type: unspecified type Qualified Code(s): D64.9 - Anemia, unspecified Code(s): D64.9 - Anemia, unspecified Status: Acute Assessment and Plan: * with hgb of 6.7 this am * noted to have Hgb of 7.4 last month * he is getting one unit of PRBC this am * source is unclear * FOBT pending * may benefit from GI consult * would check iron studies (6) OREN (acute kidney injury): Code(s): N17.9 - Acute kidney failure, unspecified Status: Acute Assessment and Plan: * Acute on chronic kidney disease * with creatinine of 3.28 * appears baseline is around 2.2-2.5 * Will monitor closely with diuresis. (7) Diabetes mellitus with renal manifestation: Qualifiers: Diabetes mellitus complication detail: with microalbuminuria Diabetes mellitus oysterman insulin use: unspecified fci insulin use status D iabetes mellitus type: type 2 Qualified Code(s): E11.29 - Type 2 diabetes mellitus with other diabetic kidney complication; R80.9 - Proteinuria, unspecified Code(s): E11.29 - Type 2 diabetes mellitus with other diabetic kidney complication Status: Chronic Assessment and Plan: * glycemic control as per primary team (8) Obesity (BMI 30-39.9): Code(s): E66.9 - Obesity, unspecified Status: Acute Assessment and Plan: * weight loss encouraged. History of Present Illness History of Present Illness Consult date/time: 03/21/25 08:40 Consult reason: aortic stenosis and shortness of breath Reason For Visit: chf exac,oren Narrative: Angelito Lai is a 69 y.o. male who follows with Dr. Bangura in our office. He has a PMH of atrial fibrillation, CHF, HTN, diabetes, severe aortic stenosis and obesity. Patient presented to the ER with c/o worsening shortness of breath. This has been ongoing for the last month and has progressively gotten worse. He states he is short of breath at rest and with any activity. He has also, had increased LE edema bilaterally with weeping of the legs. He states he was having difficutly urinating at home secondary to scrotal edema. Denies any chest pain or pressure. No dizziness of palpitations. No nausea or vomiting. He was noted to be anemic and requiring PRBC transfusion this am. Denies any blood in stools or urine, does report bleeding hemorrhoids. Review of Systems 2 Review of Systems: All systems reviewed & are unremarkable except as noted in HPI and below PMFSH Past Medical History Medical History (Updated 03/20/25 @ 21:43 by Fatemeh Locke APRN) Severe aortic valve stenosis SIOBHAN (obstructive sleep apnea) Cirrhosis Hip fracture, left Proteinuria Atrial fibrillation 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 Edema Right acetabular fracture Screening for prostate cancer Essential (primary) hypertension Hepatic fibrosis Hyperlipidemia, unspecified Other hyperlipidemia (Unknown) Type 2 diabetes mellitus with diabetic neuropathy, unspecified Surgical History Surgical History Hx of cystoscopy Family History Family History Sibling Family history of multiple sclerosis Patient's sister is in good health Patient's brother is in good health Father Hypertension Family history of diabetes mellitus in first degree relative Diabetes mellitus Mother Family history of malignant neoplasm Patient's mother is Social History Social History Smoking packs per day: 1 Smoking cigarettes per day: 20.0 Years smoked: 10 Smoking pack-years: 10.00 Smoking status: Former smoker Smokeless tobacco user: chewing tobacco Additional smoking assessment comments: Chew tobacco currently daily Alcohol intake: former Alcohol use details: No drinks 13 yrs Substance use: current Substance use type: marijuana Other substance usage details: smoke every couple days Last use: 01/01/23 Lack of Transportation: No Lack of Food: Never True Current Housing: I Have Housing Concerned About Future Housing: No Difficulty Paying Gas/Electric Bills: No Difficulty Paying for Meds: No Currently Unemployed: No Education: Grade School Difficulty w/ Childcare or Family Care: No Living arrangements: with family Additional living arrangements comments: Son Occupation/Education: retired Gender identity (if verbalized by the patient): Male Sexual Orientation (if Verbalized by the Patient): Straight or Heterosexual Spiritual care concerns: No Agree to blood products: Yes Meds Home Medications and Allergies Home Medications ?Medication ?Instructions ?Recorded ?Confirmed ?Type finasteride 5 mg tablet 5 mg PO DAILY 09/02/2103/20 History [id number] acid-vit 1 tablet PO DAILY 08/1203/20/25 History K-lycop 400 mcg-20 mcg-370 mcg tablet (Men's 50 Plus Multivitamin) blood-glucose meter (True Metrix #1 ea 08/06/22 Rx Glucose Meter) blood glucose control, normal #1 ea 09/11/23 03/21/25 Rx (True Metrix Level 2 solution) blood sugar diagnostic (True #200 strips 11/20/24 12/0 01/05 Rx Metrix Glucose Test Strip) fluticasone propionate 50 2 spray intranasal DAILY #16 mL 07/07/24 03/20/25 Rx mcg/actuation nasal spray,suspension (Flonase Allergy Relief) magnesium oxide 400 mg (241.3 mg See Rx Instructions . Route 07/13/24 03/20/25 Rx magnesium) tablet .COMPLEX #180 tabs apixaban 5 mg tablet (Eliquis) 5 mg PO Q12H 07/28/24 1 05/21/24 History tramadol 50 mg tablet 50 mg PO BID PRN pain #60 ta bs 10/25/24 03/20/25 Rx metolazone 2.5 mg tablet 2.5 mg PO WEEKLY 03/20/25 History atorvastatin 20 mg tablet See Rx Instructions .Route 1 05/22/24 Rx .COMPLEX #90 tabs furosemide 40 mg tablet See Rx Instructions .Route 1 05/22/24 Rx .COMPLEX #180 tabs gabapentin 300 mg capsule See Rx Instructions .Route 1 05/22/24 Rx .COMPLEX #360 caps linagliptin 5 mg tablet (Tradjenta) See Rx Instruction s .Route 03/21/25 Rx .COMPLEX #90 tabs losartan 25 mg tablet See Rx Instructions .Route 1 05/22/24 Rx .COMPLEX #90 tabs metformin 500 mg tablet See Rx Instructions .Route 1 05/22/24 Rx .COMPLEX #270 tabs metoprolol tartrate 25 mg tablet See Rx Instructions . Route 03/21/25 Rx .COMPLEX #180 tabs spironolactone 50 mg tablet See Rx Instructions .Route 03/21/25 Rx .COMPLEX #90 tabs Allergies Allergy/AdvReac Type Severity Reaction Status Date / Time Iodinated Contrast Media Allergy Intermediate Hives Verified 03/20/25 16:22 Penicillins Allergy Intermediate Hives Verified 03/20/25 16:22 Vital Signs Vital Signs - 24 hr 03/20/25 10:57 03/20/25 12:14 03/20/25 13:50 Temperature 36.4 C Pulse Rate 79 82 78 Respiratory Rate 20 16 19 Blood Pressure 124/55 L 102/55 L Pulse Oximetry 97 97 Oxygen Delivery Room Air Oxygen Flow Rate 03/20/25 14:26 03/20/25 14:30 03/20/25 14:31 Temperature Pulse Rate 82 83 87 Respiratory Rate 19 21 H 22 H Blood Pressure 114/63 Pulse Oximetry 96 Oxygen Delivery Oxygen Flow Rate 03/20/25 14:32 03/20/25 14:50 03/20/25 15:02 Temperature Pulse Rate 78 81 86 Respiratory Rate 20 20 19 Blood Pressure 113/56 L Pulse Oximetry 98 90 Oxygen Delivery Oxygen Flow Rate 03/20/25 16:16 03/20/25 16:50 03/20/25 19:44 Temperature 36.4 C L 36.4 C Pulse Rate 93 88 86 Respiratory Rate 17 20 Blood Pressure 128/84 117/90 Pulse Oximetry 94 94 94 Oxygen Delivery Room Air Oxygen Flow Rate 03/20/25 20:00 03/20/25 21:52 03/20/25 22:10 Temperature Pulse Rate 86 Respiratory Rate Blood Pressure Pulse Oximetry 93 91 Oxygen Delivery Nasal Cannula Nasal Cannula Oxygen Flow Rate 2 03/20/25 22:10 03/21/25 03:20 03/21/25 08:02 Temperature 36.4 C 36.7 C Pulse Rate 82 81 Respiratory Rate 18 20 16 Blood Pressure 126/80 118/61 Pulse Oximetry 95 95 100 Oxygen Delivery Nasal Cannula Oxygen Flow Rate 2 03/21/25 08:07 03/21/25 08:08 03/21/25 08:28 Temperature 36.3 C L Pulse Rate 94 81 94 Respiratory Rate 20 20 Blood Pressure 127/72 Pulse Oximetry 99 99 Oxygen Delivery Nasal Cannula Oxygen Flow Rate 2 Exam 2 Const: General: comfortable and no acute distress Eyes: General: appearance normal, both eyes and all related structures Neck: Neck: supple and no JVD Resp: Effort & Inspection: normal respiratory effort Auscultation: d iminished lung sounds Cardio: Rate: regular rate Rhythm: abnormal rhythm Heart sounds: no gallops, Murmur heart sound present systolic and no rubs Extrem: General: edema bilateral (+3 LE edema ) Psych: Mental Status: mental status grossly normal Results Labs and Meds 03/21/25 04:50 03/21/25 04:50 Lab results: Cardiac Enzymes 03/20/25 03/21/25 Range/Units 12:19 04:50 AST 24 20 (17-59) U/L CBC 03/20/25 03/21/25 Range/Units 12:19 04:50 WBC 5.3 4.6 (4.5-10.0) K/mm3 RBC 3.16 L 2.95 L (4.6-6.20) M/mm3 Hgb 7.2 L 6.7 L* (14.0-18.0) g/dL Hct 24.9 L 23.1 L (42.0-52.0) % Plt Count 132 L 131 L (150-375) k/mm3 Lymph # (Auto) 0.41 L 0.37 L (0.9-3.2) K/mm3 [place] # (Auto) 0.6 0.6 (0.1-0.6) K/mm3 Eos # (Auto) 0.1 0.1 (0-0.3) K/mm3 Baso # (Auto) 0.0 0.0 (0.0-0.1) K/mm3 Comprehensive Metabolic Panel 03/20/25 03/21/25 Range/Units 12:19 04:50 Sodium 133 L 131 L (137-145) mmol/L Potassium 4.3 4.5 (3.4-5.0) mmol/L Chloride 95 L 95 L (98-107) mmol/L Carbon Dioxide 30 29 (22-30) mmol/L BUN 81 H D 78 H (9-20) mg/dL Creatinine 3.28 H 3.27 H (0.7-1.3) mg/dL Glucose 80 146 H (65-110) mg/dL Calcium 9.3 8.9 (8.4-10.2) mg/dL AST 24 20 (17-59) U/L ALT 16 11 (6-50) U/L Alkaline Phosphatase 72 69 (38-126) U/L Total Protein 7.1 6.8 (6.3-8.2) g/dL Albumin 4.1 3.9 (3.5-5.1) g/dL Intake and Output 03/20/25 03/21/25 03/21/25 23:59 07:59 15:59 Intake Total 360 240 Output Total 1700 Balance 360 -1460 Intake: Oral 360 240 Output: Catheter Urine 1700 Urethral Catheter 1700 Patient Weight 03/21/25 23:59 Weight 138.2 kg Imaging and Cardiology Echo: report reviewed (EF of 57% with diastolic dysfunction, mild LVH, moderate left atrium enlargement, mild MR, severe with ADAM of 0.9cm2, moderate AR, moderate pulmonary hypertension) EKG results: image reviewed EKG Interpretation EKG: no acute changes EKG shows: atrial fibrillation
[2025-03-21] MEDS: SODIUM CHLORIDE 0.9% IV 250 ML 30 ML IV CONT (08:43)
[2025-03-21 13:05] LABS: Hematocrit 24.4 % (42.0-52.0); Hemoglobin 7.2 g/dL (14.0-18.0)
[2025-03-21 13:52] LABS: Iron 69 ug/dL (49-181)
[2025-03-21 14:03] LABS: Percent Iron Saturation 14 % (20-50)
[2025-03-21] MEDS: GABAPENTIN 300 MG CAPSULE 600 MG BY MOUTH (21:30)
[2025-03-21 22:08] LABS: Alveolar/Arterial O2 Gradient 49.7 mmHg; Carboxyhemoglobin 1.4 % THb (0-2.0); Fractional Inspired Oxygen 28 %; HCO3 ABG 28.6 mEq/l (22.0-26.0); Methemoglobin ABG 0.1 %THb (0-1.5); Oxygen Content ABG 11.0 %vol (16.0-22.0); Oxygen Saturation ABG 95.5 % (95.0-100.0); PCO2 ABG 55.5 mmHg (35.0-45.0); PO2 ABG 84.5 mmHg (80.0-100.0); PO2 FiO2 Ratio Arterial Blood 3.02 %; Reduced Hemoglobin 4.5 %THb (0-5.0)
[2025-03-21 22:09] LABS: Modified Allen's Test Pass; Site Drawn LEFT RADIAL
[2025-03-21 22:10] LABS: Liters per Minute 2.0 LPM
[2025-03-22] VITALS (12 sets, daily range): BP systolic 96–128; BP diastolic 50–65; PULSE 68–101; RESP 14–20; TEMP 36.4–36.8; O2SAT 94–100
--- NOTE | 2025-03-22 08:11 | P.PNIM_ITS ---
Assessment and Plan Assessment and Plan (1) Severe aortic valve stenosis: Code(s): I35.0 - Nonrheumatic aortic (valve) stenosis Status: Chronic Assessment and Plan: Patient with a history of calcific aortic stenosis with ADAM in the severe range on his most recent echocardiogram from 01/27/2025 ( ADAM 0.9 cm2, V max 3.51 m/sec, mean gradient 25 mmHg). * Increased dyspnea on exertion over the past couple of months. Increasing edema that now extends to his genitalia. * patient takes 80 mg furosemide at home. 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 * 80 mg IVP furosemide b.i.d. * metolazone 2.5 mg every Thursday * monitor I&Os and daily weights * trend renal function * 1500 mL fluid restriction * CXR: minimal rt pleural effusion * EKG: ATRIAL FIBRILLATION WITH ABERRANT CONDUCTION OR VENTRICULAR PREMATURE COMPLEXES, RBBB, RAD * cardiology consult * Continue IV diuresis (2) OREN (acute kidney injury): Code(s): N17.9 - Acute kidney failure, unspecified Status: Acute Assessment and Plan: OREN on CKD. Cr 3.28 on admission baseline Cr 2.1-2.4 but has overall been trending up this past year. patient does have a history of bladder cancer for which he follows [facility]. * Noted to have urinary retention in the ED- Alicea placed * Nurse driven protocol * will obtain UA * monitor I&Os * continue to monitor renal function * 03/21: Cr 3.28 -> 3.27 * Consult Nephrology for any further recommendations as patient has concurrent CHF exacerbation (3) Anemia: Qualifiers: Anemia type: unspecified type Qualified Code(s): D64.9 - Anemia, unspecified Code(s): D64.9 - Anemia, unspecified Status: Acute Assessment and Plan: hemoglobin 7.2. Last month hemoglobin was 7.4 and in August it was 12.5. No signs of bleeding, denies melena. * add iron, TIBC, ferritin, B12, folic acid, and TSH * Vit b12, folate, TSH wnl * Iron low (27ug/dL), TIBC wnl, % sat low (6%) * trend H&H - transfuse if <7 * 1 unit PRBC given on 03/21 * 03/22: Hgb 7.7 * check fecal occult blood * GI consult pending as patient does endorse some recent dark stools (4) Dark stools: Code(s): R19.5 - Other fecal abnormalities Status: Acute Assessment and Plan: * See above * Is now endorsing some recent dark stools within the past week * Hx of hemorrhoids * GI consult * Fecal occult blood pending (5) Diabetes mellitus with renal manifestation: Qualifiers: Diabetes mellitus complication detail: with microalbuminuria Diabetes mellitus ocean transportation intermediary insulin use: unspecified usp insulin use status Diabetes mellitus type: type 2 Qualified Code(s): E11.29 - Type 2 diabetes mellitus with other diabetic kidney complication; R80.9 - Proteinuria, unspecified Code(s): E11.29 - Type 2 diabetes mellitus with other diabetic kidney complication Status: Chronic Assessment and Plan: * hypoglycemia protocol * POC blood glucose ACHS * correct regimen ordered: low-dose correctional scale * glucoses well controlled (6) Essential hypertension: Code(s): I10 - Essential (primary) hypertension Status: Chronic Assessment and Plan: * continue losartan, metoprolol. Closely monitor BP in setting of increased Lasix dose (7) Atrial fibrillation: Qualifiers: Atrial fibrillation type: longstanding persistent Qualified Code(s): I48.11 - Longstanding persistent atrial fibrillation Code(s): I48.91 - Unspecified atrial fibrillation Status: Chronic Assessment and Plan: * continue metoprolol, Eliquis Subjective Date/time seen: 03/22/25 08:11 Interval history: 69-year-old male with past medical history of CHF, DM2, AFib on Eliquis, bladder cancer,hypertension, severe aortic stenosis presents to the ED on 03/20/2025 with complaints of worsening bilateral lower extremity swelling that has extended to his groin and testicles. 03/22/2025 Patient sitting comfortably in chair at bedside during examination. Denies any chest pain, shortness of breath, n/v or abd pain at this time. Plan to continue monitoring I&Os - adequate at this point. Continue with IV diuresis, kidney function marignally better today, nephro consult pending. GI consulted as well for possible GI bleed as patient is endorsing recent dark stools. Review of Systems Review of Systems: All systems reviewed & are unremarkable except as noted in HPI and below Exam Narrative: GENERAL: non-toxic appearing, in no acute distress. HEAD: Normocephalic, atraumatic. EYES: PERRLA. Conjunctivae clear. EARS: NOSE: Normal no drainage. THROAT: Pharynx clear, no exudate. NECK: Trachea midline. Thyroid not palpable. No adenopathy, no masses. RESPIRATORY: Airway patent, respirations nonlabored. CTA. CARDIOVASCULAR: Regular rate and rhythm without murmurs, rubs, or gallops. BREASTS: Defer GASTROINTESTINAL: Abdomen is soft and nontender. No organomegaly. Bowel sounds normal in all quadrants. GENITOURINARY: Defer MUSCULOSKELETAL: Moves all extremities. No gross deformities. Moves all extremities well. No calf tenderness. SKIN: Warm, dry, normal color. NEURO: A&O X4. Speech clear PSYCHIATRIC: Normal interaction Const: General: no acute distress HENMT: Mouth: Yes moist mucous membranes Eyes: General: appearance normal, both eyes and all related structures Neck: Neck: supple Lymphatic: lymphadenopathy not noted Resp: Effort & Inspection: normal respiratory effort Auscultation: diminished lung sounds Cardio: Rate: regular rate Heart sounds: Murmur heart sound present GI: Auscultation: normal bowel sounds : Other: Edematous genitalia. No ulcerations or weeping. No erythema Skin: Other: bilateral lower extremity weeping edema. Not tender to palpation. Neuro: Speech: normal speech Extrem: General: edema bilateral Psych: Mental Status: mental status grossly normal Objective Data Vital Signs Vital Signs: Vital Signs - 24 hr 03/21/25 08:28 03/21/25 08:54 03/21/25 09:46 Temperature 97.4 F L 97.6 F Pulse Rate 94 101 H Respiratory Rate 20 18 18 Blood Pressure 127/72 106/59 L Pulse Oximetry 99 94 96 Oxygen Delivery Nasal Cannula Oxygen Flow Rate 2 03/21/25 09:54 03/21/25 10:54 03/21/25 12:59 Temperature 97.7 F 97.7 F Pulse Rate 73 78 78 Respiratory Rate 18 18 Blood Pressure 102/51 L 106/58 L Pulse Oximetry 95 97 Oxygen Delivery Oxygen Flow Rate 03/21/25 13:46 03/21/25 14:00 03/21/25 16:00 Temperature 97.9 F Pulse Rate 97 81 Respiratory Rate 18 Blood Pressure 104/53 L Pulse Oximetry 91 98 Oxygen Delivery Nasal Cannula Oxygen Flow Rate 03/21/25 20:00 03/21/25 20:00 03/21/25 21:18 Temperature 97.1 F L Pulse Rate 76 73 Respiratory Rate 18 Blood Pressure 101/46 L Pulse Oximetry 92 97 Oxygen Delivery Nasal Cannula Oxygen Flow Rate 2 03/21/25 21:30 03/21/25 22:00 03/21/25 22:15 Temperature Pulse Rate 61 Respiratory Rate Blood Pressure Pulse Oximetry 96 95 Oxygen Delivery Nasal Cannula Autopap Oxygen Flow Rate 2 03/22/25 04:00 03/22/25 05:50 Temperature 97.6 F Pulse Rate 76 68 Respiratory Rate 20 Blood Pressure 115/61 Pulse Oximetry 100 Oxygen Delivery Oxygen Flow Rate Intake/Output Intake/Output: Intake & Output 03/19/25 03/20/25 03/21/25 03/22/25 23:59 23:59 23:59 23:59 Intake Total 360 1330 240 Output Total 3000 650 Balance 360 -6474 -505 Meds/Results Medications: Active Medications Generic Name Dose Route Start Last Admin Trade Name Freq PRN Reason Stop Dose Admin Apixaban 5 mg 03/20/25 21:00 03/21/25 08:04 Apixaban 5 Mg Tablet PO 5 mg On Hold: 03/21/25 12:04 Q12H GRACIELA Administration Atorvastatin Calcium 20 mg 03/21/25 09:00 03/21/25 08:04 Atorvastatin 20 Mg Tablet BY MOUTH 20 mg DAILY GRACIELA Administration Dextrose 12.5 gm 03/20/25 21:28 Dextrose 50% 25 Gm/50 Ml Syringe IV PUSH PRN PRN Hypoglycemia Protocol Finasteride 5 mg 03/21/25 09:00 03/21/25 08:04 Finasteride 5 Mg Tablet PO 5 mg DAILY GRACIELA Administration Fluticasone Propionate 2 spray 03/21/25 09:00 03/21/25 08:05 Fluticasone Propionate 0.05% Na Spr 16 Gm Btl (*Bkc) NASAL 2 spray DAILY GRACIELA Administration Furosemide 80 mg 03/20/25 20:50 03/21/25 16:12 Furosemide Inj 100 Mg/10 Ml Vial IV PUSH 80 mg BID GRACIELA Administration Gabapentin 300 mg 03/20/25 17:00 03/21/25 16:11 Gabapentin 300 Mg Capsule BY MOUTH 300 mg BID GRACIELA Administration Gabapentin 600 mg 03/20/25 21:00 03/21/25 21:30 Gabapentin 300 Mg Capsule BY MOUTH 600 mg HS GRACIELA Administration Glucagon 1 mg 03/20/25 21:28 Glucagon For Inj 1 Mg Vial IM PRN PRN Hypoglycemia Protocol Glucose 15 gm 03/20/25 21:28 Glucose Oral Gel 15 Gm Of Glucse In 37.5 Gm Tube PO PRN PRN Hypoglycemia Protocol Dextrose 1,000 mls @ 100 mls/hr 03/20/25 21:28 Dextrose 5% 1,000 Ml IVPB PRN PRN Hypoglycemia Protocol Insulin Aspart 2 - 5 units 03/21/25 08:00 03/21/25 17:11 Insulin Aspart (*Bkc) 100 Units/Ml SUB-Q Not Given TIDWM [facility] Protocol Losartan Potassium 25 mg 03/21/25 09:00 03/21/25 08:08 Losartan Potassium 25 Mg Tablet BY MOUTH 25 mg DAILY GRACIELA Administration Magnesium Oxide 400 mg 03/20/25 21:00 03/21/25 21:30 Magnesium Oxide 400 Mg Tablet BY MOUTH 400 mg Q12HR GRACIELA Administration Metolazone 2.5 mg 03/25/25 09:00 Metolazone 2.5 Mg Tablet PO Sa@0900 GRACIELA Metoprolol Tartrate 25 mg 03/20/25 21:00 03/21/25 21:30 Metoprolol Tartrate 25 Mg Tablet BY MOUTH 25 mg Q12HR GRACIELA Administration Spironolactone 50 mg 03/21/25 09:00 03/21/25 08:21 Spironolactone 50 Mg Tablet BY MOUTH Not Given QAM GRACIELA Tramadol HCl 50 mg 03/20/25 16:58 Tramadol Hcl (*Crx) 50 Mg Tablet PO BID PRN Pain Radiology Results: ITS Impressions Chest X-Ray 03/21/25 08:23 IMPRESSION: 1. Minimal right pleural effusion. Labs Labs: Laboratory Results - last 24 hr 03/21/25 03/21/25 03/21/25 06:16 11:52 12:55 Hgb 7.2 L Hct 24.4 L Puncture Site ABG pH ABG pCO2 ABG pO2 ABG PO2/FiO2 Ratio ABG HCO3 ABG O2 Saturation ABG O2 Content ABG Base Excess A-a Gradient Oxyhemoglobin Carboxyhemoglobin Methemoglobin Reduced Hemoglobin Total Hemoglobin O2 Delivery Device O2 Liters/Min FiO2 POC Capillary Glucose 149 H Iron 69 TIBC 482 % Saturation 14 L Blood Type O Positive Antibody Screen Negative Crossmatch See Detail 03/21/25 03/21/25 16:47 21:57 Hgb Hct Puncture Site Left radial ABG pH 7.330 L ABG pCO2 55.5 H ABG pO2 84.5 ABG PO2/FiO2 Ratio 3.02 ABG HCO3 28.6 H ABG O2 Saturation 95.5 ABG O2 Content 11.0 L ABG Base Excess 2.2 A-a Gradient 49.7 Oxyhemoglobin 94.0 Carboxyhemoglobin 1.4 Methemoglobin 0.1 Reduced Hemoglobin 4.5 Total Hemoglobin 8.2 L O2 Delivery Device Nasal cannula O2 Liters/Min 2.0 FiO2 28 POC Capillary Glucose 156 H Iron TIBC % Saturation Blood Type Antibody Screen Crossmatch
[2025-03-22 08:47] LABS: Hematocrit 26.9 % (42.0-52.0); Hemoglobin 7.7 g/dL (14.0-18.0); Immature Granulocyte Percent A 0.7 % (0-0.5); Lymphocytes Absolute Auto 0.39 K/mm3 (0.9-3.2); Mean Corpuscular HGB Conc 28.6 g/dl (32-36); Mean Corpuscular Hemoglobin 23.1 pg (26-34); Mean Corpuscular Volume 80.5 fl (80-100); Nucleated Red Blood Cells Absolute Auto 0.000 K/mm3 (0.0-0.012); Nucleated Red Blood Cells Perc 0.0 % (0.0-0.2); Platelet Count Result 133 k/mm3 (150-375); Red Blood Count 3.34 M/mm3 (4.6-6.20); White Blood Count 5.7 K/mm3 (4.5-10.0)
[2025-03-22] MEDS: LOSARTAN POTASSIUM 25 MG TABLET BY MOUTH (09:00)
[2025-03-22] MEDS: METOPROLOL TARTRATE 25 MG TABLET BY MOUTH ×2 (09:00→20:53)
[2025-03-22] MEDS: GABAPENTIN 300 MG CAPSULE BY MOUTH ×2 (09:01→17:07)
[2025-03-22] MEDS: ATORVASTATIN 20 MG TABLET BY MOUTH (09:01)
[2025-03-22] MEDS: SPIRONOLACTONE 50 MG TABLET BY MOUTH (09:01)
[2025-03-22] MEDS: FINASTERIDE 5 MG TABLET PO (09:01)
[2025-03-22] MEDS: MAGNESIUM OXIDE 400 MG TABLET BY MOUTH ×2 (09:01→20:52)
[2025-03-22 09:09] LABS: Anisocytosis 1+; Hypochromasia 2+; Ovalocytes 1+
[2025-03-22 09:10] LABS: Schistocytes None Seen
[2025-03-22 09:18] LABS: Alanine Aminotransferase 13 U/L (6-50); Albumin Level 4.2 g/dL (3.5-5.1); Alkaline Phosphatase 70 U/L (38-126); Anion Gap 7 mmol/L (4-12); Aspartate Amino Transferase 23 U/L (17-59); Bilirubin,Total 0.9 mg/dL (0.2-1.3); Blood Urea Nitrogen 79 mg/dL (9-20); Calcium 9.1 mg/dL (8.4-10.2); Carbon Dioxide 32 mmol/L (22-30); Chloride 95 mmol/L (98-107); Estimated CRCL calculation 28 ml/min; Estimated Glomerular Filt Rate 19; Glucose 142 mg/dL (65-110); Potassium 4.2 mmol/L (3.4-5.0); Sodium 134 mmol/L (137-145); Total Protein 7.4 g/dL (6.3-8.2)
[2025-03-22] MEDS: FUROSEMIDE INJ 100 MG/10 ML VIAL 80 MG IV PUSH ×2 (10:34→17:08)
[2025-03-22] MEDS: FLUTICASONE PROPIONATE 0.05% NA SPR 16 GM BTL (*BKC) 2 SPRAY NASAL (10:34)
--- NOTE | 2025-03-22 11:27 | P.PNCA_ITS ---
Progress Note: A&P Assessment and Plan (1) Acute exacerbation of CHF (congestive heart failure): Code(s): I50.9 - Heart failure, unspecified Status: Acute Assessment and Plan: * acute on chronic decompensated diastolic heart failure in the setting of valvular disease * Echo 01/2025 showed EF of 57% * patient presented with LE edema and shortness of breath * pBNP of 4900 and CXR with minimal rt pleural effusion * Agree with continued IV diuresis at this time with lasix 80 mg BID, renal has been consulted * good UO ovenight * He is also on his home weekly metolazone dose, but may change to more frequent if poor diuresis * will need accurate I&O, monitor renal function and electrolytes closely with diuresis. (2) Severe aortic valve stenosis: Code(s): I35.0 - Nonrheumatic aortic (valve) stenosis Status: Chronic Assessment and Plan: * recent echo in office demonstrated severe aortic stenosis with a valve area of 0.9cm2 * he is planned for TAVR later this month with Dr. Hussein (3) Atrial fibrillation: Qualifiers: Atrial fibrillation type: longstanding persistent Qualified Code(s): I48.11 - Longstanding persistent atrial fibrillation Code(s): I48.91 - Unspecified atrial fibrillation Status: Chronic Assessment and Plan: * chronic atrial fibrillation, rate controlled * Continue with Metoprolol 25 mg BID for rate control * on Eliquis 5 mg BID at home for AC, will hold in setting of anemia requiring transfusion * he is however, anemic and requiring transfusion this am, anemia appears to have been noted last month as well * fecal occult blood pending * would recommend GI consult to weigh in on resuming AC (4) Essential hypertension: Code(s): I10 - Essential (primary) hypertension Status: Chronic Assessment and Plan: * blood pressure well controlled * continue losartan 25 mg daily, Metoprolol 25 mg BID and aldactone 50 mg daily (5) Anemia: Qualifiers: Anemia type: unspecified type Qualified Code(s): D64.9 - Anemia, unspecified Code(s): D64.9 - Anemia, unspecified Status: Acute Assessment and Plan: * hgb improved to 7.7 post transfusion * noted to have Hgb of 7.4 last month, earlier this year however, was 12.5 * source is unclear * FOBT pending * may benefit from GI consult to determine safety of resuming Eliquis * will place on renal dose lovenox 30 mg SQ for DVT prophylaxis as Eliquis on hold (6) OREN (acute kidney injury): Code(s): N17.9 - Acute kidney failure, unspecified Status: Acute Assessment and Plan: * Acute on chronic kidney disease * with creatinine of 3.28 * appears baseline is around 2.2-2.5 * Will monitor closely with diuresis. (7) Diabetes mellitus with renal manifestation: Qualifiers: Diabetes mellitus type: type 2 Diabetes mellitus retirement insulin use: unspecified terminal system operator insulin use status Diabetes mellitus complication detail: with microalbuminuria Qualified Code(s): E11.29 - Type 2 diabetes mellitus with other diabetic kidney complication; R80.9 - Proteinuria, unspecified Code(s): E11.29 - Type 2 diabetes mellitus with other diabetic kidney complication Status: Chronic Assessment and Plan: * glycemic control as per primary team (8) Obesity (BMI 30-39.9): Code(s): E66.9 - Obesity, unspecified Status: Acute Assessment and Plan: * weight loss encouraged. Subjective Date/time seen: 03/22/25 11:27 Interval history: Date of Service 03/22/25: Patient sitting up in chair. States breathing has improved. Still reports scrotal edema and LE edema. No chest pain or pressure. Review of Systems Review of Systems: All systems reviewed & are unremarkable except as noted in HPI and below Exam Const: General: comfortable and no acute distress Neck: Neck: supple Resp: Effort & Inspection: normal respiratory effort Auscultation: diminished lung sounds Cardio: Rate: regular rate Rhythm: abnormal rhythm irregularly irregular Heart sounds: no gallops, Murmur heart sound present systolic and no rubs Extrem: General: edema bilateral Psych: Mental Status: mental status grossly normal Objective Data Vital Signs Vital Signs: Vital Signs - 24 hr 03/21/25 12:59 03/21/25 13:46 03/21/25 14:00 Temperature 36.6 C Pulse Rate 78 97 Respiratory Rate 18 Blood Pressure 104/53 L Pulse Oximetry 91 98 Oxygen Delivery Nasal Cannula Oxygen Flow Rate 03/21/25 16:00 03/21/25 20:00 03/21/25 20:00 Temperature Pulse Rate 81 76 Respiratory Rate Blood Pressure Pulse Oximetry 92 Oxygen Delivery Nasal Cannula Oxygen Flow Rate 2 12/09/25 21:18 03/21/25 21:30 03/21/25 22:00 Temperature 36.2 C L Pulse Rate 73 61 Respiratory Rate 18 Blood Pressure 101/46 L Pulse Oximetry 97 96 Oxygen Delivery Nasal Cannula Oxygen Flow Rate 2 03/21/25 22:15 03/22/25 04:00 03/22/25 05:50 Temperature 36.4 C Pulse Rate 76 68 Respiratory Rate 20 Blood Pressure 115/61 Pulse Oximetry 95 100 Oxygen Delivery Autopap Oxygen Flow Rate 03/22/25 07:51 03/22/25 09:00 Temperature Pulse Rate 68 Respiratory Rate Blood Pressure Pulse Oximetry 94 Oxygen Delivery Nasal Cannula Oxygen Flow Rate 2 Intake/Output Intake/Output: Intake & Output 03/19/25 03/20/25 03/21/25 03/22/25 23:59 23:59 23:59 23:59 Intake Total 360 1330 240 Output Total 3000 650 Balance 005 -3588 -857 Meds/Results Medications: Active Medications Generic Name Dose Route Start Last Admin Trade Name Freq PRN Reason Stop Dose Admin Apixaban 5 mg 03/20/25 21:00 03/21/25 08:04 Apixaban 5 Mg Tablet PO 5 mg On Hold: 03/21/25 12:04 Q12H GRACIELA Administration Atorvastatin Calcium 20 mg 03/21/25 09:00 03/22/25 09:01 Atorvastatin 20 Mg Tablet BY MOUTH 20 mg DAILY GRACIELA Administration Dextrose 12.5 gm 03/20/25 21:28 Dextrose 50% 25 Gm/50 Ml Syringe IV PUSH PRN PRN Hypoglycemia Protocol Finasteride 5 mg 03/21/25 09:00 03/22/25 09:01 Finasteride 5 Mg Tablet PO 5 mg DAILY GRACIELA Administration Fluticasone Propionate 2 spray 03/21/25 09:00 03/22/25 10:34 Fluticasone Propionate 0.05% Na Spr 16 Gm Btl (*Bkc) NASAL 2 spray DAILY GRACIELA Administration Furosemide 80 mg 03/20/25 20:50 03/22/25 10:34 Furosemide Inj 100 Mg/10 Ml Vial IV PUSH 80 mg BID GRACIELA Administration Gabapentin 300 mg 03/20/25 17:00 03/22/25 09:01 Gabapentin 300 Mg Capsule BY MOUTH 300 mg BID GRACIELA Administration Gabapentin 600 mg 03/20/25 21:00 03/21/25 21:30 Gabapentin 300 Mg Capsule BY MOUTH 600 mg HS GRACIELA Administration Glucagon 1 mg 03/20/25 21:28 Glucagon For Inj 1 Mg Vial IM PRN PRN Hypoglycemia Protocol Glucose 15 gm 03/20/25 21:28 Glucose Oral Gel 15 Gm Of Glucse In 37.5 Gm Tube PO PRN PRN Hypoglycemia Protocol Dextrose 1,000 mls @ 100 mls/hr 03/20/25 21:28 Dextrose 5% 1,000 Ml IVPB PRN PRN Hypoglycemia Protocol Insulin Aspart 2 - 5 units 03/21/25 08:00 03/22/25 09:55 Insulin Aspart (*Bkc) 100 Units/Ml SUB-Q Not Given TIDWM GRACIELA Protocol Losartan Potassium 25 mg 03/21/25 09:00 03/22/25 09:00 Losartan Potassium 25 Mg Tablet BY MOUTH 25 mg DAILY GRACIELA Administration Magnesium Oxide 400 mg 03/20/25 21:00 03/22/25 09:01 Magnesium Oxide 400 Mg Tablet BY MOUTH 400 mg Q12HR GRACIELA Administration Metolazone 2.5 mg 03/25/25 09:00 Metolazone 2.5 Mg Tablet PO Sa@0900 GRACIELA Metoprolol Tartrate 25 mg 03/20/25 21:00 03/22/25 09:00 Metoprolol Tartrate 25 Mg Tablet BY MOUTH 25 mg Q12HR GRACIELA Administration Spironolactone 50 mg 03/21/25 09:00 03/22/25 09:01 Spironolactone 50 Mg Tablet BY MOUTH 50 mg QAM GRACIELA Administration Tramadol HCl 50 mg 03/20/25 16:58 Tramadol Hcl (*Crx) 50 Mg Tablet PO BID PRN Pain Radiology Results: ITS Impressions Chest X-Ray 03/21/25 08:23 IMPRESSION: 1. Minimal right pleural effusion. Labs Labs: Laboratory Results - last 24 hr 03/21/25 03/21/25 03/21/25 06:16 11:52 12:55 WBC RBC Hgb 7.2 L Hct 24.4 L MCV MCH MCHC RDW Plt Count MPV Immature Gran % (Auto) Neut % (Auto) Lymph % (Auto) [place] % (Auto) Eos % (Auto) Baso % (Auto) Lymph # (Auto) [place] # (Auto) Eos # (Auto) Baso # (Auto) Abs Immat Gran (auto) Absolute Neuts (auto) Absolute Nucleated RBC Band Neutrophils % Nucleated RBC % Platelet Estimate Hypochromasia Anisocytosis Ovalocytes Schistocytes Puncture Site ABG pH ABG pCO2 ABG pO2 ABG PO2/FiO2 Ratio ABG HCO3 ABG O2 Saturation ABG O2 Content ABG Base Excess A-a Gradient Oxyhemoglobin Carboxyhemoglobin Methemoglobin Reduced Hemoglobin Total Hemoglobin O2 Delivery Device O2 Liters/Min FiO2 Sodium Potassium Chloride Carbon Dioxide Anion Gap BUN Creatinine Estim Creat Clear Calc Estimated GFR Glucose POC Capillary Glucose 149 H Calcium Iron 69 TIBC 482 % Saturation 14 L Total Bilirubin AST ALT Alkaline Phosphatase Total Protein Albumin Crossmatch See Detail 03/21/25 03/21/25 03/22/25 16:47 21:57 07:53 WBC RBC Hgb Hct MCV MCH MCHC RDW Plt Count MPV Immature Gran % (Auto) Neut % (Auto) Lymph % (Auto) [place] % (Auto) Eos % (Auto) Baso % (Auto) Lymph # (Auto) [place] # (Auto) Eos # (Auto) Baso # (Auto) Abs Immat Gran (auto) Absolute Neuts (auto) Absolute Nucleated RBC Band Neutrophils % Nucleated RBC % Platelet Estimate Hypochromasia Anisocytosis Ovalocytes Schistocytes Puncture Site Left radial ABG pH 7.330 L ABG pCO2 55.5 H ABG pO2 84.5 ABG PO2/FiO2 Ratio 3.02 ABG HCO3 28.6 H ABG O2 Saturation 95.5 ABG O2 Content 11.0 L ABG Base Excess 2.2 A-a Gradient 49.7 Oxyhemoglobin 94.0 Carboxyhemoglobin 1.4 Methemoglobin 0.1 Reduced Hemoglobin 4.5 Total Hemoglobin 8.2 L O2 Delivery Device Nasal cannula O2 Liters/Min 2.0 FiO2 28 Sodium Potassium Chloride Carbon Dioxide Anion Gap BUN Creatinine Estim Creat Clear Calc Estimated GFR Glucose POC Capillary Glucose 156 H 137 H Calcium Iron TIBC % Saturation Total Bilirubin AST ALT Alkaline Phosphatase Total Protein Albumin Crossmatch 03/22/25 08:39 WBC 5.7 RBC 3.34 L Hgb 7.7 L Hct 26.9 L MCV 80.5 MCH 23.1 L MCHC 28.6 L RDW 16.4 H Plt Count 133 L MPV 9.5 Immature Gran % (Auto) 0.7 H Neut % (Auto) 79.0 H Lymph % (Auto) 6.8 L [place] % (Auto) 10.3 H Eos % (Auto) 3.0 Baso % (Auto) 0.2 Lymph # (Auto) 0.39 L [place] # (Auto) 0.6 Eos # (Auto) 0.2 Baso # (Auto) 0.0 Abs Immat Gran (auto) 0.04 H Absolute Neuts (auto) 4.5 Absolute Nucleated RBC 0.000 Band Neutrophils % Not Reportable Nucleated RBC % 0.0 Platelet Estimate Decreased Hypochromasia 2+ Anisocytosis 1+ Ovalocytes 1+ Schistocytes None seen Puncture Site ABG pH ABG pCO2 ABG pO2 ABG PO2/FiO2 Ratio ABG HCO3 ABG O2 Saturation ABG O2 Content ABG Base Excess A-a Gradient Oxyhemoglobin Carboxyhemoglobin Methemoglobin Reduced Hemoglobin Total Hemoglobin O2 Delivery Device O2 Liters/Min FiO2 Sodium 134 L Potassium 4.2 Chloride 95 L Carbon Dioxide 32 H Anion Gap 7 BUN 79 H Creatinine 3.23 H Estim Creat Clear Calc 28 Estimated GFR 19 L Glucose 142 H POC Capillary Glucose Calcium 9.1 Iron TIBC % Saturation Total Bilirubin 0.9 AST 23 ALT 13 Alkaline Phosphatase 70 Total Protein 7.4 Albumin 4.2 Crossmatch
--- NOTE | 2025-03-22 14:15 | PM.CNNEP ---
History of Present Illness Reason for Consult Consult date: 03/22/25 Chief Complaint Chief complaint: chf exac,momo PMFSH Past Medical History Medical History (Updated 03/22/25 @ 17:50 by De Quintanilla MD) Blood thinned due to long-term anticoagulant use Acute on chronic anemia Severe aortic valve stenosis SIOBHAN (obstructive sleep apnea) Cirrhosis Hip fracture, left Proteinuria Atrial fibrillation 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 Edema Right acetabular fracture Screening for prostate cancer Essential (primary) hypertension Hepatic fibrosis Hyperlipidemia, unspecified Other hyperlipidemia (Unknown) Type 2 diabetes mellitus with diabetic neuropathy, unspecified Surgical History Surgical History Hx of cystoscopy Family History Family History Sibling Family history of multiple sclerosis Patient's sister is in good health Patient's brother is in good health Father Hypertension Family history of diabetes mellitus in first degree relative Diabetes mellitus Mother Family history of malignant neoplasm Patient's mother is Social History Social History Smoking packs per day: 1 Smoking cigarettes per day: 20.0 Years smoked: 10 Smoking pack-years: 10.00 Smoking status: Former smoker Smokeless tobacco user: chewing tobacco Additional smoking assessment comments: Chew tobacco currently daily Alcohol intake: former Alcohol use details: No drinks 13 yrs Substance use: current Substance use type: marijuana Other substance usage details: smoke every couple days Last use: 01/01/23 Lack of Transportation: No Lack of Food: Never True Current Housing: I Have Housing Concerned About Future Housing: No Difficulty Paying Gas/Electric Bills: No Difficulty Paying for Meds: No Currently Unemployed: No Education: Grade School Difficulty w/ Childcare or Family Care: No Living arrangements: with family Additional living arrangements comments: Son Occupation/Education: retired Gender identity (if verbalized by the patient): Male Sexual Orientation (if Verbalized by the Patient): Straight or Heterosexual Spiritual care concerns: No Agree to blood products: Yes Meds Home Medications and Allergies Home Medications ?Medication ?Instructions ?Recorded ?Confirmed ?Type finasteride 5 mg tablet 5 mg PO DAILY 09/02/21 03/20/25 History bxzmgelivgbm-jvq-gfdhb acid-vit 1 tablet PO DAILY 09/02/21 03/20/25 History K-lycop 400 mcg-20 mcg-370 mcg tablet (Men's 50 Plus Multivitamin) blood-glucose meter (True Metrix #1 ea 08/06/22 03/21/25 Rx Glucose Meter) blood glucose control, normal #1 ea 09/11/23 03/21/25 Rx (True Metrix Level 2 solution) blood sugar diagnostic (True #200 strips 03/02/24 03/21/25 Rx Metrix Glucose Test Strip) fluticasone propionate 50 2 spray intranasal DAILY #16 mL 07/07/24 03/20/25 Rx mcg/actuation nasal spray,suspension (Flonase Allergy Relief) magnesium oxide 400 mg (241.3 mg See Rx Instructions .Route 07/13/24 03/20/25 Rx magnesium) tablet .COMPLEX #180 tabs apixaban 5 mg tablet (Eliquis) 5 mg PO Q12H 07/28/24 03/20/25 History tramadol 50 mg tablet 50 mg PO BID PRN pain #60 tabs 10/25/24 03/20/25 Rx metolazone 2.5 mg tablet 2.5 mg PO WEEKLY 03/20/25 03/20/25 History atorvastatin 20 mg tablet See Rx Instructions .Route 03/21/25 Rx .COMPLEX #90 tabs furosemide 40 mg tablet See Rx Instructions .Route 03/21/25 Rx .COMPLEX #180 tabs gabapentin 300 mg capsule See Rx Instructions .Route 03/21/25 Rx .COMPLEX #360 caps linagliptin 5 mg tablet (Tradjenta) See Rx Instructions .Route 03/21/25 Rx .COMPLEX #90 tabs losartan 25 mg tablet See Rx Instructions .Route 03/21/25 Rx .COMPLEX #90 tabs metformin 500 mg tablet See Rx Instructions .Route 03/21/25 Rx .COMPLEX #270 tabs metoprolol tartrate 25 mg tablet See Rx Instructions .Route 03/21/25 Rx .COMPLEX #180 tabs spironolactone 50 mg tablet See Rx Instructions .Route 03/21/25 Rx .COMPLEX #90 tabs Allergies Allergy/AdvReac Type Severity Reaction Status Date / Time Iodinated Contrast Media Allergy Intermediate Hives Verified 03/20/25 16:22 Penicillins Allergy Intermediate Hives Verified 03/20/25 16:22 Vital Signs Vital Signs Temp Pulse Resp BP Pulse Ox O2 Del Method O2 Flow Rate 03/22/25 14:00 98.1 F 89 14 128/65 100 03/22/25 12:00 89 03/22/25 09:00 68 03/22/25 08:00 75 03/22/25 08:00 89 20 95 Nasal Cannula 2 03/22/25 07:51 94 Nasal Cannula 2 03/22/25 05:50 97.6 F 68 20 115/61 100 03/22/25 04:00 76 Results Lab Results 03/22/25 08:39 03/22/25 08:39 Lab results: Most recent lab results ABG pH 7.330 (7.350-7.450) L 03/21/25 21:57 ABG pCO2 55.5 mmHg (35.0-45.0) H 03/21/25 21:57 ABG pO2 84.5 mmHg (80.0-100.0) 03/21/25 21:57 ABG HCO3 28.6 mEq/l (22.0-26.0) H 03/21/25 21:57 ABG O2 Saturation 95.5 % (95.0-100.0) 03/21/25 21:57 Calcium 9.1 mg/dL (8.4-10.2) 03/22/25 08:39 Phosphorus 4.8 mg/dL (2.5-4.5) H 03/21/25 04:50 Magnesium 2.3 mg/dL (1.6-2.3) 03/21/25 04:50 Urine Creatinine 110.3 mg/dL 03/22/25 22:45
--- NOTE | 2025-03-22 17:46 | P.CONGI_ITS ---
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 questioning if safe to resume blood thinner will need clearance from blank driller to proceed with scopes (2) Severe aortic valve stenosis: Code(s): I35.0 - Nonrheumatic aortic (valve) stenosis Status: Chronic Assessment and Plan: will need intervention soon (3) Atrial fibrillation: Qualifiers: Atrial fibrillation type: longstanding persistent Qualified Code(s): I 48.11 - Longstanding persistent atrial fibrillation Code(s): I48.91 - Unspecified atrial fibrillation Status: Chronic (4) Type 2 diabetes mellitus with diabetic neuropathy, unspecified: Code(s): E11.40 - Type 2 diabetes mellitus with diabetic neuropathy, unspecified Status: Acute (5) Blood thinned due to long-term anticoagulant use: Code(s): 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 He was admitted with worsening shortness of breath for almost a month but recently also short of breath at rest and with any activity. Noted increased LE edema bilaterally with weeping of the legs. Cardiology evaluated patient, noted recurrent anemia and required blood transfusion, no over gib but he never had scopes, eliquis on hold now. Review of Systems 2 Constitutional: Constitutional: Denies chills Eyes: Eyes: Reports no additional eye complaints ENT: Reports Normal hearing present Cardiovascular: Cardiovascular: Reports leg edema Respiratory: Respiratory: Reports dyspnea on exertion Gastrointestinal: Gastrointestinal: Denies abdominal pain Genitourinary: Genitourinary: Denies dysuria Musculoskeletal: Musculoskeletal: Denies neck pain Integumentary/Breasts: Skin/Breast: Denies rash Neurologic: Denies confusion Psychiatric: Psychiatric: Denies behavioral changes [facility] Past Medical History Medical History (Updated 03/22/25 @ 17:50 by De Quintanilla MD) Blood thinned due to long-term anticoagulant use Acute on chronic anemia Severe aortic valve stenosis SIOBHAN (obstructive sleep apnea) Cirrhosis Hip fracture, left Proteinuria Atrial fibrillation 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 Edema Right acetabular fracture Screening for prostate cancer Essential (primary) hypertension Hepatic fibrosis Hyperlipidemia, unspecified Other hyperlipidemia (Unknown) Type 2 diabetes mellitus with diabetic neuropathy, unspecified Surgical History Surgical History Hx of cystoscopy Family History Family History Sibling Family history of multiple sclerosis Patient's sister is in good health Patient's brother is in good health Father Hypertension Family history of diabetes mellitus in first degree relative Diabetes mellitus Mother Family history of malignant neoplasm Patient's mother is Social History Social History Smoking packs per day: 1 Smoking cigarettes per day: 20.0 Years smoked: 10 Smoking pack-years: 10.00 Smoking status: Former smoker Smokeless tobacco user: chewing tobacco Additional smoking assessment comments: Chew tobacco currently daily Alcohol intake: former Alcohol use details: No drinks 13 yrs Substance use: current Substance use type: marijuana Other substance usage details: smoke every couple days Last use: 01/01/23 Lack of Transportation: No Lack of Food: Never True Current Housing: I Have Housing Concerned About Future Housing: No Difficulty Paying Gas/Electric Bills: No Difficulty Paying for Meds: No Currently Unemployed: No Education: Grade School Difficulty w/ Childcare or Family Care: No Living arrangements: with family Additional living arrangements comments: Son Occupation/Education: retired Gender identity (if verbalized by the patient): Male Sexual Orientation (if Verbalized by the Patient): Straight or Heterosexual Spiritual care concerns: No Agree to blood products: Yes Meds Home Medications and Allergies Home Medications ?Medication ?Instructions ?Recorded ?Confirmed ?Type finasteride 5 mg tablet 5 mg PO DAILY 09/02/2103/20 History xdmjisvxwuwr-xum-irwqu acid-vit 1 tablet PO DAILY 08/1203/20/25 History K-lycop 400 mcg-20 mcg-370 mcg tablet (Men's 50 Plus Multivitamin) blood-glucose meter (True Metrix #1 ea 08/06/22 Rx Glucose Meter) blood glucose control, normal #1 ea 09/11/23 03/21/25 Rx (True Metrix Level 2 solution) blood sugar diagnostic (True #200 strips 03/02/2401/05 Rx Metrix Glucose Test Strip) fluticasone propionate 50 2 spray intranasal DAILY #16 mL 07/07/24 03/20/25 Rx mcg/actuation nasal spray,suspension (Flonase Allergy Relief) magnesium oxide 400 mg (241.3 mg See Rx Instructions . Route 07/13/24 03/20/25 Rx magnesium) tablet .COMPLEX #180 tabs apixaban 5 mg tablet (Eliquis) 5 mg PO Q12H 07/28/24 1 05/21/24 History tramadol 50 mg tablet 50 mg PO BID PRN pain #60 ta bs 10/25/24 03/20/25 Rx metolazone 2.5 mg tablet 2.5 mg PO WEEKLY 03/20/25 History atorvastatin 20 mg tablet See Rx Instructions .Route 1 05/22/24 Rx .COMPLEX #90 tabs furosemide 40 mg tablet See Rx Instructions .Route 1 05/22/24 Rx .COMPLEX #180 tabs gabapentin 300 mg capsule See Rx Instructions .Route 1 05/22/24 Rx .COMPLEX #360 caps linagliptin 5 mg tablet (Tradjenta) See Rx Instruction s .Route 03/21/25 Rx .COMPLEX #90 tabs losartan 25 mg tablet See Rx Instructions .Route 1 05/22/24 Rx .COMPLEX #90 tabs metformin 500 mg tablet See Rx Instructions .Route 1 05/22/24 Rx .COMPLEX #270 tabs metoprolol tartrate 25 mg tablet See Rx Instructions . Route 03/21/25 Rx .COMPLEX #180 tabs spironolactone 50 mg tablet See Rx Instructions .Route 03/21/25 Rx .COMPLEX #90 tabs Allergies Allergy/AdvReac Type Severity Reaction Status Date / Time Iodinated Contrast Media Allergy Intermediate Hives Verified 03/20/25 16:22 Penicillins Allergy Intermediate Hives Verified 03/20/25 16:22 Vital Signs Vital Signs - 24 hr 03/21/25 20:00 03/21/25 20:00 03/21/25 21:18 Temperature 97.1 F L Pulse Rate 76 73 Respiratory Rate 18 Blood Pressure 101/46 L Pulse Oximetry 92 97 Oxygen Delivery Nasal Cannula Oxygen Flow Rate 2 03/21/25 21:30 03/21/25 22:00 03/21/25 22:15 Temperature Pulse Rate 61 Respiratory Rate Blood Pressure Pulse Oximetry 96 95 Oxygen Delivery Nasal Cannula Autopap Oxygen Flow Rate 2 03/22/25 04:00 03/22/25 05:50 03/22/25 07:51 Temperature 97.6 F Pulse Rate 76 68 Respiratory Rate 20 Blood Pressure 115/61 Pulse Oximetry 100 94 Oxygen Delivery Nasal Cannula Oxygen Flow Rate 2 03/22/25 08:00 03/22/25 08:00 03/22/25 09:00 Temperature Pulse Rate 89 75 68 Respiratory Rate 20 Blood Pressure Pulse Oximetry 95 Oxygen Delivery Nasal Cannula Oxygen Flow Rate 2 03/22/25 12:00 03/22/25 14:00 Temperature 98.1 F Pulse Rate 89 89 Respiratory Rate 14 Blood Pressure 128/65 Pulse Oximetry 100 Oxygen Delivery Oxygen Flow Rate Exam 2 Const: General: comfortable and no acute distress HENMT: Face/Nose/Sinus: Normal nares present Eyes: General: appearance normal, both eyes and all related structures Neck: Neck: supple Resp: Effort & Inspection: normal respiratory effort Auscultation: d iminished lung sounds Cardio: Rate: regular rate Rhythm: abnormal rhythm irregularly irregular Heart sounds: Murmur heart sound present systolic GI: GI Palp: Yes Soft to palpation and No Tenderness to palpation present (GI) Auscultation: normal bowel sounds Skin: Other: pallor Neuro: Speech: normal speech Extrem: General: edema bilateral Psych: Mental Status: mental status grossly normal Results Labs 03/22/25 08:39 03/22/25 08:39 Labs: Short CBC 03/22/25 Range/Units 08:39 WBC 5.7 (4.5-10.0) K/mm3 Hgb 7.7 L (14.0-18.0) g/dL Hct 26.9 L (42.0-52.0) % Plt Count 133 L (150-375) k/mm3 [facility] 03/22/25 08:39 Sodium 134 L Potassium 4.2 Chloride 95 L Carbon Dioxide 32 H BUN 79 H Creatinine 3.23 H Glucose 142 H Calcium 9.1 Liver Function 03/22/25 Range/Units 08:39 Total Bilirubin 0.9 (0.2-1.3) mg/dL AST 23 (17-59) U/L ALT 13 (6-50) U/L Alkaline Phosphatase 70 (38-126) U/L Albumin 4.2 (3.5-5.1) g/dL
[2025-03-22] MEDS: GABAPENTIN 300 MG CAPSULE 600 MG BY MOUTH (20:54)
[2025-03-22 23:14] LABS: Total Protein Urine Random 27 mg/dL; Ur Ttl Prot Creatinine Ratio 0.24 mg/mg (0-0.20)
[2025-03-22 23:17] LABS: Urine Eos QC 2nd Tech Confirmed
[2025-03-22 23:23] LABS: Urea Random Urine 415 MG/DL
[2025-03-23] VITALS (15 sets, daily range): BP systolic 64–124; BP diastolic 45–72; PULSE 83–102; RESP 16–20; TEMP 36.6–38.3; O2SAT 92–97
[2025-03-23 05:30] LABS: Hematocrit 26.6 % (42.0-52.0); Hemoglobin 7.5 g/dL (14.0-18.0); Immature Granulocyte Percent A 0.5 % (0-0.5); Lymphocytes Absolute Auto 0.35 K/mm3 (0.9-3.2); Mean Corpuscular HGB Conc 28.2 g/dl (32-36); Mean Corpuscular Hemoglobin 23.2 pg (26-34); Mean Corpuscular Volume 82.4 fl (80-100); Nucleated Red Blood Cells Absolute Auto 0.000 K/mm3 (0.0-0.012); Nucleated Red Blood Cells Perc 0.0 % (0.0-0.2); Platelet Count Result 142 k/mm3 (150-375); Red Blood Count 3.23 M/mm3 (4.6-6.20); White Blood Count 7.7 K/mm3 (4.5-10.0)
[2025-03-23 05:46] LABS: Alanine Aminotransferase 13 U/L (6-50); Albumin Level 4.3 g/dL (3.5-5.1); Alkaline Phosphatase 61 U/L (38-126); Anion Gap 7 mmol/L (4-12); Aspartate Amino Transferase 38 U/L (17-59); Bilirubin,Total 1.0 mg/dL (0.2-1.3); Blood Urea Nitrogen 91 mg/dL (9-20); Calcium 9.3 mg/dL (8.4-10.2); Carbon Dioxide 32 mmol/L (22-30); Chloride 96 mmol/L (98-107); Creatine Kinase 73 U/L (55-170); Estimated CRCL calculation 28 ml/min; Estimated Glomerular Filt Rate 19; Glucose 162 mg/dL (65-110); Potassium 4.6 mmol/L (3.4-5.0); Sodium 135 mmol/L (137-145); Total Protein 7.5 g/dL (6.3-8.2)
[2025-03-23 06:00] LABS: Hypochromasia 1+; Ovalocytes 1+; Schistocytes None Seen
--- NOTE | 2025-03-23 07:17 | P.PNIM_ITS ---
Assessment and Plan Assessment and Plan (1) Severe aortic valve stenosis: Code(s): I35.0 - Nonrheumatic aortic (valve) stenosis Status: Chronic Assessment and Plan: Patient with a history of calcific aortic stenosis with ADAM in the severe range on his most recent echocardiogram from 01/27/2025 ( ADAM 0.9 cm2, V max 3.51 m/sec, mean gradient 25 mmHg). * planned for TAVR later this month with Dr. Hussein * Increased dyspnea on exertion over the past couple of months. Increasing edema that now extends to his genitalia. * patient takes 80 mg furosemide at home. 2.5 mg metolazone every Thursday (patient's cigarette paper tester decreased the dose to weekly due to recent OREN). * 80 mg IVP furosemide b.i.d. * metolazone 2.5 mg every Thursday * monitor I&Os and daily weights * trend renal function * 1500 mL fluid restriction * CXR: minimal rt pleural effusion * EKG: afib w/ aberrant conduction or vent premature complexes, RBBB, RAD * Cardiology consult * Initially started with IV diuresis - shift to p.o. furosemide today (2) OREN (acute kidney injury): Code(s): N17.9 - Acute kidney failure, unspecified Status: Acute Assessment and Plan: OREN on CKD. Cr 3.28 on admission baseline Cr 2.1-2.4 but has overall been trending up this past year. patient does have a history of bladder cancer for which he follows [facility]. * Noted to have urinary retention in the ED- Alicea placed * Nurse driven protocol * will obtain UA * monitor I&Os * continue to monitor renal function * 03/23: Cr 3.28 -> 3.22 * Consult Nephrology for any further recommendations as patient has concurrent CHF exacerbation (3) AMS (altered mental status): Code(s): R41.82 - Altered mental status, unspecified Status: Acute Assessment and Plan: * EKG, initial: Atrial fibrillation with aberrant conduction or ventricular premature complexes, RAD, RBBB * CXR: Minimal right pleural effusion * WBC 7.7, Hgb 7.5 * UA not indicative of infection * telemetry monitoring * Head CT: Pending * Pending labs: Ammonia, phosphorus, magnesium, lactic acid, CK (4) Anemia: Qualifiers: Anemia type: unspecified type Qualified Code(s): D64.9 - Anemia, unspecified Code(s): D64.9 - Anemia, unspecified Status: Acute Assessment and Plan: hemoglobin 7.2. Last month hemoglobin was 7.4 and in August it was 12.5. No signs of bleeding, denies melena. * add iron, TIBC, ferritin, B12, folic acid, and TSH * Vit b12, folate, TSH wnl * Iron low (27ug/dL), TIBC wnl, % sat low (6%) * trend H&H - transfuse if <7 * 1 unit PRBC given on 03/21 * 03/22: Hgb 7.7 * check fecal occult blood * GI consult pending as patient does endorse some recent dark stools * No overt GI bleed, no urgency with scope * Will need clearance from Cardio to proceed with scope (5) Dark stools: Code(s): R19.5 - Other fecal abnormalities Status: Acute Assessment and Plan: * See above * Is now endorsing some recent dark stools within the past week * Hx of hemorrhoids * GI consult * Fecal occult blood pending (6) Diabetes mellitus with renal manifestation: Qualifiers: Diabetes mellitus complication detail: with microalbuminuria Diabetes mellitus terminal make up operator insulin use: unspecified terminal make up operator insulin use status Di abetes mellitus type: type 2 Qualified Code(s): E11.29 - Type 2 diabetes mellitus with other diabetic kidney complication; R80.9 - Proteinuria, unspecified Code(s): E11.29 - Type 2 diabetes mellitus with other diabetic kidney complication Status: Chronic Assessment and Plan: * hypoglycemia protocol * POC blood glucose ACHS * correct regimen ordered: low-dose correctional scale * glucoses well controlled (7) Essential hypertension: Code(s): I10 - Essential (primary) hypertension Status: Chronic Assessment and Plan: * continue losartan, metoprolol. Closely monitor BP in setting of increased Lasix dose (8) Atrial fibrillation: Qualifiers: Atrial fibrillation type: longstanding persistent Qualified Code(s): I48.11 - Longstanding persistent atrial fibrillation Code(s): I48.91 - Unspecified atrial fibrillation Status: Chronic Assessment and Plan: * continue metoprolol, Eliquis Subjective Date/time seen: 03/23/25 07:17 Interval history: 69-year-old male with past medical history of CHF, DM2, AFib on Eliquis, bladder cancer,hypertension, severe aortic stenosis presents to the ED on 03/20/2025 with complaints of worsening bilateral lower extremity swelling that has extended to his groin and testicles. 03/23/2025 Patient sitting in chair at bedside during examination. Upon initil examination, the patient was difficult to rouse, was limited in his responses and had difficulty keeping his eyes open. Upon finding the nursing and returning to the patient, he was still in his chair although was very responsive and did not remember the previous interaction whatsoever. Will order head CT, ammonia, EEG and neurology consult for workup for altered mental status. Remains without leukocytosis, however does have slight fever of 100.9F. Kidney function remains impaired. Review of Systems Review of Systems: All systems reviewed & are unremarkable except as noted in HPI and below Exam Narrative: GENERAL: non-toxic appearing, in no acute distress. HEAD: Normocephalic, atraumatic. EYES: PERRLA. Conjunctivae clear. EARS: NOSE: Normal no drainage. THROAT: Pharynx clear, no exudate. NECK: Trachea midline. Thyroid not palpable. No adenopathy, no masses. RESPIRATORY: Airway patent, respirations nonlabored. CTA. CARDIOVASCULAR: Regular rate and rhythm without murmurs, rubs, or gallops. BREASTS: Defer GASTROINTESTINAL: Abdomen is soft and nontender. No organomegaly. Bowel sounds normal in all quadrants. GENITOURINARY: Defer MUSCULOSKELETAL: Moves all extremities. No gross deformities. Moves all extremities well. No calf tenderness. SKIN: Warm, dry, normal color. NEURO: A&O X4. Speech clear PSYCHIATRIC: Normal interaction Const: General: no acute distress HENMT: Mouth: Yes moist mucous membranes Eyes: General: appearance normal, both eyes and all related structures Neck: Neck: supple Lymphatic: lymphadenopathy not noted Resp: Effort & Inspection: normal respiratory effort Auscultation: diminished lung sounds Cardio: Rate: regular rate Heart sounds: Murmur heart sound present GI: Auscultation: normal bowel sounds : Other: Edematous genitalia. No ulcerations or weeping. No erythema Skin: Other: bilateral lower extremity weeping edema. Not tender to palpation. Neuro: Speech: normal speech Extrem: General: edema bilateral Psych: Mental Status: mental status grossly normal Objective Data Vital Signs Vital Signs: Vital Signs - 24 hr 03/22/25 07:51 03/22/25 08:00 03/22/25 08:00 Temperature Pulse Rate 89 75 Respiratory Rate 20 Blood Pressure Pulse Oximetry 94 95 Oxygen Delivery Nasal Cannula Nasal Cannula Oxygen Flow Rate 2 2 03/22/25 09:00 03/22/25 12:00 03/22/25 14:00 Temperature 98.1 F Pulse Rate 68 89 89 Respiratory Rate 14 Blood Pressure 128/65 Pulse Oximetry 100 Oxygen Delivery Oxygen Flow Rate 03/22/25 16:00 03/22/25 20:00 03/22/25 20:00 Temperature Pulse Rate 101 H 94 Respiratory Rate Blood Pressure Pulse Oximetry 100 Oxygen Delivery Nasal Cannula Oxygen Flow Rate 3 03/22/25 20:20 03/22/25 20:53 03/22/25 22:00 Temperature 98.2 F Pulse Rate 100 92 Respiratory Rate 18 Blood Pressure 96/50 L Pulse Oximetry 95 100 Oxygen Delivery Nasal Cannula Oxygen Flow Rate 3 03/23/25 00:00 03/23/25 04:00 Temperature Pulse Rate 92 96 Respiratory Rate Blood Pressure Pulse Oximetry Oxygen Delivery Oxygen Flow Rate Intake/Output Intake/Output: Intake & Output 03/20/25 03/21/25 03/22/25 03/23/25 23:59 23:59 23:59 23:59 Intake Total 360 1330 820 Output Total 3000 1550 Balance 360 -3401 -334 Meds/Results Medications: Active Medications Generic Name Dose Route Start Last Admin Trade Name Freq PRN Reason Stop Dose Admin Apixaban 5 mg 03/20/25 21:00 03/21/25 08:04 Apixaban 5 Mg Tablet PO 5 mg On Hold: 03/21/25 12:04 Q12H GRACIELA Administration Atorvastatin Calcium 20 mg 03/21/25 09:00 03/22/25 09:01 Atorvastatin 20 Mg Tablet BY MOUTH 20 mg DAILY GRACIELA Administration Dextrose 12.5 gm 03/20/25 21:28 Dextrose 50% 25 Gm/50 Ml Syringe IV PUSH PRN PRN Hypoglycemia Protocol Enoxaparin Sodium 30 mg 03/23/25 09:00 Enoxaparin 30 Mg/0.3 Ml Syringe SUB-Q DAILY GRACIELA Finasteride 5 mg 03/21/25 09:00 03/22/25 09:01 Finasteride 5 Mg Tablet PO 5 mg DAILY GRACIELA Administration Fluticasone Propionate 2 spray 03/21/25 09:00 03/22/25 10:34 Fluticasone Propionate 0.05% Na Spr 16 Gm Btl (*Bkc) NASAL 2 spray DAILY GRACIELA Administration Furosemide 80 mg 03/20/25 20:50 03/22/25 17:08 Furosemide Inj 100 Mg/10 Ml Vial IV PUSH 80 mg BID GRACIELA Administration Gabapentin 300 mg 03/20/25 17:00 03/22/25 17:07 Gabapentin 300 Mg Capsule BY MOUTH 300 mg BID GRACIELA Administration Gabapentin 600 mg 03/20/25 21:00 03/22/25 20:54 Gabapentin 300 Mg Capsule BY MOUTH 600 mg HS GRACIELA Administration Glucagon 1 mg 03/20/25 21:28 Glucagon For Inj 1 Mg Vial IM PRN PRN Hypoglycemia Protocol Glucose 15 gm 03/20/25 21:28 Glucose Oral Gel 15 Gm Of Glucse In 37.5 Gm Tube PO PRN PRN Hypoglycemia Protocol Dextrose 1,000 mls @ 100 mls/hr 03/20/25 21:28 Dextrose 5% 1,000 Ml IVPB PRN PRN Hypoglycemia Protocol Insulin Aspart 2 - 5 units 03/21/25 08:00 03/22/25 17:08 Insulin Aspart (*Bkc) 100 Units/Ml SUB-Q Not Given TIDWM GRACIELA Protocol Losartan Potassium 25 mg 03/21/25 09:00 03/22/25 09:00 Losartan Potassium 25 Mg Tablet BY MOUTH 25 mg DAILY GRACIELA Administration Magnesium Oxide 400 mg 03/20/25 21:00 03/22/25 20:52 Magnesium Oxide 400 Mg Tablet BY MOUTH 400 mg Q12HR GRACIELA Administration Metolazone 2.5 mg 03/25/25 09:00 Metolazone 2.5 Mg Tablet PO Sa@0900 [facility] Metoprolol Tartrate 25 mg 03/20/25 21:00 03/22/25 20:53 Metoprolol Tartrate 25 Mg Tablet BY MOUTH 25 mg Q12HR GRACIELA Administration Spironolactone 50 mg 03/21/25 09:00 03/22/25 09:01 Spironolactone 50 Mg Tablet BY MOUTH 50 mg QAM GRACIELA Administration Tramadol HCl 50 mg 03/20/25 16:58 Tramadol Hcl (*Crx) 50 Mg Tablet PO BID PRN Pain Radiology Results: ITS Impressions Chest X-Ray 03/21/25 08:23 IMPRESSION: 1. Minimal right pleural effusion. Renal Ultrasound 03/22/25 17:13 Impression: No acute abnormality. Labs Labs: Laboratory Results - last 24 hr 03/22/25 03/22/25 03/22/25 07:53 08:39 11:34 WBC 5.7 RBC 3.34 L Hgb 7.7 L Hct 26.9 L MCV 80.5 MCH 23.1 L MCHC 28.6 L RDW 16.4 H Plt Count 133 L MPV 9.5 Immature Gran % (Auto) 0.7 H Neut % (Auto) 79.0 H Lymph % (Auto) 6.8 L [place] % (Auto) 10.3 H Eos % (Auto) 3.0 Baso % (Auto) 0.2 Lymph # (Auto) 0.39 L [place] # (Auto) 0.6 Eos # (Auto) 0.2 Baso # (Auto) 0.0 Abs Immat Gran (auto) 0.04 H Absolute Neuts (auto) 4.5 Absolute Nucleated RBC 0.000 Band Neutrophils % Not Reportable Nucleated RBC % 0.0 Platelet Estimate Decreased Hypochromasia 2+ Anisocytosis 1+ Ovalocytes 1+ Schistocytes None seen Sodium 134 L Potassium 4.2 Chloride 95 L Carbon Dioxide 32 H Anion Gap 7 BUN 79 H Creatinine 3.23 H Estim Creat Clear Calc 28 Estimated GFR 19 L Glucose 142 H POC Capillary Glucose 137 H 163 H Calcium 9.1 Total Bilirubin 0.9 AST 23 ALT 13 Alkaline Phosphatase 70 Total Creatine Kinase Total Protein 7.4 Albumin 4.2 Urine Eosinophils U Random Total Protein Ur Random Sodium Ur Random Urea Urine Creatinine Protein/Creat Ratio 2 03/22/25 03/22/25 03/22/25 17:01 20:25 22:45 WBC RBC Hgb Hct MCV MCH MCHC RDW Plt Count MPV Immature Gran % (Auto) Neut % (Auto) Lymph % (Auto) [place] % (Auto) Eos % (Auto) Baso % (Auto) Lymph # (Auto) [place] # (Auto) Eos # (Auto) Baso # (Auto) Abs Immat Gran (auto) Absolute Neuts (auto) Absolute Nucleated RBC Band Neutrophils % Nucleated RBC % Platelet Estimate Hypochromasia Anisocytosis Ovalocytes Schistocytes Sodium Potassium Chloride Carbon Dioxide Anion Gap BUN Creatinine Estim Creat Clear Calc Estimated GFR Glucose POC Capillary Glucose 162 H 148 H Calcium Total Bilirubin AST ALT Alkaline Phosphatase Total Creatine Kinase Total Protein Albumin Urine Eosinophils Rare U Random Total Protein 27 Ur Random Sodium 52 Ur Random Urea 415 Urine Creatinine 110.3 Protein/Creat Ratio 2 0.24 H 03/23/25 04:51 WBC 7.7 RBC 3.23 L Hgb 7.5 L Hct 26.6 L MCV 82.4 MCH 23.2 L MCHC 28.2 L RDW 16.6 H Plt Count 142 L MPV 10.3 Immature Gran % (Auto) 0.5 Neut % (Auto) 82.3 H Lymph % (Auto) 4.6 L [place] % (Auto) 11.7 H Eos % (Auto) 0.8 Baso % (Auto) 0.1 L Lymph # (Auto) 0.35 L [place] # (Auto) 0.9 H Eos # (Auto) 0.1 Baso # (Auto) 0.0 Abs Immat Gran (auto) 0.04 H Absolute Neuts (auto) 6.3 Absolute Nucleated RBC 0.000 Band Neutrophils % Not Reportable Nucleated RBC % 0.0 Platelet Estimate Slightly decreased Hypochromasia 1+ Anisocytosis Ovalocytes 1+ Schistocytes None seen Sodium 135 L Potassium 4.6 Chloride 96 L Carbon Dioxide 32 H Anion Gap 7 BUN 91 H D Creatinine 3.22 H Estim Creat Clear Calc 28 Estimated GFR 19 L Glucose 162 H POC Capillary Glucose Calcium 9.3 Total Bilirubin 1.0 AST 38 ALT 13 Alkaline Phosphatase 61 Total Creatine Kinase 73 Total Protein 7.5 Albumin 4.3 Urine Eosinophils U Random Total Protein Ur Random Sodium Ur Random Urea Urine Creatinine Protein/Creat Ratio 2
[2025-03-23] MEDS: METOPROLOL TARTRATE 25 MG TABLET BY MOUTH ×2 (10:17→19:57)
[2025-03-23] MEDS: ATORVASTATIN 20 MG TABLET BY MOUTH (10:17)
[2025-03-23] MEDS: SPIRONOLACTONE 50 MG TABLET BY MOUTH (10:17)
[2025-03-23] MEDS: MAGNESIUM OXIDE 400 MG TABLET BY MOUTH ×2 (10:17→19:57)
[2025-03-23] MEDS: FINASTERIDE 5 MG TABLET PO (10:17)
[2025-03-23] MEDS: FUROSEMIDE INJ 100 MG/10 ML VIAL 80 MG IV PUSH (10:19)
[2025-03-23] MEDS: GABAPENTIN 300 MG CAPSULE BY MOUTH ×2 (10:19→17:05)
--- NOTE | 2025-03-23 11:26 | P.PNCA_ITS ---
Progress Note: A&P Assessment and Plan (1) Acute exacerbation of CHF (congestive heart failure): Code(s): I50.9 - Heart failure, unspecified Status: Acute Assessment and Plan: * acute on chronic decompensated diastolic heart failure in the setting of valvular disease * Echo 01/2025 showed EF of 57% * patient presented with LE edema and shortness of breath * pBNP of 4900 and CXR with minimal rt pleural effusion * Will shift to p.o. furosemide today, BUN from 79 to 91 * He is also on his home weekly metolazone dose, but may change to more frequent if poor diuresis * will need accurate I&O, monitor renal function and electrolytes closely with diuresis. (2) Severe aortic valve stenosis: Code(s): I35.0 - Nonrheumatic aortic (valve) stenosis Status: Chronic Assessment and Plan: * recent echo in office demonstrated severe aortic stenosis with a valve area of 0.9cm2 * he is planned for TAVR later this month with Dr. Hussein (3) Atrial fibrillation: Qualifiers: Atrial fibrillation type: longstanding persistent Qualified Code(s): I48.11 - Longstanding persistent atrial fibrillation Code(s): I48.91 - Unspecified atrial fibrillation Status: Chronic Assessment and Plan: * chronic atrial fibrillation, rate controlled * Continue with Metoprolol 25 mg BID for rate control * on Eliquis 5 mg BID at home for AC, will hold in setting of anemia requiring transfusion * he is however, anemic and requiring transfusion this am, anemia appears to have been noted last month as well * fecal occult blood pending * would recommend GI consult to weigh in on resuming AC (4) Essential hypertension: Code(s): I10 - Essential (primary) hypertension Status: Chronic Assessment and Plan: * blood pressure well controlled * continue losartan 25 mg daily, Metoprolol 25 mg BID and aldactone 50 mg daily (5) Anemia: Qualifiers: Anemia type: unspecified type Qualified Code(s): D64.9 - Anemia, unspecified Code(s): D64.9 - Anemia, unspecified Status: Acute Assessment and Plan: * hgb improved to 7.7 post transfusion * noted to have Hgb of 7.4 last month, earlier this year however, was 12.5 * source is unclear * FOBT pending * GI consulted * will place on renal dose lovenox 30 mg SQ for DVT prophylaxis as Eliquis on hold (6) OREN (acute kidney injury): Code(s): N17.9 - Acute kidney failure, unspecified Status: Acute Assessment and Plan: * Acute on chronic kidney disease * with creatinine of 3.22 * appears baseline is around 2.2-2.5 * Will monitor closely with diuresis. (7) Diabetes mellitus with renal manifestation: Qualifiers: Diabetes mellitus complication detail: with microalbuminuria Diabetes mellitus manager long term care insulin use: unspecified group home insulin use status Diabetes mellitus type: type 2 Qualified Code(s): E11.29 - Type 2 diabetes mellitus with other diabetic kidney complication; R80.9 - Proteinuria, unspecified Code(s): E11.29 - Type 2 diabetes mellitus with other diabetic kidney complication Status: Chronic Assessment and Plan: * glycemic control as per primary team (8) Obesity (BMI 30-39.9): Code(s): E66.9 - Obesity, unspecified Status: Acute Assessment and Plan: * weight loss encouraged. Subjective Date/time seen: 03/23/25 11:26 Interval history: Date of Service 03/22/25: Patient sitting up in chair. States breathing has improved. Still reports scrotal edema and LE edema. No chest pain or pressure. Date of service 03/23/2025: Sitting up in the chair breathing comfortably on room air. Swelling improving. No chest pain. Review of Systems Review of Systems: All systems reviewed & are unremarkable except as noted in HPI and below Exam Const: General: comfortable and no acute distress Eyes: General: appearance normal, both eyes and all related structures Neck: Neck: supple and no JVD Resp: Effort & Inspection: normal respiratory effort Auscultation: diminished lung sounds Cardio: Rate: regular rate Rhythm: abnormal rhythm irregularly irregular Heart sounds: no gallops, Murmur heart sound present systolic and no rubs Extrem: General: edema bilateral Psych: Mental Status: mental status grossly normal Objective Data Vital Signs Vital Signs: Vital Signs - 24 hr 03/22/25 12:00 03/22/25 14:00 03/22/25 16:00 Temperature 36.7 C Pulse Rate 89 89 101 H Respiratory Rate 14 Blood Pressure 128/65 Pulse Oximetry 100 Oxygen Delivery Oxygen Flow Rate 03/22/25 20:00 03/22/25 20:00 03/22/25 20:20 Temperature Pulse Rate 94 Respiratory Rate Blood Pressure Pulse Oximetry 100 95 Oxygen Delivery Nasal Cannula Nasal Cannula Oxygen Flow Rate 3 3 03/22/25 20:53 03/22/25 22:00 03/23/25 00:00 Temperature 36.8 C Pulse Rate 100 92 92 Respiratory Rate 18 Blood Pressure 96/50 L Pulse Oximetry 100 Oxygen Delivery Oxygen Flow Rate 03/23/25 04:00 03/23/25 06:00 03/23/25 10:17 Temperature 36.6 C Pulse Rate 96 86 99 Respiratory Rate 18 Blood Pressure 102/62 Pulse Oximetry 96 Oxygen Delivery Oxygen Flow Rate Intake/Output Intake/Output: Intake & Output 03/20/25 03/21/25 03/22/25 03/23/25 23:59 23:59 23:59 23:59 Intake Total 360 1330 820 120 Output Total 3000 1550 600 Balance 360 -1670 -730 -480 Meds/Results Medications: Active Medications Generic Name Dose Route Start Last Admin Trade Name Freq PRN Reason Stop Dose Admin Apixaban 5 mg 03/20/25 21:00 03/21/25 08:04 Apixaban 5 Mg Tablet PO 5 mg On Hold: 03/21/25 12:04 Q12H GRACIELA Administration Atorvastatin Calcium 20 mg 03/21/25 09:00 03/23/25 10:17 Atorvastatin 20 Mg Tablet BY MOUTH 20 mg DAILY GRACIELA Administration Dextrose 12.5 gm 03/20/25 21:28 Dextrose 50% 25 Gm/50 Ml Syringe IV PUSH PRN PRN Hypoglycemia Protocol Enoxaparin Sodium 30 mg 03/23/25 09:00 03/23/25 10:24 Enoxaparin 30 Mg/0.3 Ml Syringe SUB-Q Not Given DAILY GRACIELA Finasteride 5 mg 03/21/25 09:00 03/23/25 10:17 Finasteride 5 Mg Tablet PO 5 mg DAILY GRACIELA Administration Fluticasone Propionate 2 spray 03/21/25 09:00 03/23/25 10:19 Fluticasone Propionate 0.05% Na Spr 16 Gm Btl (*Bkc) NASAL Not Given DAILY GRACIELA Furosemide 80 mg 03/20/25 20:50 03/23/25 10:19 Furosemide Inj 100 Mg/10 Ml Vial IV PUSH 80 mg BID GRACIELA Administration Gabapentin 300 mg 03/20/25 17:00 03/23/25 10:19 Gabapentin 300 Mg Capsule BY MOUTH 300 mg BID GRACIELA Administration Gabapentin 600 mg 03/20/25 21:00 03/22/25 20:54 Gabapentin 300 Mg Capsule BY MOUTH 600 mg HS GRACIELA Administration Glucagon 1 mg 03/20/25 21:28 Glucagon For Inj 1 Mg Vial IM PRN PRN Hypoglycemia Protocol Glucose 15 gm 03/20/25 21:28 Glucose Oral Gel 15 Gm Of Glucse In 37.5 Gm Tube PO PRN PRN Hypoglycemia Protocol Dextrose 1,000 mls @ 100 mls/hr 03/20/25 21:28 Dextrose 5% 1,000 Ml IVPB PRN PRN Hypoglycemia Protocol Insulin Aspart 2 - 5 units 03/21/25 08:00 03/23/25 08:00 Insulin Aspart (*Bkc) 100 Units/Ml SUB-Q Not Given TIDWM [facility] Protocol Losartan Potassium 25 mg 03/21/25 09:00 03/23/25 10:18 Losartan Potassium 25 Mg Tablet BY MOUTH Not Given DAILY GRACIELA Magnesium Oxide 400 mg 03/20/25 21:00 03/23/25 10:17 Magnesium Oxide 400 Mg Tablet BY MOUTH 400 mg Q12HR GRACIELA Administration Metolazone 2.5 mg 03/25/25 09:00 Metolazone 2.5 Mg Tablet PO Sa@0900 GRACIELA Metoprolol Tartrate 25 mg 03/20/25 21:00 03/23/25 10:17 Metoprolol Tartrate 25 Mg Tablet BY MOUTH 25 mg Q12HR GRACIELA Administration Spironolactone 50 mg 03/21/25 09:00 03/23/25 10:17 Spironolactone 50 Mg Tablet BY MOUTH 50 mg QAM GRACIELA Administration Tramadol HCl 50 mg 03/20/25 16:58 Tramadol Hcl (*Crx) 50 Mg Tablet PO BID PRN Pain Radiology Results: ITS Impressions Chest X-Ray 03/21/25 08:23 IMPRESSION: 1. Minimal right pleural effusion. Renal Ultrasound 03/22/25 17:13 Impression: No acute abnormality. Labs Labs: Laboratory Results - last 24 hr 03/22/25 03/22/25 03/22/25 07:53 11:34 17:01 WBC RBC Hgb Hct MCV MCH MCHC RDW Plt Count MPV Immature Gran % (Auto) Neut % (Auto) Lymph % (Auto) [place] % (Auto) Eos % (Auto) Baso % (Auto) Lymph # (Auto) [place] # (Auto) Eos # (Auto) Baso # (Auto) Abs Immat Gran (auto) Absolute Neuts (auto) Absolute Nucleated RBC Band Neutrophils % Nucleated RBC % Platelet Estimate Hypochromasia Ovalocytes Schistocytes Sodium Potassium Chloride Carbon Dioxide Anion Gap BUN Creatinine Estim Creat Clear Calc Estimated GFR Glucose POC Capillary Glucose 137 H 163 H 162 H Calcium Total Bilirubin AST ALT Alkaline Phosphatase Total Creatine Kinase Total Protein Albumin Urine Eosinophils U Random Total Protein Ur Random Sodium Ur Random Urea Urine Creatinine Protein/Creat Ratio 2 03/22/25 03/22/25 03/23/25 20:25 22:45 04:51 WBC 7.7 RBC 3.23 L Hgb 7.5 L Hct 26.6 L MCV 82.4 MCH 23.2 L MCHC 28.2 L RDW 16.6 H Plt Count 142 L MPV 10.3 Immature Gran % (Auto) 0.5 Neut % (Auto) 82.3 H Lymph % (Auto) 4.6 L [place] % (Auto) 11.7 H Eos % (Auto) 0.8 Baso % (Auto) 0.1 L Lymph # (Auto) 0.35 L [place] # (Auto) 0.9 H Eos # (Auto) 0.1 Baso # (Auto) 0.0 Abs Immat Gran (auto) 0.04 H Absolute Neuts (auto) 6.3 Absolute Nucleated RBC 0.000 Band Neutrophils % Not Reportable Nucleated RBC % 0.0 Platelet Estimate Slightly decreased Hypochromasia 1+ Ovalocytes 1+ Schistocytes None seen Sodium 135 L Potassium 4.6 Chloride 96 L Carbon Dioxide 32 H Anion Gap 7 BUN 91 H D Creatinine 3.22 H Estim Creat Clear Calc 28 Estimated GFR 19 L Glucose 162 H POC Capillary Glucose 148 H Calcium 9.3 Total Bilirubin 1.0 AST 38 ALT 13 Alkaline Phosphatase 61 Total Creatine Kinase 73 Total Protein 7.5 Albumin 4.3 Urine Eosinophils Rare U Random Total Protein 27 Ur Random Sodium 52 Ur Random Urea 415 Urine Creatinine 110.3 Protein/Creat Ratio 2 0.24 H 03/23/25 07:56 WBC RBC Hgb Hct MCV MCH MCHC RDW Plt Count MPV Immature Gran % (Auto) Neut % (Auto) Lymph % (Auto) [place] % (Auto) Eos % (Auto) Baso % (Auto) Lymph # (Auto) [place] # (Auto) Eos # (Auto) Baso # (Auto) Abs Immat Gran (auto) Absolute Neuts (auto) Absolute Nucleated RBC Band Neutrophils % Nucleated RBC % Platelet Estimate Hypochromasia Ovalocytes Schistocytes Sodium Potassium Chloride Carbon Dioxide Anion Gap BUN Creatinine Estim Creat Clear Calc Estimated GFR Glucose POC Capillary Glucose 146 H Calcium Total Bilirubin AST ALT Alkaline Phosphatase Total Creatine Kinase Total Protein Albumin Urine Eosinophils U Random Total Protein Ur Random Sodium Ur Random Urea Urine Creatinine Protein/Creat Ratio 2
--- NOTE | 2025-03-23 14:01 | PM.PNNEP ---
Subjective Date/time seen: 03/23/25 14:01 Objective Data Vital Signs Vital Signs: Vital Signs Temp Pulse Resp BP Pulse Ox O2 Del Method O2 Flow Rate 03/23/25 14:00 100.9 F H 83 16 123/72 96 03/23/25 12:00 93 03/23/25 10:17 99 03/23/25 08:00 92 03/23/25 06:00 97.8 F 86 18 102/62 96 03/23/25 04:00 96 03/23/25 00:00 92 03/22/25 22:00 98.2 F 92 18 96/50 L 100 03/22/25 20:53 100 03/22/25 20:20 95 Nasal Cannula 3 03/22/25 20:00 94 03/22/25 20:00 100 Nasal Cannula 3 Intake/Output Intake/Output: Intake & Output 03/20/25 03/21/25 03/22/25 03/23/25 23:59 23:59 23:59 23:59 Intake Total 360 1330 820 385 Output Total 3000 1550 1275 Balance 360 -1670 -730 -890 Meds/Results Medications: Active Medications Generic Name Dose Route Start Last Admin Trade Name Freq PRN Reason Stop Dose Admin Apixaban 5 mg 03/20/25 21:00 03/21/25 08:04 Apixaban 5 Mg Tablet PO 5 mg On Hold: 03/21/25 12:04 Q12H GRACIELA Administration Atorvastatin Calcium 20 mg 03/21/25 09:00 03/23/25 10:17 Atorvastatin 20 Mg Tablet BY MOUTH 20 mg DAILY GRACIELA Administration Dextrose 12.5 gm 03/20/25 21:28 Dextrose 50% 25 Gm/50 Ml Syringe IV PUSH PRN PRN Hypoglycemia Protocol Enoxaparin Sodium 30 mg 03/23/25 09:00 03/23/25 10:24 Enoxaparin 30 Mg/0.3 Ml Syringe SUB-Q Not Given DAILY GRACIELA Finasteride 5 mg 03/21/25 09:00 03/23/25 10:17 Finasteride 5 Mg Tablet PO 5 mg DAILY GRACIELA Administration Fluticasone Propionate 2 spray 03/21/25 09:00 03/23/25 10:19 Fluticasone Propionate 0.05% Na Spr 16 Gm Btl (*Bkc) NASAL Not Given DAILY GRACIELA Furosemide 80 mg 03/23/25 17:00 03/23/25 17:05 Furosemide 80 Mg Tablet PO 80 mg BID GRACIELA Administration Gabapentin 300 mg 03/20/25 17:00 03/23/25 17:05 Gabapentin 300 Mg Capsule BY MOUTH 300 mg BID GRACIELA Administration Gabapentin 600 mg 03/20/25 21:00 03/22/25 20:54 Gabapentin 300 Mg Capsule BY MOUTH 600 mg HS GRACIELA Administration Glucagon 1 mg 03/20/25 21:28 Glucagon For Inj 1 Mg Vial IM PRN PRN Hypoglycemia Protocol Glucose 15 gm 03/20/25 21:28 Glucose Oral Gel 15 Gm Of Glucse In 37.5 Gm Tube PO PRN PRN Hypoglycemia Protocol Dextrose 1,000 mls @ 100 mls/hr 03/20/25 21:28 Dextrose 5% 1,000 Ml IVPB PRN PRN Hypoglycemia Protocol Insulin Aspart 2 - 5 units 03/21/25 08:00 03/23/25 17:05 Insulin Aspart (*Bkc) 100 Units/Ml SUB-Q Not Given TIDWM [facility] Protocol Losartan Potassium 25 mg 03/21/25 09:00 03/23/25 10:18 Losartan Potassium 25 Mg Tablet BY MOUTH Not Given DAILY GRACIELA Magnesium Oxide 400 mg 03/20/25 21:00 03/23/25 10:17 Magnesium Oxide 400 Mg Tablet BY MOUTH 400 mg Q12HR GRACIELA Administration Metolazone 2.5 mg 03/25/25 09:00 Metolazone 2.5 Mg Tablet PO Sa@0900 GRACIELA Metoprolol Tartrate 25 mg 03/20/25 21:00 03/23/25 10:17 Metoprolol Tartrate 25 Mg Tablet BY MOUTH 25 mg Q12HR GRACIELA Administration Spironolactone 50 mg 03/21/25 09:00 03/23/25 10:17 Spironolactone 50 Mg Tablet BY MOUTH 50 mg QAM GRACIELA Administration Tramadol HCl 50 mg 03/20/25 16:58 Tramadol Hcl (*Crx) 50 Mg Tablet PO BID PRN Pain Radiology Results: ITS Impressions Chest X-Ray 03/21/25 08:23 IMPRESSION: 1. Minimal right pleural effusion. Renal Ultrasound 03/22/25 17:13 Impression: No acute abnormality. Head CT 03/23/25 18:32 IMPRESSION: 1. Limited examination due to motion artifacts. 2. No definite acute findings. Labs Labs: Laboratory Tests 03/23/25 04:51 03/23/25 04:51 Calcium 9.3 Total Bilirubin 1.0 AST 38 ALT 13 Alkaline Phosphatase 61 Total Creatine Kinase 73 Total Protein 7.5 Albumin 4.3
--- NOTE | 2025-03-23 15:46 | PCNEURO ---
EEG to be perfromed tomorrow 03/23.
[2025-03-23 16:30] LABS: Ammonia < 9 umol/L (9-30); Creatine Kinase 75 U/L (55-170); Magnesium 2.4 mg/dL (1.6-2.3)
[2025-03-23] MEDS: FUROSEMIDE 80 MG TABLET PO (17:05)
--- NOTE | 2025-03-23 17:40 | P.PNGI_ITS ---
Progress Note: A&P Assessment and Plan (1) Acute on chronic anemia: Code(s): D64.9 - Anemia, unspecified Status: Acute Assessment and Plan: anemia probably is multifactorial from advanced renal disease, chf, use of blood thinner, etc he will be high risk for endoscopy evaluation no need of urgent scopes unless obvious bleeding he received blood transfusion on admission will follow as needed (2) Severe aortic valve stenosis: Code(s): I35.0 - Nonrheumatic aortic (valve) stenosis Status: Chronic (3) Acute exacerbation of CHF (congestive heart failure): Code(s): I50.9 - Heart failure, unspecified Status: Acute (4) Atrial fibrillation: Qualifiers: Atrial fibrillation type: longstanding persistent Qualified Code(s): I48.11 - Longstanding persistent atrial fibrillation Code(s): I48.91 - Unspecified atrial fibrillation Status: Chronic (5) Blood thinned due to long-term anticoagulant use: 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 Status: Acute (6) Acute kidney injury superimposed on CKD: Code(s): N17.9 - Acute kidney failure, unspecified; N18.9 - Chronic kidney disease, unspecified Status: Acute (7) Obesity (BMI 30-39.9): Code(s): E66.9 - Obesity, unspecified Status: Acute Subjective Date/time seen: 03/23/25 17:40 Interval history: had low grade fever no signs of gib he is poor historian and gets confused at times Review of Systems Review of Systems: All systems reviewed & are unremarkable except as noted in HPI and below Exam Const: General: comfortable HENMT: Face/Nose/Sinus: Normal nares present Eyes: General: appearance normal, both eyes and all related structures Neck: Neck: supple and no JVD Resp: Effort & Inspection: normal respiratory effort Auscultation: diminished lung sounds Cardio: Rate: regular rate Rhythm: abnormal rhythm irregularly irregular Heart sounds: Murmur heart sound present systolic GI: GI Palp: Yes Soft to palpation and No Tenderness to palpation present (GI) Neuro: Speech: normal speech Other: awake and alert, gets confused sometimes Extrem: General: edema bilateral Psych: Affect: No Hostile affect present Objective Data Vital Signs Vital Signs: Vital Signs - 24 hr 03/22/25 20:00 03/22/25 20:00 03/22/25 20:20 Temperature Pulse Rate 94 Respiratory Rate Blood Pressure Pulse Oximetry 100 95 Oxygen Delivery Nasal Cannula Nasal Cannula Oxygen Flow Rate 3 3 03/22/25 20:53 03/22/25 22:00 03/23/25 00:00 Temperature 98.2 F Pulse Rate 100 92 92 Respiratory Rate 18 Blood Pressure 96/50 L Pulse Oximetry 100 Oxygen Delivery Oxygen Flow Rate 03/23/25 04:00 03/23/25 06:00 03/23/25 08:00 Temperature 97.8 F Pulse Rate 96 86 92 Respiratory Rate 18 Blood Pressure 102/62 Pulse Oximetry 96 Oxygen Delivery Oxygen Flow Rate 03/23/25 10:17 03/23/25 12:00 03/23/25 14:00 Temperature 100.9 F H Pulse Rate 99 93 83 Respiratory Rate 16 Blood Pressure 123/72 Pulse Oximetry 96 Oxygen Delivery Oxygen Flow Rate 03/23/25 16:00 Temperature Pulse Rate 99 Respiratory Rate Blood Pressure Pulse Oximetry Oxygen Delivery Oxygen Flow Rate Intake/Output Intake/Output: Intake & Output 03/20/25 03/21/25 03/22/25 03/23/25 23:59 23:59 23:59 23:59 Intake Total 360 1330 820 190 Output Total 3000 1550 600 Balance 284 -1670 -730 -410 Meds/Results Medications: Active Medications Generic Name Dose Route Start Last Admin Trade Name Freq PRN Reason Stop Dose Admin Apixaban 5 mg 03/20/25 21:00 03/21/25 08:04 Apixaban 5 Mg Tablet PO 5 mg On Hold: 03/21/25 12:04 Q12H GRACIELA Administration Atorvastatin Calcium 20 mg 03/21/25 09:00 03/23/25 10:17 Atorvastatin 20 Mg Tablet BY MOUTH 20 mg DAILY GRACIELA Administration Dextrose 12.5 gm 03/20/25 21:28 Dextrose 50% 25 Gm/50 Ml Syringe IV PUSH PRN PRN Hypoglycemia Protocol Enoxaparin Sodium 30 mg 03/23/25 09:00 03/23/25 10:24 Enoxaparin 30 Mg/0.3 Ml Syringe SUB-Q Not Given DAILY GRACIELA Finasteride 5 mg 03/21/25 09:00 03/23/25 10:17 Finasteride 5 Mg Tablet PO 5 mg DAILY GRACIELA Administration Fluticasone Propionate 2 spray 03/21/25 09:00 12/11/25 10:19 Fluticasone Propionate 0.05% Na Spr 16 Gm Btl (*Bkc) NASAL Not Given DAILY [facility] Furosemide 80 mg 03/23/25 17:00 03/23/25 17:05 Furosemide 80 Mg Tablet PO 80 mg BID GRACIELA Administration Gabapentin 300 mg 03/20/25 17:00 03/23/25 17:05 Gabapentin 300 Mg Capsule BY MOUTH 300 mg BID GRACIELA Administration Gabapentin 600 mg 03/20/25 21:00 03/22/25 20:54 Gabapentin 300 Mg Capsule BY MOUTH 600 mg HS GRACIELA Administration Glucagon 1 mg 03/20/25 21:28 Glucagon For Inj 1 Mg Vial IM PRN PRN Hypoglycemia Protocol Glucose 15 gm 03/20/25 21:28 Glucose Oral Gel 15 Gm Of Glucse In 37.5 Gm Tube PO PRN PRN Hypoglycemia Protocol Dextrose 1,000 mls @ 100 mls/hr 03/20/25 21:28 Dextrose 5% 1,000 Ml IVPB PRN PRN Hypoglycemia Protocol Insulin Aspart 2 - 5 units 03/21/25 08:00 03/23/25 17:05 Insulin Aspart (*Bkc) 100 Units/Ml SUB-Q Not Given TIDWM [facility] Protocol Losartan Potassium 25 mg 03/21/25 09:00 03/23/25 10:18 Losartan Potassium 25 Mg Tablet BY MOUTH Not Given DAILY [facility] Magnesium Oxide 400 mg 03/20/25 21:00 03/23/25 10:17 Magnesium Oxide 400 Mg Tablet BY MOUTH 400 mg Q12HR GRACIELA Administration Metolazone 2.5 mg 03/25/25 09:00 Metolazone 2.5 Mg Tablet PO Sa@0900 [facility] Metoprolol Tartrate 25 mg 03/20/25 21:00 03/23/25 10:17 Metoprolol Tartrate 25 Mg Tablet BY MOUTH 25 mg Q12HR GRACIELA Administration Spironolactone 50 mg 03/21/25 09:00 03/23/25 10:17 Spironolactone 50 Mg Tablet BY MOUTH 50 mg QAM GRACIELA Administration Tramadol HCl 50 mg 03/20/25 16:58 Tramadol Hcl (*Crx) 50 Mg Tablet PO BID PRN Pain Radiology Results: ITS Impressions Chest X-Ray 03/21/25 08:23 IMPRESSION: 1. Minimal right pleural effusion. Renal Ultrasound 03/22/25 17:13 Impression: No acute abnormality. Labs Labs: Laboratory Results - last 24 hr 03/22/25 03/22/25 03/23/25 20:25 22:45 04:51 WBC 7.7 RBC 3.23 L Hgb 7.5 L Hct 26.6 L MCV 82.4 MCH 23.2 L MCHC 28.2 L RDW 16.6 H Plt Count 142 L MPV 10.3 Immature Gran % (Auto) 0.5 Neut % (Auto) 82.3 H Lymph % (Auto) 4.6 L [place] % (Auto) 11.7 H Eos % (Auto) 0.8 Baso % (Auto) 0.1 L Lymph # (Auto) 0.35 L [place] # (Auto) 0.9 H Eos # (Auto) 0.1 Baso # (Auto) 0.0 Abs Immat Gran (auto) 0.04 H Absolute Neuts (auto) 6.3 Absolute Nucleated RBC 0.000 Band Neutrophils % Not Reportable Nucleated RBC % 0.0 Platelet Estimate Slightly decreased Hypochromasia 1+ Ovalocytes 1+ Schistocytes None seen Sodium 135 L Potassium 4.6 Chloride 96 L Carbon Dioxide 32 H Anion Gap 7 BUN 91 H D Creatinine 3.22 H Estim Creat Clear Calc 28 Estimated GFR 19 L Glucose 162 H POC Capillary Glucose 148 H Lactic Acid Calcium 9.3 Phosphorus Magnesium Total Bilirubin 1.0 AST 38 ALT 13 Alkaline Phosphatase 61 Ammonia Total Creatine Kinase 73 Total Protein 7.5 Albumin 4.3 Urine Eosinophils Rare U Random Total Protein 27 Ur Random Sodium 52 Ur Random Urea 415 Urine Creatinine 110.3 Protein/Creat Ratio 2 0.24 H 03/23/25 03/23/25 03/23/25 07:56 11:59 16:14 WBC RBC Hgb Hct MCV MCH MCHC RDW Plt Count MPV Immature Gran % (Auto) Neut % (Auto) Lymph % (Auto) [place] % (Auto) Eos % (Auto) Baso % (Auto) Lymph # (Auto) [place] # (Auto) Eos # (Auto) Baso # (Auto) Abs Immat Gran (auto) Absolute Neuts (auto) Absolute Nucleated RBC Band Neutrophils % Nucleated RBC % Platelet Estimate Hypochromasia Ovalocytes Schistocytes Sodium Potassium Chloride Carbon Dioxide Anion Gap BUN Creatinine Estim Creat Clear Calc Estimated GFR Glucose POC Capillary Glucose 146 H 151 H Lactic Acid 0.9 Calcium Phosphorus 4.4 Magnesium 2.4 H Total Bilirubin AST ALT Alkaline Phosphatase Ammonia < 9 L Total Creatine Kinase 75 Total Protein Albumin Urine Eosinophils U Random Total Protein Ur Random Sodium Ur Random Urea Urine Creatinine Protein/Creat Ratio 2 03/23/25 16:38 WBC RBC Hgb Hct MCV MCH MCHC RDW Plt Count MPV Immature Gran % (Auto) Neut % (Auto) Lymph % (Auto) [place] % (Auto) Eos % (Auto) Baso % (Auto) Lymph # (Auto) [place] # (Auto) Eos # (Auto) Baso # (Auto) Abs Immat Gran (auto) Absolute Neuts (auto) Absolute Nucleated RBC Band Neutrophils % Nucleated RBC % Platelet Estimate Hypochromasia Ovalocytes Schistocytes Sodium Potassium Chloride Carbon Dioxide Anion Gap BUN Creatinine Estim Creat Clear Calc Estimated GFR Glucose POC Capillary Glucose 146 H Lactic Acid Calcium Phosphorus Magnesium Total Bilirubin AST ALT Alkaline Phosphatase Ammonia Total Creatine Kinase Total Protein Albumin Urine Eosinophils U Random Total Protein Ur Random Sodium Ur Random Urea Urine Creatinine Protein/Creat Ratio 2
[2025-03-23] MEDS: GABAPENTIN 300 MG CAPSULE 600 MG BY MOUTH (19:57)
--- NOTE | 2025-03-23 23:20 | ECG_ITS ---
Test Date: 2025-03-23 23:23:02 Measurements Intervals [place] Rate: 101 P: 0 MD: 0 QRS: -7 QRSD: 143 T: 23 QT: 355 QTc: 462 Interpretive Statements ATRIAL FIBRILLATION WITH RAPID VENTRICULAR RESPONSE RIGHT BUNDLE BRANCH BLOCK ABNORMAL ECG Compared to ECG 03/21/2025 07:31:47 HEART RATE HAS INCREASED Electronically Signed On 03-24-2025 06:31:25 PRECONSTRUCTION MANAGER by Kris Wynne D.O.
--- NOTE | 2025-03-23 23:22 | PDCODEBLUE ---
Code Blue Note Code Blue Note Time Arrived at Code Blue: 2250 Initial Rhythm on Arrival: PEA Airway Management: Pt intubated during resuscitation Chest Compressions: In process on arrival to bedside Result of Code Blue: Pt transferred to ICU Cardiac Rhythm Post Code: AFib RVR Code Blue Summary: Nursing staff reports that 10 minutes prior to the code patient had been sitting up in bed in no distress. Patient was on telemetry and patient had sudden drop in his heart rate down to the 30s. Initially it was thought the patient went radiating then arrested. But on review of telemetry it looks like the patient had 2 brief episodes of V-tach followed by PEA. Code was called at 22:49. When I arrived at bedside compressions were in progress. Patient was intubated by ER provider during the course of resuscitation with a 7.5 ET tube measuring 24 at the lip. The patient had received a dose of epinephrine at the time of pulse check patient was still in PEA. The patient received a another dose of epinephrine at the time of pulse check a it was thought that he was still in PA with a rapid rhythm. The patient received an amp of bicarb and an additional amp of epinephrine per ACLS protocol. At the time of the next pulse check we could not feel a pulse in the patient's groin but patient's heart could be seen pounding in his chest. Post stress test dictation blood pressure was initially 120s over 90. Heart rate was in the 120s. The patient was transferred to the ICU. Shortly after arrival to the ICU patient's heart rate had improved down into the low 100s but as the epinephrine cleared from the patient's system he became acutely hypotensive. Patient only had a single peripheral IV and we were not successful in placing another peripheral IV subsequently placed a emergent right IJ. the patient received Levophed through peripheral in till IJ was placed and placement was confirmed. Patient was still having hypotension and Levophed was titrated up to 15 and vasopressin was added. Post arrest cardiac rhythm was atrial fibrillation. No evidence of ST elevation or ischemia on EKG. Initial chest x-ray are x-ray after intubation. I have significant pulmonary edema but repeat x-ray after the patient had been on the ventilator/with central line placement demonstrated a significant improvement in lung dean. Post intubation the patient was difficult to oxygen 8 with the head of the bed laying down the patient was satting 80% despite being on a PEEP of 10. With patient repositioning and in upright position we were able to wean the patient's PEEP to 8. His post intubation ABG demonstrated PO2 of 212 in subsequently we weaned his FiO2 to 50%. He is currently on vent settings of tidal volume 450 peep of 8 rate of 18 and 50% FiO2. Patient is satting 100% as long as head of bed is upright but if patient's head of bed is low word for repositioning he immediately desats down into the 80s. The patient's case was discussed with the dinkey locomotive engineer who recommended CT of the chest abdomen pelvis and brain. The patient had had a noncontrast CT of the head earlier in the day but interpretation was limited due to motion artifact. It looks like the patient had been having some issues with confusion and Neurology had been consulted and an EEG had been ordered earlier in the day. Post code the patient does open his eyes when repositioned and grimaces with painful stimuli. Nursing staff contacted the patient's family and awaiting their arrival. Blood sugar 174 110 minutes was spent in critical care activities. Due to a high probability of clinically significant, life threatening deterioration, the patient required my highest level of preparedness to intervene emergently and I personally spent this critical care time directly and personally managing the patient. This critical care time included obtaining a history; examining the patient; pulse oximetry; ordering and review of studies; arranging urgent treatment with development of a management plan; evaluation of patient's response to treatment; frequent reassessment; and discussions with other providers. It was exclusive of separately billable procedures and treating other patients and teaching time. Please see Assessment and Plan section and the rest of the note for further information on patient assessment and treatment.
--- NOTE | 2025-03-23 23:23 | PC.NURSE ---
Patient was AOX3, alert and oriented and was sleeping on his recliner chair. I just gave him his night medicine and did his assessment.He was okay with no any pain and discomfort.He was moved to the bed by his tech.The respiratory therapist was there to provide his breathing treatment then he found that he was unresponsive. Aranza michaels was called at 10:49pm.Then, he was intubated on the floor and then moved to ICU.
[2025-03-23] MEDS: SODIUM CHLORIDE 0.9% IV 500 ML 999 ML IV CONT (23:25)
[2025-03-23] MEDS: NOREPINEPHRINE 8 MG/D5W 250 ML 8 MG/250 ML BAG 9.38 MG IV CONT (23:32)
[2025-03-23] MEDS: PHENYLEPHRINE 1,000 MCG/10 ML SYRINGE 200 MCG IV PUSH (23:45)
[2025-03-23] MEDS: MAGNESIUM SULF 2 GM/WATER 50ML 2 GM/50 ML BAG IVPB (23:55)
[2025-03-24] VITALS (33 sets, daily range): BP systolic 92–133; BP diastolic 46–73; PULSE 52–94; RESP 18–24; TEMP 36.7–38.3; O2SAT 92–99; BMI 40.6
--- NOTE | 2025-03-24 00:04 | PCRCNOTE ---
2240: RT visited patient for placement on CPAP. He was somewhat rolled to his Right side with obstructed breathing and snoring observed, nasal cannula in place. An attempt to check Oxygen resulted in SpO2 in the 50's. Attempted to rouse the patient with voice and shaking, ineffective; sternal rubbed the patient, again ineffective; apnea noted at this time. Nursing already in route to room due to telemetry showing HR in the 30's. Code called, CPR started, patient intubated and moved to ICU 10; placed on ventilator.
--- NOTE | 2025-03-24 00:16 | WPDPROCEDUR ---
Procedures Central Line Placement Right IJ: Central Line Date: 03/23/25 Central Line Time: 23:30 Performed Emergently - Given emergent patient condition, temporal constraints may have precluded informed consent.: Yes Time Out Performed: Yes Patient Position: trendelenburg Patient placed on monitor/pulse ox: Yes Provider Prep: mask, sterile gown, sterile gloves, Max. sterile barrier precautions, cap and hand hygiene with conventional soap/water or alcohol based hand rub Central line prep: 2% Chlorhexidine scrub Sterile US Technique with sterile gel/sterile probe covers: Yes Central line lumen inserted: triple [place]: 7 Length (cm): 16 Depth of Insertion (cm): 15 Post Procedure: sutured in place, good blood return, all ports aspirated, flushed, capped, transparent dressing, hemostatic product, antimicrobial product, securement product and aseptic technique maintained throughout procedure Patient tolerated procedure: well Complications: none Additional comments: Triple lumen 16 cm central line placed using standard Seldinger technique. Successful placement a line on 1st attempt. Approximately 10 mL of blood loss. Chest x-ray was reviewed and demonstrated tip of central line in the atrium. Central line is good DUs.
[2025-03-24 00:25] LABS: Alveolar/Arterial O2 Gradient 460.0 mmHg; Carboxyhemoglobin 1.5 % THb (0-2.0); Fractional Inspired Oxygen 100 %; HCO3 ABG 25.9 mEq/l (22.0-26.0); Methemoglobin ABG 0.1 %THb (0-1.5); Oxygen Content ABG 11.3 %vol (16.0-22.0); Oxygen Saturation ABG 99.4 % (95.0-100.0); PCO2 ABG 40.8 mmHg (35.0-45.0); PO2 ABG 212.2 mmHg (80.0-100.0); PO2 FiO2 Ratio Arterial Blood 2.12 %; Reduced Hemoglobin 0.2 %THb (0-5.0)
[2025-03-24 00:27] LABS: Modified Allen's Test Pass; Site Drawn LEFT RADIAL
[2025-03-24 00:27] LABS: Hematocrit 24.2 % (42.0-52.0); Hemoglobin 7.0 g/dL (14.0-18.0); Immature Granulocyte Percent A 1.9 % (0-0.5); Lymphocytes Absolute Auto 0.17 K/mm3 (0.9-3.2); Mean Corpuscular HGB Conc 28.9 g/dl (32-36); Mean Corpuscular Hemoglobin 23.2 pg (26-34); Mean Corpuscular Volume 80.1 fl (80-100); Nucleated Red Blood Cells Absolute Auto 0.000 K/mm3 (0.0-0.012); Nucleated Red Blood Cells Perc 0.0 % (0.0-0.2); Platelet Count Result 156 k/mm3 (150-375); Red Blood Count 3.02 M/mm3 (4.6-6.20); White Blood Count 11.7 K/mm3 (4.5-10.0)
[2025-03-24 00:28] LABS: Arterial Blood Gas Tidal Volume 450 ml; Arterial Blood Gas Ventilator rate 22 /MIN
[2025-03-24] MEDS: VASOPRESSIN INJ 100 UNITS in DEXTROSE 5% 95 ML IV CONT (00:28)
[2025-03-24 00:37] LABS: Alanine Aminotransferase 167 U/L (6-50); Albumin Level 3.5 g/dL (3.5-5.1); Alkaline Phosphatase 84 U/L (38-126); Anion Gap 7 mmol/L (4-12); Aspartate Amino Transferase 273 U/L (17-59); Bilirubin,Total 1.2 mg/dL (0.2-1.3); Blood Urea Nitrogen 90 mg/dL (9-20); Calcium 8.6 mg/dL (8.4-10.2); Carbon Dioxide 30 mmol/L (22-30); Chloride 98 mmol/L (98-107); Estimated CRCL calculation 24 ml/min; Estimated Glomerular Filt Rate 16; Glucose 185 mg/dL (65-110); Magnesium 3.1 mg/dL (1.6-2.3); Potassium 4.5 mmol/L (3.4-5.0); Sodium 135 mmol/L (137-145); Total Protein 6.1 g/dL (6.3-8.2)
[2025-03-24 00:47] LABS: Anisocytosis 1+; Burr Cells 1+; Hypochromasia 2+; Ovalocytes 1+; Poikilocytosis Occasional; Schistocytes None Seen
[2025-03-24] MEDS: FENTANYL 2,500MCG/NS250ML(*CRX 2,500 MCG/250 ML BAG IV CONT (01:06)
[2025-03-24] MEDS: MIDAZOLAM 100MG/NS 100ML(*CRX) 100 MG/100 ML BAG IV CONT (01:06)
--- NOTE | 2025-03-24 01:21 | ED.PROCEDURE ---
Procedures Intubation Intubation Date: 03/23/25 Intubation Time: 23:00 A pre-procedural Time-Out was completed immediately before starting the procedure and confirmed: Patient Identification, Site, Procedure, Patient Position and the Availability of Requisite Equipment: No Sedative: none Laryngoscope: Rafael ET tube size: 7.5 Tube secured depth (cm): 23 Tube secured location: lips Tube placement confirmation: equal breath sounds bilaterally, no breath sounds over epigastrium and confirmation by capnometry Patient tolerated procedure: no complications Intubation complications: none
[2025-03-24 01:26] LABS: Troponin I 0.247 ng/mL (0.000-0.034)
[2025-03-24 01:37] LABS: MRSA (PCR) NOT DETECTED (NOT DETECTE)
[2025-03-24 04:44] LABS: Alveolar/Arterial O2 Gradient 233.0 mmHg; Carboxyhemoglobin 1.5 % THb (0-2.0); Fractional Inspired Oxygen 50 %; HCO3 ABG 26.9 mEq/l (22.0-26.0); Methemoglobin ABG 0.0 %THb (0-1.5); Oxygen Content ABG 11.1 %vol (16.0-22.0); Oxygen Saturation ABG 96.6 % (95.0-100.0); PCO2 ABG 37.9 mmHg (35.0-45.0); PO2 ABG 80.9 mmHg (80.0-100.0); PO2 FiO2 Ratio Arterial Blood 1.62 %; Reduced Hemoglobin 3.6 %THb (0-5.0)
[2025-03-24 04:46] LABS: Arterial Blood Gas Tidal Volume 450 ml; Arterial Blood Gas Ventilator rate 18 /MIN; Modified Allen's Test Pass; Site Drawn LEFT RADIAL
[2025-03-24] MEDS: CENTRAL LINE FLUSH 10 ML IV PUSH (04:52)
[2025-03-24 05:06] LABS: Hematocrit 24.3 % (42.0-52.0); Hemoglobin 7.2 g/dL (14.0-18.0); Immature Granulocyte Percent A 1.1 % (0-0.5); Lymphocytes Absolute Auto 0.36 K/mm3 (0.9-3.2); Mean Corpuscular HGB Conc 29.6 g/dl (32-36); Mean Corpuscular Hemoglobin 23.4 pg (26-34); Mean Corpuscular Volume 78.9 fl (80-100); Nucleated Red Blood Cells Absolute Auto 0.000 K/mm3 (0.0-0.012); Nucleated Red Blood Cells Perc 0.0 % (0.0-0.2); Platelet Count Result 139 k/mm3 (150-375); Red Blood Count 3.08 M/mm3 (4.6-6.20); White Blood Count 12.1 K/mm3 (4.5-10.0)
[2025-03-24 05:28] LABS: Add Urine Microscopic? YES; Appearance Urine Cloudy (Clear); Glucose Urine UA Negative (Negative); Leukocyte Esterase Ur 3+ LEU/UL (Negative); Need Manual Microscopic Reviewed; Nitrate Urine Negative (Negative); Specific Grav Ur 1.012 (1.001-1.035)
[2025-03-24 05:31] LABS: Hypochromasia 1+
[2025-03-24 05:32] LABS: Anisocytosis 1+; Macrocytosis Occasional (NORMAL); Ovalocytes 1+; Schistocytes None Seen
[2025-03-24 05:55] LABS: Alanine Aminotransferase 226 U/L (6-50); Albumin Level 3.5 g/dL (3.5-5.1); Alkaline Phosphatase 84 U/L (38-126); Anion Gap 8 mmol/L (4-12); Aspartate Amino Transferase 346 U/L (17-59); Bilirubin,Total 1.8 mg/dL (0.2-1.3); Blood Urea Nitrogen 91 mg/dL (9-20); Calcium 8.8 mg/dL (8.4-10.2); Carbon Dioxide 30 mmol/L (22-30); Chloride 97 mmol/L (98-107); Estimated CRCL calculation 24 ml/min; Estimated Glomerular Filt Rate 16; Glucose 227 mg/dL (65-110); Potassium 4.5 mmol/L (3.4-5.0); Sodium 135 mmol/L (137-145); Total Protein 6.0 g/dL (6.3-8.2)
[2025-03-24 06:08] LABS: Troponin I 1.540 ng/mL (0.000-0.034)
[2025-03-24 08:01] LABS: Troponin I 2.010 ng/mL (0.000-0.034)
[2025-03-24] MEDS: MINERAL OIL/WHITE PETROLATUM OINTMENT 1 APPLIC EACH EYE (08:03)
[2025-03-24] MEDS: PANTOPRAZOLE SODIUM IV 40 MG VIAL IV PUSH (08:03)
[2025-03-24] MEDS: CEFEPIME 1 GM in SODIUM CHLORIDE 0.9% IV 50 ML 100 ML IVPB (08:03)
[2025-03-24] MEDS: ENOXAPARIN 30 MG/0.3 ML SYRINGE SUB-Q (08:03)
[2025-03-24] MEDS: VANCOMYCIN 2,000 MG/NS 500 ML 2,000 MG/500 ML BAG 250 MG IVPB (08:04)
[2025-03-24] MEDS: INSULIN ASPART (*BKC) 100 UNITS/ML SUB-Q (08:04)
--- NOTE | 2025-03-24 09:24 | WPDCNINT2 ---
Assessment and Plan Assessment and plan (1) Acute respiratory failure: Code(s): J96.00 - Acute respiratory failure, unspecified whether with hypoxia or hypercapnia Status: Acute Assessment and Plan: Acute Respiratory failure secondary to cardiac arrest pulmonary edema or pleural effusions Patient now intubated and on mechanical ventilation Continue full mechanical ventilation support to prevent hypoxemia/hypercarbia and end organ damage. ABG and PCXR reviewed and will repeat in am. Low tidal volume ventilation strategy to prevent volutrauma Increase PEEP to 8 wean FiO2 to 40% Patient will need dialysis for volume removal for weaning Currently sedated with fentanyl Versed I will hold sedation for a sedation holiday Bronchodilators (2) Shock: Code(s): R57.9 - Shock, unspecified Status: Acute Assessment and Plan: Patient hypotensive post intubation and cardiac arrest His lactic acid was elevated which has now normalized Check procalcitonin level Continue Levophed and vasopressin Patient is overall volume overload is not a candidate for fluid (3) Cardiac arrest: Code(s): I46.9 - Cardiac arrest, cause unspecified Status: Acute Assessment and Plan: Patient has history of AFib, also has severity stenosis. He also is anemic. He also needs evaluation for coronary disease Multiple possible causes for cardiac arrest (4) Severe aortic valve stenosis: Code(s): I35.0 - Nonrheumatic aortic (valve) stenosis Status: Chronic Assessment and Plan: Patient has a severe aortic stenosis and was scheduled for a TAVR procedure on 04/07 Will discuss with Cardiology (5) Atrial fibrillation: Qualifiers: Atrial fibrillation type: longstanding persistent Qualified Code(s): I48.11 - Longstanding persistent atrial fibrillation Code(s): I48.91 - Unspecified atrial fibrillation Status: Chronic Assessment and Plan: Currently on AFib with controlled ventricular rhythm in 60s. Not on anticoagulation-see below (6) Hyperlipidemia, unspecified: Code(s): E78.5 - Hyperlipidemia, unspecified Status: Acute Assessment and Plan: Continue statin (7) Acute exacerbation of CHF (congestive heart failure): Code(s): I50.9 - Heart failure, unspecified Status: Acute Assessment and Plan: CT scan confirm edema pleural effusion He was on diuretics since admission but currently in shock on multiple vasopressors. (8) Fluid overload: Code(s): E87.70 - Fluid overload, unspecified Status: Acute Assessment and Plan: Significant volume overload secondary to congestive heart failure, aortic stenosis, renal failure Patient has been receiving diuretics. Will likely need dialysis for fluid removal. (9) Acute kidney injury superimposed on CKD: Code(s): N17.9 - Acute kidney failure, unspecified; N18.9 - Chronic kidney disease, unspecified Status: Acute Assessment and Plan: Patient has underlying chronic kidney disease with last recorded creatinine of 2.49 in February presented with elevated creatinine. Creatinine is 3.82. CT scan does not show any obstruction Patient is volume overloaded Electrolytes acceptable Patient will likely need dialysis Nephrology consulted. Will discuss with Nephrology (10) Acute on chronic anemia: Code(s): D64.9 - Anemia, unspecified Status: Acute Assessment and Plan: Patient has chronic anemia but it is very mild. His last hemoglobin reported was 12.5 in August. He presented with a hemoglobin of 7.4. There was concern for GI bleed. His Eliquis was discontinued. He had 1 unit PRBC transfused on 03/21 Patient was evaluated by GI but felt high risk for EGD His hemoglobin has been stable since then He is not on anticoagulation. We have started patient on PPI IV q.12 hours Transfuse additional PRBC if needed (11) UTI (urinary tract infection): Code(s): N39.0 - Urinary tract infection, site not specified Status: Acute Assessment and Plan: UA done yesterday suggestive UTI. Patient had a [place] catheter in Urine culture sent and pending Empiric cefepime (12) Type 2 diabetes mellitus with diabetic neuropathy, unspecified: Code(s): E11.40 - Type 2 diabetes mellitus with diabetic neuropathy, unspecified Status: Acute Assessment and Plan: Patient is currently NPO Change sliding scale to moderate and q.4 hours Plan DVT prophylaxis -currently on Lovenox Stress ulcer prophylaxis -PPI Nutrition -NPO Code Status - Full Code. 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 This critical care time included obtaining a history; examining the patient; pulse oximetry; ordering and review of studies; arranging urgent treatment with development of a management plan; evaluation of patient's response to treatment; frequent reassessment; and discussions with other providers. It was exclusive of separately billable procedures and treating other patients and teaching time. 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 HPI: Angelito Lai is a 69 year old male with past medical history of congestive heart failure, type 2 diabetes, AFib on Eliquis, bladder cancer, hypertension, severe aortic stenosis who was scheduled for a TAVR procedure on 04/07 at [facility] presented to [facility] on 03/20 with chief complaint of swelling of his legs. Patient reported worsening lower extremity edema overview days to weeks prior to presentation. He was found to be anemic with elevated creatinine of 3.28 and elevated BNP of 4900. Patient was on room air. Patient was admitted and Cardiology and Nephrology was consulted. Patient was also evaluated by GI for his anemia Gastroenterology felt patient was too high risk with EGD and recommended conservative management unless there were signs of active bleeding Patient was also evaluated by Cardiology which recommended continue diuresis, metoprolol and Eliquis Last night patient had he arrest requiring CPR and 2 dose of epinephrine before ROSC was obtained. Patient was intubated and transferred to ICU. Right IJ central venous catheter was placed. Patient was hypotensive post intubation and started on vasopressors. Imaging was done as below. This morning when I evaluated the patient he is on Levophed and vasopressin. He is sedated with Versed and fentanyl. He is on mechanical ventilation. 50% FiO2 and 8 of PEEP No further history is obtainable. Review of system is not obtainable. Review of Systems Review of Systems: ROS unobtainable: Yes unobtainable due to endotracheal tube, unobtainable due to medical condition and unobtainable due to mental status PMFSH Past Medical History Medical History Acute kidney injury superimposed on CKD Blood thinned due to long-term anticoagulant use Acute on chronic anemia Severe aortic valve stenosis SIOBHAN (obstructive sleep apnea) Cirrhosis Hip fracture, left Proteinuria Atrial fibrillation 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 Edema Right acetabular fracture Screening for prostate cancer Essential (primary) hypertension Hepatic fibrosis Hyperlipidemia, unspecified Other hyperlipidemia (Unknown) Type 2 diabetes mellitus with diabetic neuropathy, unspecified Surgical History Surgical History Hx of cystoscopy Family History Family History Sibling Family history of multiple sclerosis Patient's sister is in good health Patient's brother is in good health Father Hypertension Family history of diabetes mellitus in first degree relative Diabetes mellitus Mother Family history of malignant neoplasm Patient's mother is Social History Social History Smoking packs per day: 1 Smoking cigarettes per day: 20.0 Years smoked: 10 Smoking pack-years: 10.00 Smoking status: Former smoker Smokeless tobacco user: chewing tobacco Additional smoking assessment comments: Chew tobacco currently daily Alcohol intake: former Alcohol use details: No drinks 13 yrs Substance use: current Substance use type: marijuana Other substance usage details: smoke every couple days Last use: 01/01/23 Lack of Transportation: No Lack of Food: Never True Current Housing: I Have Housing Concerned About Future Housing: No Difficulty Paying Gas/Electric Bills: No Difficulty Paying for Meds: No Currently Unemployed: No Education: Grade School Difficulty w/ Childcare or Family Care: No Living arrangements: with family Additional living arrangements comments: Son Occupation/Education: retired Gender identity (if verbalized by the patient): Male Sexual Orientation (if Verbalized by the Patient): Straight or Heterosexual Spiritual care concerns: No Agree to blood products: Yes Meds Home Medications and Allergies Home Medications ?Medication ?Instructions ?Recorded ?Confirmed ?Type finasteride 5 mg tablet 5 mg PO DAILY 09/02/21 03/20/25 History [id number] acid-vit 1 tablet PO DAILY 09/02/21 03/20/25 History K-lycop 400 mcg-20 mcg-370 mcg tablet (Men's 50 Plus Multivitamin) blood-glucose meter (True Metrix #1 ea 08/06/22 03/21/25 Rx Glucose Meter) blood glucose control, normal #1 ea 09/11/23 03/21/25 Rx (True Metrix Level 2 solution) blood sugar diagnostic (True #200 strips 03/02/24 03/21/25 Rx Metrix Glucose Test Strip) fluticasone propionate 50 2 spray intranasal DAILY #16 mL 07/07/24 03/20/25 Rx mcg/actuation nasal spray,suspension (Flonase Allergy Relief) magnesium oxide 400 mg (241.3 mg See Rx Instructions .Route 07/13/24 03/20/25 Rx magnesium) tablet .COMPLEX #180 tabs apixaban 5 mg tablet (Eliquis) 5 mg PO Q12H 07/28/24 03/20/25 History tramadol 50 mg tablet 50 mg PO BID PRN pain #60 tabs 10/25/24 03/20/25 Rx metolazone 2.5 mg tablet 2.5 mg PO WEEKLY 03/20/25 03/20/25 History atorvastatin 20 mg tablet See Rx Instructions .Route 03/21/25 Rx .COMPLEX #90 tabs furosemide 40 mg tablet See Rx Instructions .Route 03/21/25 Rx .COMPLEX #180 tabs gabapentin 300 mg capsule See Rx Instructions .Route 03/21/25 Rx .COMPLEX #360 caps linagliptin 5 mg tablet (Tradjenta) See Rx Instructions .Route 03/21/25 Rx .COMPLEX #90 tabs losartan 25 mg tablet See Rx Instructions .Route 03/21/25 Rx .COMPLEX #90 tabs metformin 500 mg tablet See Rx Instructions .Route 03/21/25 Rx .COMPLEX #270 tabs metoprolol tartrate 25 mg tablet See Rx Instructions .Route 03/21/25 Rx .COMPLEX #180 tabs spironolactone 50 mg tablet See Rx Instructions .Route 03/21/25 Rx .COMPLEX #90 tabs Allergies Allergy/AdvReac Type Severity Reaction Status Date / Time Iodinated Contrast Media Allergy Intermediate Hives Verified 03/20/25 16:22 Penicillins Allergy Intermediate Hives Verified 03/20/25 16:22 Vital Signs Vital Signs - 24 hr 03/23/25 10:17 03/23/25 12:00 03/23/25 14:00 Temperature 38.3 C H Pulse Rate 99 93 83 Respiratory Rate 16 Blood Pressure 123/72 Pulse Oximetry 96 Oxygen Delivery Oxygen Flow Rate Fraction of Inspired Oxygen 03/23/25 16:00 03/23/25 20:00 03/23/25 20:13 Temperature 36.6 C Pulse Rate 99 97 88 Respiratory Rate 20 Blood Pressure 124/65 Pulse Oximetry 92 Oxygen Delivery Oxygen Flow Rate Fraction of Inspired Oxygen 03/23/25 20:45 03/23/25 23:15 03/23/25 23:21 Temperature Pulse Rate 99 Respiratory Rate Blood Pressure Pulse Oximetry 93 97 Oxygen Delivery Nasal Cannula Mechanical Ventilation Mechanical Ventilation Oxygen Flow Rate 3 Fraction of Inspired Oxygen 50 100 03/23/25 23:32 03/23/25 23:40 03/23/25 23:45 Temperature Pulse Rate 102 H 100 95 Respiratory Rate Blood Pressure 75/52 L 65/45 L 64/45 L Pulse Oximetry Oxygen Delivery Oxygen Flow Rate Fraction of Inspired Oxygen 03/24/25 00:00 03/24/25 00:00 03/24/25 00:25 Temperature Pulse Rate 94 93 Respiratory Rate Blood Pressure Pulse Oximetry 97 97 Oxygen Delivery Mechanical Ventilation Mechanical Ventilation Oxygen Flow Rate Fraction of Inspired Oxygen 50 50 03/24/25 00:28 03/24/25 01:00 03/24/25 01:00 Temperature Pulse Rate 89 92 92 Respiratory Rate Blood Pressure 108/70 106/64 106/64 Pulse Oximetry Oxygen Delivery Oxygen Flow Rate Fraction of Inspired Oxygen 03/24/25 01:00 03/24/25 01:06 03/24/25 01:06 Temperature 36.7 C Pulse Rate 92 89 89 Respiratory Rate 18 18 18 Blood Pressure 106/64 Pulse Oximetry 92 Oxygen Delivery Oxygen Flow Rate Fraction of Inspired Oxygen 03/24/25 02:00 03/24/25 02:00 03/24/25 02:00 Temperature Pulse Rate 89 89 89 Respiratory Rate 18 18 Blood Pressure 129/73 Pulse Oximetry Oxygen Delivery Oxygen Flow Rate Fraction of Inspired Oxygen 03/24/25 02:00 03/24/25 02:00 03/24/25 02:10 Temperature Pulse Rate 89 89 94 Respiratory Rate 18 Blood Pressure 129/73 129/73 Pulse Oximetry 95 98 Oxygen Delivery Mechanical Ventilation Oxygen Flow Rate Fraction of Inspired Oxygen 50 03/24/25 03:00 03/24/25 03:14 03/24/25 04:00 Temperature Pulse Rate 84 78 Respiratory Rate 18 Blood Pressure 133/67 133/67 Pulse Oximetry 97 97 Oxygen Delivery Mechanical Ventilation Oxygen Flow Rate Fraction of Inspired Oxygen 50 03/24/25 04:00 03/24/25 04:00 03/24/25 04:00 Temperature 36.8 C Pulse Rate 77 77 Respiratory Rate 18 Blood Pressure 120/73 Pulse Oximetry 97 Oxygen Delivery Oxygen Flow Rate Fraction of Inspired Oxygen 50 03/24/25 04:00 03/24/25 04:00 03/24/25 04:00 Temperature Pulse Rate 77 77 77 Respiratory Rate 18 Blood Pressure 120/73 120/73 Pulse Oximetry Oxygen Delivery Oxygen Flow Rate Fraction of Inspired Oxygen 03/24/25 04:00 03/24/25 04:55 03/24/25 05:00 Temperature Pulse Rate 77 74 72 Respiratory Rate 18 18 Blood Pressure 116/72 Pulse Oximetry 96 98 Oxygen Delivery Mechanical Ventilation Oxygen Flow Rate Fraction of Inspired Oxygen 50 03/24/25 05:00 03/24/25 06:00 03/24/25 06:00 Temperature 37.1 C Pulse Rate 72 70 73 Respiratory Rate 18 Blood Pressure 116/72 118/65 Pulse Oximetry 98 Oxygen Delivery Oxygen Flow Rate Fraction of Inspired Oxygen 03/24/25 06:00 03/24/25 06:00 03/24/25 06:00 Temperature Pulse Rate 73 73 73 Respiratory Rate 18 Blood Pressure 118/65 118/65 Pulse Oximetry Oxygen Delivery Oxygen Flow Rate Fraction of Inspired Oxygen 03/24/25 06:00 03/24/25 07:00 03/24/25 08:00 Temperature Pulse Rate 73 64 Respiratory Rate 18 18 Blood Pressure 101/59 L Pulse Oximetry 99 97 Oxygen Delivery Mechanical Ventilation Oxygen Flow Rate Fraction of Inspired Oxygen 45 03/24/25 08:00 03/24/25 08:00 03/24/25 08:00 Temperature Pulse Rate 79 83 Respiratory Rate Blood Pressure 108/66 108/66 Pulse Oximetry Oxygen Delivery Oxygen Flow Rate Fraction of Inspired Oxygen 45 03/24/25 08:00 03/24/25 08:00 03/24/25 08:00 Temperature 36.8 C Pulse Rate 74 73 68 Respiratory Rate 18 18 21 H Blood Pressure 108/66 Pulse Oximetry 98 Oxygen Delivery Oxygen Flow Rate Fraction of Inspired Oxygen 03/24/25 08:00 03/24/25 08:24 03/24/25 08:57 Temperature Pulse Rate 70 80 81 Respiratory Rate 18 Blood Pressure 122/73 Pulse Oximetry Oxygen Delivery Oxygen Flow Rate Fraction of Inspired Oxygen 03/24/25 08:59 Temperature Pulse Rate 80 Respiratory Rate 18 Blood Pressure Pulse Oximetry Oxygen Delivery Oxygen Flow Rate Fraction of Inspired Oxygen Exam Narrative: General: Pt is sedated, intubated and on mechanical ventilation Lungs/Chest: Trachea central Coarse BS B/L, breath sounds decreased at bases Cardiac: RRR. Normal S1 S2. No murmurs Circulation: P bilateral dorsalis pedis weak Abdomen: Decreased bowel sounds. Obese. Soft. NT. ND. Extremities: Bilateral pitting edema present, superficial wound on right leg : [place] in place Neurologic: Unable to assess due to sedation. Opens eyes on stimulation PERRL Results Labs 03/24/25 04:55 03/24/25 04:55 Labs: Short CBC 03/24/25 03/24/25 Range/Units 00:15 04:55 WBC 11.7 H 12.1 H (4.5-10.0) K/mm3 Hgb 7.0 L 7.2 L (14.0-18.0) g/dL Hct 24.2 L 24.3 L (42.0-52.0) % Plt Count 156 139 L (150-375) k/mm3 BMP 03/24/25 03/24/25 00:15 04:55 Sodium 135 L 135 L Potassium 4.5 4.5 Chloride 98 97 L Carbon Dioxide 30 30 BUN 90 H 91 H Creatinine 3.83 H 3.82 H Glucose 185 H 227 H Calcium 8.6 8.8 Cardiac Enzymes 03/23/25 03/24/25 03/24/25 Range/Units 16:14 00:15 04:55 Total Creatine Kinase 75 (55-170) U/L Troponin I 0.247 H* 1.540 H* D (0.000-0.034) ng/mL 03/24/25 Range/Units 07:31 Total Creatine Kinase (55-170) U/L Troponin I 2.010 H* D (0.000-0.034) ng/mL Liver Function 03/24/25 03/24/25 Range/Units 00:15 04:55 Total Bilirubin 1.2 1.8 H (0.2-1.3) mg/dL AST 273 H 346 H (17-59) U/L ALT 167 H 226 H (6-50) U/L Alkaline Phosphatase 84 84 (38-126) U/L Albumin 3.5 3.5 (3.5-5.1) g/dL Urine 03/24/25 Range/Units 04:55 Urine Color Yellow (Yellow) Urine Appearance Cloudy H (Clear) Urine pH 5.5 (5.0-9.0) Ur Specific [place] 1.012 (1.001-1.035) Urine Protein 1+ H (Negative) mg/dL Urine Glucose (UA) Negative (Negative) mg/dL
--- NOTE | 2025-03-24 09:35 | P.PNCA_ITS ---
Progress Note: A&P Assessment and Plan (1) Acute exacerbation of CHF (congestive heart failure): Code(s): I50.9 - Heart failure, unspecified Status: Acute (2) Severe aortic valve stenosis: Code(s): I35.0 - Nonrheumatic aortic (valve) stenosis Status: Chronic (3) Atrial fibrillation: Qualifiers: Atrial fibrillation type: longstanding persistent Qualified Code(s): I48.11 - Longstanding persistent atrial fibrillation Code(s): I48.91 - Unspecified atrial fibrillation Status: Chronic (4) Cardiac arrest: Code(s): I46.9 - Cardiac arrest, cause unspecified Status: Acute Plan 69-year-old man with severe aortic stenosis, chronic diastolic heart failure, persistent atrial fibrillation, chronic kidney disease stage IIIA, diabetes, hypertension, and obesity presented with shortness of breath found to have worsening renal function as well as acute on chronic diastolic heart failure for which he has been diuresed whose hospital course was complicated by PEA arrest PEA cardiac arrest -no electrolyte, acidotic, or hypoxic causes -continue to trend troponin to peak and obtain echocardiogram -wean pressors as tolerated -remaining workup per ICU team Acute on Chronic diastolic heart failure -overall does not appear significantly volume overloaded -would recommend Bumex 1 mg p.o. daily -while intubated, can continue Lasix IV daily -lactic acid normal Severe aortic stenosis -would recommend right and left heart cardiac catheterization Longstanding persistent atrial fibrillation -anticoagulation on hold secondary to anemia requiring transfusion -no evidence of bleeding at this time Discussed plan of care with ICU team who will be transferring patient to [facility] for CRRT in light of worsening renal function Subjective Date/time seen: 03/24/25 09:35 Interval history: Patient had an episode of bradycardia followed by PEA arrest yesterday evening. As per reports, patient was doing well without any complaints and no cardiopulmonary symptoms when he suddenly developed bradycardia followed by loss of pulses. Review of Systems Review of Systems: ROS unobtainable: Yes unobtainable due to endotracheal tube Exam Eyes: Pupils: Equal, round and reactive pupils present Neck: Neck: no JVD Resp: Effort & Inspection: normal respiratory effort Other: Ventilatory noise Cardio: Rate: regular rate Rhythm: abnormal rhythm GI: Inspection: distended GI Palp: Yes Soft to palpation Extrem: Other: Minimal edema Objective Data Vital Signs Vital Signs: Vital Signs - 24 hr 03/23/25 10:17 03/23/25 12:00 03/23/25 14:00 Temperature 38.3 C H Pulse Rate 99 93 83 Respiratory Rate 16 Blood Pressure 123/72 Pulse Oximetry 96 Oxygen Delivery Oxygen Flow Rate Fraction of Inspired Oxygen 03/23/25 16:00 03/23/25 20:00 03/23/25 20:13 Temperature 36.6 C Pulse Rate 99 97 88 Respiratory Rate 20 Blood Pressure 124/65 Pulse Oximetry 92 Oxygen Delivery Oxygen Flow Rate Fraction of Inspired Oxygen 03/23/25 20:45 03/23/25 23:15 03/23/25 23:21 Temperature Pulse Rate 99 Respiratory Rate Blood Pressure Pulse Oximetry 93 97 Oxygen Delivery Nasal Cannula Mechanical Ventilation Mechanical Ventilation Oxygen Flow Rate 3 Fraction of Inspired Oxygen 50 100 03/23/25 23:32 03/23/25 23:40 03/23/25 23:45 Temperature Pulse Rate 102 H 100 95 Respiratory Rate Blood Pressure 75/52 L 65/45 L 64/45 L Pulse Oximetry Oxygen Delivery Oxygen Flow Rate Fraction of Inspired Oxygen 03/24/25 00:00 03/24/25 00:00 03/24/25 00:25 Temperature Pulse Rate 94 93 Respiratory Rate Blood Pressure Pulse Oximetry 97 97 Oxygen Delivery Mechanical Ventilation Mechanical Ventilation Oxygen Flow Rate Fraction of Inspired Oxygen 50 50 03/24/25 00:28 03/24/25 01:00 03/24/25 01:00 Temperature Pulse Rate 89 92 92 Respiratory Rate Blood Pressure 108/70 106/64 106/64 Pulse Oximetry Oxygen Delivery Oxygen Flow Rate Fraction of Inspired Oxygen 03/24/25 01:00 03/24/25 01:06 03/24/25 01:06 Temperature 36.7 C Pulse Rate 92 89 89 Respiratory Rate 18 18 18 Blood Pressure 106/64 Pulse Oximetry 92 Oxygen Delivery Oxygen Flow Rate Fraction of Inspired Oxygen 03/24/25 02:00 03/24/25 02:00 03/24/25 02:00 Temperature Pulse Rate 89 89 89 Respiratory Rate 18 18 Blood Pressure 129/73 Pulse Oximetry Oxygen Delivery Oxygen Flow Rate Fraction of Inspired Oxygen 03/24/25 02:00 03/24/25 02:00 03/24/25 02:10 Temperature Pulse Rate 89 89 94 Respiratory Rate 18 Blood Pressure 129/73 129/73 Pulse Oximetry 95 98 Oxygen Delivery Mechanical Ventilation Oxygen Flow Rate Fraction of Inspired Oxygen 50 03/24/25 03:00 03/24/25 03:14 03/24/25 04:00 Temperature Pulse Rate 84 78 Respiratory Rate 18 Blood Pressure 133/67 133/67 Pulse Oximetry 97 97 Oxygen Delivery Mechanical Ventilation Oxygen Flow Rate Fraction of Inspired Oxygen 50 03/24/25 04:00 03/24/25 04:00 03/24/25 04:00 Temperature 36.8 C Pulse Rate 77 77 Respiratory Rate 18 Blood Pressure 120/73 Pulse Oximetry 97 Oxygen Delivery Oxygen Flow Rate Fraction of Inspired Oxygen 50 03/24/25 04:00 03/24/25 04:00 03/24/25 04:00 Temperature Pulse Rate 77 77 77 Respiratory Rate 18 Blood Pressure 120/73 120/73 Pulse Oximetry Oxygen Delivery Oxygen Flow Rate Fraction of Inspired Oxygen 03/24/25 04:00 03/24/25 04:55 03/24/25 05:00 Temperature Pulse Rate 77 74 72 Respiratory Rate 18 18 Blood Pressure 116/72 Pulse Oximetry 96 98 Oxygen Delivery Mechanical Ventilation Oxygen Flow Rate Fraction of Inspired Oxygen 50 03/24/25 05:00 03/24/25 06:00 03/24/25 06:00 Temperature 37.1 C Pulse Rate 72 70 73 Respiratory Rate 18 Blood Pressure 116/72 118/65 Pulse Oximetry 98 Oxygen Delivery Oxygen Flow Rate Fraction of Inspired Oxygen 03/24/25 06:00 03/24/25 06:00 03/24/25 06:00 Temperature Pulse Rate 73 73 73 Respiratory Rate 18 Blood Pressure 118/65 118/65 Pulse Oximetry Oxygen Delivery Oxygen Flow Rate Fraction of Inspired Oxygen 03/24/25 06:00 03/24/25 07:00 03/24/25 08:00 Temperature Pulse Rate 73 64 Respiratory Rate 18 18 Blood Pressure 101/59 L Pulse Oximetry 99 97 Oxygen Delivery Mechanical Ventilation Oxygen Flow Rate Fraction of Inspired Oxygen 45 03/24/25 08:00 03/24/25 08:00 03/24/25 08:00 Temperature Pulse Rate 79 83 Respiratory Rate Blood Pressure 108/66 108/66 Pulse Oximetry Oxygen Delivery Oxygen Flow Rate Fraction of Inspired Oxygen 45 03/24/25 08:00 03/24/25 08:00 03/24/25 08:00 Temperature 36.8 C Pulse Rate 74 73 68 Respiratory Rate 18 18 21 H Blood Pressure 108/66 Pulse Oximetry 98 Oxygen Delivery Oxygen Flow Rate Fraction of Inspired Oxygen 03/24/25 08:00 03/24/25 08:24 03/24/25 08:57 Temperature Pulse Rate 70 80 81 Respiratory Rate 18 Blood Pressure 122/73 Pulse Oximetry Oxygen Delivery Oxygen Flow Rate Fraction of Inspired Oxygen 03/24/25 08:59 Temperature Pulse Rate 80 Respiratory Rate 18 Blood Pressure Pulse Oximetry Oxygen Delivery Oxygen Flow Rate Fraction of Inspired Oxygen Intake/Output Intake/Output: Intake & Output 03/21/25 03/22/25 03/23/25 03/24/25 23:59 23:59 23:59 23:59 Intake Total 1330 820 387.9 694.4 Output Total 3000 1550 1275 650 [facility] -1670 [phone] 44.4 Meds/Results Medications: Active Medications Generic Name Dose Route Start Last Admin Trade Name Freq PRN Reason Stop Dose Admin Dextrose 12.5 gm 03/20/25 21:28 Dextrose 50% 25 Gm/50 Ml Syringe IV PUSH PRN PRN Hypoglycemia Protocol Enoxaparin Sodium 30 mg 03/23/25 09:00 03/24/25 08:03 Enoxaparin 30 Mg/0.3 Ml Syringe SUB-Q 30 mg DAILY GRACIELA Administration Glucagon 1 mg 03/20/25 21:28 Glucagon For Inj 1 Mg Vial IM PRN PRN Hypoglycemia Protocol Glucose 15 gm 03/20/25 21:28 Glucose Oral Gel 15 Gm Of Glucse In 37.5 Gm Tube PO PRN PRN Hypoglycemia Protocol Dextrose 1,000 mls @ 100 mls/hr 03/20/25 21:28 Dextrose 5% 1,000 Ml IVPB PRN PRN Hypoglycemia Protocol Norepinephrine Bitartrate 8 mg in 250 mls @ 3.75 mls/hr 03/23/25 23:30 03/24/25 08:57 Levophed 8 Mg/D5w 250 Ml IV CONT 2 mcg/min .Q24H GRACIELA 3.75 mls/hr Protocol Titration 2 MCG/MIN Vasopressin 100 units/ 100 mls @ 2.4 mls/hr 03/23/25 23:55 03/24/25 08:00 Dextrose IV CONT 0.04 units/min .[id number] GRACIELA 2.4 mls/hr Protocol Titration 0.04 UNITS/MIN Fentanyl Citrate 2,500 mcg in 250 mls @ 0 mls/hr 03/24/25 00:45 03/24/25 08:24 Fentanyl 2,500 Mcg/Ns 250 Ml IV CONT 0 mcg/hr .Q0M GRACIELA 0 mls/hr Protocol Titration Midazolam HCl 100 mg in 100 mls @ 0 mls/hr 03/24/25 00:45 03/24/25 08:59 Versed 100 Mg/Ns 100 Ml IV CONT 0 mg/hr .Q0M GRACIELA 0 mls/hr Protocol Titration Cefepime HCl 1 gm/ Sodium 50 mls @ 100 mls/hr 03/24/25 08:00 03/24/25 08:03 Chloride IVPB 100 mls/hr Q12HR GRACIELA Administration Vancomycin HCl 2,000 mg in 500 mls @ 250 mls/hr 03/24/25 08:15 03/24/25 08:04 Vancomycin 2,000 Mg/Ns 500 Ml IVPB 03/24/25 10:14 250 mls/hr ONCE ONE Administration Insulin Aspart 2 - 5 units 03/24/25 07:15 03/24/25 08:04 Insulin Aspart (*Bkc) 100 Units/Ml SUB-Q 2 units Q6HR GRACIELA Administration Protocol Midazolam HCl 2 mg 03/24/25 00:44 Midazolam Hcl (*Crx) 2 Mg/2 Ml Vial IV PUSH Q5M PRN ventilator asynchrony Multi-Ingred Cream/Lotion/Oil/Oint 1 applic 03/24/25 09:00 03/24/25 08:03 Mineral Oil/White Petrolatum Ointment EACH EYE 1 applic Q12HR GRACIELA Administration Pantoprazole Sodium 40 mg 03/24/25 21:00 Pantoprazole Sodium Iv 40 Mg Vial IV PUSH Q12HR GRACIELA Sodium Chloride 10 ml 03/24/25 06:00 03/24/25 04:52 Central Line Flush IV PUSH 10 ml Q8HR GRACIELA Administration Sodium Chloride 20 ml 03/24/25 00:44 Central Line Flush IV PUSH PRN PRN after blood draws Radiology Results: ITS Impressions Renal Ultrasound 03/22/25 17:13 Impression: No acute abnormality. Head CT 03/24/25 06:49 IMPRESSION: 1. No acute intracranial findings. Abdomen X-Ray 03/24/25 07:49 IMPRESSION: Gastric catheter present within the stomach. Chest/Abdomen/Pelvis CT 03/24/25 08:00 IMPRESSION: 1. Directed noncontrast exam demonstrating bilateral pleural effusions right greater than left along with bilateral infiltrates. 2. Line and tube placement as above. 3. Ascites is also noted in the abdomen and pelvis with cholelithiasis, diverticulosis, and nonobstructing right-sided renal stone. NOTE: Preliminary radiologist report provided by [facility] radiologist/physician. Chest X-Ray 03/24/25 08:07 Impression: Increased CHF Labs Labs: Laboratory Results - last 24 hr 03/23/25 03/23/25 03/23/25 11:59 16:14 16:38 WBC RBC Hgb Hct MCV MCH MCHC RDW Plt Count MPV Immature Gran % (Auto) Neut % (Auto) Lymph % (Auto) Sebastian % (Auto) Eos % (Auto) Baso % (Auto) Lymph # (Auto) Sebastian # (Auto) Eos # (Auto) Baso # (Auto) Abs Immat Gran (auto) Absolute Neuts (auto) Absolute Nucleated RBC Band Neutrophils % Nucleated RBC % Platelet Estimate Hypochromasia Poikilocytosis Anisocytosis Macrocytosis Ovalocytes Harrell Cells Schistocytes Puncture Site ABG pH ABG pCO2 ABG pO2 ABG PO2/FiO2 Ratio ABG HCO3 ABG O2 Saturation ABG O2 Content ABG Base Excess A-a Gradient Oxyhemoglobin Carboxyhemoglobin Methemoglobin Reduced Hemoglobin Total Hemoglobin O2 Delivery Device O2 Liters/Min Minute Volume Vent Rate Vent Mode FiO2 Tidal Volume PEEP Peak Inspir Pressure Pressure Support Sodium Potassium Chloride Carbon Dioxide Anion Gap BUN Creatinine Estim Creat Clear Calc Estimated GFR Glucose POC Capillary Glucose 151 H 146 H Lactic Acid 0.9 Calcium Phosphorus 4.4 Magnesium 2.4 H Total Bilirubin AST ALT Alkaline Phosphatase Ammonia < 9 L Total Creatine Kinase 75 Troponin I Total Protein Albumin Urine Color Urine Appearance Urine pH Ur Specific [place] Urine Protein Urine Glucose (UA) Urine Ketones Ur Blood (Man) Urine Nitrate Urine Bilirubin Urine Urobilinogen Add Ur Microanalysis Leukocyte Esterase Rfl Urine RBC Urine WBC Ur Squamous Epith Cells Urine Bacteria Urine Casts Urine Mucus Nasal MRSA (PCR) 03/23/25 03/23/25 03/24/25 20:32 23:24 00:15 WBC 11.7 H RBC 3.02 L Hgb 7.0 L Hct 24.2 L MCV 80.1 MCH 23.2 L MCHC 28.9 L RDW 17.2 H Plt Count 156 MPV 9.8 Immature Gran % (Auto) 1.9 H Neut % (Auto) 89.5 H Lymph % (Auto) 1.5 L Sebastian % (Auto) 6.5 Eos % (Auto) 0.3 Baso % (Auto) 0.3 Lymph # (Auto) 0.17 L Sebastian # (Auto) 0.8 H Eos # (Auto) 0.0 Baso # (Auto) 0.0 Abs Immat Gran (auto) 0.22 H Absolute Neuts (auto) 10.5 H Absolute Nucleated RBC 0.000 Band Neutrophils % Not Reportable Nucleated RBC % 0.0 Platelet Estimate Slightly decreased Hypochromasia 2+ Poikilocytosis Occasional Anisocytosis 1+ Macrocytosis Ovalocytes 1+ Honorio Cells 1+ Schistocytes None seen Puncture Site ABG pH ABG pCO2 ABG pO2 ABG PO2/FiO2 Ratio ABG HCO3 ABG O2 Saturation ABG O2 Content ABG Base Excess A-a Gradient Oxyhemoglobin Carboxyhemoglobin Methemoglobin Reduced Hemoglobin Total Hemoglobin O2 Delivery Device O2 Liters/Min Minute Volume Vent Rate Vent Mode FiO2 Tidal Volume PEEP Peak Inspir Pressure Pressure Support Sodium 135 L Potassium 4.5 Chloride 98 Carbon Dioxide 30 Anion Gap 7 BUN 90 H Creatinine 3.83 H Estim Creat Clear Calc 24 Estimated GFR 16 L Glucose 185 H POC Capillary Glucose 192 H 174 H Lactic Acid 3.6 H Calcium 8.6 Phosphorus Magnesium 3.1 H Total Bilirubin 1.2 AST 273 H ALT 167 H Alkaline Phosphatase 84 Ammonia Total Creatine Kinase Troponin I 0.247 H* Total Protein 6.1 L Albumin 3.5 Urine Color Urine Appearance Urine pH Ur Specific [place] Urine Protein Urine Glucose (UA) Urine Ketones Ur Blood (Man) Urine Nitrate Urine Bilirubin Urine Urobilinogen Add Ur Microanalysis Leukocyte Esterase Rfl Urine RBC Urine WBC Ur Squamous Epith Cells Urine Bacteria Urine Casts Urine Mucus Nasal MRSA (PCR) 03/24/25 03/24/25 03/24/25 00:19 04:35 04:55 WBC 12.1 H RBC 3.08 L Hgb 7.2 L Hct 24.3 L MCV 78.9 L MCH 23.4 L MCHC 29.6 L RDW 17.2 H Plt Count 139 L MPV 9.2 Immature Gran % (Auto) 1.1 H Neut % (Auto) 87.7 H Lymph % (Auto) 3.0 L Sebastian % (Auto) 7.9 Eos % (Auto) 0.1 Baso % (Auto) 0.2 Lymph # (Auto) 0.36 L Sebastian # (Auto) 1.0 H Eos # (Auto) 0.0 Baso # (Auto) 0.0 Abs Immat Gran (auto) 0.13 H Absolute Neuts (auto) 10.6 H Absolute Nucleated RBC 0.000 Band Neutrophils % Not Reportable Nucleated RBC % 0.0 Platelet Estimate Adequate Hypochromasia 1+ Poikilocytosis Anisocytosis 1+ Macrocytosis Occasional Ovalocytes 1+ Honorio Cells Schistocytes None seen Puncture Site Left radial Left radial ABG pH 7.420 7.469 H ABG pCO2 40.8 37.9 ABG pO2 212.2 H 80.9 ABG PO2/FiO2 Ratio 2.12 1.62 ABG HCO3 25.9 26.9 H ABG O2 Saturation 99.4 96.6 ABG O2 Content 11.3 L 11.1 L ABG Base Excess 1.3 3.0 A-a Gradient 460.0 233.0 Oxyhemoglobin 98.2 94.9 Carboxyhemoglobin 1.5 1.5 Methemoglobin 0.1 0.0 Reduced Hemoglobin 0.2 3.6 Total Hemoglobin 7.8 L* 8.2 L O2 Delivery Device Ventilator Ventilator O2 Liters/Min Not Reportable Not Reportable Minute Volume Not Reportable Not Reportable Vent Rate 22 18 Vent Mode Cmv Cmv FiO2 100 50 Tidal Volume 450 450 PEEP 8 8 Peak Inspir Pressure Not Reportable Not Reportable Pressure Support Not Reportable Not Reportable Sodium 135 L Potassium 4.5 Chloride 97 L Carbon Dioxide 30 Anion Gap 8 BUN 91 H Creatinine 3.82 H Estim Creat Clear Calc 24 Estimated GFR 16 L Glucose 227 H POC Capillary Glucose Lactic Acid 1.3 Calcium 8.8 Phosphorus Magnesium Total Bilirubin 1.8 H AST 346 H ALT 226 H Alkaline Phosphatase 84 Ammonia Total Creatine Kinase Troponin I 1.540 H* D Total Protein 6.0 L Albumin 3.5 Urine Color Yellow Urine Appearance Cloudy H Urine pH 5.5 Ur Specific [place] 1.012 Urine Protein 1+ H Urine Glucose (UA) Negative Urine Ketones Trace H Ur Blood (Man) 3+ H Urine Nitrate Negative Urine Bilirubin Negative Urine Urobilinogen 1.0 Add Ur Microanalysis Reviewed Leukocyte Esterase Rfl 3+ H Urine RBC 51-100 H Urine WBC >100 H Ur Squamous Epith Cells None seen Urine Bacteria 4+ H Urine Casts 11-20 Urine Mucus Present Nasal MRSA (PCR) Not detected 03/24/25 03/24/25 07:18 07:31 WBC RBC Hgb Hct MCV MCH MCHC RDW Plt Count MPV Immature Gran % (Auto) Neut % (Auto) Lymph % (Auto) Sebastian % (Auto) Eos % (Auto) Baso % (Auto) Lymph # (Auto) Sebastian # (Auto) Eos # (Auto) Baso # (Auto) Abs Immat Gran (auto) Absolute Neuts (auto) Absolute Nucleated RBC Band Neutrophils % Nucleated RBC % Platelet Estimate Hypochromasia Poikilocytosis Anisocytosis Macrocytosis Ovalocytes Harrell Cells Schistocytes Puncture Site ABG pH ABG pCO2 ABG pO2 ABG PO2/FiO2 Ratio ABG HCO3 ABG O2 Saturation ABG O2 Content ABG Base Excess A-a Gradient Oxyhemoglobin Carboxyhemoglobin Methemoglobin Reduced Hemoglobin Total Hemoglobin O2 Delivery Device O2 Liters/Min Minute Volume Vent Rate Vent Mode FiO2 Tidal Volume PEEP Peak Inspir Pressure Pressure Support Sodium Potassium Chloride Carbon Dioxide Anion Gap BUN Creatinine Estim Creat Clear Calc Estimated GFR Glucose POC Capillary Glucose 213 H Lactic Acid Calcium Phosphorus Magnesium Total Bilirubin AST ALT Alkaline Phosphatase Ammonia Total Creatine Kinase Troponin I 2.010 H* D Total Protein Albumin Urine Color Urine Appearance Urine pH Ur Specific [place] Urine Protein Urine Glucose (UA) Urine Ketones Ur Blood (Man) Urine Nitrate Urine Bilirubin Urine Urobilinogen Add Ur Microanalysis Leukocyte Esterase Rfl Urine RBC Urine WBC Ur Squamous Epith Cells Urine Bacteria Urine Casts Urine Mucus Nasal MRSA (PCR)
--- NOTE | 2025-03-24 09:45 | PM.PNNEP ---
Subjective Date/time seen: 03/24/25 09:45 Interval history: Follow-up for acute kidney injury/acute renal failure on chronic kidney disease. Events noted overnight/early this morning -- Objective Data Vital Signs Vital Signs: Vital Signs Temp Pulse Resp BP Pulse Ox O2 Del Method O2 Flow Rate 03/24/25 12:00 98.4 F 70 18 101/62 97 03/24/25 12:00 71 18 03/24/25 12:00 74 18 03/24/25 12:00 71 101/62 03/24/25 12:00 64 101/62 03/24/25 11:57 03/24/25 11:56 Mechanical Ventilation 03/24/25 11:15 52 L 97 Mechanical Ventilation 03/24/25 11:00 68 18 92/61 L 98 03/24/25 11:00 99.3 F 70 24 H 122/46 L 99 03/24/25 10:06 78 122/69 03/24/25 10:00 98.4 F 76 18 122/69 97 03/24/25 10:00 73 03/24/25 10:00 68 18 03/24/25 10:00 67 18 03/24/25 10:00 73 122/69 03/24/25 10:00 66 122/69 03/24/25 09:44 64 100/61 03/24/25 09:00 81 18 100/61 99 03/24/25 08:59 80 18 03/24/25 08:57 81 122/73 03/24/25 08:36 64 96 Mechanical Ventilation 03/24/25 08:24 80 18 03/24/25 08:00 70 03/24/25 08:00 98.2 F 68 21 H 108/66 98 03/24/25 08:00 73 18 03/24/25 08:00 74 18 03/24/25 08:00 83 108/66 03/24/25 08:00 79 108/66 03/24/25 08:00 03/24/25 08:00 97 Mechanical Ventilation 03/24/25 07:00 64 18 101/59 L 99 03/24/25 06:00 73 18 03/24/25 06:00 73 18 03/24/25 06:00 73 118/65 03/24/25 06:00 73 118/65 03/24/25 06:00 98.7 F 73 18 118/65 98 03/24/25 06:00 70 03/24/25 05:00 72 116/72 03/24/25 05:00 72 18 116/72 98 03/24/25 04:55 74 96 Mechanical Ventilation 03/24/25 04:00 77 18 03/24/25 04:00 77 18 03/24/25 04:00 77 120/73 03/24/25 04:00 77 120/73 03/24/25 04:00 98.2 F 77 18 120/73 97 03/24/25 04:00 03/24/25 04:00 77 03/24/25 04:00 97 Mechanical Ventilation 03/24/25 03:14 78 133/67 03/24/25 03:00 84 18 133/67 97 03/24/25 02:10 94 98 Mechanical Ventilation 03/24/25 02:00 89 18 129/73 95 03/24/25 02:00 89 129/73 03/24/25 02:00 89 129/73 03/24/25 02:00 89 18 03/24/25 02:00 89 18 03/24/25 01:06 89 18 03/24/25 01:06 89 18 03/24/25 01:00 98.1 F 92 18 106/64 92 03/24/25 01:00 92 106/64 03/24/25 01:00 92 106/64 03/24/25 00:28 89 108/70 03/24/25 00:25 93 97 Mechanical Ventilation 03/24/25 00:00 94 03/24/25 00:00 97 Mechanical Ventilation 03/23/25 23:45 95 64/45 L 03/23/25 23:40 100 65/45 L 03/23/25 23:32 102 H 75/52 L 03/23/25 23:21 99 97 Mechanical Ventilation 03/23/25 23:15 Mechanical Ventilation 03/23/25 20:45 93 Nasal Cannula 3 03/23/25 20:13 97.9 F 88 20 124/65 92 03/23/25 20:00 97 Intake/Output Intake/Output: Intake & Output 03/21/25 03/22/25 03/23/25 03/24/25 23:59 23:59 23:59 23:59 Intake Total 1330 820 387.9 790.0 Output Total 3000 1550 1275 650 [facility]1670 -730 -887.1 140.0 Meds/Results Medications: Active Medications Generic Name Dose Route Start Last Admin Trade Name Freq PRN Reason Stop Dose Admin Apixaban 5 mg 03/20/25 21:00 03/21/25 08:04 Apixaban 5 Mg Tablet PO 5 mg On Hold: 03/21/25 12:04 Q12H GRACIELA Administration Atorvastatin Calcium 20 mg 03/21/25 09:00 03/23/25 10:17 Atorvastatin 20 Mg Tablet BY MOUTH 20 mg DAILY GRACIELA Administration Dextrose 12.5 gm 03/20/25 21:28 Dextrose 50% 25 Gm/50 Ml Syringe IV PUSH PRN PRN Hypoglycemia Protocol Enoxaparin Sodium 30 mg 03/23/25 09:00 03/23/25 10:24 Enoxaparin 30 Mg/0.3 Ml Syringe SUB-Q Not Given DAILY GRACIELA Finasteride 5 mg 03/21/25 09:00 03/23/25 10:17 Finasteride 5 Mg Tablet PO 5 mg DAILY GRACIELA Administration Fluticasone Propionate 2 spray 03/21/25 09:00 03/23/25 10:19 Fluticasone Propionate 0.05% Na Spr 16 Gm Btl (*Bkc) NASAL Not Given DAILY GRACIELA Furosemide 80 mg 03/23/25 17:00 03/23/25 17:05 Furosemide 80 Mg Tablet PO 80 mg BID GRACIELA Administration Gabapentin 300 mg 03/20/25 17:00 03/23/25 17:05 Gabapentin 300 Mg Capsule BY MOUTH 300 mg BID GRACIELA Administration Gabapentin 600 mg 03/20/25 21:00 03/22/25 20:54 Gabapentin 300 Mg Capsule BY MOUTH 600 mg HS GRACIELA Administration Glucagon 1 mg 03/20/25 21:28 Glucagon For Inj 1 Mg Vial IM PRN PRN Hypoglycemia Protocol Glucose 15 gm 03/20/25 21:28 Glucose Oral Gel 15 Gm Of Glucse In 37.5 Gm Tube PO PRN PRN Hypoglycemia Protocol Dextrose 1,000 mls @ 100 mls/hr 03/20/25 21:28 Dextrose 5% 1,000 Ml IVPB PRN PRN Hypoglycemia Protocol Insulin Aspart 2 - 5 units 03/21/25 08:00 03/23/25 17:05 Insulin Aspart (*Bkc) 100 Units/Ml SUB-Q Not Given TIDWM GRACIELA Protocol Losartan Potassium 25 mg 03/21/25 09:00 03/23/25 10:18 Losartan Potassium 25 Mg Tablet BY MOUTH Not Given DAILY [facility] Magnesium Oxide 400 mg 03/20/25 21:00 03/23/25 10:17 Magnesium Oxide 400 Mg Tablet BY MOUTH 400 mg Q12HR GRACIELA Administration Metolazone 2.5 mg 03/25/25 09:00 Metolazone 2.5 Mg Tablet PO Sa@0900 [facility] Metoprolol Tartrate 25 mg 03/20/25 21:00 03/23/25 10:17 Metoprolol Tartrate 25 Mg Tablet BY MOUTH 25 mg Q12HR GRACIELA Administration Spironolactone 50 mg 03/21/25 09:00 03/23/25 10:17 Spironolactone 50 Mg Tablet BY MOUTH 50 mg QAM GRACIELA Administration Tramadol HCl 50 mg 03/20/25 16:58 Tramadol Hcl (*Crx) 50 Mg Tablet PO BID PRN Pain Radiology Results: ITS Impressions Renal Ultrasound 03/22/25 17:13 Impression: No acute abnormality. Head CT 03/24/25 06:49 IMPRESSION: 1. No acute intracranial findings. Abdomen X-Ray 03/24/25 07:49 IMPRESSION: Gastric catheter present within the stomach. Chest/Abdomen/Pelvis CT 03/24/25 08:00 IMPRESSION: 1. Directed noncontrast exam demonstrating bilateral pleural effusions right greater than left along with bilateral infiltrates. 2. Line and tube placement as above. 3. Ascites is also noted in the abdomen and pelvis with cholelithiasis, diverticulosis, and nonobstructing right-sided renal stone. NOTE: Preliminary radiologist report provided by [facility] radiologist/physician. Chest X-Ray 03/24/25 08:07 Impression: Increased CHF Labs Labs: Laboratory Tests 03/24/25 04:55 03/24/25 04:55 Lactic Acid 1.3 Calcium 8.8 Total Bilirubin 1.8 H AST 346 H ALT 226 H Alkaline Phosphatase 84 Troponin I 1.540 H* D Total Protein 6.0 L Albumin 3.5 Procalcitonin 1.9 Urine Color Yellow Urine Appearance Cloudy H Urine pH 5.5 Ur Specific [place] 1.012 Urine Protein 1+ H Urine Glucose (UA) Negative Urine Ketones Trace H Ur Blood (Man) 3+ H Urine Nitrate Negative Urine Bilirubin Negative Urine Urobilinogen 1.0 Add Ur Microanalysis Reviewed Leukocyte Esterase Rfl 3+ H Urine RBC 51-100 H Urine WBC >100 H Ur Squamous Epith Cells None seen Urine Bacteria 4+ H Urine Casts 11-20 Urine Mucus Present Attestation Student Attestation family discussion --
--- NOTE | 2025-03-24 09:55 | PM.EVENT ---
Event Note Event Note Event Note: I spoke to patient's son at bedside and went over the meds from last night and patient's current condition I discussed the patient has severe take stenosis, congestive heart failure, acute on chronic renal failure and cross volume overload and needs dialysis. We also discuss transfer to tertiary hospital for CRRT Patient's son told me that patient had expressed clearly that he does not want hemodialysis. He also states the patient had told him that he was DNR and did not wanted to go on the ventilator in the 1st place. Patient's son is surprised that patient was placed on mechanical ventilation overnight considering his clearly expressed code status. He does not think the patient should be transferred considering he did not want dialysis in the 1st place. I discussed with him option of palliative extubation and comfort care. He states he is going to discuss with his sisters and make further decision. He has decided to make patient DNR as per his wishes at this time.
[2025-03-24] MEDS: MIDAZOLAM HCL (*CRX) 2 MG/2 ML VIAL IV PUSH (09:59)
--- NOTE | 2025-03-24 10:51 | PCNEURO ---
Contacted nurse about EEG. Pt was moved to ICU and may be going on comfort care. Will be contacting me back about plan.
[2025-03-24 11:04] LABS: Procalcitonin 1.9 ng/mL
--- NOTE | 2025-03-24 14:17 | PC.NURSE ---
Family had talked about possibly switching patient to palliative/ comfort care. Family has discussed amongst themselves and have decided to proceed with the palliative care route. Dr Mary made aware. Respiratory therapy made aware.
--- NOTE | 2025-03-24 14:18 | PM.EVENT ---
Event Note Event Note Event Note: I met with patient's son, 2 daughters and other family members in presence of patient's nurse at bedside. After discuss among themselves they have decided, in accordance with pt's wishes, to discontinue all medical therapy and institute comfort measures only. I have explained them that I will use opioids, anxiolytics and other agents on as needed basis to promote comfort and discontinue all medical therapy, lab testing and invasive monitoring. Patient will eventually . They verbalized understanding and agreed to proceed. I placed orders for palliative extubation and comfort measures in the chart.
[2025-03-24] MEDS: MORPHINE SULFATE INJ (*CRX) 10 MG/ML AMP 5 MG IV PUSH (14:40)
[2025-03-24] MEDS: diazePAM INJ (*CRX) 10 MG/2 ML SYRINGE IV PUSH (14:40)
--- NOTE | 2025-03-24 15:09 | PC.NURSE ---
Pt at 1504 03/24/2025. Family at bedside
== END 2025-03-24 15:04 | disposition expired | DRG 306 ==
LOC: ANHED 13:07 → ANH2MED 14:20 → ANHICU 03-23 23:28
PROVIDERS: Internal Medicine; Internal Medicine Nephrology; Nurse Practitioner Adult Health; Nurse Practitioner Family; Physician Assistant; Admitting Provider Family Medicine; Emergency Provider Emergency Medicine; PCP Nurse Practitioner Family; Visit Provider Internal Medicine
DX: I35.0 Nonrheumatic aortic (valve) stenosis (principal); I50.33 Acute on chronic diastolic (congestive) heart failure; J96.00 Acute respiratory failure, unspecified whether with hypoxia or hypercapnia; I13.0 Hypertensive heart and chronic kidney disease with heart failure and stage 1 through stage 4 chronic kidney disease, or unspecified chronic kidney disease; I48.20 Chronic atrial fibrillation, unspecified; N17.9 Acute kidney failure, unspecified; Z68.41 Body mass index [BMI] 40.0-44.9, adult; I95.9 Hypotension, unspecified; R57.0 Cardiogenic shock; I46.9 Cardiac arrest, cause unspecified; R41.82 Altered mental status, unspecified; N18.31 Chronic kidney disease, stage 3a; E78.49 Other hyperlipidemia; G47.33 Obstructive sleep apnea (adult) (pediatric); E11.40 Type 2 diabetes mellitus with diabetic neuropathy, unspecified; E11.22 Type 2 diabetes mellitus with diabetic chronic kidney disease; D64.9 Anemia, unspecified; E11.29 Type 2 diabetes mellitus with other diabetic kidney complication; R80.9 Proteinuria, unspecified; E66.9 Obesity, unspecified; R19.5 Other fecal abnormalities; K64.9 Unspecified hemorrhoids; I45.10 Unspecified right bundle-branch block; R33.9 Retention of urine, unspecified; Z66 Do not resuscitate; Z51.5 Encounter for palliative care; Z79.01 Long term (current) use of anticoagulants; F12.90 Cannabis use, unspecified, uncomplicated; Z79.84 Long term (current) use of oral hypoglycemic drugs; Z99.89 Dependence on other enabling machines and devices; Z85.51 Personal history of malignant neoplasm of bladder
CPT/HCPCS: 31500; 36415; 36430; 36600; 70450; 71045; 71250; 74176; 76770; 80053; 81001; 82140; 82375; 82550; 82570; 82607; 82728; 82746; 82805; 82948; 83050; 83540; 83550; 83605; 83735; 83880; 84100; 84145; 84156; 84300; 84443; 84484; 84540; 85014; 85018; 85025; 85999; 86850; 86900; 86901; 86923; 87040; 87086; 87186; 87641; 92950; 93005; 94002; 99285; A9270; C1751; J0168; J0692; J1650; J1815; J1938; J2250; J2270; J2371; J2470; J2704; J3010; J3360; J3373; J3475; J7030; J7040; J7050; P9016